=== PATIENT | male | born 1965 | race Caucasian/White ===

== ENCOUNTER 2016-07-11 17:36 | Emergency (ER) | payer OTHER ==
[~2016-07-11] VITALS: Ht 167.6 cm; Wt 81.6 kg
[2016-07-11 19:03] LABS: ABSOLUTE BASOPHIL COUNT 0 /CUMM (0.0-0.2); ABSOLUTE EOSINOPHIL COUNT 0.3 /CUMM (0.0-0.7); ABSOLUTE GRANULOCYTE CT 5.3 /CUMM (1.4-6.5); ABSOLUTE LYMPH COUNT 1.9 /CUMM (1.2-3.4); ABSOLUTE MONOCYTE COUNT 0.8 /CUMM (0.10-0.60); BASOPHIL % 0.6 % (0.0-2.0); EOSINOPHIL % 3.5 % (0-5); GRANULOCYTE % 63.5 % (42.2-75.2); HEMATOCRIT 45.5 % (42-52); MEAN CORPUSCULAR HGB 29.1 PG (27.0-31.0); MEAN CORPUSCULAR HGB CONC 33.6 G/DL (33.0-37.0); MEAN CORPUSCULAR VOLUME 86.6 FL (80.0-94.0); MEAN PLATELET VOLUME 10.8 FL (7.4-10.4); PLATELET COUNT 219 /CUMM (130-400); RBC DISTRIBUTION WIDTH 13.3 % (11.5-14.5); RED BLOOD CELL CT 5.26 /CUMM (4.70-6.10); WHITE BLOOD CELL COUNT 8.4 /CUMM (4.8-10.8)
--- NOTE | 2016-07-11 19:52 | ED EYE COMPLAINT ---
History of Present Illness General Chief Complaint: Eye Problems Stated Complaint: PT RT EYE POSSIBLE INFECTION Source: patient, family Exam Limitations: no limitations Vital Signs & Intake/Output Vital Signs & Intake/Output Vital Signs Date Time Temp Pulse Resp B/P B/P Pulse O2 O2 Flow FiO2 Mean Ox Delivery Rate 07/11 1858 98.0 78 20 190/100 07/11 1853 190/92 07/11 181 98.0 85 20 204/90 07/11 1810 97.0 80 20 208/94 96 Room Air 07/11 175 98.6 84 16 223/122 99 Room Air Allergies Coded Allergies: No Known Allergies (07/11/16) Reconcile Medications No Known Home Medications Triage Note: TRIAGE: R EYE PAIN, BLURRY VISION AND TEARING X 2 WEEKS. ENDORSES PHOTOSENSITIVITY. PRESCRIBED EYE GTT WITH NO IMPROVEMENT AND WORSENING SYMPTOMS. STATES IT FEELS "LIKE THERE ARE STONES IN THERE" AND CONCERNED FOR FOREIGN BODY. C/O RIGHT SIDED HEADACHE /10. R SCLERA REDDENED. R PUPIL SLIGHTLY LARGER THAN LEFT, REACTIVE TO LIGHT. DEMONSTRATES GOOD FOCAL CONTROL. HYPERTENSIVE IN TRIAGE 223/122. ACCUCHECK 273 Triage Nurses Notes Reviewed? yes Onset: Gradual Duration: week(s): (2-3) Timing: recent history Injury Environment: home Severity: moderate, severe Modifying Factors: Worsens With: movement, other (eye opening). Right Eye Associated Symptoms: pain, sensitivity to light, blurred vision HPI: 50-year-old male with long-standing history of hypertension and diabetes noncompliant with medications for the past 2 years presents to the chief complaint of right eye pain, redness and diminished vision. On June 27 had a red and irritated eye and went to [facility] clinic. There they put him on tobramycin drops which she used for 2 days. He states the drops did not help and so since that time he's been using [id number] aids for right eye. Yesterday the pain became much worse. He had a hard time driving because of loss of vision. Today he presents to the ER. Systolic blood pressure at 6 pmwas over 220. Patient denies chest pain at this time but has had fluctuating episodes of heaviness. He reports significant diminished vision in the right eye. No left eye complaint he denies any trauma to the eyes. Patient states he has not followed up with medical care last 2 years secondary to insurance issues. Past History Travel History Traveled to [place] past 21 day No Medical History Any Pertinent Medical History? see below for history Cardiovascular: hypertension Endocrine: diabetes Surgical History Surgical History: non-contributory Psychosocial History What is your primary language Czech Tobacco Use: Never used ETOH Use: 6 Illicit Drug Use: denies illicit drug use Family History Hx Contributory? No Review of Systems Review of Systems Constitutional: Denies: chills, fever. Eyes: Reports: blurred vision, decreased acuity, foreign body sensation, pain, photophobia, vision change. Denies: glasses. Ear: Denies: pain. Nose: Denies: pain. Mouth: Reports: no symptoms. Throat: Denies: pain, swelling. Respiratory: Denies: cough, short of breath. Cardiovascular: Denies: chest pain, palpitations. GI: Denies: abdominal pain. Genitourinary: Reports: no symptoms. Musculoskeletal: Reports: no symptoms. Skin: Reports: no symptoms. Neurological/Psychological: Reports: ataxia. Hematologic/Endocrine: Denies: bruising, bleeding. Immunologic/Allergic: Denies: splenectomy. All Other Systems: Reviewed and Negative Physical Exam General Appearance: well developed/nourished, alert, awake, mild distress, moderate distress General Inspection: normal inspection Eyelid: normal inspection Conjunctiva/Sclera: normal inspection Cornea: normal inspection General Inspection: normal inspection, globe firm/tender to touch Eyelid: everted for exam, edema, erythema Conjunctiva/Sclera: injected Cornea: normal inspection EOM: intact Pupil: mid-dilated/fixed Physical Exam Head: atraumatic, normal appearance Nose: active bleeding Mouth/Throat: normal mouth inspection, pharynx normal Neck: normal inspection, supple, full range of motion Cardiovascular/Respiratory: normal breath sounds, normal peripheral pulses, regular rate/rhythm Neurologic/Psych: no motor/sensory deficits, awake, alert, oriented x 3 Skin: intact, normal color, warm/dry Progress Differential Diagnosis: corneal abrasion, corneal foreign body, conjunctivitis, globe rupture, closed angle closure glaucoma iritis uveitis Plan of Care: Orders Procedure Date/time Status TROPONIN LEVEL 07/11 182 Complete COMPREHENSIVE METABOLIC PANEL 07/11 182 Complete CBC WITHOUT DIFFERENTIAL 07/11 1820 Complete EKG 07/11 1756 Active Laboratory Tests 07/11/16 1830: Anion Gap 12, Estimated GFR > 60, BUN/Creatinine Ratio 11.0, Glucose 286 H, Calcium 9.1, Total Bilirubin 0.6, AST 28, ALT 48, Alkaline Phosphatase 134 H, Troponin I 0.03, Total Protein 6.9, Albumin 3.6, Globulin 3.3, Albumin/Globulin Ratio 1.1, CBC w Diff NO MAN DIFF REQ, RBC 5.26, MCV 86.6, MCH 29.1, RDW 13.3, MPV 10.8 H, Gran % 63.5, Lymphocytes % 23.0, Monocytes % 9.4 H, Eosinophils % 3.5, Basophils % 0.6, Absolute Granulocytes 5.3, Absolute Lymphocytes 1.9, Absolute Monocytes 0.8 H, Absolute Eosinophils 0.3, Absolute Basophils 0, PUBS MCHC 33.6 EKG, patient monitor. IV labetalol ordered. Right eye pressures: 54, 56, 74 Left eye pressures: 27, 16, 27 Atenolol, pilocarpine drops administered to the eye. Case discussed with Dr. Stewart who recommends that the patient is transferred to [place] for follow-up and care. He states that the patient is going to have extensive disease secondary to untreated medical issues. Case is discussed with Dr. Aldana at [place] who will accept the patient there for transfer. (YANICK WILSON,VIRIDIANA) Departure Departure Time of Disposition: 1954 Disposition: OTHER GENERAL HOSPITAL (ACUTE) Condition: Stable Clinical Impression Primary Impression: Glaucoma, right eye Secondary Impressions: Hypertensive urgency Referrals: PATIENT HAS NO PRIMARY CARE DR (PCP/Family) Departure Forms: Customer Survey General Discharge Information Prescriptions: Current Visit Scripts No Known Home Medications Critical Care Note Critical Care Note Critical Care Time: 30-74 min
[2016-07-11 20:08] VITALS: BP 190/98
== END 2016-07-11 20:20 | disposition short-term general hospital (02) ==
LOC: ERH 17:36
PROVIDERS: Emergency Medicine
DX: H40.9 Unspecified glaucoma (principal); I10 Essential (primary) hypertension
CPT/HCPCS: 93005; 93010; 96374; 96375; 96376; 99291; J0131

== ENCOUNTER 2016-09-12 00:03 | Emergency (ER) | payer OTHER ==
--- NOTE | 2016-09-12 02:06 | ED GI/GU/ABDOMINAL COMPLAINT ---
History of Present Illness General Chief Complaint: Abdominal Pain/Flank Pain Stated Complaint: FELL FROM BED C/O RT SIDE ABD PAIN Source: patient, family, old records Exam Limitations: no limitations Vital Signs & Intake/Output Vital Signs & Intake/Output Vital Signs Date Time Temp Pulse Resp B/P B/P Pulse O2 O2 Flow FiO2 Mean Ox Delivery Rate 09/12 0147 98.3 88 18 190/94 97 Allergies Coded Allergies: No Known Allergies (07/11/16) Reconcile Medications Cyclopentolate HCl (Unknown Strength) DROPS (Unknown Dose) GLAUCOMA (Reported ) Docusate Sodium (Colace) 100 MG CAPSULE 1 CAP PO TID PRN WITH PERCOCET Ibuprofen 600 MG TABLET 1 TAB PO Q6 PRN PAIN with food Insulin Glargine,Hum.rec.anlog (Lantus Solostar) 100 UNIT/ML (3 ML) INSULN.PEN 30 UNIT SC QPM DIABETES (Reported) Losartan Potassium 50 MG TABLET 1 TAB PO DAILY HIGH BLOOD PRESSURE (Reported) Metformin HCl 1,000 MG TABLET 1 TAB PO BID DIABETES (Reported) Oxycodone HCl/Acetaminophen (Percocet 5-325 MG Tablet) 5 MG-325 MG TABLET 1 TAB PO BID BREAKTHROUGH PAIN Pen Needle, Diabetic (Bd Ultra-Fine Pen Needle) 31 GAUGE X 3/16" DIS.NEEDLE DIABETES (Reported) Triage Nurses Notes Reviewed? yes Onset: Abrupt Duration: hour(s): (FEW) Timing: single episode today Severity Numbers: 10 Location: left flank Activities at Onset: none Modifying Factors: Worsens With: breathing, movement, palpation. Associated Symptoms: CHEST PAIN, FLANK PAIN HPI: This is a 51-year-old male with history of diabetes, hypertension, recent surgery for glaucoma, who presents for chief complaint of severe left flank pain after second fall inside his house on tile floor with wet feet. He states that he did not hit his head or pass out. Pain is severe especially with movement and deep breathing. Complains also of left abdominal pain. He did not take any of his medications for his diabetes this morning including his metformin or his insulin. Past History Medical History Any Pertinent Medical History? see below for history Cardiovascular: hypertension Endocrine: diabetes Surgical History Surgical History: non-contributory Psychosocial History What is your primary language Northern Irish Family History Hx Contributory? No Review of Systems Review of Systems Constitutional: Denies: chills, fever. EENTM: Reports: no symptoms. Respiratory: Reports: short of breath. Denies: cough, sputum production. Cardiovascular: Reports: chest pain. GI: Reports: abdominal pain. Genitourinary: Denies: discharge, dysuria. Musculoskeletal: Reports: back pain. Skin: Reports: no symptoms. Neurological/Psychological: Reports: no symptoms. Hematologic/Endocrine: Denies: bruising, bleeding, polyuria, polydipsia. Immunologic/Allergic: Denies: splenectomy. All Other Systems: Reviewed and Negative Physical Exam Physical Exam General Appearance: well developed/nourished, alert, awake, anxious, mild distress, moderate distress Head: atraumatic, normal appearance Eyes: Bilateral: normal appearance, PERRL, EOMI. Ears, Nose, Throat, Mouth: hearing grossly normal, moist mucous membrane Neck: normal inspection, supple, full range of motion Respiratory: normal breath sounds, no respiratory distress, TENDER LEFT CHEST Cardiovascular: regular rate/rhythm Peripheral Pulses: 2+ radial (R), 2+ radial (L) Gastrointestinal: soft, tenderness (LEFT FLANK) Back: normal inspection, CVA tenderness (L) Extremities: normal range of motion Neurologic/Psych: no motor/sensory deficits, awake, alert, oriented x 3 Core Measures ACS in differential dx? No Severe Sepsis Present: No Septic Shock Present: No Progress Differential Diagnosis: RIB FX, PULMONARY CONTUSION, PTX, RENAL CONTUSION, HYPERGLYCEMIA, DKA, MEDICATION NON COMPLIANCE Plan of Care: Orders Procedure Date/time Status URINALYSIS 09/12 129 Active TROPONIN LEVEL 09/12 129 Complete LIPASE 09/12 129 Complete COMPREHENSIVE METABOLIC PANEL 09/12 129 Complete CBC WITHOUT DIFFERENTIAL 09/12 129 Complete AMYLASE 09/12 129 Complete Laboratory Tests 09/12/16 0140: Anion Gap 10, Estimated GFR > 60, BUN/Creatinine Ratio 26.7 H, Glucose 514 *H, Calcium 9.0, Total Bilirubin 0.5, AST 27, ALT 35, Alkaline Phosphatase 195 H, Troponin I 0.03, Total Protein 6.6, Albumin 3.9, Globulin 2.7, Albumin/Globulin Ratio 1.4, Amylase 66, Lipase 285, CBC w Diff NO MAN DIFF REQ, RBC 4.48 L, MCV 85.4, MCH 28.9, RDW 13.8, MPV 10.2, Gran % 76.3 H, Lymphocytes % 13.0 L, Monocytes % 7.8, Eosinophils % 2.6, Basophils % 0.3, Absolute Granulocytes 7.9 H, Absolute Lymphocytes 1.3, Absolute Monocytes 0.8 H, Absolute Eosinophils 0.3 , Absolute Basophils 0, PUBS MCHC 33.9 PAIN IMPROVED AFTER IV DILAUDID. INCREASED BLOOD GLUCOSE BUT NO EVIDENCE OF DKA. PATIENT DID NOT TAKE HIS EVENING LANTUS. INSULIN, FLUIDS ORDERED. CT PENDING. CT CONSISTENT WITH POSTERIOR RIB FRACTURES ON THE LEFT SIDE. NO PTX. PAIN IS MUCH IMPROVED. ZOFRAN GIVEN FOR NAUSEA. 4:35 am patient cleared for discharge home. told to return for any changing or worsening symptoms. (YANICK WILSON,VIRIDIANA) Diagnostic Imaging: Viewed by Me: CT Scan. Discussed w/RAD: CT Scan. Radiology Impression: PATIENT: GIAN DEAL PRESENT AGE: 51 PATIENT ACCOUNT NO: [id number] : 66 LOCATION: [facility] ORDERING PHYSICIAN: VIRIDIANA HERNDON MD SERVICE DATE: 09/12/16 EXAM TYPE: CAT - CT ABD & PELVIS W IV CONTRAST; CT CHEST W IV CONTRAST EXAMINATION: CT CHEST, ABDOMEN AND PELVIS WITH CONTRAST CLINICAL INFORMATION: Fall. Shortness of breath. COMPARISON: None. TECHNIQUE: Multidetector volumetric CT imaging of the chest, abdomen and pelvis was obtained after the administration of 95 mL of intravenous Optiray 320 without immediate adverse reactions. DLP: 1006.08 mGy- cm. FINDINGS: CT CHEST: Lungs: The lungs are clear with no evidence of inflammation or nodules. Mediastinum: The mediastinum is normal. Pleura: There is no pleural effusion. No pleural mass or thickening. Axilla: No lymphadenopathy. CT ABDOMEN AND PELVIS: LIVER, GALLBLADDER, AND BILIARY TREE: The liver is normal in size, shape, and attenuation. No focal hepatic lesion or biliary ductal dilatation is present. Multiple small calcified gallstones in the gallbladder. No edema around the gallbladder. The gallbladder is distended. No bile duct dilatation. The extrahepatic CBD measures 4 mm. PANCREAS: No acute change of the pancreas. No mass. No pancreatic duct dilatation. SPLEEN: Spleen normal in size and contour. No focal lesion. ADRENAL GLANDS: Adrenal glands are normal in size. No focal mass. KIDNEYS AND URETERS: The kidneys are normal in size, shape, and attenuation. No hydronephrosis, hydroureter, or calculi seen. No perinephric stranding. BLADDER: Unremarkable. GASTROINTESTINAL TRACT: The small and large bowel are unremarkable. The appendix is unremarkable. MESENTERY: No focal inflammation. No free fluid. No free air. ABDOMINAL WALL: No significant hernia is appreciated. LYMPH NODES: Normal. VASCULAR: Unremarkable. PELVIC VISCERA: Unremarkable. OSSEOUS STRUCTURES: There is fracture of the posterior 12th, 11th, 10th right ribs. Degenerative spondylosis of spine with multilevel endplate spurs and facet joint arthrosis. Status post laminectomy L4- L5. Mild degenerative change of the hips bilateral. IMPRESSION: 1. Fracture of the right 10th through 12th ribs posteriorly. Spleen is normal. No pneumothorax or pleural effusion. Lungs are clear. 2. Cholelithiasis. DICTATED BY: CARLA POLO MD DATE/TIME DICTATED:09/12/16309 PROGRESSIVE CARE UNIT REGISTERED NURSE:KERI DATE/TIME TRANSCRIBED:09/12/16309 CONFIDENTIAL, DO NOT COPY WITHOUT APPROPRIATE AUTHORIZATION. <Electronically signed in Other Vendor System> SIGNED BY: CARLA POLO MD 09/12/16 0321 Initial ED EKG: none Departure Departure Time of Disposition: 442 Disposition: HOME OR SELF CARE Condition: Stable Clinical Impression Primary Impression: Left rib fracture Secondary Impressions: Hyperglycemia Referrals: WALKER OZUNA APRN (PCP/Family) Additional Instructions: TAKE THE IBUPROFEN AND PERCOCET DIRECTED. CONTINUE YOUR REGULAR DIABETIC MEDICATIONS AND MONITOR YOUR BLOOD GLUCOSE REGULARLY. PLEASE FOLLOW UP WITH YOUR PRIMARY CARE DOCTOR IN THE OFFICE. RETURN TO THE ER FOR ANY CHANGING OR WORSENING SYMPTOMS. Departure Forms: Customer Survey General Discharge Information Prescriptions: Current Visit Scripts Ibuprofen 1 TAB PO Q6 PRN PAIN #30 TAB with food Oxycodone HCl/Acetaminophen (Percocet 5-325 MG Tablet) 1 TAB PO BID #15 TAB Docusate Sodium (Colace) 1 CAP PO TID PRN WITH PERCOCET #30 CAP
[2016-09-12 02:16] LABS: ABSOLUTE BASOPHIL COUNT 0 /CUMM (0.0-0.2); ABSOLUTE EOSINOPHIL COUNT 0.3 /CUMM (0.0-0.7); ABSOLUTE GRANULOCYTE CT 7.9 /CUMM (1.4-6.5); ABSOLUTE LYMPH COUNT 1.3 /CUMM (1.2-3.4); ABSOLUTE MONOCYTE COUNT 0.8 /CUMM (0.10-0.60); BASOPHIL % 0.3 % (0.0-2.0); EOSINOPHIL % 2.6 % (0-5); GRANULOCYTE % 76.3 % (42.2-75.2); HEMATOCRIT 38.3 % (42-52); MEAN CORPUSCULAR HGB 28.9 PG (27.0-31.0); MEAN CORPUSCULAR HGB CONC 33.9 G/DL (33.0-37.0); MEAN CORPUSCULAR VOLUME 85.4 FL (80.0-94.0); MEAN PLATELET VOLUME 10.2 FL (7.4-10.4); PLATELET COUNT 206 /CUMM (130-400); RBC DISTRIBUTION WIDTH 13.8 % (11.5-14.5); RED BLOOD CELL CT 4.48 /CUMM (4.70-6.10); WHITE BLOOD CELL COUNT 10.3 /CUMM (4.8-10.8)
[2016-09-12] MEDS ORDERED: METFORMIN HCL1000 M1 PO (02:41)
[2016-09-12] MEDS ORDERED: LOSARTAN POTASS50 M1 PO (02:41)
[2016-09-12] MEDS ORDERED: BD ULTRA-FINE1 EAC2 (02:41)
[2016-09-12] MEDS ORDERED: CYCLOPENTOLATE H2 ML (02:42)
[2016-09-12] MEDS ORDERED: LANTUS SOL100 UNIT/1 SC (02:42)
--- NOTE | 2016-09-12 03:21 | CT SCAN REPORT ---
EXAMINATION: CT CHEST, ABDOMEN AND PELVIS WITH CONTRAST CLINICAL INFORMATION: Fall. Shortness of breath. COMPARISON: None. TECHNIQUE: Multidetector volumetric CT imaging of the chest, abdomen and pelvis was obtained after the administration of 95 mL of intravenous Optiray 320 without immediate adverse reactions. DLP: 1006.08 mGy-cm. FINDINGS: CT CHEST: Lungs: The lungs are clear with no evidence of inflammation or nodules. Mediastinum: The mediastinum is normal. Pleura: There is no pleural effusion. No pleural mass or thickening. Axilla: No lymphadenopathy. CT ABDOMEN AND PELVIS: LIVER, GALLBLADDER, AND BILIARY TREE: The liver is normal in size, shape, and attenuation. No focal hepatic lesion or biliary ductal dilatation is present. Multiple small calcified gallstones in the gallbladder. No edema around the gallbladder. The gallbladder is distended. No bile duct dilatation. The extrahepatic CBD measures 4 mm. PANCREAS: No acute change of the pancreas. No mass. No pancreatic duct dilatation. SPLEEN: Spleen normal in size and contour. No focal lesion. ADRENAL GLANDS: Adrenal glands are normal in size. No focal mass. KIDNEYS AND URETERS: The kidneys are normal in size, shape, and attenuation. No hydronephrosis, hydroureter, or calculi seen. No perinephric stranding. BLADDER: Unremarkable. GASTROINTESTINAL TRACT: The small and large bowel are unremarkable. The appendix is unremarkable. MESENTERY: No focal inflammation. No free fluid. No free air. ABDOMINAL WALL: No significant hernia is appreciated. LYMPH NODES: Normal. VASCULAR: Unremarkable. PELVIC VISCERA: Unremarkable. OSSEOUS STRUCTURES: There is fracture of the posterior 12th, 11th, 10th right ribs. Degenerative spondylosis of spine with multilevel endplate spurs and facet joint arthrosis. Status post laminectomy L4-L5. Mild degenerative change of the hips bilateral. IMPRESSION: 1. Fracture of the right 10th through 12th ribs posteriorly. Spleen is normal. No pneumothorax or pleural effusion. Lungs are clear. 2. Cholelithiasis.
[2016-09-12] MEDS ORDERED: IBUPROFEN600 M1 PO (04:09)
[2016-09-12] MEDS ORDERED: COLACE100 M1 PO (04:09)
[2016-09-12] MEDS ORDERED: PERCOCET 5-3251 EACH PO (04:09)
[2016-09-12 04:25] VITALS: BP 186/88
== END 2016-09-12 04:40 ==
LOC: ERH 00:03
PROVIDERS: Emergency Medicine
DX: S22.32XA Fracture of one rib, left side, initial encounter for closed fracture (principal); E11.65 Type 2 diabetes mellitus with hyperglycemia; W19.XXXA Unspecified fall, initial encounter; Y92.9 Unspecified place or not applicable; Y93.9 Activity, unspecified
CPT/HCPCS: 74177; 96372; 96374; J2405

== ENCOUNTER 2017-06-04 20:46 | Inpatient (IN) | payer OTHER ==
[~2017-06-04] VITALS: Ht 167.6 cm; Wt 91.2 kg
[~2017-06-04 20:46] MED LIST: ACULAR LS5 ML OP; ALPHAGAN P5 M1 OD; ASPIRIN EC81 M1 PO; ATORVASTATIN CA40 M1 PO; ATROPINE SULFATE2 ML OD; BD ULTRA-FINE1 EAC2; CALCIUM 500 +1 EAC5 PO; CARVEDILOL25 M1 PO; COLACE100 M1 PO; CYCLOPENTOLATE H2 ML; DORZOLAMIDE-TIM10 ML OD; DOXAZOSIN MESYLA2 M1 PO; GABAPENTIN100 M2 PO; IBUPROFEN600 M1 PO; LANTUS SOL100 UNIT/1 SC; LASIX40 M1 PO; LOSARTAN POTAS100 M1 PO; LOSARTAN POTASS50 M1 PO; METFORMIN HCL1000 M1 PO; METOPROLOL TART25 M1 PO; NORVASC10 M1 PO; NOVOLOG100 UNIT/2 SC; PERCOCET 5-3251 EACH PO; PRED FORTE1 ML OD; TRAMADOL HCL50 M1 PO; VIGAMOX3 ML OD
[2017-06-04 21:35] LABS: ABSOLUTE BASOPHIL COUNT 0 /CUMM (0.0-0.2); ABSOLUTE EOSINOPHIL COUNT 0.1 /CUMM (0.0-0.7); ABSOLUTE GRANULOCYTE CT 11.8 /CUMM (1.4-6.5); ABSOLUTE LYMPH COUNT 1.4 /CUMM (1.2-3.4); ABSOLUTE MONOCYTE COUNT 0.8 /CUMM (0.10-0.60); BASOPHIL % 0.3 % (0.0-2.0); EOSINOPHIL % 0.6 % (0-5); GRANULOCYTE % 83.8 % (42.2-75.2); HEMATOCRIT 37.7 % (42-52); MEAN CORPUSCULAR HGB 28.8 PG (27.0-31.0); MEAN CORPUSCULAR VOLUME 87.2 FL (80.0-94.0); MEAN PLATELET VOLUME 9.6 FL (7.4-10.4); PLATELET COUNT 292 /CUMM (130-400); RBC DISTRIBUTION WIDTH 14.4 % (11.5-14.5); RED BLOOD CELL CT 4.32 /CUMM (4.70-6.10); WHITE BLOOD CELL COUNT 14.1 /CUMM (4.8-10.8)
--- NOTE | 2017-06-04 21:50 | ED CARDIAC/CP/PALPITATIONS ---
History of Present Illness General Chief Complaint: General Adult Stated Complaint: PT COUGHING ,SOB , PAIN IN CHEST,FEVER Source: patient Exam Limitations: no limitations Vital Signs & Intake/Output Vital Signs & Intake/Output Vital Signs Date Time Temp Pulse Resp B/P B/P Pulse O2 O2 Flow FiO2 Mean Ox Delivery Rate 06/05 0057 99.2 93 20 198/77 06/05 0055 99.3 93 20 198/77 95 Nasal Cannula 06/05 0003 100.3 06/05 0000 100.3 100 20 163/83 94 Nasal Cannula 06/04 2243 95 Nasal 2.0L Cannula 06/04 2214 94 Nasal 2.0L Cannula 06/04 2205 104 18 178/92 94 Nasal 2.0L Cannula 06/04 2109 100.1 101 18 218/104 93 Room Air ED Intake and Output 06/05 0000 06/04 1200 Intake Total Output Total Balance Patient 197 lb Weight Weight Reported by Patient Measurement Method Allergies Coded Allergies: No Known Allergies (07/11/16) Reconcile Medications Amlodipine Besylate (Norvasc) 10 MG TABLET 1 TAB PO DAILY BLOOD PRESSURE ( Reported) Aspirin (Ecotrin*) 81 MG TABLET.DR 1 TAB PO DAILY HEART/BLOOD (Reported) Atorvastatin Calcium 40 MG TABLET 1 TAB PO DAILY CHOLESTEROL (Reported) Atropine Sulfate 1 % DROPS 1 DRP OD TID EYE (Reported) Brimonidine Tartrate (Alphagan P) 0.1 % DROPS 1 DRP OD TID EYE (Reported) Carvedilol 25 MG TABLET 1 TAB PO BID HEART (Reported) Dorzolamide HCl/Timolol Maleat (Dorzolamide-Timolol Eye Drops) 22.3 MG-6.8 MG/ML DROPS 1 DRP OD BID EYE (Reported) Doxazosin Mesylate 2 MG TABLET 2 MG PO DAILY HTN . Furosemide (Lasix) 40 MG TABLET 40 MG PO DAILY HTN . Gabapentin 100 MG CAPSULE 1 CAP PO BID PAIN (Reported) Insulin Aspart (Novolog) 100 UNIT/ML VIAL 0 SC TIDAC/HS PRN diabetes NovoLog sliding scale, 3 times a day before meals blood sugar: 80-150 give 6 units subcutaneous 151-200 give 8 units subcutaneous 201-250 10 units 251-300 12 units 301-350 14 units 351-400 16 units >400 18 units and call your doctor Insulin Glargine,Hum.rec.anlog (Lantus Solostar) 100 UNIT/ML (3 ML) INSULN.PEN 10 UNIT SC QPM DIABETES (Reported) Ketorolac Tromethamine (Acular Ls) 0.4 % DROPS 1 DROP OP TID EYE (Reported) Losartan Potassium 100 MG TABLET 1 TAB PO DAILY HEART (Reported) Metoprolol Tartrate 25 MG TABLET 1 TAB PO BID HTN Moxifloxacin Hydrochloride (Vigamox) 0.5 % DROPS 1 DRP OD 4 TIMES/DAY EYE ( Reported) Prednisolone Acetate (Pred Forte) 1 % DROPS.SUSP 1 DRP OD Q2 EYE (Reported) Tramadol HCl 50 MG TABLET 50 TAB PO BIDP PRN shoulder pain . Triage Note: PT STATES THAT HE HAS BEEN SICK FOR OVER A WEEK. PT STATES THAT HE SAW THE DOCTOR ON SATURDAY AND PT STATES HE WAS GIVEN COUGH SYRUP, TESSLEN PEARLS, AND PREDNISONE. PT STATES THAT HE IS SOB AND THAT HE CANT LAY DOWN.. PT STATES HE PUTS THE FAN IN HIS FACE SO HE CAN BREATH... PT HAS AUDITORY WHEEZES. PT STATES THAT THE CHEST PAIN IS AN 8/10 AND IT FEELS LIKE HIS CHEST IS COMPRESSED AND THAT HE CAN NOT BREATH Triage Nurses Notes Reviewed? yes Onset: Gradual Duration: getting worse Timing: recent history Location: substernal Radiation: no radiation HPI: Patient is a 51-year-old male with a past medical history of hypertension and hyperlipidemia insulin-dependent diabetes and elevated troponins presents emergency room to the past week he's been complaining of persistent NONPRODUCTIVE cough and shortness of breath intermittent pleuritic chest pain generalized weakness and fatigue. Patient was evaluated by primary care doctor 3 days ago obtained chest x-ray was unremarkable findings on the first his symptoms 5 days ago patient took leftover amoxicillin tablets (Ramos Storm) Past History Travel History Traveled to [place] past 21 day No Medical History Any Pertinent Medical History? see below for history Neurological: NONE EENT: GLAUCOMA RIGHT EYE Cardiovascular: CAD, hypertension, hyperlipidemia, PALPITATIONS Respiratory: NONE Gastrointestinal: NONE Hepatic: LAP JEWEL 12/25 Renal: nephrolithiasis Musculoskeletal: falls, FRACTURE (RIBS) R SHOULDER ROTATOR CUFF ? Psychiatric: NONE Endocrine: diabetes Blood Disorders: NONE Cancer(s): NONE PATIENT ACCOUNTS COORDINATOR/Reproductive: NONE History of MRSA: No History of VRE: No History of CDIFF: No Influenza Vaccine: 01/14/17 Surgical History Surgical History: cholecystectomy, Glaucoma repair in 07/25 Psychosocial History Who do you live with Spouse Services at Home None What is your primary language [place]ambican Tobacco Use: Never used Family History Family History, If Any: aunt Coronary artery disease uncle Coronary artery disease Relation not specified for: FH: diabetes mellitus FH: hypertension Hx Contributory? No (Ramos Storm) Review of Systems Review of Systems Constitutional: Reports: see HPI, chills, malaise, weakness. EENTM: Reports: see HPI. Respiratory: Reports: see HPI, cough. Cardiovascular: Reports: see HPI, chest pain. GI: Reports: no symptoms. Genitourinary: Reports: no symptoms. Musculoskeletal: Reports: no symptoms. Skin: Reports: no symptoms. Neurological/Psychological: Reports: no symptoms. Hematologic/Endocrine: Reports: no symptoms. Immunologic/Allergic: Reports: no symptoms. All Other Systems: Reviewed and Negative (Ramos Storm) Physical Exam Physical Exam General Appearance: mild distress Head: atraumatic Eyes: Bilateral: normal appearance, PERRL. Ears, Nose, Throat: normal pharynx, hearing grossly normal, nasal congestion Neck: normal inspection Respiratory: quiet respiration, decreased breath sounds Cardiovascular: tachycardia Peripheral Pulses: 2+ radial (R) Gastrointestinal: normal bowel sounds, soft, non-tender Rectal: normal rectal tone, heme negative stool Extremities: BILATERAL TRACE PITTING EDEMA Neurologic/Psych: no motor/sensory deficits, awake Skin: intact, normal color Core Measures ACS in differential dx? Yes CVA/TIA Diagnosis No Sepsis Present: Yes Sepsis Focused Exam Completed? Yes (Ramos Storm) ED Sepsis Exam Date of Focused Sepsis Exam: 06/05/17 Time of Focused Sepsis Exam: 2239 Sepsis Cardiac Exam: Tachycardia Sepsis Resp Exam: DECREASED BREATH SOUNDS Sepsis Cap Refill Exam: <2 Sec Sepsis Peripheral Pulse Exam: Normal Sepsis Peripheral Pulse Location: Radial Sepsis Skin Color Exam: Normal for Ethnicity Skin Temp/Moisture Exam: Warm/Dry (Ramos Storm) Progress Differential Diagnosis: AMI, aortic dissection, atrial fibrillation, cholecystitis, CHF/pulm edema, costochondritis, hyperkalemia, hypovolemia, hyperthyroid, hyperventilation, intracranial hemorrhage, musculoskeletal pain, myocarditis, pancreatitis, pericarditis, pneumonia, pneumothorax, PSVT, pulmonary embolism, PUD/GERD, PVCs/PACs, respiratory failure, sepsis, unstable angina, V-fib/V-Tach, WPW syndrome Plan of Care: Orders Procedure Date/time Status LACTIC ACID 06/05 0013 Active Patient Data 06/05 0004 Active Admit to inpatient 06/05 0002 Active LOWER RESPIRATORY CULTURE 06/04 2353 Active BLOOD CULTURE 06/04 2353 Active Telemetry/Hand Weaver 06/04 2224 Active Add-on Test (ER Only) 06/04 2217 Active Intake & Output 06/04 2213 Active PARTIAL THROMBOPLASTIN TIME 06/04 2121 Complete PROTHROMBIN TIME 06/04 2121 Complete RAPID VIRAL INFLUENZA A 06/04 2112 Complete TROPONIN LEVEL 06/04 2112 Complete LACTIC ACID 06/04 2112 Complete D-DIMER 06/04 2112 Complete COMPREHENSIVE METABOLIC PANEL 06/04 2112 Complete CBC WITHOUT DIFFERENTIAL 06/04 2112 Complete EKG 06/04 2048 Active Current Medications Sig/Yoav Start time Last Medication Dose Stop Time Status Admin Heparin Sodium 25,000 UNIT Q24H 06/04 2314 AC 06/04 (Porcine) 2353 (Heparin) Sodium Chloride 500 ML Laboratory Tests 06/04/172121: Anion Gap 10, Estimated GFR 58 L, BUN/Creatinine Ratio 22.3, Glucose 166 H, Lactic Acid 1.8, Calcium 9.0, Total Bilirubin 0.5, AST 45, ALT 42, Alkaline Phosphatase 95, Troponin I 0.83 *H, Total Protein 6.8, Albumin 3.4 L, Globulin 3.4, Albumin/Globulin Ratio 1.0 L, PT 10.7, INR 0.98, APTT 27, D-Dimer High Sensitivty 274 H, CBC w Diff NO MAN DIFF REQ, RBC 4.32 L, MCV 87.2, MCH 28.8, MCHC 33.0, RDW 14.4, MPV 9.6, Gran % 83.8 H, Lymphocytes % 9.8 L, Monocytes % 5.5, Eosinophils % 0.6, Basophils % 0.3, Absolute Granulocytes 11.8 H, Absolute Lymphocytes 1.4, Absolute Monocytes 0.8 H, Absolute Eosinophils 0.1, Absolute Basophils 0 Microbiology 06/05 0026 BLOOD: Blood Culture - RECD 06/06 19 BLOOD: Blood Culture - RECD 06/04 2353 LOWER RESP: Respiratory Culture - ORD 06/04 2353 LOWER RESP: Gram Stain - ORD 06/04 2113 NASOPHARYN: Influenza Virus A & B Rapid Smear - COMP 2223- Dr. Hathaway was paged Patient upon initial presentation was noted to have audible coughing and decreased breath sounds nebulizer treatment was administered, patient does have unchanged EKG however does have critical findings of elevated troponin, Dr. Hathaway was aware of his shins critical findings and presentation the emergency room who advised patient to be given heparin, FOBT strip tested by me which was negative heparin was administered patient was given nitroglycerin and aspirin for pleuritic chest pain which improved his symptoms, Nebulizer treatment also improves shortness of breath CT and she will show no convincing evidence of pulmonary embolism however does show concerns of pneumonia due to clinical presentation in which she was given azithromycin and Rocephin Blood cultures were obtained Dr. Hathaway advised patient to be placed in the ICU Dr. Guzmán discussed admission with hospitalist Discussed disposition plan with patient and was aware Diagnostic Imaging: Viewed by Me: CT Scan. Radiology Impression: SEE COMMENTS Initial ED EKG: SINUS TACHYCARDIA 104 BPM Prior EKG: unchanged Comments: PATIENT: GIAN DEAL PRESENT AGE: 51 PATIENT ACCOUNT NO: [id number] : 66 LOCATION: [facility] ORDERING PHYSICIAN: Ramos BROWN SERVICE DATE: 06/04/17 EXAM TYPE: CAT - CTA CHEST-PULMONARY EMBOLISM EXAMINATION: CT ANGIOGRAM OF THE CHEST WITH AND WITHOUT CONTRAST (CT PULMONARY ANGIOGRAM FOR PE) CLINICAL INFORMATION: Reason for Study:
Presumptive Dx: CHEST PAIN, ELEVATED DIMER
Signs Symptoms: RM 4
COMPARISON: None TECHNIQUE: Prior to contrast administration, noncontrast localization images were obtained. Subsequently, multidetector volumetric imaging was performed from the thoracic inlet to below the diaphragms following the administration of 80 mL Omnipaque 350 intravenous contrast. No contrast reaction reported. Sagittal, coronal, and MIP oblique sagittal reformatted images were obtained on the CT workstation, uploaded to PACS, and reviewed. Total exam dose-length product 519 mGy-cm. FINDINGS: QUALITY OF STUDY/CONTRAST BOLUS: Satisfactory PULMONARY ARTERIES: No central or segmental pulmonary emboli. THORACIC AORTA: No aneurysm or dissection. LUNG: Multifocal acinar nodules bilaterally with a slight upper lobe predominance. No discrete mass or cavitation. No evidence for underlying interstitial lung or cystic disease. No endobronchial lesion. PLEURA: No pleural effusion or pneumothorax. MEDIASTINUM: Normal heart size. No pericardial effusion. Mildly prominent lymph nodes within the mediastinum largest at the azygos esophageal recess measuring up to 12 mm short axis.. No evidence of septal bowing or right heart strain. CHEST WALL/AXILLA: Moderately severe symmetrical gynecomastia. OSSEOUS STRUCTURES: No acute or suspicious osseous abnormality. UPPER ABDOMEN: Clips consistent with cholecystectomy. No reflux of contrast into the hepatic veins to suggest elevated right heart pressures. IMPRESSION: 1. No evidence for acute or chronic pulmonary embolism. 2. Lung disease which is nonspecific. Different diagnosis includes opportunistic infection if patient is minimal compromise, hypersensitivity pneumonitis/allergic alveolitis or even an atypical appearance of entity such as alveolar sarcoid. Correlate clinically. 3. Nonspecific mildly prominent lymph nodes within the mediastinum. VTE: DICTATED BY: Mariusz Siegel MD DATE/TIME DICTATED:06/04/172320 (Ramos Storm) Departure Departure Disposition: STILL A PATIENT Condition: Guarded Clinical Impression Primary Impression: Non-STEMI (non-ST elevated myocardial infarction) Secondary Impressions: EVAN (acute kidney injury), Elevated troponin, Pneumonia, Sepsis Referrals: Julia Wolfe APRN (PCP/Family) Departure Forms: Customer Survey General Discharge Information Admission Note Spoke With: Jaun Sanchez MD Documentation of Exam: Documentation of any treatments & extenuating circumstances including Concerns Regarding Discharge (functional status, medication knowledge or non-compliance, living conditions, etc.) that warrant an admission rather than observation: [ Patient requires ICU admission for concerns of non-STEMI patient requires IV antibiotics anticoagulation repeat labs cardiology consultation repeat EKG repeat troponin antitussives nebulizer treatments blood cultures pending sputum culture pending] (Ramos Storm) PA/MEDICAL RECORDS SPECIALIST Co-Sign Statement Statement: ED Attending supervision documentation- [x] I saw and evaluated the patient. I have also reviewed all the pertinent lab results and diagnostic results. I agree with the findings and the plan of care as documented in the PA's/MEDICAL RECORDS SPECIALIST's documentation. 06/05/17, 23:15.... I took over care of patient.... pt with trop 0.83, non acute ekg presently and is chest pain free.... Pt merits icu level care, iv heparin, aspirin, nitrates, bblocker. [] I have reviewed the ED Record and agree with the PA's/MEDICAL RECORDS SPECIALIST's documentation. [] Additions or exceptions (if any) to the PAs/MEDICAL RECORDS SPECIALIST's note and plan are summarized below: [] (Ramirez WILSON,Abhishek Amezquita) Critical Care Note Critical Care Note Critical Care Time: 75-104 min (Ramos Storm) Critical Care Note Critical Care Time: 75-104 min (Ramos Storm)
[2017-06-04 22:28] LABS: PT 10.7 SEC (9.4-12.5); PTT 27 SEC (25-37)
--- NOTE | 2017-06-04 23:42 | CT SCAN REPORT ---
EXAMINATION: CT ANGIOGRAM OF THE CHEST WITH AND WITHOUT CONTRAST (CT PULMONARY ANGIOGRAM FOR PE) CLINICAL INFORMATION: Reason for Study:
Presumptive Dx: CHEST PAIN, ELEVATED DIMER
Signs Symptoms: RM 4
COMPARISON: None TECHNIQUE: Prior to contrast administration, noncontrast localization images were obtained. Subsequently, multidetector volumetric imaging was performed from the thoracic inlet to below the diaphragms following the administration of 80 mL Omnipaque 350 intravenous contrast. No contrast reaction reported. Sagittal, coronal, and MIP oblique sagittal reformatted images were obtained on the CT workstation, uploaded to PACS, and reviewed. Total exam dose-length product 519 mGy-cm. FINDINGS: QUALITY OF STUDY/CONTRAST BOLUS: Satisfactory PULMONARY ARTERIES: No central or segmental pulmonary emboli. THORACIC AORTA: No aneurysm or dissection. LUNG: Multifocal acinar nodules bilaterally with a slight upper lobe predominance. No discrete mass or cavitation. No evidence for underlying interstitial lung or cystic disease. No endobronchial lesion. PLEURA: No pleural effusion or pneumothorax. MEDIASTINUM: Normal heart size. No pericardial effusion. Mildly prominent lymph nodes within the mediastinum largest at the azygos esophageal recess measuring up to 12 mm short axis.. No evidence of septal bowing or right heart strain. CHEST WALL/AXILLA: Moderately severe symmetrical gynecomastia. OSSEOUS STRUCTURES: No acute or suspicious osseous abnormality. UPPER ABDOMEN: Clips consistent with cholecystectomy. No reflux of contrast into the hepatic veins to suggest elevated right heart pressures. IMPRESSION: 1. No evidence for acute or chronic pulmonary embolism. 2. Lung disease which is nonspecific. Different diagnosis includes opportunistic infection if patient is minimal compromise, hypersensitivity pneumonitis/allergic alveolitis or even an atypical appearance of entity such as alveolar sarcoid. Correlate clinically. 3. Nonspecific mildly prominent lymph nodes within the mediastinum. VTE:
[2017-06-05] MEDS ORDERED: DOXAZOSIN MESYLA4 M1 PO (01:41)
[2017-06-05] MEDS ORDERED: LASIX20 M1 PO (01:42)
--- NOTE | 2017-06-05 01:42 | History & Physical ---
Deondre Sanders MD 06/05/17 0141: General Information and HPI MD Statement: I have seen and personally examined GIAN DEAL and documented this H&P. The patient is a 51 year old M who presented with a patient stated chief complaint of chest pain. Source of Information: patient, old records Exam Limitations: no limitations History of Present Illness: 51 year old male with past medical history significant for HTN and DM presented with complaints of three days of chest pain after being managed for an upper respiratory infection for the past week. The patient's primary symptom has been cough for the past one week. The patient complained of fevers, chills (tmax 100.5), nasal and chest congestion, post nasal drip, and severe dyspnea requiring a fan to "help him breathe" with associated wheezing. He initially treated himself with amoxicillin for 3 doses that he had at home from a prior prescription. He then went to [facility] four days ago, was told no antibiotics, given cough medicine, and had a negative chest x-ray performed. Since that time he developed worsening cough, severe exertional dyspnea and exertional chest pain. The chest pain was retrosternal, intermittent, pressure like, 8/10, non radiating and lasted less than twenty minutes per episode. It was exacerbated by walking up the stairs, laying flat and relieved with rest and sitting down. The patient also reports decreased oral intake and labile blood sugars for the past two days which is unusual for him. He never smoked. Review of systems is otherwise negative His senior publications specialist is Dr. Juarez who he last saw in the office a couple months ago. Per Dr. Juarez's note, he had an echocardiogram which revealed low normal left ventricular systolic function with left ventricular hypertrophy and PFO. Nuclear stress test on 01/18/17 revealed a small mild apical inferior perfusion defects which was felt to be secondary to attenuation artifact. There is no evidence of ischemia or infarct. LV ejection fraction was 54%. In the ED, he was given normal saline, aspirin, sublingual nitroglycerin, intravenous metoprolol, and started an intravenous heparin infusion. His developed a fever and hypertension. Sputum and blood cultures were performed. Ceftriaxone and azithromycin were given. The patient's chest pain resolved with sublingual nitroglycerin administration. Allergies/Medications Allergies: Coded Allergies: No Known Allergies (07/11/16) Home Med list Amlodipine Besylate (Norvasc) 10 MG TABLET 1 TAB PO DAILY BLOOD PRESSURE ( Reported) Aspirin (Ecotrin*) 81 MG TABLET.DR 1 TAB PO DAILY HEART/BLOOD (Reported) Carvedilol 25 MG TABLET 1 TAB PO BID HEART (Reported) Dorzolamide HCl/Timolol Maleat (Dorzolamide-Timolol Eye Drops) 22.3 MG-6.8 MG/ML DROPS 1 DRP OD BID EYE (Reported) Doxazosin Mesylate 4 MG TABLET 1 TAB PO DAILY htn (Reported) Furosemide (Lasix) 20 MG TABLET 1 TAB PO Q48 chf (Reported) Insulin Aspart (Novolog) 100 UNIT/ML VIAL 0 SC TIDAC/HS PRN diabetes NovoLog sliding scale, 3 times a day before meals blood sugar: 80-150 give 6 units subcutaneous 151-200 give 8 units subcutaneous 201-250 10 units 251-300 12 units 301-350 14 units 351-400 16 units >400 18 units and call your doctor Insulin Glargine,Hum.rec.anlog (Lantus Solostar) 100 UNIT/ML (3 ML) INSULN.PEN 10 UNIT SC QPM DIABETES (Reported) Losartan Potassium 100 MG TABLET 1 TAB PO DAILY HEART (Reported) Compliance With Home Meds: GOOD Past History Travel History Traveled to [place] past 21 day No Medical History Neurological: NONE EENT: GLAUCOMA RIGHT EYE Cardiovascular: CAD, hypertension, hyperlipidemia, PALPITATIONS Respiratory: NONE Gastrointestinal: NONE Hepatic: LAP JEWEL 12/25 Renal: nephrolithiasis, YSABEL AFTET IVP DYE Musculoskeletal: falls, FRACTURE (RIBS) R SHOULDER ROTATOR CUFF ? Psychiatric: NONE Endocrine: diabetes Blood Disorders: NONE Cancer(s): NONE MONEY COUNTER/Reproductive: NONE History of MRSA: No History of VRE: No History of CDIFF: No Influenza Vaccine: 01/14/17 Surgical History Surgical History: cholecystectomy, Glaucoma repair in 07/25 Past Family/Social History Family History Relations & Conditions if any aunt Coronary artery disease uncle Coronary artery disease Relation not specified for: FH: diabetes mellitus FH: hypertension Psychosocial History Who Do You Live With? spouse Services at Home: None Primary Language: [place] Citizen Functional Ability ADLs Independent: dressing, eating, toileting, bathing. Ambulation: independent IADLs Independent: shopping, housework, finances, food prep, telephone, transportation , medication admin. Review of Systems Review of Systems Constitutional: Reports: chills, fever. EENTM: Reports: nasal congestion. Cardiovascular: Reports: chest pain, edema, orthopena, peripheral edema. Denies: syncope. Respiratory: Reports: cough, orthopnea, short of breath, sputum production, wheezing. Denies : hemoptysis. GI: Denies: abdominal pain, constipation, diarrhea, melena, nausea, vomiting. Genitourinary: Denies: dysuria, frequency. Musculoskeletal: Reports: no symptoms. Skin: Reports: no symptoms. Neurological/Psychological: Reports: no symptoms. Hematologic/Endocrine: Reports: no symptoms. Immunologic/Allergic: Reports: no symptoms. All Other Systems: Reviewed and Negative Exam & Diagnostic Data Last 24 Hrs of Vital Signs/I&O Vital Signs Date Time Temp Pulse Resp B/P B/P Pulse O2 O2 Flow FiO2 Mean Ox Delivery Rate 06/05 0122 99.9 06/05 0121 99.9 80 20 179/90 06/05 0120 99.9 90 20 179/90 94 Nasal Cannula 06/05 0115 84 148/88 06/05 0057 99.2 93 20 198/77 06/05 0055 99.3 93 20 198/77 95 Nasal Cannula 06/05 0003 100.3 06/05 0000 100.3 100 20 163/83 94 Nasal Cannula 06/04 2243 95 Nasal 2.0L Cannula 06/04 2214 94 Nasal 2.0L Cannula 06/04 2205 104 18 178/92 94 Nasal 2.0L Cannula 06/04 2109 100.1 101 18 218/104 93 Room Air Intake & Output 06/05 0800 06/05 0000 06/04 1600 Intake Total 1100 Output Total Balance 1100 Intake, IV 1100 Patient 89.358 kg Weight Weight Reported by Patient Measurement Method Physical Exam General Appearance Alert, Oriented X3, Cooperative, No Acute Distress Cardiovascular Regular Rate, Normal S1, Normal S2, No Murmurs Lungs end inspiratory wheezing and diffuse rhonchi Abdomen Normal Bowel Sounds, Soft, No Tenderness, No Masses Extremities No Clubbing, No Cyanosis, 2+ bilateral lower extremity pitting edema Last 24 Hrs of Labs/Don: Laboratory Tests 06/05/17 0013: Lactic Acid Cancelled 06/04/172121: Anion Gap 10, Estimated GFR 58 L, BUN/Creatinine Ratio 22.3, Glucose 166 H, Lactic Acid 1.8, Calcium 9.0, Total Bilirubin 0.5, AST 45, ALT 42, Alkaline Phosphatase 95, Troponin I 0.83 *H, Total Protein 6.8, Albumin 3.4 L, Globulin 3.4, Albumin/Globulin Ratio 1.0 L, PT 10.7, INR 0.98, APTT 27, D-Dimer High Sensitivty 274 H, CBC w Diff NO MAN DIFF REQ, RBC 4.32 L, MCV 87.2, MCH 28.8, MCHC 33.0, RDW 14.4, MPV 9.6, Gran % 83.8 H, Lymphocytes % 9.8 L, Monocytes % 5.5, Eosinophils % 0.6, Basophils % 0.3, Absolute Granulocytes 11.8 H, Absolute Lymphocytes 1.4, Absolute Monocytes 0.8 H, Absolute Eosinophils 0.1, Absolute Basophils 0 Microbiology 06/05 0145 URINE ROUT: Legionella Antigen - ORD 06/05 0145 URINE ROUT: Streptococcus pneumoniae Antigen (M - ORD 06/05 0132 UPPER RESP: Surveillance Culture - ORD 06/05 0132 GI: Surveillance Culture - ORD 06/05 0026 BLOOD: Blood Culture - RECD 06/05 0020 BLOOD: Blood Culture - RECD 06/04 2354 LOWER RESP: Respiratory Culture - ORD 06/04 235 LOWER RESP: Gram Stain - ORD 06/04 2113 NASOPHARYN: Influenza Virus A & B Rapid Smear - COMP Diagnostic Data EKG Results nonspecific ST changes not significantly different from previous EKG Assessment/Plan Assessment: 51 year old male with past medical history significant for HTN, DM, and previous contrast induced nephropathy presented with complaints of three days of chest pain after recent URI. Chest pain: NSTEMI-type II vs atherosclerotic plaque rupture Risk factors HTN HLD DM First troponin 0.83 Serial troponins and EKGs Cardiology consultation Continue heparin gtt Echocardiogram Probably need for cardiac catheterization Continue aspirin Should restart statin therapy Continue ARB Check proBNP-avoid IVFs CTA 1. No evidence for acute or chronic pulmonary embolism. 2. Lung disease which is nonspecific. Different diagnosis includes opportunistic infection if patient is minimal compromise, hypersensitivity pneumonitis/allergic alveolitis or even an atypical appearance of entity such as alveolar sarcoid. Correlate clinically. 3. Nonspecific mildly prominent lymph nodes within the mediastinum. Monitor for contrast induced nephropathy Upper respiratory infection: Tachycardia, fever, leukocytosis, with productive cough and lymphadenopathy on CT although no infiltrate on CTA Chest Sputum culture Urinary legionella and strep pneumonia antigens Azithromycin/Ceftriaxone x 1 dose for probable community acquired pneumonia Check blood cultures Given ofirmev for fever Check lactic acid HTN: Continue coreg 25mg PO BID Continue furosemide Continue losartan DM: Accuchecks TIDAC/HS Novolog sliding scale insulin Check hemoglobin A1C Glaucoma: Continue eye gtts Diabetic diet DVT ppx-on IV heparin gtt Full code As Ranked By This Provider Problem List: 1. Hypertension 2. Non-STEMI (non-ST elevated myocardial infarction) 3. Elevated troponin Core Measures/Misc (11/25) Acute Coronary Syndrome ACS Diagnosis: Yes Last Known EF % 54 Congestive Heart Failure Congestive Heart Failure Diagnosis No Cerebrovascular Accident CVA/TIA Diagnosis: No VTE (View Protocol) VTE Risk Factors Age>40 No Mechanical VTE Prophylaxis d/t N/A MechProphylax Ordered No VTE Pharm Prophylaxis d/t NA PharmProphylax ordered Sepsis (View protocol) Sepsis Present: No Mitesh Willis 06/05/17 0335: Resident Review Statement Resident Statement: examined this patient, discussed with sports management internship, agreed with sports management internship, discussed with family, reviewed EMR data (avail), discussed with nursing , discussed with case mgmt, reviewed images, amended to note Other Findings: This is a 51-year-old male with extensive past medical history significant for hypertension, hyperlipidemia, glaucoma, systolic congestive heart failure, diabetes mellitus on insulin pump, neuropathy, history of coronary artery disease, cholecystectomy, chronic kidney disease with baseline creatinine 1.3 from contrast nephropathy presented to the ER for evaluation of fever, chills, short of breath, chest pain, productive cough ongoing for 1 week. Patient reports that he has been sick for 1 week. He reports that he has fever, chills, short of breath, productive cough, wheezes, generalized weakness and fatigue for last 1 week. He took amoxicillin for 3 days without any benefit. And he followed up with PCP at [facility] last Saturday, given supportive management, chest x-ray was done, ruled out pneumonia. However patient reports his symptoms has been worsened which prompted him to come to the emergency room today. Patient also reports that he has been having chest pain for last 3 days, 10/18, lasting less than 20 minutes, denies taking any aspirin, nitroglycerin, nonradiating chest pain. He continues to have fever, chills, short of breath, pleuritic chest pain, productive cough, wheezes. Denies any sick contact, travel history. Reports getting flu shot this year. She reports that his chest pain resolved after getting aspirin and nitroglycerin in the emergency room. Patient reports extensive cardiac history in the past. Workup in the cardiology office included an echocardiogram which revealed low normal left ventricular systolic function with left ventricular hypertrophy and PFO. Nuclear stress test on 01/18/17 revealed a small mild apical inferior perfusion defects which was felt to be secondary to attenuation artifact. There is no evidence of ischemia or infarct. LV ejection fraction was 54%. In December, the patient had a laparoscopic cholecystectomy, and this was complicated by acute renal insufficiency which was felt to be secondary to contrast nephropathy. Since then he has been following up Dr. Bo frozen pie maker. He usually follows up with PCP, dental assistant teacher, senior publications specialist, frozen pie maker. Admitted to [facility] in 01/2017 for chest pain, found to have elevated troponin without EKG changes, hypertensive urgency, EVAN. Review of systems was negative except for above. Denied smoking, alcohol abuse, illicit drug abuse. Vitals MAXIMUM TEMPERATURE 100.3, tachycardia 104, respiratory rate 20, blood pressure 218/104, saturating at 95 on 2 L On exam HEENT in normal limit, S1-S2 normal no murmur, bilateral rales and rhonchus on chest exam, Abdomen soft nontender nondistended bilateral lower extremity +1 pitting edema labs Leukocytosis 14.1, hemoglobin 12 hematocrit 37, platelets 292 BUN/creatinine and creatinine 1.3 D-dimer 274 Lactic acid 1.8 chest CTA 1. No evidence for acute or chronic pulmonary embolism. 2. Lung disease which is nonspecific. Different diagnosis includes opportunistic infection if patient is minimal compromise, hypersensitivity pneumonitis/allergic alveolitis or even an atypical appearance of entity such as alveolar sarcoid. Correlate clinically. 3. Nonspecific mildly prominent lymph nodes within the mediastinum. EKG showed sinus rhythm, sinus tachycardia, 104, [address] elevation in lead V2, no other ST-T wave changes. EKG looked same compared to prior except for tachycardia. 1. Chest pain/NSTEMI Patient presented with ongoing chest pain 10/18, sharp, nonradiating, lasting for less than 20 minutes. Denied taking any aspirin or nitroglycerin. Getting on and off chest pain for last 3DAYS associated with respiratory symptoms fever, chills, productive cough, shortness of breath, generalized weakness. Denied any nausea, vomiting, diaphoresis or sweating. * He is febrile with tachycardia and hypertensive in the emergency room requiring 2 L oxygen supplementation. Found to have elevated troponin 0.83 at the time of admission with no EKG changes compared to prior EKG -[address] elevation in V2 and nonspecific. * However given his extensive cardiac history, diabetes, hypertension, hyperlipidemia he needs to be admitted to intensive care unit for management of NSTEMI. * Workup in the cardiology office included an echocardiogram which revealed low normal left ventricular systolic function with left ventricular hypertrophy and PFO. Nuclear stress test on 01/18/17 revealed a small mild apical inferior perfusion defects which was felt to be secondary to attenuation artifact. There is no evidence of ischemia or infarct. LV ejection fraction was 54%. Never underwent cardiac catheterization. * ICU admit * Monitor vitals every hour * Closely monitor blood pressure, heart rate * Continue baby aspirin 81 daily * He is allergic to statin * Continue IV heparin drip for 48-72 hours * Serial troponin and EKG, trend troponin * Echocardiogram in the a.m. * Cardiology consult with Dr. Juarez in a.m. * Continue beta alina carvedilol 25 twice daily * Nitroglycerin as required for chest pain * Continuous telemetry monitoring * Follow cardiology recommendations * Patient may need cardiac catheterization 2. Sepsis secondary to atypical viral pneumonia Patient presented with upper respiratory tract symptoms, fever, chills, productive cough, short of breath, wheezes, generalized weakness and fatigue ongoing for 1 week. He has MAXIMUM TEMPERATURE 100.3 with tachycardia, requiring 2 L oxygen supplementation. He has leukocytosis with no bandemia. CAT scan chest was done in the ER which showed recurrent infiltrates all over the lung concerning for atypical viral pneumonia. He fulfilled SIRS criteria with fever, tachycardia, leukocytosis and source of infection possibly pneumonia. * ICU admit * Monitor vitals every hour * Monitor for fever, worsening leukocytosis * Flu test was negative in ER Will repeat fluids lab again in a.m. * Follow blood cultures * Follow-up sputum cultures * Started ceftriaxone and azithromycin for pneumonia. * Mucinex for cough every 12 hours * [facility] nebs * [facility] consult in a.m. 3. Hypertensive urgency patient presented with BLOOD PRESSURE 218/104. Patient reports that he has not been taking any blood pressure medications for last 48 hours. Blood pressure improved with IV metoprolol 5mg x2 in the emergency room. * Continue amlodipine 10 daily * Continue carvedilol 25 twice daily * Continue doxazosin 4 mg daily * Continue losartan 100 daily 4. Chronic kidney disease Creatinine baseline 1.4. He has creatinine 1.3 at the time of admission. However patient received contrast for CTA chest. * Continue to monitor creatinine in the a.m. * Patient has a history contrast-induced nephropathy * Avoid nephrotoxins * Continue home medications 4. Chronic systolic congestive heart failure Workup in the cardiology office 01/2017 included an echocardiogram which revealed low normal left ventricular systolic function with left ventricular hypertrophy and PFO. LV ejection fraction was 54%. * Doesn't look like in acute heart failure now * Continue Lasix 20 mg every 48 hours * Monitor ins and outs * Will check proBNP * Follow cardiology recommendations 5. Diabetes mellitus Patient is on insulin pump at home. Accu-Cheks NovoLog sliding scale Levemir 10 units twice daily endo consult in the a.m. 6. Hyperlipidemia Allergic to statin with muscle injury in the past Continue zetia 10 daily 7. Glaucoma Continue dorzolamide eyedrops full code Regular diet DVT prophylaxis on IV heparin drip Peripheral line On nasal cannula Jaun Sanchez 06/05/17 0455: Attending MD Review Statement Attending Statement Attending MD Statement: examined this patient, discuss w/resident/PA/STATE DIRECTOR, agreed w/resident/PA/STATE DIRECTOR, reviewed EMR data (avail), reviewed images, amended to note Attending Assessment/Plan: CC: Chest pain PMH: HTN, DM, HLD Patient came to ER for 8/10 intensity chest pain since last 3 days. Since last 1 week patient has been feeling sick, URI symptoms, nasal congestion, chest congestion, cough with brown colored sputum production, extreme weakness and lethargy, shortness of breath. Patient had antibiotics at home, amoxicillin and he took it for 3 days without much relief. Then he followed up with the primary care physician who obtained chest x-ray and he never heard back about the x-ray results. He was not prescribed any antibiotics but was provided supportive care with Mucinex. Patient did not improve symptomatically and was gradually worsening with more shortness of breath, dyspnea or exertion, unable to lie down flat because of persistent cough and then he started to notice chest pain since last 3 days, retrosternal, nonradiating, intermittent, lasting 20 minutes at one time, it is exertional as well as pleuritic in nature, worse when lying down flat. In last 3 days his blood sugar had been out of control, did not take any antihypertensives since last to 3 days because he did not eat anything. Patient denies any blood in sputum, worsening leg swellings, nausea, vomiting, diarrhea, abdominal pain, sick contacts. Vitals: MAXIMUM TEMPERATURE 100.3, pulse 104, RR 18, blood pressure 218/104 on arrival, saturating 93% on 2 L nasal cannula On exam: A O 3, cooperative, mild respiratory distress, continues coughing, nasal congestion, pharynx normal, neck supple, JVD normal, no lymphadenopathy, mucosa moist, no focal neurological deficit, +1 dependent edema, no obvious skin rashes or inflammation CVS: S1-S2, RRR. RS: Bilateral diffuse crackles and rhonchi. Abdomen: Soft, NT, ND, bowel sounds present. CTA chest: 1. No evidence for acute or chronic pulmonary embolism. 2. Lung disease which is nonspecific. Different diagnosis includes opportunistic infection if patient is minimal compromise, hypersensitivity pneumonitis/allergic alveolitis or even an atypical appearance of entity such as alveolar sarcoid. Correlate clinically. 3. Nonspecific mildly prominent lymph nodes within the mediastinum. Assessment and plan 51-year-old male with past medical history significant for DM, HTN, nonsmoker presented in ER for chest pain since last 3 days, intermittent, lasting 20 minutes at one time, retrosternal, nonradiating, more on exertion as well as on lying down flat, pleuritic in nature. Pain improved after nitroglycerin in ER. Meanwhile patient also had URI symptoms followed by cough and sputum production, low-grade fever at home. He took 3 days of oral antibiotics without consultation , then followed up outpatient and chest x-ray was obtained. Currently not on any antibiotics and on Mucinex for cough. On auscultation patient has crackles and rhonchi throughout the lung caba, trace leg edema, of appears in obvious respiratory discomfort and persistent cough. Low-grade fever of 100.3, mild leukocytosis with left shift was noted. I personally reviewed the CTA, possibly diffuse infiltrate likely viral versus atypical bacterial pneumonia. Patient was also found to have elevated troponin of 0.83. He had chest pain which is relieved with nitroglycerin with elevated troponin is appears to be ACS and needing hospitalization, pericarditis should be ruled out but no acute ECG changes. Cardiology was called from ER, who suggested ICU admission. Influenza negative. Patient was started on heparin. + Suspected atypical pneumonia + NSTEMI + HTN urgency + Hx HTN, DM, HLD - Admit to ICU - Continuous telemetry monitoring - Serial troponin and EKGs - 2-D echo in a.m. - Cardiology consult in a.m. - Continue aspirin, atorvastatin, beta alina - Continue heparin drip - Continue IV azithromycin and ceftriaxone - [facility] nebs - Repeat influenza in a.m. - Critical care consult in a.m. - Endocrine consult in a.m. - Turnoff insulin pump, continue Levemir 10 units twice a day with sliding scale insulin - At proBNP to the sample and lab - Saline lock IV - Continue all his home medications for blood pressure
--- NOTE | 2017-06-05 04:56 | Admission Certification ---
Admission Certification Certification Statement - As attending physician, I certify that at the time of - admission, based on clinical presentation, severity of - symptoms, need for further diagnostic testing and - therapeutic interventions, and risk of adverse outcomes - without in-hospital treatment, in my clinical assessment, - this patient requires an acute hospital stay for a minimum - of two nights or longer. I have also considered psychsocial - factors such as support system, advanced age, financial - issues, cognitive issues, and failed out-patient treatments, - past re-admission history, safety of patient, and lack of - compliance as applicable. Specific rationale supporting this admission is: Suspected atypical pneumonia, NSTEMI
[2017-06-05 05:01] LABS: ABSOLUTE BASOPHIL COUNT 0 /CUMM (0.0-0.2); ABSOLUTE EOSINOPHIL COUNT 0.2 /CUMM (0.0-0.7); ABSOLUTE MONOCYTE COUNT 0.7 /CUMM (0.10-0.60); BASOPHIL % 0.2 % (0.0-2.0); EOSINOPHIL % 1.3 % (0-5); GRANULOCYTE % 77.3 % (42.2-75.2); MEAN CORPUSCULAR HGB 29.3 PG (27.0-31.0); MEAN CORPUSCULAR HGB CONC 33.7 G/DL (33.0-37.0); MEAN CORPUSCULAR VOLUME 87.1 FL (80.0-94.0); MEAN PLATELET VOLUME 9.9 FL (7.4-10.4); PLATELET COUNT 257 /CUMM (130-400); RBC DISTRIBUTION WIDTH 13.9 % (11.5-14.5); RED BLOOD CELL CT 3.55 /CUMM (4.70-6.10)
[2017-06-05 05:03] LABS: PTT 46 SEC (25-37)
[2017-06-05 05:08] LABS: HEMATOCRIT 30.9 % (42-52)
--- NOTE | 2017-06-05 07:27 | Cons- CRCU ---
Rhett Sheffield MD 06/05/17 0726: General Information and HPI Consulting Request Date of Consult: 06/05/17 Requested By: Dr. Sanchez Source of Information: patient, old records History of Present Illness: Patient is a 51-year-old male with past medical history of hypertension, hyperlipidemia, systolic congestive heart failure with echo in 2017 showing left ventricular ejection fraction of 54%, left ventricular hypertrophy and PFO, insulin-dependent diabetes mellitus on an insulin pump, neuropathy, history of coronary artery disease, status post cholecystectomy, chronic kidney disease secondary to contrast-induced nephropathy (baseline creatinine of 1.3), history of glaucoma presenting this admission with chief complaint of fever, chills, shortness of breath, productive cough and chest pain. The patient states that he has been feeling unwell for the past 1-2 weeks. Reports that he has been fever, chills and feeling weak and fatigued over the past week. Patient reports shortness of breath and productive cough for which he started amoxicillin for approximately 3 days (this was a previous prescription at the patient decided to take himself). The patient states that he went to [facility] afterwards at which point he had a chest x-ray which ruled out pneumonia and was given antitussives medication however no antibiotics at that time.Patient reports decreased appetite and also notes that his blood sugars have been fluctuating for the past few day. Patient reports that he came to the hospital as his shortness of breath and cough have been worsening. Patient also reports he has been having exertional retrosternal chest pain which she describes as a pressure-like pain that is intermittent lasting approximately 10-15 minutes per episode which is exacerbated by activity and relieved with rest. Patient states that he has not had these type of symptoms in the past to this degree. Patient reports no sick contacts or travel history. Reports that he does have 2 cockatoos at home and does spend a great deal of time with them. Patient reports that he has not been working for the past year. Patient's size painter: Dr. Juarez Patient's coconut candy maker: Dr. Espinal In the ED patient was given IV normal saline, aspirin, sublingual nitroglycerin, IV metoprolol and started on an IV heparin drip. Patient was also given IV ceftriaxone and azithromycin. Blood cultures and sputum cultures were sent. Patient's chest pain resolved with sublingual nitroglycerin in the ED. CTA in the ED ruled out PE. Allergies/Medications Allergies: Coded Allergies: No Known Allergies (07/11/16) Home Med List: Amlodipine Besylate (Norvasc) 10 MG TABLET 1 TAB PO DAILY BLOOD PRESSURE ( Reported) Aspirin (Ecotrin*) 81 MG TABLET.DR 1 TAB PO DAILY HEART/BLOOD (Reported) Carvedilol 25 MG TABLET 1 TAB PO BID HEART (Reported) Dorzolamide HCl/Timolol Maleat (Dorzolamide-Timolol Eye Drops) 22.3 MG-6.8 MG/ML DROPS 1 DRP OD BID EYE (Reported) Doxazosin Mesylate 4 MG TABLET 1 TAB PO DAILY htn (Reported) Furosemide (Lasix) 20 MG TABLET 1 TAB PO Q48 chf (Reported) Insulin Aspart (Novolog) 100 UNIT/ML VIAL 0 SC TIDAC/HS PRN diabetes NovoLog sliding scale, 3 times a day before meals blood sugar: 80-150 give 6 units subcutaneous 151-200 give 8 units subcutaneous 201-250 10 units 251-300 12 units 301-350 14 units 351-400 16 units >400 18 units and call your doctor Insulin Glargine,Hum.rec.anlog (Lantus Solostar) 100 UNIT/ML (3 ML) INSULN.PEN 10 UNIT SC QPM DIABETES (Reported) Losartan Potassium 100 MG TABLET 1 TAB PO DAILY HEART (Reported) Review of Systems Review of Systems Constitutional: Reports: see HPI, chills, fever, malaise, weakness. Cardiovascular: Reports: see HPI, chest pain. Respiratory: Reports: see HPI, cough, short of breath, sputum production. GI: Reports: diarrhea. Genitourinary: Reports: no symptoms. Musculoskeletal: Reports: no symptoms. Skin: Reports: no symptoms. Neurological/Psychological: Reports: weakness. Hematologic/Endocrine: Reports: no symptoms. Immunologic/Allergic: Reports: no symptoms. Past History Travel History Traveled to [place] past 21 day No Medical History Blood Transfusion Hx: No Neurological: NONE EENT: GLAUCOMA RIGHT EYE Cardiovascular: CAD, hypertension, hyperlipidemia, PALPITATIONS Respiratory: NONE Gastrointestinal: NONE Hepatic: LAP JEWEL 12/25 Renal: nephrolithiasis, YSABEL AFTET IVP DYE Musculoskeletal: falls, FRACTURE (RIBS) R SHOULDER ROTATOR CUFF ? Psychiatric: NONE Endocrine: diabetes Blood Disorders: NONE Cancer(s): NONE SEWER HEAD/Reproductive: NONE Surgical History Surgical History: cholecystectomy, Glaucoma repair in 07/25 Family History Relations & Conditions If Any: aunt Coronary artery disease uncle Coronary artery disease Relation not specified for: FH: diabetes mellitus FH: hypertension Psychosocial History Where Do You Live? Home Who Do You Live With? spouse Services at Home: None Primary Language: Israeli Smoking Status: Never Smoked Functional Ability ADLs Independent: dressing, eating, toileting, bathing. Ambulation: independent IADLs Independent: shopping, housework, finances, food prep, telephone, transportation , medication admin. Exam & Diagnostic Data Last 24 Hrs of Vital Signs/I&O Vital Signs Date Time Temp Pulse Resp B/P B/P Pulse O2 O2 Flow FiO2 Mean Ox Delivery Rate 06/05 1325 Nasal 3.0L Cannula 06/05 1200 94 Nasal 2.0L Cannula 06/05 0918 181/76 06/05 0918 96 181/76 06/05 0918 97 181/76 06/05 0800 98.7 82 20 172/82 97 Nasal 2.0L Cannula 06/05 0800 95 Nasal 2.0L Cannula 06/05 0400 100 Nasal 2.0L Cannula 06/05 0200 99 Nasal 2.0L Cannula 06/05 0153 99.4 86 20 162/99 06/05 0148 99.4 86 20 162/99 96 Nasal Cannula 06/05 0122 99.9 06/05 0121 99.9 80 20 179/90 06/05 0120 99.9 90 20 179/90 94 Nasal Cannula 06/05 0115 84 148/88 06/05 0057 99.2 93 20 198/77 06/05 0055 99.3 93 20 198/77 95 Nasal Cannula 06/05 0003 100.3 06/05 0000 100.3 100 20 163/83 94 Nasal Cannula 06/04 2243 95 Nasal 2.0L Cannula 06/04 2214 94 Nasal 2.0L Cannula 06/04 2205 104 18 178/92 94 Nasal 2.0L Cannula 06/04 2109 100.1 101 18 218/104 93 Room Air Intake & Output 06/05 1600 06/05 0800 06/05 0000 Intake Total 877 1231 Output Total 600 600 Balance 277 631 Intake, IV 457 1231 Intake, Oral 420 Number 1 0 Bowel Movements Output, Urine 600 600 Patient 203 lb 197 lb Weight Weight Bed scale Reported by Patient Measurement Method Physical Exam General Appearance: well developed/nourished, alert, awake, anxious, mild distress Head: atraumatic, normal appearance Respiratory: crackles, rhonchi, wheezing Cardiovascular: regular rate/rhythm Peripheral Pulses: 2+ carotid (R), 2+ carotid (L), 2+ radial (R), 2+ radial (L) Gastrointestinal: normal bowel sounds, soft, non-tender Neurologic/Psych: no motor/sensory deficits, awake, alert, oriented x 3, environmental systems coordinator II- XII nml as tested Cranial Nerves: normal hearing, normal speech, PERRL Last 48 Hrs of Labs/Don: Laboratory Tests 06/05/17 1202: APTT 47 H 06/05/17 1130: Urine Opiates Screen 760.00, Methadone Screen < 40, Barbiturate Screen < 60, Ur Phencyclidine Scrn < 6.00, Amphetamines Screen < 100, U Benzodiazepines Scrn < 85, Urine Cocaine Screen < 50, Urine Cannabis Screen < 5.00 06/05/17 0926: Troponin I 0.73 *H 06/05/17 0500: Angiotensin Convert Enz Pending, JACKELINE Titer Pending, Anti-Nuclear Antibody Pending 06/05/17 0439: Phosphorus 4.0, Magnesium 2.6 H, Troponin I 1.06 *H 06/05/17 0439: Anion Gap 8, Estimated GFR 58 L, BUN/Creatinine Ratio 19.2, C-Reactive Prot, Quant 6.6 H, APTT 46 H, CBC w Diff NO MAN DIFF REQ, RBC 3.55 L, MCV 87.1, MCH 29.3, MCHC 33.7, RDW 13.9, MPV 9.9, Gran % 77.3 H, Lymphocytes % 15.4 L, Monocytes % 5.8, Eosinophils % 1.3, Basophils % 0.2, Absolute Granulocytes 10.0 H, Absolute Lymphocytes 2.0, Absolute Monocytes 0.7 H, Absolute Eosinophils 0.2 , Absolute Basophils 0, ESR Westergren 56 H, Rheum Factor Semi-Quant 9.1, HIV 1 &2 Ab Western Blot NONREACTIVE 06/05/17 0300: Ref Lab Test Result Pending 06/05/17 0013: Lactic Acid Cancelled 06/04/172: Anion Gap 10, Estimated GFR 58 L, BUN/Creatinine Ratio 22.3, Glucose 166 H, Lactic Acid 1.8, Calcium 9.0, Total Bilirubin 0.5, AST 45, ALT 42, Alkaline Phosphatase 95, Troponin I 0.83 *H, Cvz-T-Jvndsryzqdo Pept 4060 H, Total Protein 6.8, Albumin 3.4 L, Globulin 3.4, Albumin/Globulin Ratio 1.0 L, PT 10.7, INR 0.98, APTT 27, D-Dimer High Sensitivty 274 H, CBC w Diff NO MAN DIFF REQ, RBC 4.32 L, MCV 87.2, MCH 28.8, MCHC 33.0, RDW 14.4, MPV 9.6, Gran % 83.8 H, Lymphocytes % 9.8 L, Monocytes % 5.5, Eosinophils % 0.6, Basophils % 0.3, Absolute Granulocytes 11.8 H, Absolute Lymphocytes 1.4, Absolute Monocytes 0.8 H, Absolute Eosinophils 0.1, Absolute Basophils 0 06/04/172112: Virus Culture Pending Microbiology 06/05 1130 URINE ROUT: Legionella Antigen - COMP 06/05 1130 URINE ROUT: Streptococcus pneumoniae Antigen (M - COMP 06/05 0640 NASOPHARYN: Influenza Virus A & B Rapid Smear - COMP 06/04 2113 NASOPHARYN: Influenza Virus A & B Rapid Smear - COMP Assessment/Plan CRCU Impression/Plan: Patient is a 51-year-old male with past medical history significant for insulin- dependent diabetes and hypertension presenting with retrosternal chest pain which worsens with exertion and is relieved with nitroglycerin and productive cough with dyspnea on exertion, fever/chills and diarrhea. Patient's CTA shows no evidence of pulmonary embolism however does show multifocal acinar nodules bilaterally concerning for atypical pneumonia, hypersensitivity pneumonitis. Patient's EKG showed nonspecific ST-T changes with elevated troponins. Cardiology was notified and patient was started on IV heparin drip in the emergency department. Patient also received IV antibiotics. Patient was transferred to the ICU for further management. Respiratory: Community acquired pneumonia - based on imaging it is likely atypical pneumonia. Patient has cockatoos who he spends a gread deal of time with which leads to concern for chlamydia pscitticai. - Continue to monitor vitals and WBC - Patient received ceftriaxone and azithromycin. This has been switched to doxycycline 100mg BID - TRC/Nebs with ipratroprium only - Oxygen supplementation as needed - Follow up sputum and blood cultures - Follow up urine strep and legionella - Follow up ESR, CRP, RF, CHULA Level - Follow HIV serology - Follow up chlamydia pscitticosis antibody Infection: Sepsis 2/2 atypical pneumonia See above Cardiac: Chest pain - NSTEMI Patient presents with substernal chest pain relieved with nitroglycerin, nonspecific ST changes in inferolateral leads. Troponin peaked at 1.06. Patient' s DRAKE score is 4 with a 20% risk at 14 days of all-cause mortality, new or recurrent AZ, or severe recurrent ischemia requiring urgent revascularization. - Continue IV heparin drip - Repeat EKG in AM - Cardiology consulted - Per cardiology patient will require cardiac catheterization - Patient will be kept NPO tonight for possible cath tomorrow - Continue to monitor on telemetry Systolic Congestive Heart Failure - Nuclear study from 2017 shows LVEF of 54% proBNP elevated with bilateral lower extremity edema - lasix every other day - strict I/O - ECHO - Cardiology consulted - Carvedilol Hypertensive urgency on admission: - Continue amlodipine 10 daily - Continue carvedilol 25 twice daily - Continue doxazosin 4 mg daily - Continue losartan 100 daily Hyperlipidemia Allergic to statins - Continue zetia Heme: Mild Anemia Ailmentary: Insulin Dependent Diabetes - on Insulin Pump. - Endocrinology consulted - Insulin pump held - Levemir 10 units BID - Insulin SS TID/qHS per endocrinology recommendations - Accuchecks TID/qHS - Hemoglobin A1c pending NPO after midnight for possible cath Neurology: none Nephrology: Chronic Kidney Disease - history of contrast induced nephropathy with a baseline creatinine of 1.3 Patient had a CTA in the ED which ruled out pneumonia. - avoid nephrotoxic agents - stricts I/O - continue to monitor creatinine Opthamology: Glaucoma - continue dorzolamide HCl drops TID DVT PPx: ALPS, IV Heparin Drip Consult Acknowledgment - Thank you for your consult request. Hannah WILSON,[facility] 06/05/17 0950: Assessment/Plan CRCU Impression/Plan: Seen and examined Pt with DM, Glaucoma, CKD, with Sig cough, low grade temp with diffuse atypical pulm infiltrates (multifocal nodular acinar infliltrares) consistant with atypical pna, with broad diff (pt does have birds and Pscitacosis is high in the diff) Chest pain now releived with ntg, with elevated troponin rule out ACS SIg HTN with Elevated BNP prob some component of Diastolic heart dz DM on INsulin PFO Sig neuropathy OBesity Recent contrast use in a diabetic REC Cont to monitor in icu DOXY po bid Check urine for antigens for leigenella and strep pneumo Psicatosis antibody panel Sputum culture Cardio eval, IV heparin HIV, crp, esr, jackeline, rheumatoid factor, chula level Uring tox screen Can dc ceftriaxone after today PO PPI bid for now IV heparin Nebs only with ipratropium q 6hrs Adequate bp control, losartan, ok with metoprolol to start, and ask cardio about any othre druga ie amlodapine ASA Robutussin with codeine prn [place] with docusate daily EKG, ECHO Will follow Consult Acknowledgment - Thank you for your consult request.
[2017-06-05 08:00] VITALS: BP 172/82
--- NOTE | 2017-06-05 12:42 | Cons- Endocrinology ---
General Information and HPI Consulting Request Date of Consult: 06/05/17 Requested By: medical team Reason for Consult: uncontrolled diabetes Source of Information: patient, old records Exam Limitations: no limitations History of Present Illness: This 51-year-old male has a known history of diabetes type 2 associated with obesity. At home he was on the VGo 30 which live is 30 units over 24 hours of rapid acting insulin. In addition he was taking 3 clicks before each meal which we results in 6 units of NovoLog before each meal. The patient states that his sugars have been in good control. He denies any low blood sugars. He was also on Trulicity once a week. Patient has a history of hypertension, chronic kidney disease. He has diabetic neuropathy and states he has known diabetic retinopathy. The patient came to the emergency room because of severe cough. He was also having fevers, chills, chest congestion, and shortness of breath. He also developed some chest pain. He has been found to have an elevated troponin. A CT angiogram shows no evidence of pulmonary emboli but there are present multiple similar nodules bilaterally. Patient sugars were initially low at 97 in the ER but has gone up to 278 before lunch. Allergies/Medications Allergies: Coded Allergies: No Known Allergies (07/11/16) Home Med List: Amlodipine Besylate (Norvasc) 10 MG TABLET 1 TAB PO DAILY BLOOD PRESSURE ( Reported) Aspirin (Ecotrin*) 81 MG TABLET.DR 1 TAB PO DAILY HEART/BLOOD (Reported) Carvedilol 25 MG TABLET 1 TAB PO BID HEART (Reported) Dorzolamide HCl/Timolol Maleat (Dorzolamide-Timolol Eye Drops) 22.3 MG-6.8 MG/ML DROPS 1 DRP OD BID EYE (Reported) Doxazosin Mesylate 4 MG TABLET 1 TAB PO DAILY htn (Reported) Furosemide (Lasix) 20 MG TABLET 1 TAB PO Q48 chf (Reported) Insulin Aspart (Novolog) 100 UNIT/ML VIAL 0 SC TIDAC/HS PRN diabetes NovoLog sliding scale, 3 times a day before meals blood sugar: 80-150 give 6 units subcutaneous 151-200 give 8 units subcutaneous 201-250 10 units 251-300 12 units 301-350 14 units 351-400 16 units >400 18 units and call your doctor Insulin Glargine,Hum.rec.anlog (Lantus Solostar) 100 UNIT/ML (3 ML) INSULN.PEN 10 UNIT SC QPM DIABETES (Reported) Losartan Potassium 100 MG TABLET 1 TAB PO DAILY HEART (Reported) Review of Systems Review of Systems Constitutional: Reports: chills, fever, malaise. Cardiovascular: Reports: chest pain. Respiratory: Reports: cough, short of breath. GI: Denies: nausea, vomiting. Genitourinary: Reports: no symptoms. Skin: Reports: no symptoms. Past History Travel History Traveled to [place] past 21 day No Medical History Blood Transfusion Hx: No Neurological: NONE EENT: GLAUCOMA RIGHT EYE Cardiovascular: CAD, hypertension, hyperlipidemia, PALPITATIONS Respiratory: NONE Gastrointestinal: NONE Hepatic: LAP JEWEL 12/25 Renal: nephrolithiasis, YSABEL AFTET IVP DYE Musculoskeletal: falls, FRACTURE (RIBS) R SHOULDER ROTATOR CUFF ? 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 Home Who Do You Live With? spouse Services at Home: None Primary Language: Citizen Of [place] Smoking Status: Never Smoked Functional Ability ADLs Independent: dressing, eating, toileting, bathing. Ambulation: independent IADLs Independent: shopping, housework, finances, food prep, telephone, transportation , medication admin. Exam & Diagnostic Data Last 24 Hrs of Vital Signs/I&O Vital Signs Date Time Temp Pulse Resp B/P B/P Pulse O2 O2 Flow FiO2 Mean Ox Delivery Rate 06/05 1200 94 Nasal 2.0L Cannula 06/05 0918 181/76 06/05 0918 96 181/76 06/05 0918 97 181/76 06/05 0800 98.7 82 20 172/82 97 Nasal 2.0L Cannula 06/05 0800 95 Nasal 2.0L Cannula 06/05 0400 100 Nasal 2.0L Cannula 06/05 0200 99 Nasal 2.0L Cannula 06/05 0153 99.4 86 20 162/99 06/05 0148 99.4 86 20 162/99 96 Nasal Cannula 06/05 0122 99.9 06/05 0121 99.9 80 20 179/90 06/05 0120 99.9 90 20 179/90 94 Nasal Cannula 06/05 0115 84 148/88 06/05 0057 99.2 93 20 198/77 06/05 0055 99.3 93 20 198/77 95 Nasal Cannula 06/05 0003 100.3 06/05 0000 100.3 100 20 163/83 94 Nasal Cannula 06/04 2242 95 Nasal 2.0L Cannula 06/04 2213 94 Nasal 2.0L Cannula 06/04 2204 104 18 178/92 94 Nasal 2.0L Cannula 06/04 2108 100.1 101 18 218/104 93 Room Air Intake & Output 06/05 1600 06/05 0800 06/05 0000 Intake Total 1231 Output Total 600 Balance 631 Intake, IV 1231 Number 0 Bowel Movements Output, Urine 600 Patient 203 lb 197 lb Weight Weight Bed scale Reported by Patient Measurement Method Vital Signs Date Time Temp Pulse Resp B/P B/P Pulse O2 O2 Flow FiO2 Mean Ox Delivery Rate 06/05 1200 94 Nasal 2.0L Cannula 06/05 0918 181/76 06/05 0918 96 181/76 06/05 0918 97 181/76 06/05 0800 98.7 82 20 172/82 97 Nasal 2.0L Cannula 06/05 0800 95 Nasal 2.0L Cannula 06/05 0400 100 Nasal 2.0L Cannula 06/05 0200 99 Nasal 2.0L Cannula 06/05 0153 99.4 86 20 162/99 06/05 0148 99.4 86 20 162/99 96 Nasal Cannula 06/05 0122 99.9 06/05 0121 99.9 80 20 179/90 06/05 0120 99.9 90 20 179/90 94 Nasal Cannula 06/05 0115 84 148/88 06/05 0057 99.2 93 20 198/77 06/05 0055 99.3 93 20 198/77 95 Nasal Cannula 06/05 0003 100.3 06/05 0000 100.3 100 20 163/83 94 Nasal Cannula 06/04 2242 95 Nasal 2.0L Cannula 06/04 2213 94 Nasal 2.0L Cannula 06/04 2204 104 18 178/92 94 Nasal 2.0L Cannula 06/04 2108 100.1 101 18 218/104 93 Room Air Intake & Output 06/05 1600 06/05 0800 06/05 0000 Intake Total 1231 Output Total 600 Balance 631 Intake, IV 1231 Number 0 Bowel Movements Output, Urine 600 Patient 203 lb 197 lb Weight Weight Bed scale Reported by Patient Measurement Method Physical Exam General Appearance: alert, awake Head: normal appearance Eyes: Bilateral: normal appearance. Neck: normal inspection Respiratory: crackles Cardiovascular: regular rate/rhythm Gastrointestinal: normal bowel sounds Extremities: normal inspection Labs/Don Results: Laboratory Tests 06/05 06/05 06/05 06/05 1202 0926 0500 0439 Chemistry Phosphorus (2.5 - 4.5 mg/dL) 4.0 Magnesium (1.6 - 2.3 mg/dL) 2.6 H Troponin I (<0.11 ng/ml) 0.73 *H 1.06 *H Angiotensin Convert Enz Pending Coagulation APTT Pending Immunology NIXON Titer Pending Anti-Nuclear Antibody Pending 06/05 06/05 06/05 0439 0300 0013 Chemistry Sodium (137 - 145 mmol/L) 140 Potassium (3.5 - 5.1 mmol/L) 4.0 Chloride (98 - 107 mmol/L) 106 Carbon Dioxide (22 - 30 mmol/L) 26 Anion Gap (5 - 16) 8 BUN (9 - 20 mg/dL) 25 H Creatinine (0.7 - 1.2 mg/dL) 1.3 H Estimated GFR (>60 ml/min) 58 L BUN/Creatinine Ratio (7 - 25 %) 19.2 Lactic Acid Cancelled C-Reactive Prot, Quant (<1.0 mg/dL) 6.6 H Coagulation APTT (25 - 37 SEC) 46 H Hematology CBC w Diff NO MAN DIFF REQ WBC (4.8 - 10.8 /CUMM) 13.0 H RBC (4.70 - 6.10 /CUMM) 3.55 L Hgb (14.0 - 18.0 G/DL) 10.4 L Hct (42 - 52 %) 30.9 L MCV (80.0 - 94.0 FL) 87.1 MCH (27.0 - 31.0 PG) 29.3 MCHC (33.0 - 37.0 G/DL) 33.7 RDW (11.5 - 14.5 %) 13.9 Plt Count (130 - 400 /CUMM) 257 MPV (7.4 - 10.4 FL) 9.9 Gran % (42.2 - 75.2 %) 77.3 H Lymphocytes % (20.5 - 51.1 %) 15.4 L Monocytes % (1.7 - 9.3 %) 5.8 Eosinophils % (0 - 5 %) 1.3 Basophils % (0.0 - 2.0 %) 0.2 Absolute Granulocytes (1.4 - 6.5 /CUMM) 10.0 H Absolute Lymphocytes (1.2 - 3.4 /CUMM) 2.0 Absolute Monocytes (0.10 - 0.60 /CUMM) 0.7 H Absolute Eosinophils (0.0 - 0.7 /CUMM) 0.2 Absolute Basophils (0.0 - 0.2 /CUMM) 0 ESR Westergren (0 - 10 MM) Pending Immunology Rheum Factor Semi-Quant (<12 IU/Ml) 9.1 Miscellaneous Ref Lab Test Result Pending Serology HIV 1&2 Ab Western Blot (NONREACTIVE) NONREACTIVE 06/043 Chemistry Sodium (137 - 145 mmol/L) 140 Potassium (3.5 - 5.1 mmol/L) 4.2 Chloride (98 - 107 mmol/L) 102 Carbon Dioxide (22 - 30 mmol/L) 27 Anion Gap (5 - 16) 10 BUN (9 - 20 mg/dL) 29 H Creatinine (0.7 - 1.2 mg/dL) 1.3 H Estimated GFR (>60 ml/min) 58 L BUN/Creatinine Ratio (7 - 25 %) 22.3 Glucose (65 - 99 mg/dL) 166 H Lactic Acid (0.7 - 2.1 mmol/L) 1.8 Calcium (8.4 - 10.2 mg/dL) 9.0 Total Bilirubin (0.2 - 1.3 mg/dL) 0.5 AST (17 - 59 U/L) 45 ALT (21 - 72 U/L) 42 Alkaline Phosphatase (< 127 U/L) 95 Troponin I (<0.11 ng/ml) 0.83 *H Vao-R-Dvmlspzjslr Pept (<125 pg/mL) 4060 H Total Protein (6.3 - 8.2 g/dL) 6.8 Albumin (3.5 - 5.0 g/dL) 3.4 L Globulin (1.9 - 4.2 gm/dL) 3.4 Albumin/Globulin Ratio (1.1 - 2.2 %) 1.0 L Coagulation PT (9.4 - 12.5 SEC) 10.7 INR (0.90 - 1.17) 0.98 APTT (25 - 37 SEC) 27 D-Dimer High Sensitivty (0 - 243 ng/ml) 274 H Hematology CBC w Diff NO MAN DIFF REQ WBC (4.8 - 10.8 /CUMM) 14.1 H RBC (4.70 - 6.10 /CUMM) 4.32 L Hgb (14.0 - 18.0 G/DL) 12.4 L Hct (42 - 52 %) 37.7 L MCV (80.0 - 94.0 FL) 87.2 MCH (27.0 - 31.0 PG) 28.8 MCHC (33.0 - 37.0 G/DL) 33.0 RDW (11.5 - 14.5 %) 14.4 Plt Count (130 - 400 /CUMM) 292 MPV (7.4 - 10.4 FL) 9.6 Gran % (42.2 - 75.2 %) 83.8 H Lymphocytes % (20.5 - 51.1 %) 9.8 L Monocytes % (1.7 - 9.3 %) 5.5 Eosinophils % (0 - 5 %) 0.6 Basophils % (0.0 - 2.0 %) 0.3 Absolute Granulocytes (1.4 - 6.5 /CUMM) 11.8 H Absolute Lymphocytes (1.2 - 3.4 /CUMM) 1.4 Absolute Monocytes (0.10 - 0.60 /CUMM) 0.8 H Absolute Eosinophils (0.0 - 0.7 /CUMM) 0.1 Absolute Basophils (0.0 - 0.2 /CUMM) 0 Serology Virus Culture Pending Assessment/Plan Assessment/Plan This patient has type 2 diabetes associated with obesity. Apparently his sugars were fairly good control as an outpatient on the VGo 30 as well as Trulicity. In the hospital we have discontinued the VGo and will place him on subcu insulin. I agree with continuing Levemir 10 units twice a day. In addition we should adjust his sliding scale NovoLog before meals. Sliding scale NovoLog before meals should be 80-150 give 4 units NovoLog, 151-200 give 6 units NovoLog, 201- 250 give 7 units NovoLog, 251 and 300 give 8 units NovoLog, 301-350 give 9 units NovoLog, 3 5104 100 give 10 units NovoLog. A separate bedtime sliding scale NovoLog should be written. Sliding scale NovoLog at bedtime should be less than 250 give no insulin, 251-300 give 2 units NovoLog, 301-350 give 3 units NovoLog, 351-400 give 4 units NovoLog. We should measure the patient's hemoglobin A1c. If the patient is n.p.o. after midnight we should begin at midnight D5 half- normal saline at 75 cc an hour. In addition we should place him on NovoLog coverage every 4 hours for sugars above 150. While n.p.o. NovoLog coverage every 4 hours should be less than 150 give no insulin, 151-200 give 3 units NovoLog, 201-250 give 4 units NovoLog, 251-300 give 5 units NovoLog, 301-350 give 6 units NovoLog, 351-400 give 7 units NovoLog. The patient can have his usual dose of 10 units Levemir at 10 PM tonight but we should hold his Levemir in the morning. Consult Acknowledgment - Thank you for your consult request.
--- NOTE | 2017-06-05 13:02 | Cons- Cardiology ---
General Information and HPI Consulting Request Date of Consult: 06/05/17 Requested By: Raleigh Zurita MD Reason for Consult: Elevated troponin; NSTEMI Source of Information: patient, old records History of Present Illness: the patient is a 51-year-old male whose past medical history significant for hypertension and diabetes. The patient was seen by Dr. Juarez after his last admission, at which time he had a minimally elevated troponin. Reportedly his outpatient echocardiogram was normal and his outpatient nuclear stress test reportedly showed a very small inferoapical perfusion defect which was felt to be related to attenuation artifact. The patient is now readmitted to the hospital with complaints of low-grade fever , congestion, and worsening shortness of breath. He is felt to have atypical pneumonia but his troponin is elevated at greater than 1; there are nosignificant EKG changes but with subtle inferolateral ST segment abnormalities and a subtle inferior defect/hypokinetic area on his echocardiogram. Allergies/Medications Allergies: Coded Allergies: No Known Allergies (07/11/16) Home Med List: Amlodipine Besylate (Norvasc) 10 MG TABLET 1 TAB PO DAILY BLOOD PRESSURE ( Reported) Aspirin (Ecotrin*) 81 MG TABLET.DR 1 TAB PO DAILY HEART/BLOOD (Reported) Carvedilol 25 MG TABLET 1 TAB PO BID HEART (Reported) Dorzolamide HCl/Timolol Maleat (Dorzolamide-Timolol Eye Drops) 22.3 MG-6.8 MG/ML DROPS 1 DRP OD BID EYE (Reported) Doxazosin Mesylate 4 MG TABLET 1 TAB PO DAILY htn (Reported) Furosemide (Lasix) 20 MG TABLET 1 TAB PO Q48 chf (Reported) Insulin Aspart (Novolog) 100 UNIT/ML VIAL 0 SC TIDAC/HS PRN diabetes NovoLog sliding scale, 3 times a day before meals blood sugar: 80-150 give 6 units subcutaneous 151-200 give 8 units subcutaneous 201-250 10 units 251-300 12 units 301-350 14 units 351-400 16 units >400 18 units and call your doctor Insulin Glargine,Hum.rec.anlog (Lantus Solostar) 100 UNIT/ML (3 ML) INSULN.PEN 10 UNIT SC QPM DIABETES (Reported) Losartan Potassium 100 MG TABLET 1 TAB PO DAILY HEART (Reported) Current Medications: Current Medications Sig/Yoav Start time Last Medication Dose Route Stop Time Status Admin Acetaminophen 650 MG Q6P PRN 06/05 0130 AC PO Acetaminophen 1,000 MG Q6P PRN 06/05 0130 AC IV Acetaminophen 0 .STK-MED ONE 06/05 0002 DC IV Acetaminophen 1,000 MG ONCE ONE 06/04 2345 DC 06/05 N/A 1 UNIT IV 06/04 2359 0003 Albuterol Sulfate 3 ML Q6 06/05 1200 CAN INH Albuterol Sulfate 3 ML Q4P PRN 06/05 0845 AC 06/05 INH 0841 Albuterol Sulfate 3 ML ONCE ONE 06/04 2230 DC 06/04 INH 06/04 2231 2229 Amlodipine Besylate 10 MG DAILY 06/05 1000 AC 06/05 PO 0918 Aspirin 0 .STK-MED ONE 06/04 2236 DC PO Aspirin 325 MG ONCE ONE 06/04 2230 DC 06/04 PO 06/04 223 2236 Aspirin Buffered 81 MG DAILY 06/05 1000 AC 06/05 PO 0918 Azithromycin 500 MG DAILY 06/05 1000 DC 06/05 Dextrose/Water 250 ML IV 0916 Azithromycin 500 MG ONCE ONE 06/04 2345 DC 06/05 Dextrose/Water 250 ML IV 06/05 0044 0121 Carvedilol 25 MG BID 06/05 0140 AC 06/05 PO 0918 Ceftriaxone Sodium 1,000 MG DAILY 06/05 1000 AC 06/05 IV 0916 Ceftriaxone Sodium 0 .STK-MED ONE 06/05 0020 DC .ROUTE Ceftriaxone Sodium 1,000 MG ONCE ONE 06/04 2345 DC 06/05 IV 06/04 2346 0057 Dorzolamide HCl 1 GTT TID 06/05 1000 AC 06/05 OPH 0917 Doxazosin Mesylate 4 MG DAILY 06/05 1000 AC 06/05 PO 0918 Doxycycline Hyclate 100 MG BID 06/05 1000 AC 06/05 PO 1059 Furosemide 20 MG Q48 06/05 1000 AC 06/05 PO 0918 Guaifenesin 600 MG Q12 06/05 0124 AC 06/05 PO 0918 Guaifenesin 600 MG ONCE ONE 06/04 2230 DC 06/04 PO 06/04 223 2257 Guaifenesin/Codeine 10 ML Q4P PRN 06/05 0945 AC Phosphate PO Heparin Sodium 0 .STK-MED ONE 06/04 2323 DC (Porcine) .ROUTE Heparin Sodium 5,000 UNIT ONCE ONE 06/04 2315 DC 06/04 (Porcine) IV 06/04 2316 2355 Heparin Sodium 25,000 UNIT Q24H 06/04 2315 AC 06/04 (Porcine) IV 2354 Sodium Chloride 500 ML Insulin Aspart 0 TIDAC 06/05 0145 AC 06/05 SC 1150 Insulin Detemir 10 UNITS BID 06/05 1000 AC 06/05 SC 0919 Ipratropium [place] 2.5 ML Q6 06/05 1200 AC INH Ipratropium [place] 2.5 ML ONCE ONE 06/04 2230 DC 06/04 INH 06/04 2231 2229 Losartan Potassium 100 MG DAILY 06/05 1000 AC 06/05 PO 0918 Losartan Potassium 0 .STK-MED ONE 06/05 0156 DC PO Metoprolol Tartrate 0 .STK-MED ONE 06/05 0054 DC IV Metoprolol Tartrate 5 MG ONCE ONE 06/04 2345 DC 06/05 IV 06/04 2346 0057 Metoprolol Tartrate 5 MG ONCE ONE 06/04 2345 DC 06/05 IV 06/04 2346 0121 Morphine Sulfate 2 MG Q6 PRN 06/05 0130 AC IV Nitroglycerin 0 .STK-MED ONE 06/04 2236 DC SL Nitroglycerin 0.4 MG ONCE ONE 06/04 2230 DC 06/04 SL 06/04 2231 2236 Omeprazole 40 MG BID 06/05 2200 DC PO Omeprazole 40 MG BID 06/05 1100 AC 06/05 PO 1059 Omeprazole 40 MG DAILY AC 06/05 0937 DC PO Sodium Chloride 1,000 ML BOLUS ONE 06/04 2315 DC 06/05 IV 06/05 0014 0003 Past History Travel History Traveled to [place] past 21 day No Medical History Blood Transfusion Hx: No Neurological: NONE EENT: GLAUCOMA RIGHT EYE Cardiovascular: CAD, hypertension, hyperlipidemia, PALPITATIONS Respiratory: NONE Gastrointestinal: NONE Hepatic: LAP JEWEL 12/25 Renal: nephrolithiasis, YSABEL AFTET IVP DYE Musculoskeletal: falls, FRACTURE (RIBS) R SHOULDER ROTATOR CUFF ? 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 Home Who Do You Live With? spouse Services at Home: None Primary Language: [place] Smoking Status: Never Smoked Functional Ability ADLs Independent: dressing, eating, toileting, bathing. Ambulation: independent IADLs Independent: shopping, housework, finances, food prep, telephone, transportation , medication admin. Exam & Diagnostic Data Vital Signs and I&O Vital Signs Date Time Temp Pulse Resp B/P B/P Pulse O2 O2 Flow FiO2 Mean Ox Delivery Rate 06/05 1200 94 Nasal 2.0L Cannula 06/05 0918 181/76 06/05 0918 96 181/76 06/05 0918 97 181/76 06/05 0800 98.7 82 20 172/82 97 Nasal 2.0L Cannula 06/05 0800 95 Nasal 2.0L Cannula 06/05 0400 100 Nasal 2.0L Cannula 06/05 0200 99 Nasal 2.0L Cannula 06/05 0153 99.4 86 20 162/99 06/05 0148 99.4 86 20 162/99 96 Nasal Cannula 06/05 0122 99.9 06/05 0121 99.9 80 20 179/90 06/05 0120 99.9 90 20 179/90 94 Nasal Cannula 06/05 0115 84 148/88 06/05 0057 99.2 93 20 198/77 06/05 0055 99.3 93 20 198/77 95 Nasal Cannula 06/05 0003 100.3 06/05 0000 100.3 100 20 163/83 94 Nasal Cannula 06/04 2243 95 Nasal 2.0L Cannula 06/04 2214 94 Nasal 2.0L Cannula 06/04 2205 104 18 178/92 94 Nasal 2.0L Cannula 06/04 2109 100.1 101 18 218/104 93 Room Air Intake & Output 06/05 1600 06/05 0800 06/05 0000 06/04 1600 06/04 0800 06/04 0000 Intake Total 1231 Output Total 600 Balance 631 Intake, IV 1231 Number 0 Bowel Movements Output, Urine 600 Patient 203 lb 197 lb Weight Weight Bed scale Reported by Patient Measurement Method Physical Exam: General Appearance Alert, Oriented X3, Cooperative, No Acute Distress Cardiovascular Regular Rate, Normal S1, Normal S2, No Murmurs Lungs end inspiratory wheezing and diffuse rhonchi Abdomen Normal Bowel Sounds, Soft, No Tenderness, No Masses Extremities No Clubbing, No Cyanosis, 1-2+ bilateral lower extremity pitting edema Labs/Don Results: Laboratory Tests 06/05 06/05 06/05 06/05 1202 0926 0500 0439 Chemistry Phosphorus (2.5 - 4.5 mg/dL) 4.0 Magnesium (1.6 - 2.3 mg/dL) 2.6 H Troponin I (<0.11 ng/ml) 0.73 *H 1.06 *H Angiotensin Convert Enz Pending Coagulation APTT Pending Immunology NIXON Titer Pending Anti-Nuclear Antibody Pending 06/05 06/05 06/05 0439 0300 0013 Chemistry Sodium (137 - 145 mmol/L) 140 Potassium (3.5 - 5.1 mmol/L) 4.0 Chloride (98 - 107 mmol/L) 106 Carbon Dioxide (22 - 30 mmol/L) 26 Anion Gap (5 - 16) 8 BUN (9 - 20 mg/dL) 25 H Creatinine (0.7 - 1.2 mg/dL) 1.3 H Estimated GFR (>60 ml/min) 58 L BUN/Creatinine Ratio (7 - 25 %) 19.2 Lactic Acid Cancelled C-Reactive Prot, Quant (<1.0 mg/dL) 6.6 H Coagulation APTT (25 - 37 SEC) 46 H Hematology CBC w Diff NO MAN DIFF REQ WBC (4.8 - 10.8 /CUMM) 13.0 H RBC (4.70 - 6.10 /CUMM) 3.55 L Hgb (14.0 - 18.0 G/DL) 10.4 L Hct (42 - 52 %) 30.9 L MCV (80.0 - 94.0 FL) 87.1 MCH (27.0 - 31.0 PG) 29.3 MCHC (33.0 - 37.0 G/DL) 33.7 RDW (11.5 - 14.5 %) 13.9 Plt Count (130 - 400 /CUMM) 257 MPV (7.4 - 10.4 FL) 9.9 Gran % (42.2 - 75.2 %) 77.3 H Lymphocytes % (20.5 - 51.1 %) 15.4 L Monocytes % (1.7 - 9.3 %) 5.8 Eosinophils % (0 - 5 %) 1.3 Basophils % (0.0 - 2.0 %) 0.2 Absolute Granulocytes (1.4 - 6.5 /CUMM) 10.0 H Absolute Lymphocytes (1.2 - 3.4 /CUMM) 2.0 Absolute Monocytes (0.10 - 0.60 /CUMM) 0.7 H Absolute Eosinophils (0.0 - 0.7 /CUMM) 0.2 Absolute Basophils (0.0 - 0.2 /CUMM) 0 ESR Westergren (0 - 10 MM) 56 H Immunology Rheum Factor Semi-Quant (<12 IU/Ml) 9.1 Miscellaneous Ref Lab Test Result Pending Serology HIV 1&2 Ab Western Blot (NONREACTIVE) NONREACTIVE 06/04 Chemistry Sodium (137 - 145 mmol/L) 140 Potassium (3.5 - 5.1 mmol/L) 4.2 Chloride (98 - 107 mmol/L) 102 Carbon Dioxide (22 - 30 mmol/L) 27 Anion Gap (5 - 16) 10 BUN (9 - 20 mg/dL) 29 H Creatinine (0.7 - 1.2 mg/dL) 1.3 H Estimated GFR (>60 ml/min) 58 L BUN/Creatinine Ratio (7 - 25 %) 22.3 Glucose (65 - 99 mg/dL) 166 H Lactic Acid (0.7 - 2.1 mmol/L) 1.8 Calcium (8.4 - 10.2 mg/dL) 9.0 Total Bilirubin (0.2 - 1.3 mg/dL) 0.5 AST (17 - 59 U/L) 45 ALT (21 - 72 U/L) 42 Alkaline Phosphatase (< 127 U/L) 95 Troponin I (<0.11 ng/ml) 0.83 *H Gwm-[id number]-Aejkumgkoft Pept (<125 pg/mL) 4060 H Total Protein (6.3 - 8.2 g/dL) 6.8 Albumin (3.5 - 5.0 g/dL) 3.4 L Globulin (1.9 - 4.2 gm/dL) 3.4 Albumin/Globulin Ratio (1.1 - 2.2 %) 1.0 L Coagulation PT (9.4 - 12.5 SEC) 10.7 INR (0.90 - 1.17) 0.98 APTT (25 - 37 SEC) 27 D-Dimer High Sensitivty (0 - 243 ng/ml) 274 H Hematology CBC w Diff NO MAN DIFF REQ WBC (4.8 - 10.8 /CUMM) 14.1 H RBC (4.70 - 6.10 /CUMM) 4.32 L Hgb (14.0 - 18.0 G/DL) 12.4 L Hct (42 - 52 %) 37.7 L MCV (80.0 - 94.0 FL) 87.2 MCH (27.0 - 31.0 PG) 28.8 MCHC (33.0 - 37.0 G/DL) 33.0 RDW (11.5 - 14.5 %) 14.4 Plt Count (130 - 400 /CUMM) 292 MPV (7.4 - 10.4 FL) 9.6 Gran % (42.2 - 75.2 %) 83.8 H Lymphocytes % (20.5 - 51.1 %) 9.8 L Monocytes % (1.7 - 9.3 %) 5.5 Eosinophils % (0 - 5 %) 0.6 Basophils % (0.0 - 2.0 %) 0.3 Absolute Granulocytes (1.4 - 6.5 /CUMM) 11.8 H Absolute Lymphocytes (1.2 - 3.4 /CUMM) 1.4 Absolute Monocytes (0.10 - 0.60 /CUMM) 0.8 H Absolute Eosinophils (0.0 - 0.7 /CUMM) 0.1 Absolute Basophils (0.0 - 0.2 /CUMM) 0 Serology Virus Culture Pending Diagnostic Data EKG Results NSR with non specific STT abnormalitie. Assessment/Plan Assessment/Plan assessment: 1. Possible atypical pneumonia 2. Elevated troponin consistent with non-ST elevation myocardial infarction/ type II [place] 3. Hypertensive urgency 4. History of hypertension 5. History of diabetes 6. History of hyperlipidemia recommendations: -The patient has multiple cardiovascular risk factors, a troponin of greater than 1 with a history of prior troponin elevation. Outpatient evaluation which showed a subtly abnormal stress test. New subtle inferior wall motion abnormalityon echo, etc. In view of all these facts, I believe that the patient would ultimately benefit from a cardiac catheterization and, if he remains stable, this can likely be performed prior to discharge. I do not see any benefit in pursuing a repeat stress test, etc. -continue current treatment for now -Continue IV heparin -Continue pulmonary care as per the critical care/pulmonary team -Continue other medications -If the patient's status changes in any way, we can consider accelerating the plan for cardiac catheterization. Consult Acknowledgment - Thank you for your consult request.
[2017-06-05 13:59] LABS: PTT 47 SEC (25-37)
[2017-06-05 16:00] VITALS: BP 122/70
--- NOTE | 2017-06-05 17:43 | ECHOCARDIOGRAM REPORT ---
GIAN DEAL Age: 51 : 1965 Gender: M Exam Date: 06/05/2017 08:45 Exam Location: [facility] Ht (in): 66 Wt (lb): 197 BSA: 2.07 BP: 176 / 90 Ordering Physician: Dottie Willis MD Referring Physician: Dottie Willis MD Technologist: Emile Rizo [facility] Room Number: 105 Indications: Chest Pain Rhythm: Sinus Technical Quality: Fair FINDINGS Left Ventricle Normal size left ventricle. Borderline normal left ventricular ejection fraction estimated at 50-55%. Hypokinetic inferior wall. Left ventricular wall thickness increased. Right Ventricle Right ventricle not well visualized, grossly normal. Right Atrium Normal right atrial size. Left Atrium Left atrial size at the upper limits of normal. Mitral Valve Structurally normal mitral valve. Trace to mild mitral regurgitation. Aortic Valve Trileaflet aortic valve. Focal thickening of the aortic valve cusps. No aortic stenosis. No aortic regurgitation. Tricuspid Valve Tricuspid valve not well visualized, grossly normal. Pulmonic Valve Pulmonic valve not well visualized, grossly normal. Pericardium No pericardial effusion. Great Vessels Aortic root and proximal ascending aorta not well visualized, grossly normal. CONCLUSIONS 1. THis was a technically difficult examination. 2. Minimal aortic sclerosis is present. 3. The mitral valve is anatomically normal with minimal to mild mitral insufficiency. 4. THere is no pericardial fluid present. 5. The left ventricualr chamber size is normal with mild concentric hypertophy and focal mild hypokinesia of the inferior segments with an ejection fraction of 50-55%. 6. THe right heart structures were not optimally visualized. The RV systolic pressure could not be accurately assessed.. Ana Morillo M.D. (Electronically Signed) Final Date: 05 June 2017 17:42 MEASUREMENTS (Male / Female) Normal Values 2D ECHO LV Diastolic Diameter PLAX 4.8 cm 4.2 - 5.9 / 3.9 - 5.3 cm LV Systolic Diameter PLAX 3.7 cm 2.1 - 4.0 cm LV Fractional Shortening PLAX 22.9 % 25 - 46 % LV Ejection Fraction 2D Teich 45.9 % IVS Diastolic Thickness 1.4 cm LVPW Diastolic Thickness 1.2 cm LV Relative Wall Thickness 0.5 RV Internal Dim ED PLAX 3.9 cm 1.9 - 3.8 cm LVOT Diameter 1.8 cm Aortic Root Diameter 2.8 cm LA Systolic Diameter LX 4.0 cm 3.0 - 4.0 / 2.7 - 3.8 cm DOPPLER AV Peak Velocity 127.0 cm/s AV Peak Gradient 6.5 mmHg AV Mean Velocity 89.2 cm/s AV Mean Gradient 4.0 mmHg AV Velocity Time Integral 24.2 cm LVOT Peak Velocity 75.9 cm/s LVOT Peak Gradient 2.3 mmHg LVOT Mean Velocity 41.4 cm/s LVOT Mean Gradient 1.0 mmHg LVOT Velocity Time Integral 14.3 cm LVOT Stroke Volume 36.4 cm AV Area Cont Eq vti 1.5 cm AV Area Cont Eq pk 1.5 cm MV Peak Velocity 105.0 cm/s MV Peak Gradient 4.4 mmHg MV Mean Velocity 54.9 cm/s MV Mean Gradient 2.0 mmHg Mitral E Point Velocity 104.0 cm/s Mitral A Point Velocity 48.4 cm/s Mitral E to A Ratio 2.1 MV PHT Velocity 110.0 cm/s MV Deceleration Coffee 612.0 cm/s MV Pressure Half Time 53.9 ms MV Area PHT 4.1 cm MV Deceleration Time 106.0 ms MR Peak Velocity 593.0 cm/s MR Peak Gradient 140.7 mmHg TR Peak Velocity 235.0 cm/s TR Peak Gradient 22.1 mmHg Right Atrial Pressure 10.0 mmHg Pulmonary Artery Systolic Pressu 32.1 mmHg Right Ventricular Systolic Press 32.1 mmHg PV Peak Velocity 96.5 cm/s PV Peak Gradient 3.7 mmHg PV Mean Velocity 68.8 cm/s PV Mean Gradient 2.0 mmHg PV Velocity Time Integral 21.8 cm
[2017-06-05 20:49] LABS: PTT 89 SEC (25-37)
[2017-06-05 23:00] VITALS: BP 140/70
[2017-06-06 06:09] LABS: ABSOLUTE BASOPHIL COUNT 0.1 /CUMM (0.0-0.2); ABSOLUTE EOSINOPHIL COUNT 0.6 /CUMM (0.0-0.7); ABSOLUTE GRANULOCYTE CT 5.6 /CUMM (1.4-6.5); ABSOLUTE LYMPH COUNT 2.2 /CUMM (1.2-3.4); ABSOLUTE MONOCYTE COUNT 0.7 /CUMM (0.10-0.60); BASOPHIL % 0.6 % (0.0-2.0); GRANULOCYTE % 61.5 % (42.2-75.2); MEAN CORPUSCULAR HGB 28.6 PG (27.0-31.0); MEAN CORPUSCULAR HGB CONC 32.6 G/DL (33.0-37.0); MEAN CORPUSCULAR VOLUME 87.7 FL (80.0-94.0); PLATELET COUNT 236 /CUMM (130-400); RBC DISTRIBUTION WIDTH 13.9 % (11.5-14.5); RED BLOOD CELL CT 3.53 /CUMM (4.70-6.10); WHITE BLOOD CELL COUNT 9.1 /CUMM (4.8-10.8)
--- NOTE | 2017-06-06 07:20 | PN- Resident CRCU ---
Yohannes WILSON,Rhett 06/06/17 0720: Subjective HPI/CRCU Issues: Overnight issues: Patient was kept nothing by mouth for possible cardiac cath. Patient this morning reports continued coughing fits and sputum production. Patient reports continued shortness of breath. Reports that chest pain has improved and now patient has sporadic chest pain located at the center of his chest which lasts a few seconds and then dissipates. Patient reports subjective , chills and diaphoresis. Patient denies abdominal pain. Reports nausea last night however that has resolved. Denies any vomiting, hematemesis, constipation /diarrhea. Patient had a bowel movement yesterday. Denies any melena or bright red blood. Denies dysuria/hematuria. Vitals: MAXIMUM TEMPERATURE 98.7, heart rate 70s to 106, sinus rhythm, sinus tach, respiration rate 14-27, blood pressure 151/68, saturating at 97-99% on 2 L nasal cannula. Total intake: 2337, output:1150 Patient is currently on IV heparin drip and D5 half-normal saline running at 75 mL per hour Accu-Cheks: 131, 138, 140, 140, 178 Labs: WBC 9.1, H&H 10.1 31.0, platelet count 236 Sodium 141, potassium 3.7, chloride 107, bicarbonate 25, BUN 24, creatinine 1.5, glucose 132, calcium 8.1, phosphorus 3.7, magnesium 1.9, LFTs within normal limits, albumin 2.4 Microbiology: Sputum culture: Growing staph aureus Blood cultures 2 no growth to date Legionella and strep pneumo antigens negative Influenza negative Echocardiogram: Borderline normal left ventricular ejection fraction at 50-55% with hypokinetic inferior wall of the left ventricle and mild left ventricular concentric hypertrophy. Unable to assess right ventricular systolic pressures. Minimal aortic sclerosis. Minimal mitral insufficiency. Objective Vital Signs & I&O Last 8 Hrs of Vitals and I&O: Vital Signs Date Time Temp Pulse Resp B/P B/P Pulse O2 O2 Flow FiO2 Mean Ox Delivery Rate 06/06 0000 97 Nasal 2.0L Cannula Exam General Appearance: well developed/nourished, alert, awake, anxious, mild distress Head: atraumatic, normal appearance Respiratory: decreased breath sounds, crackles Cardiovascular: regular rate/rhythm Gastrointestinal: normal bowel sounds, soft, non-tender Extremities: normal inspection, no edema Cranial Nerves: normal hearing, normal speech, PERRL IV Drips IV Drips: IV heparin Current Medications: Current Medications Sig/Yoav Start time Last Medication Dose Route Stop Time Status Admin Acetaminophen 650 MG Q6P PRN 06/05 0130 AC PO Acetaminophen 1,000 MG Q6P PRN 06/05 0130 AC IV Albuterol Sulfate 3 ML BID 06/05 2200 AC 06/06 INH 0905 Albuterol Sulfate 3 ML Q4P PRN 06/05 0845 DC 06/05 INH 0841 Amlodipine Besylate 10 MG DAILY 06/05 1000 AC 06/06 PO 0839 Aspirin Buffered 81 MG DAILY 06/05 1000 AC 06/06 PO 0839 Carvedilol 25 MG BID 06/05 0140 AC 06/06 PO 0839 Ceftriaxone Sodium 1,000 MG DAILY 06/05 1000 DC 06/05 IV 0916 Dextrose/Sodium 1,000 ML Q13H 06/06 0000 AC 06/05 Chloride IV 06/06 1259 2356 Dorzolamide HCl 1 GTT TID 06/05 1000 AC 06/06 OPH 0840 Doxazosin Mesylate 4 MG DAILY 06/05 1000 AC 06/06 PO 0838 Doxycycline Hyclate 100 MG BID 06/05 1000 AC 06/06 PO 0838 Furosemide 20 MG Q48 06/05 1000 AC 06/05 PO 0918 Guaifenesin 600 MG Q12 06/05 0124 AC 06/06 PO 0838 Guaifenesin/Codeine 10 ML Q4P PRN 06/05 0945 AC Phosphate PO Heparin Sodium 2,800 UNIT ONCE ONE 06/05 1400 DC 06/05 (Porcine) IV 06/05 1401 1530 Heparin Sodium 25,000 UNIT Q24H 06/04 2315 AC 06/05 (Porcine) IV 2120 Sodium Chloride 500 ML Insulin Aspart 0 Q4 06/06 0000 AC 06/06 SC 0957 Insulin Aspart 0 AT BEDTIME 06/05 2200 CAN SC Insulin Aspart 0 TIDAC/HS 06/05 1700 DC 06/05 SC 06/06 0000 1640 Insulin Aspart 0 TIDAC 06/05 0145 DC 06/05 SC 1150 Insulin Detemir 10 UNITS BID 06/05 1000 AC 06/06 SC 0956 Ipratropium [place] 2.5 ML Q6 06/05 1200 DC INH Losartan Potassium 100 MG DAILY 06/05 1000 AC 06/06 PO 0839 Magnesium Oxide 400 MG ONE ONE 06/06 0745 DC 06/06 PO 06/06 0746 0836 Morphine Sulfate 2 MG Q6 PRN 06/05 0130 AC IV Omeprazole 40 MG BID 06/05 1100 AC 06/06 PO 0839 Phosphate 250 MG ONCE ONE 06/06 0745 DC 06/06 PO 06/06 0746 0837 Potassium Chloride 40 MEQ ONCE ONE 06/06 0745 DC 06/06 PO 06/06 0746 0837 Vancomycin HCl 1,500 MG ONCE ONE 06/06 1045 AC Sodium Chloride 250 ML IV 06/06 1214 Impression/Plan Impression/Problem List Impression: Patient is a 51-year-old male with past medical history significant for insulin- dependent diabetes and hypertension presenting with retrosternal chest pain which worsens with exertion and is relieved with nitroglycerin and productive cough with dyspnea on exertion, fever/chills and diarrhea. Patient's CTA shows no evidence of pulmonary embolism however does show multifocal acinar nodules bilaterally concerning for atypical pneumonia, hypersensitivity pneumonitis. Patient's EKG showed nonspecific ST-T changes with elevated troponins. Cardiology was notified and patient was started on IV heparin drip in the emergency department. Patient also received IV antibiotics. Patient was transferred to the ICU for further management. Respiratory: Community acquired pneumonia - based on imaging it is likely atypical pneumonia. Patient has cockatoos who he spends a gread deal of time with which leads to concern for chlamydia pscitticai. Patient continues to have respiratory symptoms with productive cough and dyspnea. Patient's sputum culture grew staph aureus. Patient was given vancomycin x 1 today and placed on contact for possible MRSA. Urine strep and legionella were negative. - Continue to monitor vitals and WBC - 1 dose of vancomycin today - Doxycycline 100mg BID - TRC/Nebs with ipratroprium only - Oxygen supplementation as needed - Follow up blood cultures - Follow up sputum culture sensitivities - Follow CHULA Level - Follow HIV serology - Follow up chlamydia pscitticosis antibody - send out lab, will take 3-5 days per lab Infection: Sepsis 2/2 atypical pneumonia See above Cardiac: Chest pain - NSTEMI Patient presents with substernal chest pain relieved with nitroglycerin, nonspecific ST changes in inferolateral leads. Repeat ECHO this admission is showing a small inferior hypokinetic area iin the wall of the left ventricle. Troponin peaked at 1.06. Patient's DRAKE score is 4 with a 20% risk at 14 days of all-cause mortality, new or recurrent MS, or severe recurrent ischemia requiring urgent revascularization. - Continue IV heparin drip - Continue aspirin - Cardiology consulted - Per cardiololgy patient will require cardiac cath prior to discharge - likely will occur on Saturday, June 09 - Continue to monitor on telemetry Systolic Congestive Heart Failure - Nuclear study from 2017 shows LVEF of 54% proBNP elevated with bilateral lower extremity edema - lasix every other day - strict I/O - ECHO - Cardiology consulted - Carvedilol Hypertensive urgency on admission: - Continue amlodipine 10 daily - Continue carvedilol 25 twice daily - Continue doxazosin 4 mg daily - Continue losartan 100 daily Hyperlipidemia Allergic to statins - Continue zetia Heme: Mild Anemia Ailmentary: Insulin Dependent Diabetes - on Insulin Pump. - Endocrinology consulted - Insulin pump held - Levemir 10 units BID - Insulin SS TID/qHS per endocrinology recommendations - Accuchecks TID/qHS - Hemoglobin A1c pending Diet: Diabetic diet with sodium restriction Hypokalemia - K+ repleted - Continue to monitor electrolytes Bowel regimen - Senna - Docusate Neurology: none Nephrology: Chronic Kidney Disease - history of contrast induced nephropathy with a baseline creatinine of 1.3 Patient had a CTA in the ED which ruled out pneumonia. - avoid nephrotoxic agents - stricts I/O - continue to monitor creatinine Opthamology: Glaucoma - continue dorzolamide HCl drops TID DVT PPx: ALPS, IV Heparin Drip Problem List: 1. Pneumonia 2. Non-STEMI (non-ST elevated myocardial infarction) Pain Ratin Tomorrow's Labs & Rationales: cbc - infection/iv heparin icu bundle Plan DVT/Prophylaxis: mechanical, pharmacological Hannah WILSON,[facility] 06/06/17 1403: Attending MD Review Statement Attending Sign Off Attending Cosign Statement: I have: examined this patient, reviewed aval EMR data, personally reviewd images, discussd w/resident/PA/[employer], discussed mgmt plan w/sonja, discussed mgmt plan w/CM, discussed mgmt plan w/pt, agreed w/resident/PA/[employer] COUNSELOR, amended to note. Other Findings: Pt with DM, Glaucoma, CKD, with Sig cough, low grade temp with diffuse atypical pulm infiltrates (multifocal nodular acinar infliltrares) consistant with atypical pna, with broad diff (pt does have birds and Pscitacosis is high in the diff) now growing staph in the sputum Chest pain now releived with ntg, with elevated troponin rule out ACS SIg HTN with Elevated BNP prob some component of Diastolic heart dz DM on INsulin PFO Sig neuropathy OBesity Recent contrast use in a diabetic REC Cont to monitor in icu DOXY po bid one dose of vanco Psicatosis antibody panel Sputum culture final pending Cardio eval, IV heparin PO PPI bid for now IV heparin Nebs only with ipratropium q 6hrs ASA Robutussin with codeine prn Senakot with docusate daily Will follow
--- NOTE | 2017-06-06 07:35 | PN- Diabetes ---
Assessment/Plan Diabetes Assessment: This patient has a history of type 2 diabetes and was on the VGo 30 and Trulicity prior to admission. The patient came to the emergency room because of severe cough. He was also having fevers, chills, chest congestion, and shortness of breath. He also developed some chest pain. He has been found to have an elevated troponin. A CT angiogram shows no evidence of pulmonary emboli but there are present multiple similar nodules bilaterallyThe patient feels a little better. He still has a severe cough. He has had no chest pain. He is presently n.p.o. and on IV fluids in the form of D5 half-normal saline at 75 cc/h. He did receive 10 units of Levemir last night and is on NovoLog coverage every 4 hours. The patient's blood sugars have been good with a sugar of 140 at 9:25 PM 140 at midnight, 138 at 2 AM, and 131 at 5:54 AM. The decision is going to be made today as to whether he needs to be transferred to have his heart started further. Plan: Suggest if the patient is to remain n.p.o. continue the present regimen with NovoLog coverage every 4 hours and glucose in the IV fluids.. Levemir can be reduced to 5 units twice a day while n.p.o. If the patient resumes diet, place him back on Levemir 10 units twice a day along with the pre-meal sliding scale and separate sliding scale at bedtime as documented in the note yesterday. Subjective Subjective: Feels a little better Review of Systems Constitutional: Reports: malaise. Cardiovascular: Denies: chest pain. Respiratory: Reports: cough, short of breath. Gastrointestinal: Denies: abdominal pain. Skin: Reports: no symptoms. Objective Last 24 Hrs of Vital Signs/I&O Vital Signs Date Time Temp Pulse Resp B/P B/P Pulse O2 O2 Flow FiO2 Mean Ox Delivery Rate 06/06 0000 97 Nasal 2.0L Cannula 06/05 2300 97.8 75 22 140/70 96 Nasal 2.0L Cannula 06/057 82 23 140/70 06/06 1999 97 Nasal 2.0L Cannula 06/05 1948 95 Nasal 2.0L Cannula 06/05 1600 98.5 79 20 122/70 96 Nasal 2.0L Cannula 06/05 1600 95 Nasal 2.0L Cannula 06/05 1325 Nasal 3.0L Cannula 06/05 1200 94 Nasal 2.0L Cannula 06/05 0918 181/76 06/05 0918 96 181/76 06/05 0918 97 181/76 06/05 0800 98.7 82 20 172/82 97 Nasal 2.0L Cannula 06/05 0800 95 Nasal 2.0L Cannula Intake & Output 06/06 0800 06/06 0000 06/05 1600 Intake Total 704 877 Output Total 0 600 Balance 704 277 Intake, IV 204 457 Intake, Oral 500 420 Number 0 1 Bowel Movements Output, Urine 0 600 Vital Signs Date Time Temp Pulse Resp B/P B/P Pulse O2 O2 Flow FiO2 Mean Ox Delivery Rate 06/06 0000 97 Nasal 2.0L Cannula 06/05 2300 97.8 75 22 140/70 96 Nasal 2.0L Cannula 06/05 2117 82 23 140/70 06/05 2000 97 Nasal 2.0L Cannula 06/05 1948 95 Nasal 2.0L Cannula 06/05 1600 98.5 79 20 122/70 96 Nasal 2.0L Cannula 06/05 1600 95 Nasal 2.0L Cannula 06/05 1325 Nasal 3.0L Cannula 06/05 1200 94 Nasal 2.0L Cannula 06/05 0918 181/76 06/05 0918 96 181/76 06/05 0918 97 181/76 06/05 0800 98.7 82 20 172/82 97 Nasal 2.0L Cannula 06/05 0800 95 Nasal 2.0L Cannula Intake & Output 06/06 0800 06/06 0000 06/05 1600 Intake Total 704 877 Output Total 0 600 Balance 704 277 Intake, IV 204 457 Intake, Oral 500 420 Number 0 1 Bowel Movements Output, Urine 0 600 Physical Exam General Appearance: alert, awake, comfortable Neck: normal inspection Respiratory: normal breath sounds Cardiovascular: regular rate/rhythm Abdomen: normal bowel sounds, soft Extremities: normal inspection Current Medications: Current Medications Sig/Yoav Start time Last Medication Dose Route Stop Time Status Admin Acetaminophen 650 MG Q6P PRN 06/05 0130 AC PO Acetaminophen 1,000 MG Q6P PRN 06/05 0130 AC IV Albuterol Sulfate 3 ML BID 06/05 2200 AC 06/05 INH 1945 Albuterol Sulfate 3 ML Q6 06/05 1200 CAN INH Albuterol Sulfate 3 ML Q4P PRN 06/05 0845 DC 06/05 INH 0841 Amlodipine Besylate 10 MG DAILY 06/05 1000 AC 06/05 PO 0918 Aspirin Buffered 81 MG DAILY 06/05 1000 AC 06/05 PO 0918 Azithromycin 500 MG DAILY 06/05 1000 DC 06/05 Dextrose/Water 250 ML IV 09 Carvedilol 25 MG BID 06/05 0140 AC 06/05 PO 2117 Ceftriaxone Sodium 1,000 MG DAILY 06/05 1000 AC 06/05 IV 0916 Dextrose/Sodium 1,000 ML Q13H 06/06 0000 AC 06/05 Chloride IV 06/06 1259 2356 Dorzolamide HCl 1 GTT TID 06/05 1000 AC 06/05 OPH 2117 Doxazosin Mesylate 4 MG DAILY 06/05 1000 AC 06/05 PO 0918 Doxycycline Hyclate 100 MG BID 06/05 1000 AC 06/05 PO 2117 Furosemide 20 MG Q48 06/05 1000 AC 06/05 PO 0918 Guaifenesin 600 MG Q12 06/05 0124 AC 06/05 PO 2117 Guaifenesin/Codeine 10 ML Q4P PRN 06/05 0945 AC Phosphate PO Heparin Sodium 2,800 UNIT ONCE ONE 06/05 1400 DC 06/05 (Porcine) IV 06/05 1401 1530 Heparin Sodium 25,000 UNIT Q24H 06/04 2315 AC 06/05 (Porcine) IV 2120 Sodium Chloride 500 ML Insulin Aspart 0 Q4 06/06 0000 AC SC Insulin Aspart 0 AT BEDTIME 06/05 2200 CAN SC Insulin Aspart 0 TIDAC/HS 06/05 1700 DC 06/05 SC 06/06 0000 1640 Insulin Aspart 0 TIDAC 06/05 0145 DC 06/05 SC 1150 Insulin Detemir 10 UNITS BID 06/05 1000 AC 06/05 SC 2116 Ipratropium [place] 2.5 ML Q6 06/05 1200 DC INH Losartan Potassium 100 MG DAILY 06/05 1000 AC 06/05 PO 0918 Morphine Sulfate 2 MG Q6 PRN 06/05 0130 AC IV Omeprazole 40 MG BID 06/05 2200 DC PO Omeprazole 40 MG BID 06/05 1100 AC 06/05 PO 211 Omeprazole 40 MG DAILY AC 06/05 0937 DC PO Findings Pertinent Lab/Don Results: Laboratory Tests 06/06 1641 Chemistry Sodium (137 - 145 mmol/L) 141 Potassium (3.5 - 5.1 mmol/L) 3.7 Chloride (98 - 107 mmol/L) 107 Carbon Dioxide (22 - 30 mmol/L) 25 Anion Gap (5 - 16) 9 BUN (9 - 20 mg/dL) 24 H Creatinine (0.7 - 1.2 mg/dL) 1.5 H Estimated GFR (>60 ml/min) 50 L Glucose (65 - 99 mg/dL) 132 H Calcium (8.4 - 10.2 mg/dL) 8.1 L Phosphorus (2.5 - 4.5 mg/dL) 3.7 Magnesium (1.6 - 2.3 mg/dL) 1.9 Total Bilirubin (0.2 - 1.3 mg/dL) 0.5 AST (17 - 59 U/L) 21 ALT (21 - 72 U/L) 36 Albumin (3.5 - 5.0 g/dL) 2.4 L Coagulation APTT (25 - 37 SEC) 89 H Cancelled Hematology CBC w Diff NO MAN DIFF REQ WBC (4.8 - 10.8 /CUMM) 9.1 RBC (4.70 - 6.10 /CUMM) 3.53 L Hgb (14.0 - 18.0 G/DL) 10.1 L Hct (42 - 52 %) 31.0 L MCV (80.0 - 94.0 FL) 87.7 MCH (27.0 - 31.0 PG) 28.6 MCHC (33.0 - 37.0 G/DL) 32.6 L RDW (11.5 - 14.5 %) 13.9 Plt Count (130 - 400 /CUMM) 236 MPV (7.4 - 10.4 FL) 10.0 Gran % (42.2 - 75.2 %) 61.5 Lymphocytes % (20.5 - 51.1 %) 24.1 Monocytes % (1.7 - 9.3 %) 7.8 Eosinophils % (0 - 5 %) 6.0 H Basophils % (0.0 - 2.0 %) 0.6 Absolute Granulocytes (1.4 - 6.5 /CUMM) 5.6 Absolute Lymphocytes (1.2 - 3.4 /CUMM) 2.2 Absolute Monocytes (0.10 - 0.60 /CUMM) 0.7 H Absolute Eosinophils (0.0 - 0.7 /CUMM) 0.6 Absolute Basophils (0.0 - 0.2 /CUMM) 0.1 06/05 06/05 06/05 1202 1130 0926 Chemistry Troponin I (<0.11 ng/ml) 0.73 *H Coagulation APTT (25 - 37 SEC) 47 H Toxicology Urine Opiates Screen (>2000 NG/ML) 760.00 Methadone Screen (>300 NG/ML) < 40 Barbiturate Screen (>200 NG/ML) < 60 Ur Phencyclidine Scrn (>25 NG/ML) < 6.00 Amphetamines Screen (>1000 NG/ML) < 100 U Benzodiazepines Scrn (>200 NG/ML) < 85 Urine Cocaine Screen (>300 NG/ML) < 50 Urine Cannabis Screen (>50 NG/ML) < 5.00
[2017-06-06 08:00] VITALS: BP 142/70
[2017-06-06 10:06] LABS: PTT 96 SEC (25-37)
[2017-06-06 16:00] VITALS: BP 130/70
[2017-06-06 18:03] LABS: PTT 60 SEC (25-37)
--- NOTE | 2017-06-06 19:59 | PN- Cardiology ---
Subjective Subjective: Cardiac status unchanged Objective Vital Signs and I&Os Vital Signs Date Time Temp Pulse Resp B/P B/P Pulse O2 O2 Flow FiO2 Mean Ox Delivery Rate 06/06 1949 92 Room Air Room Air 06/06 1600 98.4 82 20 130/70 90 Room Air 06/06 1600 91 Room Air 06/06 1200 95 Nasal 1.0L Cannula 06/06 0909 97 Nasal 2.0L Cannula 06/06 0839 78 153/92 06/06 0839 78 153/92 06/06 0839 78 153/92 06/06 0800 98.2 76 18 142/70 96 Nasal 2.0L Cannula 06/06 0800 96 Nasal 2.0L Cannula 06/06 0400 99 Nasal 2.0L Cannula 06/06 0000 97 Nasal 2.0L Cannula 06/05 2300 97.8 75 22 140/70 96 Nasal 2.0L Cannula 06/05 2117 82 23 140/70 06/05 2000 97 Nasal 2.0L Cannula Intake & Output 06/06 1600 06/06 0800 06/06 0000 06/05 1600 06/05 0800 06/05 0000 Intake Total 1440 625 671 500 3015 Output Total 1275 550 0 600 600 Balance 165 75 704 277 631 Intake, IV 1000 625 798 366 3833 Intake, Oral 440 0 500 420 Number 0 0 0 1 0 Bowel Movements Output, Urine 1275 550 0 600 600 Patient 203 lb 197 lb Weight Weight Bed scale Reported by Patient Measurement Method Current Medications: Current Medications Sig/Yoav Start time Last Medication Dose Route Stop Time Status Admin Acetaminophen 650 MG Q6P PRN 06/05 0130 AC PO Acetaminophen 1,000 MG Q6P PRN 06/05 0130 AC IV Albuterol Sulfate 3 ML BID 06/05 2200 DC 06/06 INH 1942 Amlodipine Besylate 10 MG DAILY 06/05 1000 AC 06/06 PO 0839 Aspirin Buffered 81 MG DAILY 06/05 1000 AC 06/06 PO 0839 Carvedilol 25 MG BID 06/05 0140 AC 06/06 PO 0839 Ceftriaxone Sodium 1,000 MG DAILY 06/05 1000 DC 06/05 IV 0916 Dextrose/Sodium 1,000 ML Q13H 06/06 0000 DC 06/05 Chloride IV 06/06 1259 2356 Docusate Sodium 100 MG DAILY NEEDED PRN 06/06 1500 AC PO Dorzolamide HCl 1 GTT TID 06/05 1000 AC 06/06 OPH 1502 Doxazosin Mesylate 4 MG DAILY 06/05 1000 AC 06/06 PO 0838 Doxycycline Hyclate 100 MG BID 06/05 1000 AC 06/06 PO 0838 Furosemide 20 MG Q48 06/05 1000 AC 06/05 PO 0918 Guaifenesin 600 MG Q12 06/05 0124 AC 06/06 PO 0838 Guaifenesin/Codeine 10 ML Q4P PRN 06/05 0945 AC 06/06 Phosphate PO 1502 Heparin Sodium 25,000 UNIT Q24H 06/04 2315 AC 06/06 (Porcine) IV 1912 Sodium Chloride 500 ML Insulin Aspart 0 TIDAC/HS 06/06 1700 AC 06/06 SC 1901 Insulin Aspart 0 Q4 06/06 0000 DC 06/06 SC 1433 Insulin Aspart 0 TIDAC/HS 06/05 1700 DC 06/05 SC 06/06 0000 1640 Insulin Detemir 10 UNITS BID 06/05 1000 AC 06/06 SC 0956 Losartan Potassium 100 MG DAILY 06/05 1000 AC 06/06 PO 0839 Magnesium Oxide 400 MG ONE ONE 06/06 0745 DC 06/06 PO 06/06 0746 0836 Morphine Sulfate 2 MG Q6 PRN 06/05 0130 AC IV Omeprazole 40 MG BID 06/05 1100 AC 06/06 PO 0839 Phosphate 250 MG ONCE ONE 06/06 0745 DC 06/06 PO 06/06 0746 0837 Potassium Chloride 40 MEQ ONCE ONE 06/06 0745 DC 06/06 PO 06/06 0746 0837 Senna 187 MG AT BEDTIME 06/06 2200 AC PO Vancomycin HCl 1,500 MG ONCE ONE 06/06 1045 DC 06/06 Sodium Chloride 250 ML IV 06/06 1214 1214 Results Last 48 Hrs of Labs/Mics: Laboratory Tests 06/06/17 1705: APTT 60 H 06/06/17 0845: APTT 96 H 06/06/17 0547: Anion Gap 9, Estimated GFR 50 L, Glucose 132 H, Hemoglobin A1c 7.7 H, Calcium 8.1 L, Phosphorus 3.7, Magnesium 1.9, Total Bilirubin 0.5, AST 21, ALT 36, Albumin 2.4 L, CBC w Diff NO MAN DIFF REQ, RBC 3.53 L, MCV 87.7, MCH 28.6, MCHC 32.6 L, RDW 13.9, MPV 10.0, Gran % 61.5, Lymphocytes % 24.1, Monocytes % 7.8, Eosinophils % 6.0 H, Basophils % 0.6, Absolute Granulocytes 5.6, Absolute Lymphocytes 2.2, Absolute Monocytes 0.7 H, Absolute Eosinophils 0.6, Absolute Basophils 0.1 06/05/17 2016: APTT 89 H 06/05/17 1641: APTT Cancelled 06/05/17 1202: APTT 47 H 06/05/17 1130: Urine Opiates Screen 760.00, Methadone Screen < 40, Barbiturate Screen < 60, Ur Phencyclidine Scrn < 6.00, Amphetamines Screen < 100, U Benzodiazepines Scrn < 85, Urine Cocaine Screen < 50, Urine Cannabis Screen < 5.00 06/05/17 0926: Troponin I 0.73 *H 06/05/17 0500: Angiotensin Convert Enz Pending, NIXON Titer ND, Anti-Nuclear Antibody NEG 1:40 IFA ASSAY 06/05/17 0439: Phosphorus 4.0, Magnesium 2.6 H, Troponin I 1.06 *H 06/05/17 0439: Anion Gap 8, Estimated GFR 58 L, BUN/Creatinine Ratio 19.2, C-Reactive Prot, Quant 6.6 H, APTT 46 H, CBC w Diff NO MAN DIFF REQ, RBC 3.55 L, MCV 87.1, MCH 29.3, MCHC 33.7, RDW 13.9, MPV 9.9, Gran % 77.3 H, Lymphocytes % 15.4 L, Monocytes % 5.8, Eosinophils % 1.3, Basophils % 0.2, Absolute Granulocytes 10.0 H, Absolute Lymphocytes 2.0, Absolute Monocytes 0.7 H, Absolute Eosinophils 0.2 , Absolute Basophils 0, ESR Westergren 56 H, Rheum Factor Semi-Quant 9.1, HIV 1 &2 Ab Western Blot NONREACTIVE 06/05/17 0300: Ref Lab Test Result Pending 06/05/17 0013: Lactic Acid Cancelled 06/04/172121: Anion Gap 10, Estimated GFR 58 L, BUN/Creatinine Ratio 22.3, Glucose 166 H, Lactic Acid 1.8, Calcium 9.0, Total Bilirubin 0.5, AST 45, ALT 42, Alkaline Phosphatase 95, Troponin I 0.83 *H, Cma-T-[id number] Pept 4060 H, Total Protein 6.8, Albumin 3.4 L, Globulin 3.4, Albumin/Globulin Ratio 1.0 L, PT 10.7, INR 0.98, APTT 27, D-Dimer High Sensitivty 274 H, CBC w Diff NO MAN DIFF REQ, RBC 4.32 L, MCV 87.2, MCH 28.8, MCHC 33.0, RDW 14.4, MPV 9.6, Gran % 83.8 H, Lymphocytes % 9.8 L, Monocytes % 5.5, Eosinophils % 0.6, Basophils % 0.3, Absolute Granulocytes 11.8 H, Absolute Lymphocytes 1.4, Absolute Monocytes 0.8 H, Absolute Eosinophils 0.1, Absolute Basophils 0 06/04/172112: Virus Culture Pending Microbiology 06/05 1130 URINE ROUT: Legionella Antigen - COMP 06/05 1130 URINE ROUT: Streptococcus pneumoniae Antigen (M - COMP 06/05 0640 NASOPHARYN: Influenza Virus A & B Rapid Smear - COMP 06/05 0221 GI: Surveillance Culture - COMP 06/05 0216 UPPER RESP: Surveillance Culture - COMP 06/04 2113 NASOPHARYN: Influenza Virus A & B Rapid Smear - COMP Assessment/Plan Assessment/Plan assessment: 1. atypcal pneumonia 2. Elevated troponin consistent with non-ST elevation myocardial infarction/ type II CT 3. Hypertensive urgency 4. History of hypertension 5. History of diabetes 6. History of hyperlipidemia recommendations: -The patient has multiple cardiovascular risk factors, a troponin of greater than 1 with a history of prior troponin elevation. Outpatient evaluation which showed a subtly abnormal stress test. New subtle inferior wall motion abnormalityon echo, etc. In view of all these facts, I believe that the patient would ultimately benefit from a cardiac catheterization and, if he remains stable, this can likely be performed prior to discharge. I do not see any benefit in pursuing a repeat stress test, etc. -continue current treatment for now -Continue IV heparin -Continue pulmonary care as per the critical care/pulmonary team -Continue other medications -If the patient's status changes in any way, we can consider accelerating the plan for cardiac catheterization. Continue telemetry? Yes
[2017-06-07] VITALS: BP 142/78
[2017-06-07 01:14] LABS: ABSOLUTE BASOPHIL COUNT 0.1 /CUMM (0.0-0.2); ABSOLUTE EOSINOPHIL COUNT 0.6 /CUMM (0.0-0.7); ABSOLUTE GRANULOCYTE CT 8.8 /CUMM (1.4-6.5); ABSOLUTE LYMPH COUNT 1.5 /CUMM (1.2-3.4); ABSOLUTE MONOCYTE COUNT 0.6 /CUMM (0.10-0.60); BASOPHIL % 0.5 % (0.0-2.0); EOSINOPHIL % 5.3 % (0-5); GRANULOCYTE % 76.6 % (42.2-75.2); HEMATOCRIT 30.5 % (42-52); MEAN CORPUSCULAR HGB 29.1 PG (27.0-31.0); MEAN CORPUSCULAR HGB CONC 33.7 G/DL (33.0-37.0); MEAN CORPUSCULAR VOLUME 86.4 FL (80.0-94.0); MEAN PLATELET VOLUME 9.6 FL (7.4-10.4); PLATELET COUNT 247 /CUMM (130-400); RED BLOOD CELL CT 3.53 /CUMM (4.70-6.10); WHITE BLOOD CELL COUNT 11.5 /CUMM (4.8-10.8)
[2017-06-07 01:25] LABS: PTT 58 SEC (25-37)
--- NOTE | 2017-06-07 07:35 | PN- Resident CRCU ---
Subjective HPI/CRCU Issues: Overnight issues: Patient overnight felt SOB. O2 saturation decreased to 84% on room air. Patient was started on 5 L nasal cannula with improvement in saturation to 92%. Patient felt better after sitting up. He received his scheduled dose of lasix PO today. Patient's oxygen requirement has decreased to 2L today. Patient today was resting comfortably in bed. Continues to have cough however reports symptoms are improving. Vitals: MAXIMUM TEMPERATURE 99.9, heart rate 70s to 80s, sinus rhythm, respiration rate 18-30, blood pressure 158/71, saturating at 95-97% on 2 L. Accu-Cheks: 97, 172, 229, 196 Labs: WBC of 11.5, H&H 10.3 and 30.5, platelet count 247 Sodium 141, potassium 4.6, chloride 107, bicarbonate 24, BUN 26 and creatinine 1.4, glucose 90, calcium 7.9, phosphorus 3.4, magnesium 1.7, LFTs within normal limits, albumin 2.6 Rheumatoid factor: 9.1, NIXON negative, ESR 56, CRP 6.6 Microbiology: Sputum culture from June 05 growing staph aureus, sensitivities pending Objective Vital Signs & I&O Last 8 Hrs of Vitals and I&O: Vital Signs Date Time Temp Pulse Resp B/P B/P Pulse O2 O2 Flow FiO2 Mean Ox Delivery Rate 06/07 1021 94 Nasal 2.0L Cannula 06/07 0836 88 150/80 06/07 0835 88 150/80 06/07 0834 88 150/80 Exam General Appearance: well developed/nourished, no apparent distress, alert, awake , comfortable Respiratory: crackles, wheezing Cardiovascular: regular rate/rhythm Gastrointestinal: normal bowel sounds, soft, non-tender Extremities: normal inspection, no edema Cranial Nerves: normal hearing, normal speech, PERRL IV Drips IV Drips: IV heparin drip Current Medications: Current Medications Sig/Yoav Start time Last Medication Dose Route Stop Time Status Admin Acetaminophen 650 MG Q6P PRN 06/05 013 AC PO Acetaminophen 1,000 MG Q6P PRN 06/05 013 AC IV Albuterol Sulfate 3 ML BID 06/05 2200 DC 06/06 INH 1942 Amlodipine Besylate 10 MG DAILY 06/05 1000 AC 06/07 PO 0834 Aspirin Buffered 81 MG DAILY 06/05 1000 AC 06/07 PO 0833 Carvedilol 25 MG BID 06/05 0140 AC 06/07 PO 0835 Docusate Sodium 100 MG DAILY NEEDED PRN 06/06 1500 AC 06/07 PO 0836 Dorzolamide HCl 1 GTT BID 06/07 1000 AC 06/07 OPH 0835 Dorzolamide HCl 1 GTT TID 06/05 1000 DC 06/06 OPH 2121 Doxazosin Mesylate 4 MG DAILY 06/05 1000 AC 06/07 PO 0834 Doxycycline Hyclate 100 MG BID 06/05 1000 AC 06/07 PO 0834 Fluticasone 2 PUF BID 06/07 1030 AC 06/07 Propionate INH 1306 Furosemide 20 MG DAILY 06/08 1000 CAN IV Furosemide 20 MG Q48 06/05 1000 AC 06/07 PO 0834 Guaifenesin 600 MG Q12 06/05 0124 AC 06/07 PO 0834 Guaifenesin/Codeine 10 ML Q4P PRN 06/05 0945 AC 06/06 Phosphate PO 2120 Heparin Sodium 5,000 UNIT .STK-MED ONE 06/07 0349 DC (Porcine) IV 06/07 0350 Heparin Sodium 2,800 UNIT BOLUS ONE 06/07 0200 DC 06/07 (Porcine) IV 06/07 0201 0200 Heparin Sodium 25,000 UNIT Q24H 06/04 2315 DC 06/06 (Porcine) IV 1912 Sodium Chloride 500 ML Insulin Aspart 0 TIDAC/HS 06/06 1700 AC 06/07 SC 1504 Insulin Detemir 8 UNITS BID 06/07 1000 AC 06/07 SC 1039 Insulin Detemir 10 UNITS BID 06/05 1000 DC 06/06 SC 2120 Ipratropium [place] 2.5 ML Q6PRN PRN 06/06 2015 AC INH Losartan Potassium 100 MG DAILY 06/05 1000 AC 06/07 PO 0836 Magnesium Oxide 400 MG ONE ONE 06/07 0800 DC 06/07 PO 06/07 0801 0835 Magnesium Sulfate 1 GM ONCE ONE 06/07 0830 DC 06/07 Dextrose/Water 100 ML IV 06/07 1229 0835 Morphine Sulfate 2 MG Q6 PRN 06/05 0130 AC IV Omeprazole 40 MG BID 06/05 1100 AC 06/07 PO 0834 Phosphate 250 MG ONCE ONE 06/07 0800 DC 06/07 PO 06/07 0801 0951 Senna 187 MG AT BEDTIME 06/06 2200 AC 06/06 PO 2122 Tiotropium [place] 1 PUF DAILY 06/07 1100 AC 06/07 INH 1307 Vancomycin HCl 1,500 MG DAILY 06/07 1051 AC 06/07 Sodium Chloride 250 ML IV 1306 Impression/Plan Impression/Problem List Impression: Patient is a 51-year-old male with past medical history significant for insulin- dependent diabetes and hypertension presenting with retrosternal chest pain which worsens with exertion and is relieved with nitroglycerin and productive cough with dyspnea on exertion, fever/chills and diarrhea. Patient's CTA shows no evidence of pulmonary embolism however does show multifocal acinar nodules bilaterally concerning for atypical pneumonia, hypersensitivity pneumonitis. Patient's EKG showed nonspecific ST-T changes with elevated troponins. Cardiology was notified and patient was started on IV heparin drip in the emergency department. Patient also received IV antibiotics. Patient was transferred to the ICU for further management. Respiratory: Community acquired pneumonia - based on imaging it is likely atypical pneumonia. Patient has cockatoos who he spends a gread deal of time with which leads to concern for chlamydia pscitticai. Patient's symptoms are improving with antibiotics and respiratory treatement. Patient had acutely desaturated overnight requiring increase in oxygen supplmentation. Patient received lasix PO this morning. Patient's symptoms are improving today on 2L NC. Patient's sputum culture is growing strep and staph aureus. Sensitivities for staph are pending. - Continue to monitor vitals and WBC - Continue vancomycin daily for presumed MRSA pneumonia - Doxycycline 100mg BID - TRC/Nebs with ipratroprium only - flovent and spiriva started today - Oxygen supplementation as needed - Follow up blood cultures - Follow up sputum culture sensitivities - Follow CHULA Level - Follow up chlamydia pscitticosis antibody - send out lab, will take 3-5 days per lab Infection: Sepsis 2/2 atypical pneumonia See above Cardiac: Chest pain - NSTEMI Patient presents with substernal chest pain relieved with nitroglycerin, nonspecific ST changes in inferolateral leads. Repeat ECHO this admission is showing a small inferior hypokinetic area iin the wall of the left ventricle. Troponin peaked at 1.06. Patient's DRAKE score is 4 with a 20% risk at 14 days of all-cause mortality, new or recurrent SC, or severe recurrent ischemia requiring urgent revascularization. - IV heparin discontinued today - Continue aspirin - Cardiology consulted - Per cardiololgy patient will require cardiac cath prior to discharge - likely will occur on Saturday, June 09. Please keep NPO Saturday night. - Continue to monitor on telemetry Systolic Congestive Heart Failure - Nuclear study from 2017 shows LVEF of 54% proBNP elevated with bilateral lower extremity edema - lasix every other day - strict I/O - ECHO - Cardiology consulted - Carvedilol Hypertensive urgency on admission: - Continue amlodipine 10 daily - Continue carvedilol 25 twice daily - Continue doxazosin 4 mg daily - Continue losartan 100 daily Hyperlipidemia Allergic to statins - Continue zetia Heme: Mild Anemia Ailmentary: Insulin Dependent Diabetes - on Insulin Pump. Hemoglobin A1c: 7.7 Patient's finger sticks were low this morning. Levemir has been decreased to 8 units from 10 units BID. Patient's diet order changed from consistent carb 2 to 3. - Endocrinology consulted - Insulin pump held - Levemir 8 units BID - Insulin SS TID/qHS per endocrinology recommendations - Accuchecks TID/qHS Diet: Diabetic diet with sodium restriction Hypokalemia - K+ repleted - Continue to monitor electrolytes Bowel regimen - Senna - Docusate Neurology: none Nephrology: Chronic Kidney Disease - history of contrast induced nephropathy with a baseline creatinine of 1.3 Patient had a CTA in the ED which ruled out pneumonia. - avoid nephrotoxic agents - stricts I/O - continue to monitor creatinine Opthamology: Glaucoma - continue dorzolamide HCl drops TID DVT PPx: ALPS, Heparin SQ Problem List: 1. Pneumonia 2. Non-STEMI (non-ST elevated myocardial infarction) Pain Ratin Tomorrow's Labs & Rationales: cbc icu bundle Plan DVT/Prophylaxis: mechanical, pharmacological
[2017-06-07 08:00] VITALS: BP 150/80
[2017-06-07 09:27] LABS: PTT 73 SEC (25-37)
--- NOTE | 2017-06-07 09:40 | PN- Pulmonary ---
Subjective HPI/Critical Care Issues: Doing ok Did have orthopnea yesterday Now s/p lasix with good diuresis Oxygenation did improve Cough still Objective Current Medications: Current Medications Sig/Yoav Start time Last Medication Dose Route Stop Time Status Admin Acetaminophen 650 MG Q6P PRN 06/05 0130 AC PO Acetaminophen 1,000 MG Q6P PRN 06/05 0130 AC IV Albuterol Sulfate 3 ML BID 06/05 2200 DC 06/06 INH 1942 Amlodipine Besylate 10 MG DAILY 06/05 1000 AC 06/07 PO 0834 Aspirin Buffered 81 MG DAILY 06/05 1000 AC 06/07 PO 0833 Carvedilol 25 MG BID 06/05 0140 AC 06/07 PO 0835 Dextrose/Sodium 1,000 ML Q13H 06/06 0000 DC 06/05 Chloride IV 06/06 1259 2356 Docusate Sodium 100 MG DAILY NEEDED PRN 06/06 1500 AC 06/07 PO 0836 Dorzolamide HCl 1 GTT BID 06/07 1000 AC 06/07 OPH 0835 Dorzolamide HCl 1 GTT TID 06/05 1000 DC 06/06 OPH 2121 Doxazosin Mesylate 4 MG DAILY 06/05 1000 AC 06/07 PO 0834 Doxycycline Hyclate 100 MG BID 06/05 1000 AC 06/07 PO 0834 Furosemide 20 MG Q48 06/05 1000 AC 06/07 PO 0834 Guaifenesin 600 MG Q12 06/05 0124 AC 06/07 PO 0834 Guaifenesin/Codeine 10 ML Q4P PRN 06/05 0945 AC 06/06 Phosphate PO 2120 Heparin Sodium 2,800 UNIT BOLUS ONE 06/07 0200 DC 06/07 (Porcine) IV 06/07 0201 0200 Heparin Sodium 25,000 UNIT Q24H 06/04 2315 AC 06/06 (Porcine) IV 1912 Sodium Chloride 500 ML Insulin Aspart 0 TIDAC/HS 06/06 1700 AC 06/06 SC 1901 Insulin Aspart 0 Q4 06/06 0000 DC 06/06 SC 1433 Insulin Detemir 10 UNITS BID 06/05 1000 AC 06/06 SC 2120 Ipratropium [place] 2.5 ML Q6PRN PRN 06/06 2015 AC INH Losartan Potassium 100 MG DAILY 06/05 1000 AC 06/07 PO 0836 Magnesium Oxide 400 MG ONE ONE 06/07 0800 DC 06/07 PO 06/07 0801 0835 Magnesium Sulfate 1 GM ONCE ONE 06/07 0830 AC 06/07 Dextrose/Water 100 ML IV 06/07 1229 0835 Morphine Sulfate 2 MG Q6 PRN 06/05 0130 AC IV Omeprazole 40 MG BID 06/05 1100 AC 06/07 PO 0834 Phosphate 250 MG ONCE ONE 06/07 0800 DC PO 06/07 0801 Senna 187 MG AT BEDTIME 06/06 2200 AC 06/06 PO 2122 Vancomycin HCl 1,500 MG ONCE ONE 06/06 1045 DC 06/06 Sodium Chloride 250 ML IV 06/06 1214 1214 Laboratory Tests 06/07 06/07 06/06 06/06 0840 0055 1705 0845 Chemistry Sodium (137 - 145 mmol/L) 141 Potassium (3.5 - 5.1 mmol/L) 4.6 Chloride (98 - 107 mmol/L) 107 Carbon Dioxide (22 - 30 mmol/L) 24 Anion Gap (5 - 16) 10 BUN (9 - 20 mg/dL) 26 H Creatinine (0.7 - 1.2 mg/dL) 1.4 H Estimated GFR (>60 ml/min) 54 L Glucose (65 - 99 mg/dL) 90 Calcium (8.4 - 10.2 mg/dL) 7.9 L Phosphorus (2.5 - 4.5 mg/dL) 3.4 Magnesium (1.6 - 2.3 mg/dL) 1.7 Total Bilirubin (0.2 - 1.3 mg/dL) 0.7 AST (17 - 59 U/L) 31 ALT (21 - 72 U/L) 35 Albumin (3.5 - 5.0 g/dL) 2.6 L Coagulation APTT (25 - 37 SEC) Pending 58 H 60 H 96 H Hematology CBC w Diff NO MAN DIFF REQ WBC (4.8 - 10.8 /CUMM) 11.5 H RBC (4.70 - 6.10 /CUMM) 3.53 L Hgb (14.0 - 18.0 G/DL) 10.3 L Hct (42 - 52 %) 30.5 L MCV (80.0 - 94.0 FL) 86.4 MCH (27.0 - 31.0 PG) 29.1 MCHC (33.0 - 37.0 G/DL) 33.7 RDW (11.5 - 14.5 %) 14.0 Plt Count (130 - 400 /CUMM) 247 MPV (7.4 - 10.4 FL) 9.6 Gran % (42.2 - 75.2 %) 76.6 H Lymphocytes % (20.5 - 51.1 %) 12.7 L Monocytes % (1.7 - 9.3 %) 4.9 Eosinophils % (0 - 5 %) 5.3 H Basophils % (0.0 - 2.0 %) 0.5 Absolute Granulocytes (1.4 - 6.5 /CUMM) 8.8 H Absolute Lymphocytes (1.2 - 3.4 /CUMM) 1.5 Absolute Monocytes (0.10 - 0.60 /CUMM) 0.6 Absolute Eosinophils (0.0 - 0.7 /CUMM) 0.6 Absolute Basophils (0.0 - 0.2 /CUMM) 0.1 06/06 164 Chemistry Sodium (137 - 145 mmol/L) 141 Potassium (3.5 - 5.1 mmol/L) 3.7 Chloride (98 - 107 mmol/L) 107 Carbon Dioxide (22 - 30 mmol/L) 25 Anion Gap (5 - 16) 9 BUN (9 - 20 mg/dL) 24 H Creatinine (0.7 - 1.2 mg/dL) 1.5 H Estimated GFR (>60 ml/min) 50 L Glucose (65 - 99 mg/dL) 132 H Hemoglobin A1c (4.2 - 5.8 %) 7.7 H Calcium (8.4 - 10.2 mg/dL) 8.1 L Phosphorus (2.5 - 4.5 mg/dL) 3.7 Magnesium (1.6 - 2.3 mg/dL) 1.9 Total Bilirubin (0.2 - 1.3 mg/dL) 0.5 AST (17 - 59 U/L) 21 ALT (21 - 72 U/L) 36 Albumin (3.5 - 5.0 g/dL) 2.4 L Coagulation APTT (25 - 37 SEC) 89 H Cancelled Hematology CBC w Diff NO MAN DIFF REQ WBC (4.8 - 10.8 /CUMM) 9.1 RBC (4.70 - 6.10 /CUMM) 3.53 L Hgb (14.0 - 18.0 G/DL) 10.1 L Hct (42 - 52 %) 31.0 L MCV (80.0 - 94.0 FL) 87.7 MCH (27.0 - 31.0 PG) 28.6 MCHC (33.0 - 37.0 G/DL) 32.6 L RDW (11.5 - 14.5 %) 13.9 Plt Count (130 - 400 /CUMM) 236 MPV (7.4 - 10.4 FL) 10.0 Gran % (42.2 - 75.2 %) 61.5 Lymphocytes % (20.5 - 51.1 %) 24.1 Monocytes % (1.7 - 9.3 %) 7.8 Eosinophils % (0 - 5 %) 6.0 H Basophils % (0.0 - 2.0 %) 0.6 Absolute Granulocytes (1.4 - 6.5 /CUMM) 5.6 Absolute Lymphocytes (1.2 - 3.4 /CUMM) 2.2 Absolute Monocytes (0.10 - 0.60 /CUMM) 0.7 H Absolute Eosinophils (0.0 - 0.7 /CUMM) 0.6 Absolute Basophils (0.0 - 0.2 /CUMM) 0.1 06/05 06/05 1202 1130 Coagulation APTT (25 - 37 SEC) 47 H Toxicology Urine Opiates Screen (>2000 NG/ML) 760.00 Methadone Screen (>300 NG/ML) < 40 Barbiturate Screen (>200 NG/ML) < 60 Ur Phencyclidine Scrn (>25 NG/ML) < 6.00 Amphetamines Screen (>1000 NG/ML) < 100 U Benzodiazepines Scrn (>200 NG/ML) < 85 Urine Cocaine Screen (>300 NG/ML) < 50 Urine Cannabis Screen (>50 NG/ML) < 5.00 Microbiology Date/Time Procedure - Status Source Growth 06/05 1130 Legionella Antigen - COMP URINE ROUT 06/05 1130 Streptococcus pneumoniae Antigen (M - COMP URINE ROUT 06/05 0845 Respiratory Culture - RES LOWER RESP STAPH AUREUS 06/05 0845 Gram Stain - RES LOWER RESP 06/05 0640 Influenza Virus A & B Rapid Smear - COMP NASOPHARYN 06/05 0221 Surveillance Culture - COMP GI 06/05 0216 Surveillance Culture - COMP UPPER RESP 06/05 0026 Blood Culture - RES BLOOD 06/05 0020 Blood Culture - RES BLOOD 06/04 235 Respiratory Culture - CAN LOWER RESP Cancelled: SEE [id number] 06/04 235 Gram Stain - CAN LOWER RESP Cancelled: SEE [id number] 06/04 2113 Influenza Virus A & B Rapid Smear - COMP NASOPHARYN Vital Signs & I&O Last 24 Hrs of Vitals and I&O: Vital Signs Date Time Temp Pulse Resp B/P B/P Pulse O2 O2 Flow FiO2 Mean Ox Delivery Rate 06/07 0836 88 150/80 06/07 0835 88 150/80 06/07 0834 88 150/80 06/07 0400 97 Nasal 2.0L Cannula 06/07 0000 96 Nasal 2.0L Cannula 06/07 0000 99.9 82 20 142/78 96 Nasal 2.0L Cannula 06/06 2122 94 173/76 06/06 2000 91 Room Air Room Air 06/06 1949 92 Room Air Room Air 06/06 1600 98.4 82 20 130/70 90 Room Air 06/06 1600 91 Room Air 06/06 1200 95 Nasal 1.0L Cannula Intake & Output 06/07 1600 06/07 0800 06/07 0000 Intake Total 433 607 Output Total 0 700 Balance 433 -93 Intake, IV 233 167 Intake, Oral 200 440 Number 0 Bowel Movements Output, Urine 0 700 Impression/Plan Impression/Plan Impression/Plan: MANOJ EOMI no sig jvd Chest mild wheeze and crackles abd soft nontender No edema IMP Pt with DM, Glaucoma, CKD, with * Sig cough, low grade temp with diffuse atypical pulm infiltrates (multifocal nodular acinar infliltrares) consistant with atypical pna, with broad diff (pt does have birds and Pscitacosis is high in the diff) now growing staph in the sputum * Chest pain now releived with ntg, with elevated troponin rule out ACS * SIg HTN with Elevated BNP prob some component of Diastolic heart dz * DM on INsulin * Small PFO * Sig neuropathy * OBesity * Recent contrast use in a diabetic, with ckd now stable REC Ok to tele DOXY po bid, cont vanco for now Psicatosis antibody panel pending Sputum culture final pending IV heparin can be dcd now ASA 81 PO PPI bid for now Spriva, start with flovent 110 bid Nebs only with ipratropium q 6hrs prn Robutussin with codeine prn [place] with docusate daily Adequate bp control and coreg can be increased to tid if needed Will follow
--- NOTE | 2017-06-07 12:56 | PN- Cardiology ---
Subjective Subjective: No significant change in cardiac status Objective Vital Signs and I&Os Vital Signs Date Time Temp Pulse Resp B/P B/P Pulse O2 O2 Flow FiO2 Mean Ox Delivery Rate 06/07 1021 94 Nasal 2.0L Cannula 06/07 0836 88 150/80 06/07 0835 88 150/80 06/07 0834 88 150/80 06/07 0400 97 Nasal 2.0L Cannula 06/07 0000 96 Nasal 2.0L Cannula 06/07 0000 99.9 82 20 142/78 96 Nasal 2.0L Cannula 06/06 2122 94 173/76 06/06 2000 91 Room Air Room Air 06/06 1949 92 Room Air Room Air 06/06 1600 98.4 82 20 130/70 90 Room Air 06/06 1600 91 Room Air Intake & Output 06/07 1600 06/07 0800 06/07 0000 06/06 1600 06/06 0800 06/06 0000 Intake Total 626 003 7918 625 704 Output Total 0 700 1275 550 0 Balance 433 -93 165 75 704 Intake, IV 906 278 7504 625 204 Intake, Oral 200 440 440 0 500 Number 0 0 0 0 Bowel Movements Output, Urine 0 700 1275 550 0 Physical Exam: General Appearance: well developed/nourished, alert, awake, anxious, mild respiratory distress Head: atraumatic, normal appearance Respiratory: decreased breath sounds, crackles bilaterally Cardiovascular: regular rate/rhythm, S1, S2, no audible murmur Gastrointestinal: normal bowel sounds, soft, non-tender Extremities: normal inspection, no edema Cranial Nerves: normal hearing, normal speech, PERRL Current Medications: Current Medications Sig/Yoav Start time Last Medication Dose Route Stop Time Status Admin Acetaminophen 650 MG Q6P PRN 06/05 0130 AC PO Acetaminophen 1,000 MG Q6P PRN 06/05 0130 AC IV Albuterol Sulfate 3 ML BID 06/05 2200 DC 06/06 INH 1942 Amlodipine Besylate 10 MG DAILY 06/05 1000 AC 06/07 PO 0834 Aspirin Buffered 81 MG DAILY 06/05 1000 AC 06/07 PO 0833 Carvedilol 25 MG BID 06/05 0140 AC 06/07 PO 0835 Dextrose/Sodium 1,000 ML Q13H 06/06 0000 DC 06/05 Chloride IV 06/06 1259 2356 Docusate Sodium 100 MG DAILY NEEDED PRN 06/06 1500 AC 06/07 PO 0836 Dorzolamide HCl 1 GTT BID 06/07 1000 AC 06/07 OPH 0835 Dorzolamide HCl 1 GTT TID 06/05 1000 DC 06/06 OPH 2121 Doxazosin Mesylate 4 MG DAILY 06/05 1000 AC 06/07 PO 0834 Doxycycline Hyclate 100 MG BID 06/05 1000 AC 06/07 PO 0834 Fluticasone 2 PUF BID 06/07 1030 AC Propionate INH Furosemide 20 MG DAILY 06/08 1000 CAN IV Furosemide 20 MG Q48 06/05 1000 AC 06/07 PO 0834 Guaifenesin 600 MG Q12 06/05 0124 AC 06/07 PO 0834 Guaifenesin/Codeine 10 ML Q4P PRN 06/05 0945 AC 06/06 Phosphate PO 2120 Heparin Sodium 5,000 UNIT .STK-MED ONE 06/07 0349 DC (Porcine) IV 06/07 0350 Heparin Sodium 2,800 UNIT BOLUS ONE 06/07 0200 DC 06/07 (Porcine) IV 06/07 0201 0200 Heparin Sodium 25,000 UNIT Q24H 06/04 2315 DC 06/06 (Porcine) IV 1912 Sodium Chloride 500 ML Insulin Aspart 0 TIDAC/HS 06/06 1700 AC 06/07 SC 1039 Insulin Aspart 0 Q4 06/06 0000 DC 06/06 SC 1433 Insulin Detemir 8 UNITS BID 06/07 1000 AC 06/07 SC 1039 Insulin Detemir 10 UNITS BID 06/05 1000 DC 06/06 SC 2120 Ipratropium [place] 2.5 ML Q6PRN PRN 06/06 2015 AC INH Losartan Potassium 100 MG DAILY 06/05 1000 AC 06/07 PO 0836 Magnesium Oxide 400 MG ONE ONE 06/07 0800 DC 06/07 PO 06/07 0801 0835 Magnesium Sulfate 1 GM ONCE ONE 06/07 0830 DC 06/07 Dextrose/Water 100 ML IV 06/07 1229 0835 Morphine Sulfate 2 MG Q6 PRN 06/05 0130 AC IV Omeprazole 40 MG BID 06/05 1100 AC 06/07 PO 0834 Phosphate 250 MG ONCE ONE 06/07 0800 DC 06/07 PO 06/07 0801 0951 Senna 187 MG AT BEDTIME 06/06 2200 AC 06/06 PO 2122 Tiotropium [place] 1 PUF DAILY 06/07 1100 AC INH Vancomycin HCl 1,500 MG DAILY 06/07 1051 AC Sodium Chloride 250 ML IV Results Last 48 Hrs of Labs/Mics: Laboratory Tests 06/07/17 0840: APTT 73 H 06/07/17 0055: Anion Gap 10, Estimated GFR 54 L, Glucose 90, Calcium 7.9 L, Phosphorus 3.4, Magnesium 1.7, Total Bilirubin 0.7, AST 31, ALT 35, Albumin 2.6 L, APTT 58 H, CBC w Diff NO MAN DIFF REQ, RBC 3.53 L, MCV 86.4, MCH 29.1, MCHC 33.7, RDW 14.0 , MPV 9.6, Gran % 76.6 H, Lymphocytes % 12.7 L, Monocytes % 4.9, Eosinophils % 5.3 H, Basophils % 0.5, Absolute Granulocytes 8.8 H, Absolute Lymphocytes 1.5, Absolute Monocytes 0.6, Absolute Eosinophils 0.6, Absolute Basophils 0.1 06/06/17 1705: APTT 60 H 06/06/17 0845: APTT 96 H 06/06/17 0547: Anion Gap 9, Estimated GFR 50 L, Glucose 132 H, Hemoglobin A1c 7.7 H, Calcium 8.1 L, Phosphorus 3.7, Magnesium 1.9, Total Bilirubin 0.5, AST 21, ALT 36, Albumin 2.4 L, CBC w Diff NO MAN DIFF REQ, RBC 3.53 L, MCV 87.7, MCH 28.6, MCHC 32.6 L, RDW 13.9, MPV 10.0, Gran % 61.5, Lymphocytes % 24.1, Monocytes % 7.8, Eosinophils % 6.0 H, Basophils % 0.6, Absolute Granulocytes 5.6, Absolute Lymphocytes 2.2, Absolute Monocytes 0.7 H, Absolute Eosinophils 0.6, Absolute Basophils 0.1 06/05/17 2016: APTT 89 H 06/05/17 1641: APTT Cancelled Assessment/Plan Assessment/Plan Assessment: 1. atypcal pneumonia 2. Elevated troponin consistent with non-ST elevation myocardial infarction/ type II LA 3. Hypertensive urgency 4. History of hypertension 5. History of diabetes 6. History of hyperlipidemia recommendations: -The patient has multiple cardiovascular risk factors, a troponin of greater than 1 with a history of prior troponin elevation. Outpatient evaluation which showed a subtly abnormal stress test. New subtle inferior wall motion abnormalityon echo, etc. In view of all these facts, I believe that the patient would ultimately benefit from a cardiac catheterization and, if he remains stable, this can likely be performed prior to discharge. I do not see any benefit in pursuing a repeat stress test, etc. -continue current treatment for now -Okay to discontinue IV heparin -Continue pulmonary care as per the critical care/pulmonary team -Continue other medications -If the patient's status changes in any way, we can consider accelerating the plan for cardiac catheterization. -Otherwise, keep the patient nothing by mouth after midnight Saturday for possible cardiac catheterization Saturday Continue telemetry? Yes
--- NOTE | 2017-06-07 12:57 | PN- Diabetes ---
Assessment/Plan Diabetes Assessment: 51 y/o male has a history of type 2 diabetes and was on the VGo 30 and Trulicity prior to admission. He was admitted for severe cough, fevers, chills, chest congestion, and shortness of breath and chest pain. He has been found to have an elevated troponin. A CT angiogram shows no evidence of pulmonary emboli. He was on Levemir 10 units twice a day along with the pre-meal sliding scale and separate sliding scale at bedtime. His FSGs were 172, 97 and 70. Patient stated that he did miss some of insulin boluses for meals. Plan: 1. decrease Levemir to 8 units twice a day; 2. continue the current Novolog coverage before meals and Novolog coverage at bedtime; 3. monitor FSGs. will follow Subjective Subjective: He feels better this morning. Objective Last 24 Hrs of Vital Signs/I&O Vital Signs Date Time Temp Pulse Resp B/P B/P Pulse O2 O2 Flow FiO2 Mean Ox Delivery Rate 06/07 1021 94 Nasal 2.0L Cannula 06/07 0836 88 150/80 06/07 0835 88 150/80 06/07 0834 88 150/80 06/07 0400 97 Nasal 2.0L Cannula 06/07 0000 96 Nasal 2.0L Cannula 06/07 0000 99.9 82 20 142/78 96 Nasal 2.0L Cannula 06/06 2122 94 173/76 06/06 2000 91 Room Air Room Air 06/06 1949 92 Room Air Room Air 06/06 1600 98.4 82 20 130/70 90 Room Air 06/06 1600 91 Room Air Intake & Output 06/07 1600 06/07 0800 06/07 0000 Intake Total 433 607 Output Total 0 700 Balance 433 -93 Intake, IV 233 167 Intake, Oral 200 440 Number 0 Bowel Movements Output, Urine 0 700 Findings Pertinent Lab/Don Results: Laboratory Tests 06/07 06/07 06/06 0840 0055 1705 Chemistry Sodium (137 - 145 mmol/L) 141 Potassium (3.5 - 5.1 mmol/L) 4.6 Chloride (98 - 107 mmol/L) 107 Carbon Dioxide (22 - 30 mmol/L) 24 Anion Gap (5 - 16) 10 BUN (9 - 20 mg/dL) 26 H Creatinine (0.7 - 1.2 mg/dL) 1.4 H Estimated GFR (>60 ml/min) 54 L Glucose (65 - 99 mg/dL) 90 Calcium (8.4 - 10.2 mg/dL) 7.9 L Phosphorus (2.5 - 4.5 mg/dL) 3.4 Magnesium (1.6 - 2.3 mg/dL) 1.7 Total Bilirubin (0.2 - 1.3 mg/dL) 0.7 AST (17 - 59 U/L) 31 ALT (21 - 72 U/L) 35 Albumin (3.5 - 5.0 g/dL) 2.6 L Coagulation APTT (25 - 37 SEC) 73 H 58 H 60 H Hematology CBC w Diff NO MAN DIFF REQ WBC (4.8 - 10.8 /CUMM) 11.5 H RBC (4.70 - 6.10 /CUMM) 3.53 L Hgb (14.0 - 18.0 G/DL) 10.3 L Hct (42 - 52 %) 30.5 L MCV (80.0 - 94.0 FL) 86.4 MCH (27.0 - 31.0 PG) 29.1 MCHC (33.0 - 37.0 G/DL) 33.7 RDW (11.5 - 14.5 %) 14.0 Plt Count (130 - 400 /CUMM) 247 MPV (7.4 - 10.4 FL) 9.6 Gran % (42.2 - 75.2 %) 76.6 H Lymphocytes % (20.5 - 51.1 %) 12.7 L Monocytes % (1.7 - 9.3 %) 4.9 Eosinophils % (0 - 5 %) 5.3 H Basophils % (0.0 - 2.0 %) 0.5 Absolute Granulocytes (1.4 - 6.5 /CUMM) 8.8 H Absolute Lymphocytes (1.2 - 3.4 /CUMM) 1.5 Absolute Monocytes (0.10 - 0.60 /CUMM) 0.6 Absolute Eosinophils (0.0 - 0.7 /CUMM) 0.6 Absolute Basophils (0.0 - 0.2 /CUMM) 0.1
[2017-06-07 16:21] VITALS: BP 145/71
[2017-06-07 23:38] VITALS: BP 160/72
[2017-06-08 06:56] VITALS: BP 154/72
--- NOTE | 2017-06-08 11:39 | PN- Pulmonary ---
Subjective HPI/Critical Care Issues: pt seen and examined transferred out of icu on room air Objective Current Medications: Current Medications Sig/Yoav Start time Last Medication Dose Route Stop Time Status Admin Acetaminophen 650 MG Q6P PRN 06/05 0130 AC PO Acetaminophen 1,000 MG Q6P PRN 06/05 0130 AC IV Amlodipine Besylate 10 MG DAILY 06/05 1000 AC 06/08 PO 0925 Aspirin Buffered 81 MG DAILY 06/05 1000 AC 06/08 PO 0925 Carvedilol 25 MG BID 06/05 0140 AC 06/08 PO 0926 Docusate Sodium 100 MG DAILY NEEDED PRN 06/06 1500 AC 06/07 PO 0836 Dorzolamide HCl 1 GTT BID 06/07 1000 AC 06/08 OPH 0926 Doxazosin Mesylate 4 MG DAILY 06/05 1000 AC 06/08 PO 0926 Doxycycline Hyclate 100 MG BID 06/05 1000 AC 06/08 PO 0926 Fluticasone 2 PUF BID 06/07 1030 AC 06/08 Propionate INH 0926 Furosemide 20 MG Q48 06/05 1000 AC 06/07 PO 0834 Guaifenesin 600 MG Q12 06/05 0124 AC 06/08 PO 0925 Guaifenesin/Codeine 10 ML Q4P PRN 06/05 0945 AC 06/06 Phosphate PO 2120 Heparin Sodium 5,000 UNIT Q8 06/07 2200 AC 06/08 (Porcine) SC 0614 Insulin Aspart 0 TIDAC/HS 06/06 1700 AC 06/08 SC 0926 Insulin Detemir 8 UNITS BID 06/07 1000 AC 06/08 SC 0926 Ipratropium [place] 2.5 ML Q6PRN PRN 06/06 2015 AC 06/08 INH 0612 Losartan Potassium 100 MG DAILY 06/05 1000 AC 06/08 PO 0925 Magnesium Sulfate 1 GM ONCE ONE 06/07 0830 DC 06/07 Dextrose/Water 100 ML IV 06/07 1229 0835 Morphine Sulfate 2 MG Q6 PRN 06/05 0130 AC IV Omeprazole 40 MG BID 06/05 1100 AC 06/08 PO 0925 Senna 187 MG AT BEDTIME 06/06 2200 AC 06/07 PO 2138 Tiotropium [place] 1 PUF DAILY 06/07 1100 AC 06/08 INH 0926 Vancomycin HCl 1,500 MG DAILY@1300 06/08 1300 AC Sodium Chloride 250 ML IV Vancomycin HCl 1,500 MG DAILY 06/07 1051 DC 06/07 Sodium Chloride 250 ML IV 1306 Vital Signs & I&O Last 24 Hrs of Vitals and I&O: Vital Signs Date Time Temp Pulse Resp B/P B/P Pulse O2 O2 Flow FiO2 Mean Ox Delivery Rate 06/08 0826 154/72 06/08 0925 154/72 06/08 0925 154/72 06/08 0656 99.4 84 18 154/72 93 Nasal Cannula 06/08 0000 Nasal 2.0L Cannula 06/07 2338 99.0 95 18 160/72 93 Nasal Cannula 06/07 2138 81 145/71 06/07 1909 96 Nasal 2.0L Cannula 06/07 1621 99.1 81 19 145/71 92 Nasal 2.0L Cannula 06/07 1600 92 Nasal 2.0L Cannula Intake & Output 06/08 1600 06/08 0800 06/08 0000 Intake Total 200 Output Total Balance 200 Intake, Oral 200 Exam Other Physical Findings: gen awake heent ncat cvs s1, s2 lungs rare rhonchi abd soft, bs+ ext without edema Impression/Plan Impression/Plan Impression/Plan: Impression 51 year old man * atypical pneumonia - unclear whether caused by recent demolition at a neighboring school, psittacosis, staph in sputum * htn, elevated Plan -TRC - please alert Respiratory Therapy to achieve 3 times a day nebulized therapy as it benefits the patient -cont abx -f/u all requested testing including cultures -monitor oxygen status DVT prophylaxis at all times
--- NOTE | 2017-06-08 12:36 | PN- Att Addend ---
Attending Addendum Attending Brief Note Patient seen and examined. He was transferred out of the ICU to the medical service. He feels okay and is on room air currently. He understands that he is going to have a cardiac cath on Saturday. On exam BP is 150/70, pulse is 82, breathing at 16-18 and MAXIMUM TEMPERATURE is 99 2. He is awake alert oriented, lungs have scattered rhonchi, heart is S1-S2 regular, abdomen is soft nontender and he has no edema. This is a 51-year-old with multiple medical problems including diabetes, previous hypertensive urgency and hypertension, history of contrast-induced nephropathy who is here with a pneumonia. The differential at this point includes possible psittacosis with bird exposure versus a hypersensitivity pneumonitis or an inorganic lung exposure. Infectious pneumonia is also being considered and given the strep and staph in his sputum he is getting IV vancomycin and he is getting Doxy presumably for atypical coverage. He is on maximal medical therapy with the plan for cath given his acute non-ST elevation OH and will follow-up closely.
--- NOTE | 2017-06-08 12:36 | PN- Diabetes ---
Assessment/Plan Diabetes Assessment: 51 y/o male has a history of type 2 diabetes and was on the VGo 30 and Trulicity prior to admission. He was admitted for severe cough, fevers, chills, chest congestion, and shortness of breath and chest pain. He has been found to have an elevated troponin. A CT angiogram shows no evidence of pulmonary emboli. Levemir was decreased to 8 units twice a day. He is on pre-meal sliding scale and separate sliding scale at bedtime. His FSGs were 176, 175 and 135. Plan: continue the current insulin regimen for now; monitor FSGs. will follow. Subjective Subjective: He feels okay this morning. Objective Last 24 Hrs of Vital Signs/I&O Vital Signs Date Time Temp Pulse Resp B/P B/P Pulse O2 O2 Flow FiO2 Mean Ox Delivery Rate 06/08 0926 154/72 06/08 0925 154/72 06/08 0925 154/72 06/08 0656 99.4 84 18 154/72 93 Nasal Cannula 06/08 0000 Nasal 2.0L Cannula 06/07 2338 99.0 95 18 160/72 93 Nasal Cannula 06/07 2138 81 145/71 06/07 1909 96 Nasal 2.0L Cannula 06/07 1621 99.1 81 19 145/71 92 Nasal 2.0L Cannula 06/07 1600 92 Nasal 2.0L Cannula Intake & Output 06/08 1600 06/08 0800 06/08 0000 Intake Total 200 Output Total Balance 200 Intake, Oral 200
--- NOTE | 2017-06-08 13:10 | Transfer of Care Summary ---
Hospital Course Course Hospital Course: 51-year-old man with significant past medical history of hypertension and insulin-dependent diabetes mellitus seen for evaluation of 3 day history of chest pain, shortness breath, and worsening cough. He reportedly took some "old amoxicillin" for his symptoms without relief. He developed fever, chills, chest ejection, postnasal drip and severe shortness of breath prompting him to come to the [place] ED for evaluation. The chest pain was characterized as exertional, 8/10, nonradiating and pressure-like lasting up to 20 minutes per episode. ED course -Vitals: MAXIMUM TEMPERATURE 100.3, HR 80-104, RR 18-20, SBP 148-218, O2 and a 3 -95% on 2.0 L O2 nasal cannula -CBC: WBC 14.1, hemoglobin 12.4, hematocrit 37.7, platelet 292 -BMP: Sodium 140, potassium 4.2, chloride 102, CO2 27, urea 29, creatinine 1.3, anion gap 10, glucose 166 -LFT: AST 45, ALT 42, ALP 95, total bilirubin 0.5 -Miscellaneous: Troponin I 0.83 d-dimer 274, INR 0.98 -CTA chest with PE protocol: 1. No evidence for acute or chronic pulmonary embolism. 2. Lung disease which is nonspecific. Different diagnosis includes opportunistic infection if patient is minimal compromise, hypersensitivity pneumonitis/allergic alveolitis or even an atypical appearance of entity such as alveolar sarcoid. Correlate clinically. 3. Nonspecific mildly prominent lymph nodes within the mediastinum. -ED interventions: * Aspirin * Nitroglycerin * Normal saline * Heparin GGT * Ceftriaxone * Azithromycin * Blood/urine/sputum cultures Problem list on admission -Atypical pneumonia -Sepsis -Chest pain with elevated troponin, probable NSTEMI -Hypertensive urgency -Insulin-dependent diabetes mellitus -Hypertension -Hyperlipidemia -Obesity Hospital course during ICU admission Patient was admitted to the intensive care unit for close observation. There was clinical concern for atypical pneumonia versus strep pneumonia or psittacosis for which she was continued on vancomycin and doxycycline. Patient reportedly owns several birds. Strep and Legionella antigens were negative. Sputum culture demonstrated growth of staph aureus resistant to macrolides, patient is continued on vancomycin. There is still some clinical concern for superimposed psittacosis pneumonia for which patient is continued on doxycycline. Psittacosis panel is pending. Serial Troponin/EKG were obtained and peaked at 1.06 and trended down to 0.73. Cardiology consult was placed for evaluation of possible acute coronary syndrome. It was determined that patient most likely was not having an evolving coronary event however given his recent stress test with his geologist Dr. Juarez demonstrating a possible ischemic defect it was determined that patient should have a cardiac catheterization prior to returning home; heparin was discontinued. Repeat echocardiogram demonstrated an LVEF of 50-55% with a hypokinetic inferior wall. Patient is not taking a statin for unclear reasons; he was previously taking atorvastatin 40 mg daily last filled on 12/25/16 for a 90 day supply. Patient utilizes a VGO pump at home for insulin administration. This was discontinued at time of admission and endocrinology consult was placed for diabetes management. 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
[2017-06-08 15:04] VITALS: BP 146/70
[2017-06-08 18:36] LABS: ABSOLUTE BASOPHIL COUNT 0.1 /CUMM (0.0-0.2); ABSOLUTE EOSINOPHIL COUNT 0.4 /CUMM (0.0-0.7); ABSOLUTE GRANULOCYTE CT 6.2 /CUMM (1.4-6.5); ABSOLUTE LYMPH COUNT 1.4 /CUMM (1.2-3.4); ABSOLUTE MONOCYTE COUNT 0.8 /CUMM (0.10-0.60); BASOPHIL % 0.8 % (0.0-2.0); EOSINOPHIL % 4.3 % (0-5); GRANULOCYTE % 70.5 % (42.2-75.2); HEMATOCRIT 30.2 % (42-52); MEAN CORPUSCULAR HGB 28.9 PG (27.0-31.0); MEAN CORPUSCULAR HGB CONC 33.5 G/DL (33.0-37.0); MEAN CORPUSCULAR VOLUME 86.3 FL (80.0-94.0); MEAN PLATELET VOLUME 10.1 FL (7.4-10.4); PLATELET COUNT 258 /CUMM (130-400); WHITE BLOOD CELL COUNT 8.8 /CUMM (4.8-10.8)
[2017-06-08 22:39] VITALS: BP 140/80
[2017-06-09 07:19] VITALS: BP 138/68
[2017-06-09 08:23] LABS: ABSOLUTE BASOPHIL COUNT 0.1 /CUMM (0.0-0.2); ABSOLUTE EOSINOPHIL COUNT 0.4 /CUMM (0.0-0.7); ABSOLUTE GRANULOCYTE CT 5.9 /CUMM (1.4-6.5); ABSOLUTE LYMPH COUNT 1.6 /CUMM (1.2-3.4); ABSOLUTE MONOCYTE COUNT 0.9 /CUMM (0.10-0.60); BASOPHIL % 0.6 % (0.0-2.0); GRANULOCYTE % 66.6 % (42.2-75.2); HEMATOCRIT 28.2 % (42-52); MEAN CORPUSCULAR HGB 29.8 PG (27.0-31.0); MEAN CORPUSCULAR HGB CONC 34.5 G/DL (33.0-37.0); MEAN CORPUSCULAR VOLUME 86.4 FL (80.0-94.0); MEAN PLATELET VOLUME 10.2 FL (7.4-10.4); PLATELET COUNT 249 /CUMM (130-400); RBC DISTRIBUTION WIDTH 13.8 % (11.5-14.5); RED BLOOD CELL CT 3.26 /CUMM (4.70-6.10); WHITE BLOOD CELL COUNT 8.9 /CUMM (4.8-10.8)
--- NOTE | 2017-06-09 09:30 | PN- Housestaff ---
Theresa Issa 06/09/17 0930: Subjective Follow-up For: -Staph aureus pneumonia, on vancomycin -Possible psciticosis pneumoina, on doxycycline -Chest pain with elevated troponin, likely NSTEMI -Sepsis, resolved -Insulin-dependent diabetes mellitus -Hypertension -Hyperlipidemia -Obesity Tele-Events Since Last Visit: NSR 70-80s Subjective: No overnight event. Patient was still coughing and had hard time bring up the sputum. Patient acknowledged that he might be going for Cath tomorrow. remained afebrile overnight. No other specific complaint. Review of Systems Constitutional: Reports: see HPI. Objective Last 24 Hrs of Vital Signs/I&O Vital Signs Date Time Temp Pulse Resp B/P B/P Pulse O2 O2 Flow FiO2 Mean Ox Delivery Rate 06/09 1021 76 138/68 06/09 1021 76 138/68 06/09 1021 76 138/68 06/09 0820 95 Nasal 2.0L Cannula 06/09 0719 97.7 76 12 138/68 95 Nasal 2.0L Cannula 06/09 0000 Nasal 2.0L Cannula 06/08 2239 98.0 89 18 140/80 92 Nasal 2.0L Cannula 06/08 2149 89 140/80 06/08 2137 92 Nasal 2.0L Cannula 06/08 1504 99.0 98 18 146/70 94 Intake & Output 06/09 1600 06/09 0800 06/09 0000 Intake Total 120 120 Output Total 450 Balance -330 120 Intake, Oral 120 120 Output, Urine 450 Patient 95.254 kg Weight Weight Bed scale Measurement Method Physical Exam General Appearance: Alert, Oriented X3, Cooperative, No Acute Distress Cardiovascular: Regular Rate Lungs: Clear to Auscultation, Normal Air Movement Abdomen: Soft, No Tenderness Neurological: Normal Speech Extremities: No Edema, Normal Pulses Current Medications: Current Medications Sig/Yoav Start time Last Medication Dose Route Stop Time Status Admin Acetaminophen 650 MG Q6P PRN 06/05 0130 AC PO Acetaminophen 1,000 MG Q6P PRN 06/05 0130 AC IV Acetylcysteine 2 ML BID 06/09 1127 AC INH Albuterol Sulfate 3 ML TID 06/08 2200 AC INH Amlodipine Besylate 10 MG DAILY 06/05 1000 AC 06/09 PO 1021 Aspirin Buffered 81 MG DAILY 06/05 1000 AC 06/09 PO 1021 Carvedilol 25 MG BID 06/05 0140 AC 06/09 PO 1021 Docusate Sodium 100 MG DAILY NEEDED PRN 06/06 1500 AC 06/07 PO 0836 Dorzolamide HCl 1 GTT BID 06/07 1000 AC 06/08 OPH 0926 Doxazosin Mesylate 4 MG DAILY 06/05 1000 AC 06/09 PO 1021 Doxycycline Hyclate 100 MG BID 06/09 2200 AC PO Doxycycline Hyclate 100 MG BID 06/05 1000 DC 06/08 PO 2146 Fluticasone 2 PUF BID 06/07 1030 AC 06/09 Propionate INH 1024 Furosemide 20 MG Q48 06/05 1000 AC 06/09 PO 1021 Guaifenesin 600 MG Q12 06/05 0124 AC 06/09 PO 1021 Guaifenesin/Codeine 10 ML Q4P PRN 06/05 0945 AC 06/09 Phosphate PO 1020 Heparin Sodium 5,000 UNIT Q8 06/07 2200 AC 06/09 (Porcine) SC 0604 Insulin Aspart 0 TIDAC/HS 06/06 1700 AC 06/09 SC 0826 Insulin Detemir 8 UNITS BID 06/07 1000 AC 06/09 SC 1019 Ipratropium [place] 2.5 ML BID 06/08 220 DC INH Ipratropium [place] 2.5 ML TID 06/08 2200 AC 06/08 INH 2131 Ipratropium [place] 2.5 ML Q6PRN PRN 06/06 2015 DC 06/08 INH 0612 Losartan Potassium 100 MG DAILY 06/05 1000 AC 06/09 PO 1021 Morphine Sulfate 2 MG Q6 PRN 06/05 0130 AC IV Omeprazole 40 MG BID 06/05 1100 AC 06/09 PO 1021 Senna 187 MG AT BEDTIME 06/06 2200 AC 06/08 PO 2146 Tiotropium [place] 1 PUF DAILY 06/07 1100 AC 06/09 INH 1021 Vancomycin HCl 1,500 MG DAILY@1300 06/08 1300 AC 06/08 Sodium Chloride 250 ML IV 1426 Last 24 Hrs of Lab/Don Results Last 24 Hrs of Labs/Mics: Laboratory Tests 06/09/17 0650: Anion Gap 8, Estimated GFR 50 L, BUN/Creatinine Ratio 15.3, CBC w Diff NO MAN DIFF REQ, RBC 3.26 L, MCV 86.4, MCH 29.8, MCHC 34.5, RDW 13.8, MPV 10.2, Gran % 66.6, Lymphocytes % 17.8 L, Monocytes % 10.0 H, Eosinophils % 5.0, Basophils % 0.6, Absolute Granulocytes 5.9, Absolute Lymphocytes 1.6, Absolute Monocytes 0.9 H, Absolute Eosinophils 0.4, Absolute Basophils 0.1 06/08/17 1815: Anion Gap 10, Estimated GFR 54 L, Glucose 159 H, Calcium 8.4, Phosphorus 4.2, Magnesium 1.9, Total Bilirubin 0.5, AST 23, ALT 26, Albumin 2.8 L, CBC w Diff NO MAN DIFF REQ, RBC 3.50 L, MCV 86.3, MCH 28.9, MCHC 33.5, RDW 14.0, MPV 10.1, Gran % 70.5, Lymphocytes % 15.8 L, Monocytes % 8.6, Eosinophils % 4.3, Basophils % 0.8, Absolute Granulocytes 6.2, Absolute Lymphocytes 1.4, Absolute Monocytes 0.8 H, Absolute Eosinophils 0.4, Absolute Basophils 0.1 Assessment/Plan Assessment: 51-year-old man with significant past medical history of hypertension and insulin-dependent diabetes mellitus seen for evaluation of 3 day history of chest pain, shortness breath, and worsening cough. He reportedly took some "old amoxicillin" for his symptoms without relief. He developed fever, chills, chest ejection, postnasal drip and severe shortness of breath prompting him to come to the [place] ED for evaluation. The chest pain was characterized as exertional, 8/10, nonradiating and pressure-like lasting up to 20 minutes per episode. ED course -Vitals: MAXIMUM TEMPERATURE 100.3, HR 80-104, RR 18-20, SBP 148-218, O2 and a 3 -95% on 2.0 L O2 nasal cannula -CBC: WBC 14.1, hemoglobin 12.4, hematocrit 37.7, platelet 292 -BMP: Sodium 140, potassium 4.2, chloride 102, CO2 27, urea 29, creatinine 1.3, anion gap 10, glucose 166 -LFT: AST 45, ALT 42, ALP 95, total bilirubin 0.5 -Miscellaneous: Troponin I 0.83 d-dimer 274, INR 0.98 -CTA chest with PE protocol: 1. No evidence for acute or chronic pulmonary embolism. 2. Lung disease which is nonspecific. Different diagnosis includes opportunistic infection if patient is minimal compromise, hypersensitivity pneumonitis/allergic alveolitis or even an atypical appearance of entity such as alveolar sarcoid. Correlate clinically. 3. Nonspecific mildly prominent lymph nodes within the mediastinum. -ED interventions: * Aspirin * Nitroglycerin * Normal saline * Heparin GGT * Ceftriaxone * Azithromycin * Blood/urine/sputum cultures Problem list on admission -Atypical pneumonia -Sepsis -Chest pain with elevated troponin, probable NSTEMI -Hypertensive urgency -Insulin-dependent diabetes mellitus -Hypertension -Hyperlipidemia -Obesity Hospital course during ICU admission Patient was admitted to the intensive care unit for close observation. There was clinical concern for atypical pneumonia versus strep pneumonia or psittacosis for which she was continued on vancomycin and doxycycline. Patient reportedly owns several birds. Strep and Legionella antigens were negative. Sputum culture demonstrated growth of staph aureus resistant to macrolides, patient is continued on vancomycin. There is still some clinical concern for superimposed psittacosis pneumonia for which patient is continued on doxycycline. Psittacosis panel is pending. Serial Troponin/EKG were obtained and peaked at 1.06 and trended down to 0.73. Cardiology consult was placed for evaluation of possible acute coronary syndrome. It was determined that patient most likely was not having an evolving coronary event however given his recent stress test with his wire fence erector Dr. Juarez demonstrating a possible ischemic defect it was determined that patient should have a cardiac catheterization prior to returning home; heparin was discontinued. Repeat echocardiogram demonstrated an LVEF of 50-55% with a hypokinetic inferior wall. Patient is not taking a statin for unclear reasons; he was previously taking atorvastatin 40 mg daily last filled on 12/25/16 for a 90 day supply. Patient utilizes a VGO pump at home for insulin administration. This was discontinued at time of admission and endocrinology consult was placed for diabetes management. Problem list on transfer -Staph aureus pneumonia, on vancomycin -Possible psciticosis pneumoina, on doxycycline -Chest pain with elevated troponin, likely NSTEMI -Sepsis, resolved -Insulin-dependent diabetes mellitus -Hypertension -Hyperlipidemia -Obesity Plan in Telemetry -NPO starting saturday Midnight for possible cardiac cath on Saturday AM. - Will hold lasix + ACEi in anticipation of contrast load during Cath. -Heparin discontinued per cardiology -Follow-up psittacosis panel -Continue vancomycin and doxycycline, follow-up cultures and sensitivities -Clarify why patient is not taking a statin DVT PPX Heparin Full Code CC3 diabetic diet Problem List: 1. Pneumonia 2. Elevated troponin Pain Ratin Pain Location: NA Pain Goal: Remain pain free Pain Plan: see AP Tomorrow's Labs & Rationales: CBC/BEP Juana WILSONLor 06/09/17 1115: Attending MD Review Statement Attending Statement Attending MD Statement: examined this patient, discuss w/resident/PA/SOLID WASTE ANALYST, reviewed EMR data (avail), discussed with nursing, reviewed images Attending Assessment/Plan: This is a 51-year-old with multiple medical problems including diabetes, previous hypertensive urgency and hypertension, history of contrast-induced nephropathy who is here with a pneumonia. The differential at this point includes possible psittacosis with bird exposure versus a hypersensitivity pneumonitis or an inorganic lung exposure. Infectious pneumonia is also being considered and given the strep and staph in his sputum he is getting IV vancomycin and he is getting Doxy presumably for atypical coverage. He is on maximal medical therapy with the plan for cath given his acute non-ST elevation NM and will follow-up closely. We need to clarify with cardiology why the patient is not on a statin. I don't see any documented allergy or adverse reaction but I would defer to the wire fence erector. Also need to watch his BUN and creatinine closely. It slowly creeping up and today it's 1.5. Especially given that he is going to get dye for the cath. And clarify with pulmonary the duration of antibiotics.
--- NOTE | 2017-06-09 12:06 | PN- Cardiology ---
Subjective Subjective: Patient still with a persistent cough but is not producing much sputum. Objective Vital Signs and I&Os Vital Signs Date Time Temp Pulse Resp B/P B/P Pulse O2 O2 Flow FiO2 Mean Ox Delivery Rate 06/09 1155 95 Nasal 2.0L Cannula 06/09 1021 76 138/68 06/09 1021 76 138/68 06/09 1021 76 138/68 06/09 0820 95 Nasal 2.0L Cannula 06/09 0719 97.7 76 12 138/68 95 Nasal 2.0L Cannula 06/09 0000 Nasal 2.0L Cannula 06/08 2239 98.0 89 18 140/80 92 Nasal 2.0L Cannula 06/08 2149 89 140/80 06/087 92 Nasal 2.0L Cannula 06/08 1504 99.0 98 18 146/70 94 Intake & Output 06/09 1600 06/09 0800 06/09 0000 06/08 1600 06/08 0800 06/08 0000 Intake Total 120 120 200 Output Total 450 Balance -330 120 200 Intake, Oral 120 120 200 Output, Urine 450 Patient 210 lb Weight Weight Bed scale Measurement Method Physical Exam: General: no apparent distress. Alert. Eyes: No obvious scleral icterus. HEENT: No jugular venous distention or abnormal jugular venous pulsations. Cardiovascular: Normal intensity S1/S2. Regular Respiratory: No rales or rhonchi Abdomen: Soft, nontender with no guarding or rebound tenderness. Musculoskeletal: No clubbing or cyanosis noted Skin: Warm Neurologic: No gross focal deficits noted. Current Medications: Current Medications Sig/Yoav Start time Last Medication Dose Route Stop Time Status Admin Acetaminophen 650 MG Q6P PRN 06/05 0130 AC PO Acetaminophen 1,000 MG Q6P PRN 06/05 0130 AC IV Acetylcysteine 2 ML BID 06/09 1127 AC INH Albuterol Sulfate 3 ML TID 06/08 2200 AC 06/09 INH 1153 Amlodipine Besylate 10 MG DAILY 06/05 1000 AC 06/09 PO 1021 Aspirin Buffered 81 MG DAILY 06/05 1000 AC 06/09 PO 1021 Carvedilol 25 MG BID 06/05 0140 AC 06/09 PO 1021 Docusate Sodium 100 MG DAILY NEEDED PRN 06/06 1500 AC 06/07 PO 0836 Dorzolamide HCl 1 GTT BID 06/07 1000 AC 06/08 OPH 0926 Doxazosin Mesylate 4 MG DAILY 06/05 1000 AC 06/09 PO 1021 Doxycycline Hyclate 100 MG BID 06/09 2200 AC PO Doxycycline Hyclate 100 MG BID 06/05 1000 DC 06/08 PO 2146 Fluticasone 2 PUF BID 06/07 1030 AC 06/09 Propionate INH 1024 Furosemide 20 MG Q48 06/05 1000 AC 06/09 PO 1021 Guaifenesin 600 MG Q12 06/05 0124 AC 06/09 PO 1021 Guaifenesin/Codeine 10 ML Q4P PRN 06/05 0945 AC 06/09 Phosphate PO 1020 Heparin Sodium 5,000 UNIT Q8 06/07 2200 AC 06/09 (Porcine) SC 0604 Insulin Aspart 0 TIDAC/HS 06/06 1700 AC 06/09 SC 0826 Insulin Detemir 8 UNITS BID 06/07 1000 AC 06/09 SC 1019 Ipratropium [place] 2.5 ML BID 06/08 220 DC INH Ipratropium [place] 2.5 ML TID 06/08 2200 AC 06/09 INH 1154 Ipratropium [place] 2.5 ML Q6PRN PRN 06/06 2015 DC 06/08 INH 0612 Losartan Potassium 100 MG DAILY 06/05 1000 AC 06/09 PO 1021 Morphine Sulfate 2 MG Q6 PRN 06/05 0130 AC IV Omeprazole 40 MG BID 06/05 1100 AC 06/09 PO 1021 Senna 187 MG AT BEDTIME 06/06 2200 AC 06/08 PO 2146 Tiotropium [place] 1 PUF DAILY 06/07 1100 AC 06/09 INH 1021 Vancomycin HCl 1,500 MG DAILY@1300 06/08 1300 AC 06/08 Sodium Chloride 250 ML IV 1426 Results Last 48 Hrs of Labs/Mics: Laboratory Tests 06/09/17 0650: Anion Gap 8, Estimated GFR 50 L, BUN/Creatinine Ratio 15.3, CBC w Diff NO MAN DIFF REQ, RBC 3.26 L, MCV 86.4, MCH 29.8, MCHC 34.5, RDW 13.8, MPV 10.2, Gran % 66.6, Lymphocytes % 17.8 L, Monocytes % 10.0 H, Eosinophils % 5.0, Basophils % 0.6, Absolute Granulocytes 5.9, Absolute Lymphocytes 1.6, Absolute Monocytes 0.9 H, Absolute Eosinophils 0.4, Absolute Basophils 0.1 06/08/171814: Anion Gap 10, Estimated GFR 54 L, Glucose 159 H, Calcium 8.4, Phosphorus 4.2, Magnesium 1.9, Total Bilirubin 0.5, AST 23, ALT 26, Albumin 2.8 L, CBC w Diff NO MAN DIFF REQ, RBC 3.50 L, MCV 86.3, MCH 28.9, MCHC 33.5, RDW 14.0, MPV 10.1, Gran % 70.5, Lymphocytes % 15.8 L, Monocytes % 8.6, Eosinophils % 4.3, Basophils % 0.8, Absolute Granulocytes 6.2, Absolute Lymphocytes 1.4, Absolute Monocytes 0.8 H, Absolute Eosinophils 0.4, Absolute Basophils 0.1 Recent Imaging Studies: Telemetry tracings were personally reviewed and shows sinus rhythm Assessment/Plan Assessment/Plan 1. atypcal pneumonia 2. Elevated troponin consistent with non-ST elevation myocardial infarction/ type II MS 3. Hypertensive urgency 4. History of hypertension 5. History of diabetes 6. History of hyperlipidemia Still with a persistent cough but not producing much sputum. Remains hemodynamically stable with no significant arrhythmias on telemetry. He should be n.p.o. after midnight in anticipation of cardiac catheterization tomorrow. Would hold further ARB and Lasix therapy for now in anticipation of the cardiac catheterization with contrast load. Abel Patel MD [facility] Continue telemetry? Yes
--- NOTE | 2017-06-09 13:23 | PN- Diabetes ---
See Addendum Assessment/Plan Diabetes Assessment: 51 y/o male has a history of type 2 diabetes and was on the VGo 30 and Trulicity prior to admission. He was admitted for severe cough, fevers, chills, chest congestion, and shortness of breath and chest pain. He has been found to have an elevated troponin. A CT angiogram shows no evidence of pulmonary emboli. Levemir was decreased to 8 units twice a day. He is on pre-meal sliding scale and separate sliding scale at bedtime. His FSGs were 169, 201, 109 and 190. Plan: continue the current insulin regimen for now; monitor FSGs; will follow. Subjective Subjective: He has no special complaints at this moment. Objective Last 24 Hrs of Vital Signs/I&O Vital Signs Date Time Temp Pulse Resp B/P B/P Pulse O2 O2 Flow FiO2 Mean Ox Delivery Rate 06/09 1155 95 Nasal 2.0L Cannula 06/09 1021 76 138/68 06/09 1021 76 138/68 06/09 1021 76 138/68 06/09 0719 97.7 76 12 138/68 95 Nasal 2.0L Cannula 06/09 0000 Nasal 2.0L Cannula 06/08 2239 98.0 89 18 140/80 92 Nasal 2.0L Cannula 06/08 2149 89 140/80 06/08 2137 92 Nasal 2.0L Cannula 06/08 1504 99.0 98 18 146/70 94 Intake & Output 06/09 1600 06/09 0800 06/09 0000 Intake Total 120 120 Output Total 450 Balance -330 120 Intake, Oral 120 120 Output, Urine 450 Patient 210 lb Weight Weight Bed scale Measurement Method Findings Pertinent Lab/Don Results: Laboratory Tests 06/09 06/08 0650 1815 Chemistry Sodium (137 - 145 mmol/L) 140 137 Potassium (3.5 - 5.1 mmol/L) 4.5 4.5 Chloride (98 - 107 mmol/L) 106 105 Carbon Dioxide (22 - 30 mmol/L) 25 23 Anion Gap (5 - 16) 8 10 BUN (9 - 20 mg/dL) 23 H 26 H Creatinine (0.7 - 1.2 mg/dL) 1.5 H 1.4 H Estimated GFR (>60 ml/min) 50 L 54 L BUN/Creatinine Ratio (7 - 25 %) 15.3 Glucose (65 - 99 mg/dL) 159 H Calcium (8.4 - 10.2 mg/dL) 8.4 Phosphorus (2.5 - 4.5 mg/dL) 4.2 Magnesium (1.6 - 2.3 mg/dL) 1.9 Total Bilirubin (0.2 - 1.3 mg/dL) 0.5 AST (17 - 59 U/L) 23 ALT (21 - 72 U/L) 26 Albumin (3.5 - 5.0 g/dL) 2.8 L Hematology CBC w Diff NO MAN DIFF REQ NO MAN DIFF REQ WBC (4.8 - 10.8 /CUMM) 8.9 8.8 RBC (4.70 - 6.10 /CUMM) 3.26 L 3.50 L Hgb (14.0 - 18.0 G/DL) 9.7 L 10.1 L Hct (42 - 52 %) 28.2 L 30.2 L MCV (80.0 - 94.0 FL) 86.4 86.3 MCH (27.0 - 31.0 PG) 29.8 28.9 MCHC (33.0 - 37.0 G/DL) 34.5 33.5 RDW (11.5 - 14.5 %) 13.8 14.0 Plt Count (130 - 400 /CUMM) 249 258 MPV (7.4 - 10.4 FL) 10.2 10.1 Gran % (42.2 - 75.2 %) 66.6 70.5 Lymphocytes % (20.5 - 51.1 %) 17.8 L 15.8 L Monocytes % (1.7 - 9.3 %) 10.0 H 8.6 Eosinophils % (0 - 5 %) 5.0 4.3 Basophils % (0.0 - 2.0 %) 0.6 0.8 Absolute Granulocytes (1.4 - 6.5 /CUMM) 5.9 6.2 Absolute Lymphocytes (1.2 - 3.4 /CUMM) 1.6 1.4 Absolute Monocytes (0.10 - 0.60 /CUMM) 0.9 H 0.8 H Absolute Eosinophils (0.0 - 0.7 /CUMM) 0.4 0.4 Absolute Basophils (0.0 - 0.2 /CUMM) 0.1 0.1
[2017-06-09 14:00] VITALS: BP 120/68
[2017-06-09 23:02] VITALS: BP 162/62
[2017-06-10 06:39] VITALS: BP 136/60
--- NOTE | 2017-06-10 07:17 | PN- Housestaff ---
IssaTheresa 06/10/17 0716: Subjective Follow-up For: -Staph aureus pneumonia, on vancomycin -Possible psciticosis pneumoina, on doxycycline -Chest pain with elevated troponin, likely NSTEMI -Sepsis, resolved -Insulin-dependent diabetes mellitus -Hypertension -Hyperlipidemia -Obesity Tele-Events Since Last Visit: NSR Subjective: No overnight event. Patient endorsed a sensation of mild sharp chest pain around 5-530 this morning but has been self-resolving. Pending Cath today. no other specific complaint. Still coughing without bringing up sputum. Review of Systems Constitutional: Reports: see HPI. Objective Last 24 Hrs of Vital Signs/I&O Vital Signs Date Time Temp Pulse Resp B/P B/P Pulse O2 O2 Flow FiO2 Mean Ox Delivery Rate 06/10 0639 98.7 80 18 136/60 95 Nasal Cannula 06/10 0000 94 Nasal 2.0L Cannula 06/09 2302 98.2 84 16 162/62 93 Nasal 2.0L Cannula 06/09 2220 78 128/82 06/09 2200 95 Nasal 2.0L Cannula 06/09 1400 98.6 88 20 120/68 95 06/09 1155 95 Nasal 2.0L Cannula 06/09 1021 76 138/68 06/09 1021 76 138/68 06/09 1021 76 138/68 Intake & Output 06/10 1600 06/10 0800 06/10 0000 Intake Total 650 700 Output Total Balance 650 700 Intake, IV 600 Intake, Oral 50 700 Patient 101.605 kg Weight Physical Exam General Appearance: Alert, Oriented X3, Cooperative, No Acute Distress Cardiovascular: Regular Rate Lungs: Normal Air Movement Abdomen: Soft, No Tenderness Neurological: Normal Speech Extremities: No Edema, Normal Pulses Current Medications: Current Medications Sig/Yoav Start time Last Medication Dose Route Stop Time Status Admin Acetaminophen 650 MG Q6P PRN 06/05 0130 AC PO Acetaminophen 1,000 MG Q6P PRN 06/05 0130 AC IV Acetylcysteine 2 ML BID 06/09 1127 AC 06/09 INH 2155 Albuterol Sulfate 3 ML TID 06/08 2200 AC 06/09 INH 2154 Amlodipine Besylate 10 MG DAILY 06/05 1000 AC 06/09 PO 1021 Aspirin Buffered 81 MG DAILY 06/05 1000 AC 06/09 PO 1021 Carvedilol 25 MG BID 06/05 0140 AC 06/09 PO 2220 Dextrose/Sodium 1,000 ML Q13H 06/09 2355 AC 06/10 Chloride IV 0028 Docusate Sodium 100 MG DAILY NEEDED PRN 06/06 1500 AC 06/07 PO 0836 Dorzolamide HCl 1 GTT BID 06/07 1000 AC 06/08 OPH 0926 Doxazosin Mesylate 4 MG DAILY 06/05 1000 AC 06/09 PO 1021 Doxycycline Hyclate 100 MG BID 06/09 2200 AC 06/09 PO 2219 Doxycycline Hyclate 100 MG BID 06/05 1000 DC 06/08 PO 2146 Fluticasone 2 PUF BID 06/07 1030 AC 06/09 Propionate INH 2220 Furosemide 20 MG Q48 06/05 1000 DC 06/09 PO 1021 Guaifenesin 600 MG Q12 06/05 0124 AC 06/09 PO 2219 Guaifenesin/Codeine 10 ML Q4P PRN 06/05 0945 AC 06/10 Phosphate PO 0714 Heparin Sodium 5,000 UNIT Q8 06/07 2200 AC 06/10 (Porcine) SC 0657 Insulin Aspart 0 TIDAC/HS 06/06 1700 DC 06/09 SC 06/09 2355 1737 Insulin Detemir 4 UNITS ONCE ONE 06/09 2200 DC 06/09 SC 06/09 2201 2219 Insulin Detemir 8 UNITS BID 06/07 1000 DC 06/09 SC 1019 Insulin Human Regular 0 Q6 06/09 2359 AC 06/10 SC 0028 Ipratropium [place] 2.5 ML TID 06/08 2200 DC 06/09 INH 1154 Losartan Potassium 100 MG DAILY 06/05 1000 DC 06/09 PO 1021 Morphine Sulfate 2 MG Q6 PRN 06/05 0130 AC IV Omeprazole 40 MG BID 06/05 1100 AC 06/09 PO 2219 Senna 187 MG AT BEDTIME 06/06 2200 AC 06/09 PO 2219 Tiotropium [place] 1 PUF DAILY 06/07 1100 AC 06/09 INH 1021 Vancomycin HCl 1,500 MG DAILY@1300 06/08 1300 AC 06/09 Sodium Chloride 250 ML IV 1403 Last 24 Hrs of Lab/Don Results Last 24 Hrs of Labs/Mics: Laboratory Tests 06/10/17 0620: Sodium Pending, Potassium Pending, Chloride Pending, Carbon Dioxide Pending, Anion Gap Pending, BUN Pending, Creatinine Pending, BUN/Creatinine Ratio Pending , CBC w Diff NO MAN DIFF REQ, RBC 3.35 L, MCV 87.4, MCH 29.4, MCHC 33.6, RDW 13.8, MPV 10.4, Gran % 66.9, Lymphocytes % 17.1 L, Monocytes % 9.5 H, Eosinophils % 5.8 H, Basophils % 0.7, Absolute Granulocytes 6.1, Absolute Lymphocytes 1.5, Absolute Monocytes 0.9 H, Absolute Eosinophils 0.5, Absolute Basophils 0.1 Assessment/Plan Assessment: 51-year-old man with significant past medical history of hypertension and insulin-dependent diabetes mellitus seen for evaluation of 3 day history of chest pain, shortness breath, and worsening cough. He reportedly took some "old amoxicillin" for his symptoms without relief. He developed fever, chills, chest ejection, postnasal drip and severe shortness of breath prompting him to come to the [place] ED for evaluation. The chest pain was characterized as exertional, 8/10, nonradiating and pressure-like lasting up to 20 minutes per episode. ED course -Vitals: MAXIMUM TEMPERATURE 100.3, HR 80-104, RR 18-20, SBP 148-218, O2 and a 3 -95% on 2.0 L O2 nasal cannula -CBC: WBC 14.1, hemoglobin 12.4, hematocrit 37.7, platelet 292 -BMP: Sodium 140, potassium 4.2, chloride 102, CO2 27, urea 29, creatinine 1.3, anion gap 10, glucose 166 -LFT: AST 45, ALT 42, ALP 95, total bilirubin 0.5 -Miscellaneous: Troponin I 0.83 d-dimer 274, INR 0.98 -CTA chest with PE protocol: 1. No evidence for acute or chronic pulmonary embolism. 2. Lung disease which is nonspecific. Different diagnosis includes opportunistic infection if patient is minimal compromise, hypersensitivity pneumonitis/allergic alveolitis or even an atypical appearance of entity such as alveolar sarcoid. Correlate clinically. 3. Nonspecific mildly prominent lymph nodes within the mediastinum. -ED interventions: * Aspirin * Nitroglycerin * Normal saline * Heparin GGT * Ceftriaxone * Azithromycin * Blood/urine/sputum cultures Problem list on admission -Atypical pneumonia -Sepsis -Chest pain with elevated troponin, probable NSTEMI -Hypertensive urgency -Insulin-dependent diabetes mellitus -Hypertension -Hyperlipidemia -Obesity Hospital course during ICU admission Patient was admitted to the intensive care unit for close observation. There was clinical concern for atypical pneumonia versus strep pneumonia or psittacosis for which she was continued on vancomycin and doxycycline. Patient reportedly owns several birds. Strep and Legionella antigens were negative. Sputum culture demonstrated growth of staph aureus resistant to macrolides, patient is continued on vancomycin. There is still some clinical concern for superimposed psittacosis pneumonia for which patient is continued on doxycycline. Psittacosis panel is pending. Serial Troponin/EKG were obtained and peaked at 1.06 and trended down to 0.73. Cardiology consult was placed for evaluation of possible acute coronary syndrome. It was determined that patient most likely was not having an evolving coronary event however given his recent stress test with his fiberglass bonding machine tender Dr. Juarez demonstrating a possible ischemic defect it was determined that patient should have a cardiac catheterization prior to returning home; heparin was discontinued. Repeat echocardiogram demonstrated an LVEF of 50-55% with a hypokinetic inferior wall. Patient is not taking a statin for unclear reasons; he was previously taking atorvastatin 40 mg daily last filled on 12/25/16 for a 90 day supply. Patient utilizes a VGO pump at home for insulin administration. This was discontinued at time of admission and endocrinology consult was placed for diabetes management. Problem list on transfer -Staph aureus pneumonia, on vancomycin -Possible psciticosis pneumoina, on doxycycline -Chest pain with elevated troponin, likely NSTEMI -Sepsis, resolved -Insulin-dependent diabetes mellitus -Hypertension -Hyperlipidemia -Obesity Plan in Telemetry -NPO starting saturday Midnight for possible cardiac cath today. - Has been held on lasix + ACEi in anticipation of contrast load during Cath. -Heparin discontinued per cardiology -Follow-up psittacosis panel, not back yet. -Continue vancomycin 1500 mg IV qd and doxycycline 100mg BID PO, follow-up cultures and sensitivities -Clarify why patient is not taking a statin DVT PPX Heparin Full Code CC3 diabetic diet Problem List: 1. Pneumonia 2. Elevated troponin 3. Non-STEMI (non-ST elevated myocardial infarction) Pain Ratin Pain Location: NA Pain Goal: Remain pain free Pain Plan: see AP Tomorrow's Labs & Rationales: Andrade Glover 06/10/17 1120: Attending MD Review Statement Attending Statement Attending MD Statement: examined this patient, discuss w/resident/PA/PLUG CUTTER, agreed w/resident/PA/PLUG CUTTER, discussed with family, reviewed EMR data (avail), discussed with nursing, discussed with case mgmt, reviewed images, amended to note Attending Assessment/Plan: Patient being treated for pneumonia likely psittacosis and possible gram positive in sputum. Patient change to PO antibitoic as per pulmonary. Patient denies any new complaints. His vitals stable. He had elevated cardiac enzymes for which cardiology consulted and recommned stress test tomorrow. No chest pain. Pulomary and cardiology following. Cont current care..
--- NOTE | 2017-06-10 07:27 | Discharge Summary ---
Visit Information Visit Dates Admission Date: 06/05/17 Discharge Date: 06/12/2017 Hospital Course Course Attending Physician: Andrade Miller MD Primary Care Physician: Julia Wolfe APRN Hospital Course: Mr Chun Flores is a 51-year-old gentleman with PMHx of hypertension and Insulin treated type 2 diabetes mellitus came in with a chief concern of a 3 day history of non exertional chest pain, shortness breath, chills, and worsening cough. Each episode lasted for appoximately 20 minutes. He gave a hisotry of prolonged bird exposure. The chest pain was relieved after he received NTG in the ER. At the time of admission: Vitals- 100.3, HR 80-104, RR 18-20, SBP 148-218, O2 and a 3-95% on 2.0 L O2 nasal cannula; CBC: WBC 14.1, hemoglobin 12.4, hematocrit 37.7, platelet 292 ; BMP: Sodium 140, potassium 4.2, chloride 102, CO2 27, urea 29, creatinine 1.3, anion gap 10, glucose 166 ; -LFT: AST 45, ALT 42, ALP 95, total bilirubin 0.5 ; Troponin I 0.83-->1.06-->0.73. d-dimer 274, INR 0.98. CT chest was done which revelaed findings s/o atypical pneumonia; given h/o bird exposure Psittacosis was considered in the differential. Considering elevated troponins, and non specific ST changes, he was admitted to [facility] for further monitoring. Patient was admitted to the intensive care unit for close observation. There was clinical concern for atypical pneumonia versus strep pneumonia or psittacosis for which she was continued on vancomycin and doxycycline given history of bird exposure. Strep and Legionella antigens were negative. Sputum culture demonstrated growth of staph aureus resistant to macrolides, patient is continued on vancomycin which was changed to Ceftin and doxycycline to cover for staph aureus, beta strep and possible psittacosis. Psittacosis panel is pending. He should be treated with Ceftin for a total of 5 more days and doxycycline for psittacosis for at least 2 weeks. Psittacosis antibody panel was negative. He was also treated w/ prednisone for 5 days given his chest CT findings s/o of pneumonitis/bronchitis. He will be continue taking Ceftin 500mg twice daily for 6 more days on discharge and Doxycycline for another week, recheck the Psittacosis antibody in 2-3 weeks, and follow up with Swatch Clerk. Serial Troponin/EKG were obtained and peaked at 1.06 and trended down to 0.73. Cardiology consult was placed for evaluation of possible acute coronary syndrome. It was determined that patient most likely was not having an evolving coronary event however given his recent stress test with his electronics computer mechanic Dr. Juarez demonstrating a possible ischemic defect it was determined that patient should have a cardiac catheterization prior to returning home; heparin was discontinued after 48 hours. After further discussion w/ the electronics computer mechanic it was thought prudent to repeat the stress test and ascertain the need for cardiac catheterization. Of note, she had an outpatient nuclear stress test reportedly showed a very small inferoapical perfusion defect which was felt to be related to attenuation artifact. Repeat echocardiogram demonstrated an LVEF of 50-55% with a hypokinetic inferior wall. Repeat stress test done 06/11/16 revealed a small region of reversible ischemia is present involving the apical lateral wall with some extension into the adjacent mid inferolateral wall. No other perfusion abnormalities are noted. Left ventricular wall motion and ejection fraction are normal. He would be [facility] for a cardiac catherization upon discharge, and per neprholog recommendation, will have to need IV normal saline prior use of contrast during catherization. Patient utilizes a VGO pump at home for insulin administration. This was discontinued at time of admission and endocrinology consult was placed for diabetes management and he was started on aspart insulin on a sliding scale nothing by mouth, and levemir. He would be discharged with a recommendation to continue VGO 20 at home until seen by Disk Grinder on 06/13/2017. Renal function remained stable, while he was in the hospital. Sr Cr 1.6, which was at his baseline. Problem list -Atypical pneumonia -CAP -Sepsis -Chest pain with elevated troponin, probable type II STEMI -Hypertensive urgency -Insulin-dependent diabetes mellitus -Hypertension -Hyperlipidemia -Obesity -Chronic kidney disease -History of glaucoma Allergies: Coded Allergies: No Known Allergies (07/11/16) Pertinent Lab Results: CTA chest with PE protocol: 1. No evidence for acute or chronic pulmonary embolism. 2. Lung disease which is nonspecific. Different diagnosis includes opportunistic infection if patient is minimal compromise, hypersensitivity pneumonitis/allergic alveolitis or even an atypical appearance of entity such as alveolar sarcoid. Correlate clinically. 3. Nonspecific mildly prominent lymph nodes within the mediastinum. ECHOCARDIOGRAM 06/05/17 1. THis was a technically difficult examination. 2. Minimal aortic sclerosis is present. 3. The mitral valve is anatomically normal with minimal to mild mitral insufficiency. 4. THere is no pericardial fluid present. 5. The left ventricualr chamber size is normal with mild concentric hypertophy and focal mild hypokinesia of the inferior segments with an ejection fraction of 50-55%. 6. THe right heart structures were not optimally visualized. The RV systolic pressure could not be accurately assessed. --------- Disposition Summary Disposition Principal Diagnosis: -Atypical pneumonia -CAP -Sepsis -Chest pain with elevated troponin, probable type II STEMI -Hypertensive urgency -Insulin-dependent diabetes mellitus -Hypertension -Hyperlipidemia -Obesity -Chronic kidney disease -History of glaucoma Additional Diagnosis: As Above Discharge Disposition: other general hospital Discharge Instructions General Discharge Information Code Status: Full Code Patient's Diet: Diabetic Patient's Activity: As tolerated Follow-Up Instructions/Appts: - Please follow up with your electronics computer mechanic Dr. Eduardo within 1-2 weeks of discharge. - Please follow up with your bsa/aml compliance officer Dr. Young within 1-2 weeks of discharge. - Please recheck the antibody for psitacosis within 2-3 weeks. - Please follow up with your primary care physician within 1-2 weeks of discharge. Inform your primary care physician of this admission to [facility]. - Continue your current medications per discharge instructions. - Please watch for these problems: Fever, Chills, Nausea, Vomiting, Shortness of Breath, Productive Cough, Chest Pain/Discomfort, Abdominal Pain, Active Bleeding or Bloody urine/stool. Medications at Discharge Discharge Medications: Stop taking the following medications: Insulin Aspart (Novolog) 100 UNIT/ML VIAL Inject into fatty tissue BEFORE MEALS AND AT BEDTIME as needed for diabetes Qty = 10 Insulin Glargine,Hum.rec.anlog (Lantus Solostar) 100 UNIT/ML (3 ML) INSULN.PEN Inject into fatty tissue Every night Sub-Q Insulin Device, 30 Unit (Vgo 30) 1 EACH EACH Inject into fatty tissue DAILY Qty = 90 Dulaglutide (Trulicity) 0.75 MG/0.5 ML PEN.INJCTR Inject into fatty tissue Once a Week Qty = 1 Continue taking these medications: Aspirin (Ecotrin*) 81 MG TABLET.DR 1 Tablet ORAL DAILY Comments: Last Taken: 06/12/17 Time: 10:30 AM Amlodipine Besylate (Norvasc) 10 MG TABLET 1 Tablet ORAL DAILY Comments: Last Taken: 06/12/17 Time: 10:30 AM Carvedilol (Carvedilol) 25 MG TABLET 1 Tablet ORAL TWICE DAILY Qty = 180 Comments: Last Taken: 06/12/17 Time: 10:30 AM Losartan Potassium (Losartan Potassium) 100 MG TABLET 1 Tablet ORAL DAILY Qty = 90 Comments: Last Taken: 06/12/17 Time: 10:30 AM Dorzolamide HCl/Timolol Maleat (Dorzolamide-Timolol Eye Drops) 22.3 MG-6.8 MG/ML DROPS 1 DRP Right Eye TWICE DAILY Qty = 10 Comments: NOT GIVEN IN HOSPITAL Doxazosin Mesylate (Doxazosin Mesylate) 4 MG TABLET 1 Tablet ORAL DAILY Comments: Last Taken: 06/12/17 Time: 10:30 AM Furosemide (Lasix) 20 MG TABLET 1 Tablet ORAL DAILY Comments: NOT GIVEN IN HOSPITAL Ezetimibe (Zetia) 10 MG TABLET 1 Tablet ORAL DAILY Qty = 30 Comments: NOT GIVEN IN HOSPITAL Gabapentin (Neurontin) 100 MG CAPSULE 1 Capsule ORAL DAILY Comments: NOT GIVEN IN HOSPITAL Atorvastatin Calcium (Atorvastatin Calcium) 40 MG TABLET 1 Tablet ORAL DAILY Qty = 90 Comments: NOT GIVEN IN HOSPITAL This prescription has been renewed Start taking the following new medications: Sub-Q Insulin Device, 20 Unit (Vgo 20) 1 EACH EACH 0 Inject into fatty tissue DAILY Days = 30 No Refills Instructions: PER ENDOCRINOLOGISTS RECOMMENDATIONS Comments: NOT GIVEN IN HOSPITAL Prednisone (Prednisone) 20 MG TABLET 1 Tablet ORAL DAILY Qty = 4 No Refills Instructions: . Comments: Last Taken: 06/12/17 Time: 10:30 AM Lactobacillus Acidophilus (Probiotic) 10 BILLION CELL CAPSULE 1 Capsule ORAL THREE TIMES DAILY Qty = 30 No Refills Instructions: . Comments: NOT GIVEN IN HOSPITAL Doxycycline Hyclate (Doxycycline Hyclate) 100 MG CAPSULE 100 Milligram ORAL TWICE DAILY Qty = 14 No Refills Instructions: . Comments: Last Taken: 06/12/17 Time: 10:30 AM Omeprazole (Omeprazole) 20 MG CAPSULE.DR 40 Milligram ORAL DAILY Qty = 30 No Refills Comments: Last Taken: 06/12/17 Time: 10:30 AM Albuterol Sulfate (Proair Hfa) 90 MCG HFA.AER.AD 2 Puff Inhale through mouth EVERY 4-6 HOURS NEEDED as needed for wheezing Qty = 1 No Refills Comments: NOT GIVEN IN HOSPITAL NEBS & FLOVENT GIVEN Cefuroxime Axetil (Ceftin) 250 MG/5 ML SUSP.RECON 10 Milliliters ORAL TWICE DAILY Qty = 120 No Refills Comments: Last Taken: 06/12/17 Time: 10:30 AM Copies To: Hannah WILSON,Giovanni Lainez; Julia Wolfe APRN; Larry WILSON,Asa Attending MD Review Statement Documenting Attending: Angela WILSON,Andrade Other Findings: Patient being treated for pneumonia likely psittacosis and possible gram positive in sputum. Patient change to PO antibitoic. Patient denies any new complaints. His vitals stable. He had elevated cardiac enzymes for which cardiology consulted, patient underwent stress test which turns out to be positive. No recurrent chest pain. Cardiology recommend cardiac catheterozation. Patient cocnerned about his renal status with history of contrast nephropathy. Nephrology consulted for risk optimisation for cardiac cathetrization as requested by cardiology. Pulmonary and cardiology following. Discharge disposition transfer for cath with outpatient follow up with cardiology Dr Juarez and pulmonary Dr Young as outpatient in 1-2 weeks of discharge.
[2017-06-10 07:51] LABS: ABSOLUTE BASOPHIL COUNT 0.1 /CUMM (0.0-0.2); ABSOLUTE EOSINOPHIL COUNT 0.5 /CUMM (0.0-0.7); ABSOLUTE GRANULOCYTE CT 6.1 /CUMM (1.4-6.5); ABSOLUTE LYMPH COUNT 1.5 /CUMM (1.2-3.4); ABSOLUTE MONOCYTE COUNT 0.9 /CUMM (0.10-0.60); BASOPHIL % 0.7 % (0.0-2.0); EOSINOPHIL % 5.8 % (0-5); GRANULOCYTE % 66.9 % (42.2-75.2); HEMATOCRIT 29.3 % (42-52); MEAN CORPUSCULAR HGB 29.4 PG (27.0-31.0); MEAN CORPUSCULAR HGB CONC 33.6 G/DL (33.0-37.0); MEAN CORPUSCULAR VOLUME 87.4 FL (80.0-94.0); MEAN PLATELET VOLUME 10.4 FL (7.4-10.4); PLATELET COUNT 256 /CUMM (130-400); RBC DISTRIBUTION WIDTH 13.8 % (11.5-14.5); RED BLOOD CELL CT 3.35 /CUMM (4.70-6.10); WHITE BLOOD CELL COUNT 9.1 /CUMM (4.8-10.8)
--- NOTE | 2017-06-10 08:01 | Patient Discharge Instructions ---
Discharge Instructions General Discharge Information You were seen/treated for: - Pneumonia Watch for these problems: #1 chest pain, shortness of breath, palpitations #2 fever, chills Special Instructions: - Please follow up with your business supervisor Dr. Eduardo within 1-2 weeks of discharge. - Please follow up with your telehealth coordinator Dr. Yougn within 1-2 weeks of discharge. - Please recheck the antibody for psitacosis within 2-3 weeks. - Please follow up with your primary care physician within 1-2 weeks of discharge. Inform your primary care physician of this admission to [facility]. - Continue your current medications per discharge instructions. - Please watch for these problems: Fever, Chills, Nausea, Vomiting, Shortness of Breath, Productive Cough, Chest Pain/Discomfort, Abdominal Pain, Active Bleeding or Bloody urine/stool. Diet Continue normal diet: Yes Recommended Diet: Diabetic Activity Full Activity/No Limits: Yes Acute Coronary Syndrome Inclusion Criteria At DC or during hospital stay patient has or had the following: ACS DIAGNOSIS Yes Discharge Core Measures Meds if any: Prescribed or Continued at Discharge Meds if any: NOT Prescribed or Continued at Discharge Congestive Heart Failure Inclusion Criteria At DC or during hospital stay patient has or had the following: CHF DIAGNOSIS No Discharge Core Measures Meds if any: Prescribed or Continued at Discharge Meds if any: NOT Prescribed or Continued at Discharge Cerebrovascular accident Inclusion Criteria At DC or during hospital stay patient has or had the following: CVA/TIA Diagnosis No Discharge Core Measures Meds if any: Prescribed or Continued at Discharge Meds if any: NOT Prescribed or Continued at Discharge Venous thromboembolism Inclusion Criteria VTE Diagnosis No VTE Type NONE VTE Confirmed by (Test) NONE Discharge Core Measures - Per Current guidelines, there needs to be overlap - treatment for the first 5 days of Warfarin therapy. - If discharged on Warfarin prior to 5 days of - overlap therapy, the patient will need to be - assessed for post discharge needs including - *Post discharge parental anticoagulation - *Warfarin and/or parental anticoagulation education - *Follow up date to check INR post discharge At least 5 days overlap therapy as Inpatient No Meds if any: Prescribed or Continued at Discharge Note: Overlap Therapy is Warfarin and Anticoagulant Meds if any: NOT Prescribed or Continued at Discharge
[2017-06-10] MEDS ORDERED: DOXYCYCLINE HY100 M2 PO ×2 (09:01→11:01)
[2017-06-10] MEDS ORDERED: AUGMENTIN 875-1 EACH PO (09:02)
--- NOTE | 2017-06-10 10:14 | PN- Pulmonary ---
Subjective HPI/Critical Care Issues: Doing well Still coughing Improved On ivf in anticipation of cardiac cath Objective Current Medications: Current Medications Sig/Yoav Start time Last Medication Dose Route Stop Time Status Admin Acetaminophen 650 MG Q6P PRN 06/05 0130 AC PO Acetaminophen 1,000 MG Q6P PRN 06/05 0130 AC IV Acetylcysteine 2 ML BID 06/09 1127 AC 06/10 INH 0856 Albuterol Sulfate 3 ML TID 06/08 2200 AC 06/10 INH 0855 Amlodipine Besylate 10 MG DAILY 06/05 1000 AC 06/10 PO 0810 Aspirin Buffered 81 MG DAILY 06/05 1000 AC 06/10 PO 0811 Carvedilol 25 MG BID 06/05 0140 AC 06/10 PO 0811 Dextrose/Sodium 1,000 ML Q13H 06/09 2355 AC 06/10 Chloride IV 0028 Docusate Sodium 100 MG DAILY NEEDED PRN 06/06 1500 AC 06/07 PO 0836 Dorzolamide HCl 1 GTT BID 06/07 1000 AC 06/08 OPH 0926 Doxazosin Mesylate 4 MG DAILY 06/05 1000 AC 06/10 PO 0811 Doxycycline Hyclate 100 MG BID 06/09 2200 AC 06/10 PO 0810 Fluticasone 2 PUF BID 06/07 1030 AC 06/10 Propionate INH 0821 Furosemide 20 MG Q48 06/05 1000 DC 06/09 PO 1021 Guaifenesin 600 MG Q12 06/05 0124 AC 06/10 PO 0810 Guaifenesin/Codeine 10 ML Q4P PRN 06/05 0945 AC 06/09 Phosphate PO 2221 Heparin Sodium 5,000 UNIT Q8 06/07 2200 AC 06/10 (Porcine) SC 0657 Insulin Aspart 0 TIDAC/HS 06/06 1700 DC 06/09 SC 06/09 2355 1737 Insulin Detemir 4 UNITS ONCE ONE 06/09 2200 DC 06/09 SC 06/09 2201 2219 Insulin Detemir 8 UNITS BID 06/07 1000 DC 06/09 SC 1019 Insulin Human Regular 4 UNITS .STK-MED ONE 06/10 0024 DC IV 06/10 0025 Insulin Human Regular 0 Q6 06/09 2359 AC 06/10 SC 0028 Ipratropium [place] 2.5 ML TID 06/08 2200 DC 06/09 INH 1154 Losartan Potassium 100 MG DAILY 06/05 1000 DC 06/09 PO 1021 Morphine Sulfate 2 MG Q6 PRN 06/05 0130 AC IV Omeprazole 40 MG BID 06/05 1100 AC 06/10 PO 0810 Senna 187 MG AT BEDTIME 06/06 2200 AC 06/09 PO 2219 Tiotropium [place] 1 PUF DAILY 06/07 1100 AC 06/10 INH 0819 Vancomycin HCl 1,500 MG DAILY@1300 06/08 1300 AC 06/09 Sodium Chloride 250 ML IV 1403 Vital Signs & I&O Last 24 Hrs of Vitals and I&O: Laboratory Tests 06/10 06/09 0620 0650 Chemistry Sodium (137 - 145 mmol/L) 139 140 Potassium (3.5 - 5.1 mmol/L) 4.4 4.5 Chloride (98 - 107 mmol/L) 104 106 Carbon Dioxide (22 - 30 mmol/L) 24 25 Anion Gap (5 - 16) 11 8 BUN (9 - 20 mg/dL) 21 H 23 H Creatinine (0.7 - 1.2 mg/dL) 1.6 H 1.5 H Estimated GFR (>60 ml/min) 46 L 50 L BUN/Creatinine Ratio (7 - 25 %) 13.1 15.3 Hematology CBC w Diff NO MAN DIFF REQ NO MAN DIFF REQ WBC (4.8 - 10.8 /CUMM) 9.1 8.9 RBC (4.70 - 6.10 /CUMM) 3.35 L 3.26 L Hgb (14.0 - 18.0 G/DL) 9.9 L 9.7 L Hct (42 - 52 %) 29.3 L 28.2 L MCV (80.0 - 94.0 FL) 87.4 86.4 MCH (27.0 - 31.0 PG) 29.4 29.8 MCHC (33.0 - 37.0 G/DL) 33.6 34.5 RDW (11.5 - 14.5 %) 13.8 13.8 Plt Count (130 - 400 /CUMM) 256 249 MPV (7.4 - 10.4 FL) 10.4 10.2 Gran % (42.2 - 75.2 %) 66.9 66.6 Lymphocytes % (20.5 - 51.1 %) 17.1 L 17.8 L Monocytes % (1.7 - 9.3 %) 9.5 H 10.0 H Eosinophils % (0 - 5 %) 5.8 H 5.0 Basophils % (0.0 - 2.0 %) 0.7 0.6 Absolute Granulocytes (1.4 - 6.5 /CUMM) 6.1 5.9 Absolute Lymphocytes (1.2 - 3.4 /CUMM) 1.5 1.6 Absolute Monocytes (0.10 - 0.60 /CUMM) 0.9 H 0.9 H Absolute Eosinophils (0.0 - 0.7 /CUMM) 0.5 0.4 Absolute Basophils (0.0 - 0.2 /CUMM) 0.1 0.1 06/08 1815 Chemistry Sodium (137 - 145 mmol/L) 137 Potassium (3.5 - 5.1 mmol/L) 4.5 Chloride (98 - 107 mmol/L) 105 Carbon Dioxide (22 - 30 mmol/L) 23 Anion Gap (5 - 16) 10 BUN (9 - 20 mg/dL) 26 H Creatinine (0.7 - 1.2 mg/dL) 1.4 H Estimated GFR (>60 ml/min) 54 L Glucose (65 - 99 mg/dL) 159 H Calcium (8.4 - 10.2 mg/dL) 8.4 Phosphorus (2.5 - 4.5 mg/dL) 4.2 Magnesium (1.6 - 2.3 mg/dL) 1.9 Total Bilirubin (0.2 - 1.3 mg/dL) 0.5 AST (17 - 59 U/L) 23 ALT (21 - 72 U/L) 26 Albumin (3.5 - 5.0 g/dL) 2.8 L Hematology CBC w Diff NO MAN DIFF REQ WBC (4.8 - 10.8 /CUMM) 8.8 RBC (4.70 - 6.10 /CUMM) 3.50 L Hgb (14.0 - 18.0 G/DL) 10.1 L Hct (42 - 52 %) 30.2 L MCV (80.0 - 94.0 FL) 86.3 MCH (27.0 - 31.0 PG) 28.9 MCHC (33.0 - 37.0 G/DL) 33.5 RDW (11.5 - 14.5 %) 14.0 Plt Count (130 - 400 /CUMM) 258 MPV (7.4 - 10.4 FL) 10.1 Gran % (42.2 - 75.2 %) 70.5 Lymphocytes % (20.5 - 51.1 %) 15.8 L Monocytes % (1.7 - 9.3 %) 8.6 Eosinophils % (0 - 5 %) 4.3 Basophils % (0.0 - 2.0 %) 0.8 Absolute Granulocytes (1.4 - 6.5 /CUMM) 6.2 Absolute Lymphocytes (1.2 - 3.4 /CUMM) 1.4 Absolute Monocytes (0.10 - 0.60 /CUMM) 0.8 H Absolute Eosinophils (0.0 - 0.7 /CUMM) 0.4 Absolute Basophils (0.0 - 0.2 /CUMM) 0.1 Vital Signs Date Time Temp Pulse Resp B/P B/P Pulse O2 O2 Flow FiO2 Mean Ox Delivery Rate 06/10 0900 94 Nasal 2.0L Cannula 06/10 0811 80 136/60 06/10 0810 80 136/60 06/10 0800 98 Nasal 2.0L Cannula 06/10 0639 98.7 80 18 136/60 95 Nasal Cannula 06/10 0000 94 Nasal 2.0L Cannula 06/09 2302 98.2 84 16 162/62 93 Nasal 2.0L Cannula 06/09 2220 78 128/82 06/09 2200 95 Nasal 2.0L Cannula 06/09 1400 98.6 88 20 120/68 95 04 1155 95 Nasal 2.0L Cannula 06/09 1021 76 138/68 04 1021 76 138/68 04 1021 76 138/68 Intake & Output 06/10 1600 /02 0800 06/10 0000 Intake Total 650 700 Output Total Balance 650 700 Intake, IV 600 Intake, Oral 50 700 Patient 224 lb Weight Impression/Plan Impression/Plan Impression/Plan: MANOJ EOMI no sig jvd Chest mild wheeze and crackles abd soft nontender No edema IMP Pt with DM, Glaucoma, CKD, with * Sig cough, low grade temp with diffuse atypical pulm infiltrates (multifocal nodular acinar infliltrares) consistant with atypical pna, with broad diff (pt does have birds and Pscitacosis is high in the diff) with staph pna prob post influenza * Chest pain now releived with ntg, with elevated troponin rule out ACS * CKD with recent contrast with creat at 1.6 * Recent exposure to dust and mold * SIg HTN with Elevated BNP prob some component of Diastolic heart dz * DM on INsulin * Small PFO * Sig neuropathy * OBesity * Recent contrast use in a diabetic, with ckd now stable REC DOXY po bid for two weeks, dc vanco and start ceftin 500 bid for 7 days Psicatosis antibody panel pending ASA 81 PO PPI bid for now Spriva, and increase flovent to 220 2 puff bid Ask endo if he can use prednisone 20 mg daily for 5 days and if ok start Wean oxygen Ambulate Nebs only with ipratropium q 6hrs prn [place] with docusate daily Adequate bp control Cardiac cath today and if not dc ivf
[2017-06-10] MEDS ORDERED: CEFUROXIME500 MG PO (11:00)
[2017-06-10 14:27] VITALS: BP 124/72
--- NOTE | 2017-06-10 20:45 | PN- Cardiology ---
Subjective Subjective: stable. Respiratory status slowly improving. Creatinine remains elevated. No further chest discomfort. Objective Vital Signs and I&Os Vital Signs Date Time Temp Pulse Resp B/P B/P Pulse O2 O2 Flow FiO2 Mean Ox Delivery Rate 06/10 1427 98.0 68 20 124/72 98 06/10 0900 94 Nasal 2.0L Cannula 06/10 0811 80 136/60 06/10 0810 80 136/60 06/10 0800 98 Nasal 2.0L Cannula 06/10 0639 98.7 80 18 136/60 95 Nasal Cannula 06/10 0000 94 Nasal 2.0L Cannula 06/09 2302 98.2 84 16 162/62 93 Nasal 2.0L Cannula 06/09 2220 78 128/82 06/09 2200 95 Nasal 2.0L Cannula Intake & Output 06/10 1600 06/10 0800 06/10 0000 06/09 1600 06/09 0800 06/09 0000 Intake Total 200 650 700 770 120 120 Output Total 450 Balance 200 650 700 770 -330 120 Intake, IV 600 270 Intake, Oral 200 50 700 500 120 120 Output, Urine 450 Patient 210 lb 224 lb 210 lb Weight Weight Bed scale Measurement Method Current Medications: Current Medications Sig/Yoav Start time Last Medication Dose Route Stop Time Status Admin Acetaminophen 650 MG Q6P PRN 06/05 0130 AC PO Acetaminophen 1,000 MG Q6P PRN 06/05 0130 AC IV Acetylcysteine 2 ML BID 06/09 1127 DC 06/10 INH 0856 Albuterol Sulfate 3 ML TID 06/08 2200 AC 06/10 INH 1334 Amlodipine Besylate 10 MG DAILY 06/05 1000 AC 06/10 PO 0810 Aspirin Buffered 81 MG DAILY 06/05 1000 AC 06/10 PO 0811 Carvedilol 25 MG BID 06/05 0140 AC 06/10 PO 0811 Cefuroxime Sodium 500 MG Q12 06/10 1300 AC 06/10 PO 1600 Dextrose/Sodium 1,000 ML Q13H 06/11 0000 AC Chloride IV Dextrose/Sodium 1,000 ML Q13H 06/09 2355 DC 06/10 Chloride IV 06/10 1700 0028 Dipyridamole 60 MG ONE ONE 06/11 1100 AC Dextrose/Water 28 ML IV 06/11 1101 Docusate Sodium 100 MG DAILY NEEDED PRN 06/06 1500 AC 06/07 PO 0836 Dorzolamide HCl 1 GTT BID 06/07 1000 AC 06/08 OPH 0926 Doxazosin Mesylate 4 MG DAILY 06/05 1000 AC 06/10 PO 0811 Doxycycline Hyclate 100 MG BID 06/09 2200 AC 06/10 PO 0810 Fluticasone 2 PUF BID 06/07 1030 AC 06/10 Propionate INH 0821 Furosemide 40 MG ONE ONE 06/10 1600 DC 06/10 PO 06/10 1601 1636 Guaifenesin 600 MG Q12 06/05 0124 AC 06/10 PO 0810 Guaifenesin/Codeine 10 ML Q4P PRN 06/05 0945 AC 06/09 Phosphate PO 2221 Heparin Sodium 5,000 UNIT Q8 06/07 2200 AC 06/10 (Porcine) SC 1248 Insulin Aspart 0 TIDAC/HS 06/10 1700 AC 06/10 SC 06/11 0000 1636 Insulin Aspart 0 TIDAC/HS 06/06 1700 DC 06/09 SC 06/09 2355 1737 Insulin Detemir 4 UNITS ONCE ONE 06/10 2200 AC SC 06/10 2201 Insulin Detemir 4 UNITS ONCE ONE 06/09 2200 DC 06/09 SC 06/09 2201 2219 Insulin Human Regular 0 Q6 06/10 2359 AC SC Insulin Human Regular 4 UNITS .STK-MED ONE 06/10 0024 DC IV 06/10 0025 Insulin Human Regular 0 Q6 06/09 2359 DC 06/10 SC 0028 Losartan Potassium 100 MG DAILY 06/11 1000 AC PO Morphine Sulfate 4 MG .STK-MED ONE 06/10 0815 DC IM 06/10 0816 Morphine Sulfate 2 MG Q6 PRN 06/05 0130 AC IV Omeprazole 40 MG BID 06/05 1100 AC 06/10 PO 0810 Patient Medication 1 ED ONE ONE 06/10 1100 DC Teaching ED 06/10 1101 Senna 187 MG AT BEDTIME 06/06 2200 AC 06/09 PO 2219 Tiotropium [place] 1 PUF DAILY 06/07 1100 AC 06/10 INH 0819 Vancomycin HCl 1,500 MG DAILY@1300 06/08 1300 DC 06/10 Sodium Chloride 250 ML IV 1248 Results Last 48 Hrs of Labs/Mics: Laboratory Tests 06/10/17 0620: Anion Gap 11, Estimated GFR 46 L, BUN/Creatinine Ratio 13.1, CBC w Diff NO MAN DIFF REQ, RBC 3.35 L, MCV 87.4, MCH 29.4, MCHC 33.6, RDW 13.8, MPV 10.4, Gran % 66.9, Lymphocytes % 17.1 L, Monocytes % 9.5 H, Eosinophils % 5.8 H, Basophils % 0.7, Absolute Granulocytes 6.1, Absolute Lymphocytes 1.5, Absolute Monocytes 0.9 H, Absolute Eosinophils 0.5, Absolute Basophils 0.1 06/09/17 0650: Anion Gap 8, Estimated GFR 50 L, BUN/Creatinine Ratio 15.3, CBC w Diff NO MAN DIFF REQ, RBC 3.26 L, MCV 86.4, MCH 29.8, MCHC 34.5, RDW 13.8, MPV 10.2, Gran % 66.6, Lymphocytes % 17.8 L, Monocytes % 10.0 H, Eosinophils % 5.0, Basophils % 0.6, Absolute Granulocytes 5.9, Absolute Lymphocytes 1.6, Absolute Monocytes 0.9 H, Absolute Eosinophils 0.4, Absolute Basophils 0.1 Assessment/Plan Assessment/Plan Assessment: 1. atypcal pneumonia 2. Elevated troponin consistent with non-ST elevation myocardial infarction/ type II CT 3. Hypertensive urgency 4. History of hypertension 5. History of diabetes 6. History of hyperlipidemia Recommendations: -Nothing by mouth after midnight -Pharmacologic nuclear stress test tomorrow -Further plans after those results available. Continue telemetry? Yes
[2017-06-10 23:15] VITALS: BP 158/78
[2017-06-11 06:49] VITALS: BP 168/82
--- NOTE | 2017-06-11 07:21 | PN- Housestaff ---
Luis ManuelTheresa 06/11/17 0719: Subjective Follow-up For: -Staph aureus pneumonia, on vancomycin -Possible psciticosis pneumoina, on doxycycline -Chest pain with elevated troponin, likely NSTEMI -Sepsis, resolved -Insulin-dependent diabetes mellitus -Hypertension -Hyperlipidemia -Obesity Tele-Events Since Last Visit: NSR Subjective: No overnighte event. Patient was breathing under 2LNC, had less frequent cough and acknowledged for stress test today. No other specific complaint. Review of Systems Constitutional: Reports: see HPI. Objective Last 24 Hrs of Vital Signs/I&O Vital Signs Date Time Temp Pulse Resp B/P B/P Pulse O2 O2 Flow FiO2 Mean Ox Delivery Rate 06/11 0649 99.0 83 18 168/82 91 Nasal Cannula 06/11 0000 Nasal 2.0L Cannula 06/10 2315 99.2 84 16 158/78 95 06/10 2215 158/78 06/10 1427 98.0 68 20 124/72 98 06/10 0900 94 Nasal 2.0L Cannula 06/10 0811 80 136/60 06/10 0810 80 136/60 06/10 0800 98 Nasal 2.0L Cannula Intake & Output 06/11 0800 06/11 0000 06/10 1600 Intake Total 600 900 200 Output Total Balance 600 900 200 Intake, IV 600 600 Intake, Oral 0 300 200 Number 0 Bowel Movements Patient 95.368 kg 95.254 kg Weight Physical Exam General Appearance: Alert, Oriented X3, Cooperative, No Acute Distress Cardiovascular: Regular Rate Lungs: Normal Air Movement, some mild rhonchi bilaterally Abdomen: Normal Bowel Sounds, Soft, No Tenderness Neurological: Normal Speech Extremities: No Cyanosis, No Edema, Normal Pulses Current Medications: Current Medications Sig/Yoav Start time Last Medication Dose Route Stop Time Status Admin Acetaminophen 650 MG Q6P PRN 06/05 0130 AC PO Acetaminophen 1,000 MG Q6P PRN 06/05 0130 AC IV Acetylcysteine 2 ML BID 06/09 1127 DC 06/10 INH 0856 Albuterol Sulfate 3 ML TID 06/08 2200 AC 06/10 INH 1334 Amlodipine Besylate 10 MG DAILY 06/05 1000 AC 06/10 PO 0810 Aspirin Buffered 81 MG DAILY 06/05 1000 AC 06/10 PO 0811 Carvedilol 25 MG BID 06/05 0140 AC 06/10 PO 2215 Cefuroxime Sodium 500 MG Q12 06/10 1300 AC 06/10 PO 2215 Dextrose/Sodium 1,000 ML Q13H 06/11 0000 AC 06/10 Chloride IV 2325 Dextrose/Sodium 1,000 ML Q13H 06/09 2355 DC 04 Chloride IV 06/10 1700 0028 Dipyridamole 60 MG ONE ONE 06/11 1100 AC Dextrose/Water 28 ML IV 06/11 1101 Docusate Sodium 100 MG DAILY NEEDED PRN 06/06 1500 AC 06/07 PO 0836 Dorzolamide HCl 1 GTT BID 06/07 1000 AC 06/08 OPH 0926 Doxazosin Mesylate 4 MG DAILY 06/05 1000 AC 06/10 PO 0811 Doxycycline Hyclate 100 MG BID 06/09 2200 AC 06/10 PO 2213 Fluticasone 2 PUF BID 06/07 1030 AC 06/10 Propionate INH 2219 Furosemide 40 MG ONE ONE 06/10 1600 DC 06/10 PO 06/10 1601 1636 Guaifenesin 600 MG Q12 06/05 0124 AC 06/10 PO 2215 Guaifenesin/Codeine 10 ML Q4P PRN 06/05 0945 AC 06/09 Phosphate PO 2221 Heparin Sodium 5,000 UNIT Q8 06/07 2200 AC 06/11 (Porcine) SC 0618 Insulin Aspart 0 TIDAC/HS 06/10 1700 DC 06/10 SC 06/11 0000 2220 Insulin Detemir 4 UNITS ONCE ONE 06/10 2200 DC 06/10 SC 06/10 2201 2221 Insulin Human Regular 0 Q6 06/10 2359 AC SC Insulin Human Regular 0 Q6 06/09 2359 DC 06/10 SC 0028 Losartan Potassium 100 MG DAILY 06/11 1000 AC PO Morphine Sulfate 4 MG .STK-MED ONE 06/10 0815 DC IM 06/10 0816 Morphine Sulfate 2 MG Q6 PRN 06/05 0130 AC IV Omeprazole 40 MG BID 06/05 1100 AC 06/10 PO 2214 Patient Medication 1 ED ONE ONE 06/10 1100 DC Teaching ED 06/10 1101 Senna 187 MG AT BEDTIME 06/06 2200 AC 06/10 PO 2214 Tiotropium [place] 1 PUF DAILY 06/07 1100 AC 06/10 INH 0819 Vancomycin HCl 1,500 MG DAILY@1300 03/31 1300 DC 06/10 Sodium Chloride 250 ML IV 1248 Last 24 Hrs of Lab/Don Results Last 24 Hrs of Labs/Mics: Laboratory Tests 06/11/17 0616: Sodium Pending, Potassium Pending, Chloride Pending, Carbon Dioxide Pending, Anion Gap Pending, BUN Pending, Creatinine Pending, BUN/Creatinine Ratio Pending , CBC w Diff Pending, WBC Pending, RBC Pending, Hgb Pending, Hct Pending, MCV Pending, MCH Pending, MCHC Pending, RDW Pending, Plt Count Pending, MPV Pending Assessment/Plan Assessment: 51-year-old man with significant past medical history of hypertension and insulin-dependent diabetes mellitus seen for evaluation of 3 day history of chest pain, shortness breath, and worsening cough. He reportedly took some "old amoxicillin" for his symptoms without relief. He developed fever, chills, chest ejection, postnasal drip and severe shortness of breath prompting him to come to the [facility] ED for evaluation. The chest pain was characterized as exertional, 8/10, nonradiating and pressure-like lasting up to 20 minutes per episode. ED course -Vitals: MAXIMUM TEMPERATURE 100.3, HR 80-104, RR 18-20, SBP 148-218, O2 and a 3 -95% on 2.0 L O2 nasal cannula -CBC: WBC 14.1, hemoglobin 12.4, hematocrit 37.7, platelet 292 -BMP: Sodium 140, potassium 4.2, chloride 102, CO2 27, urea 29, creatinine 1.3, anion gap 10, glucose 166 -LFT: AST 45, ALT 42, ALP 95, total bilirubin 0.5 -Miscellaneous: Troponin I 0.83 d-dimer 274, INR 0.98 -CTA chest with PE protocol: 1. No evidence for acute or chronic pulmonary embolism. 2. Lung disease which is nonspecific. Different diagnosis includes opportunistic infection if patient is minimal compromise, hypersensitivity pneumonitis/allergic alveolitis or even an atypical appearance of entity such as alveolar sarcoid. Correlate clinically. 3. Nonspecific mildly prominent lymph nodes within the mediastinum. -ED interventions: * Aspirin * Nitroglycerin * Normal saline * Heparin GGT * Ceftriaxone * Azithromycin * Blood/urine/sputum cultures Problem list on admission -Atypical pneumonia +/- bird flu -Sepsis -Chest pain with elevated troponin, probable NSTEMI -Hypertensive urgency -Insulin-dependent diabetes mellitus -Hypertension -Hyperlipidemia -Obesity Hospital course during ICU admission Patient was admitted to the intensive care unit for close observation. There was clinical concern for atypical pneumonia versus strep pneumonia or psittacosis for which she was continued on vancomycin and doxycycline. Patient reportedly owns several birds. Strep and Legionella antigens were negative. Sputum culture demonstrated growth of staph aureus resistant to macrolides, patient is continued on vancomycin. There is still some clinical concern for superimposed psittacosis pneumonia for which patient is continued on doxycycline. Psittacosis panel is pending. Serial Troponin/EKG were obtained and peaked at 1.06 and trended down to 0.73. Cardiology consult was placed for evaluation of possible acute coronary syndrome. It was determined that patient most likely was not having an evolving coronary event however given his recent stress test with his dynamotor repairer Dr. Juarez demonstrating a possible ischemic defect it was determined that patient should have a cardiac catheterization prior to returning home; heparin was discontinued. Repeat echocardiogram demonstrated an LVEF of 50-55% with a hypokinetic inferior wall. Patient is not taking a statin for unclear reasons; he was previously taking atorvastatin 40 mg daily last filled on 12/25/16 for a 90 day supply. Patient utilizes a VGO pump at home for insulin administration. This was discontinued at time of admission and endocrinology consult was placed for diabetes management. Problem list on transfer -Staph aureus pneumonia, on vancomycin -Possible psciticosis pneumoina, on doxycycline -Chest pain with elevated troponin, likely NSTEMI -Sepsis, resolved -Insulin-dependent diabetes mellitus -Hypertension -Hyperlipidemia -Obesity Plan in Telemetry -NPO Midnight for pharmacological stress test today. - ACEi had been restarted -Continued on Ceftin x 7 days, current day 2 -Continued on Doxycycline 100mg BID for atypical coverage x 2 weeks, current day 2. -Follow-up psittacosis panel, not back yet. DVT PPX Heparin Full Code CC3 diabetic diet Problem List: 1. Pneumonia 2. Non-STEMI (non-ST elevated myocardial infarction) Pain Ratin Pain Location: NA Pain Goal: Remain pain free Pain Plan: see AP Tomorrow's Labs & Rationales: Andrade Pelletier 06/11/17 1041: Attending MD Review Statement Attending Statement Attending MD Statement: examined this patient, discuss w/resident/PA/FLARE BREAKER, agreed w/resident/PA/FLARE BREAKER, discussed with family, reviewed EMR data (avail), discussed with nursing, discussed with case mgmt, reviewed images, amended to note Attending Assessment/Plan: Patient being treated for pneumonia likely psittacosis and possible gram positive in sputum. Patient change to PO antibitoic as per pulmonary. Patient denies any new complaints. His vitals stable. He had elevated cardiac enzymes for which cardiology consulted and recommned stress test today. No chest pain. Pulomary and cardiology following. Discharge disposition to home self care with outpatient follow up with cardiology Dr Juarez and pulmonary Dr Young as outpatient in 1-2 weeks of discharge. Anticiate dc pending stress test results.
--- NOTE | 2017-06-11 07:22 | PN- Diabetes ---
Assessment/Plan Diabetes Assessment: The patient is n.p.o. and scheduled for a stress test today. He is being treated for atypical pneumonia. He is on D5 half-normal saline at 75 cc/h. His Levemir has been reduced to 4 units. Blood sugar this morning is 154. Plan: Suggest continue the present regimen while n.p.o. When he is eating again resume his usual insulin including Levemir and pre-meal NovoLog. Subjective Subjective: Feels okay Review of Systems Constitutional: Denies: chills, fever. Cardiovascular: Denies: chest pain. Respiratory: Reports: cough. Gastrointestinal: Denies: nausea, vomiting. Skin: Reports: no symptoms. Objective Last 24 Hrs of Vital Signs/I&O Vital Signs Date Time Temp Pulse Resp B/P B/P Pulse O2 O2 Flow FiO2 Mean Ox Delivery Rate 06/11 0549 99.0 83 18 168/82 91 Nasal Cannula 06/11 0000 Nasal 2.0L Cannula 06/10 2315 99.2 84 16 158/78 95 06/10 2215 158/78 06/10 1427 98.0 68 20 124/72 98 06/10 0900 94 Nasal 2.0L Cannula 06/10 0811 80 136/60 04/ 0810 80 136/60 / 0800 98 Nasal 2.0L Cannula Intake & Output 06/11 0800 04 0000 06/10 1600 Intake Total 600 900 200 Output Total Balance 600 900 200 Intake, IV 600 600 Intake, Oral 0 300 200 Number 0 Bowel Movements Patient 210 lb 210 lb Weight Vital Signs Date Time Temp Pulse Resp B/P B/P Pulse O2 O2 Flow FiO2 Mean Ox Delivery Rate 06/11 0549 99.0 83 18 168/82 91 Nasal Cannula 06/11 0000 Nasal 2.0L Cannula 06/10 2315 99.2 84 16 158/78 95 04/02 2215 158/78 04/02 1427 98.0 68 20 124/72 98 04/02 0900 94 Nasal 2.0L Cannula 04/ 0811 80 136/60 04/02 0810 80 136/60 04/02 0800 98 Nasal 2.0L Cannula Intake & Output 03 0800 04/03 0000 0402 1600 Intake Total 600 900 200 Output Total Balance 600 900 200 Intake, IV 600 600 Intake, Oral 0 300 200 Number 0 Bowel Movements Patient 210 lb 210 lb Weight Physical Exam General Appearance: alert, awake, comfortable Head: normal appearance Respiratory: normal breath sounds Cardiovascular: regular rate/rhythm Abdomen: normal bowel sounds Extremities: normal inspection Current Medications: Current Medications Sig/Yoav Start time Last Medication Dose Route Stop Time Status Admin Acetaminophen 650 MG Q6P PRN 06/05 0130 AC PO Acetaminophen 1,000 MG Q6P PRN 06/05 0130 AC IV Acetylcysteine 2 ML BID 06/09 1127 DC 06/10 INH 0856 Albuterol Sulfate 3 ML TID 06/08 2200 AC 06/10 INH 1334 Amlodipine Besylate 10 MG DAILY 06/05 1000 AC 06/10 PO 0810 Aspirin Buffered 81 MG DAILY 06/05 1000 AC 06/10 PO 0811 Carvedilol 25 MG BID 06/05 0140 AC 06/10 PO 2215 Cefuroxime Sodium 500 MG Q12 06/10 1300 AC 06/10 PO 2215 Dextrose/Sodium 1,000 ML Q13H 06/11 0000 AC 06/10 Chloride IV 2325 Dextrose/Sodium 1,000 ML Q13H 06/09 2355 DC 06/10 Chloride IV 06/10 1700 0028 Dipyridamole 60 MG ONE ONE 06/11 1100 AC Dextrose/Water 28 ML IV 06/11 1101 Docusate Sodium 100 MG DAILY NEEDED PRN 06/06 1500 AC 06/07 PO 0836 Dorzolamide HCl 1 GTT BID 06/07 1000 AC 06/08 OPH 0926 Doxazosin Mesylate 4 MG DAILY 06/05 1000 AC 06/10 PO 0811 Doxycycline Hyclate 100 MG BID 06/09 2200 AC 06/10 PO 2213 Fluticasone 2 PUF BID 06/07 1030 AC 06/10 Propionate INH 2219 Furosemide 40 MG ONE ONE 06/10 1600 DC 06/10 PO 06/10 1601 1636 Guaifenesin 600 MG Q12 06/05 0124 AC 06/10 PO 2215 Guaifenesin/Codeine 10 ML Q4P PRN 06/05 0945 AC 06/09 Phosphate PO 2221 Heparin Sodium 5,000 UNIT Q8 06/07 2200 AC 06/11 (Porcine) SC 0618 Insulin Aspart 0 TIDAC/HS 06/10 1700 DC 06/10 SC 06/11 0000 2220 Insulin Detemir 4 UNITS ONCE ONE 06/10 2200 DC 06/10 SC 06/10 2201 2221 Insulin Human Regular 0 Q6 06/10 2359 AC SC Insulin Human Regular 0 Q6 06/09 2359 DC 06/10 SC 0028 Losartan Potassium 100 MG DAILY 06/11 1000 AC PO Morphine Sulfate 4 MG .STK-MED ONE 06/10 0815 DC IM 06/10 0816 Morphine Sulfate 2 MG Q6 PRN 06/05 0130 AC IV Omeprazole 40 MG BID 06/05 1100 AC 06/10 PO 2214 Patient Medication 1 ED ONE ONE 06/10 1100 DC Teaching ED 06/10 1101 Senna 187 MG AT BEDTIME 06/06 2200 AC 06/10 PO 2214 Tiotropium [place] 1 PUF DAILY 06/07 1100 AC 06/10 INH 0819 Vancomycin HCl 1,500 MG DAILY@1300 06/08 1300 DC 06/10 Sodium Chloride 250 ML IV 1248 Findings Pertinent Lab/Don Results: Laboratory Tests 06/11 0616 Chemistry Sodium Pending Potassium Pending Chloride Pending Carbon Dioxide Pending Anion Gap Pending BUN Pending Creatinine Pending BUN/Creatinine Ratio Pending Hematology CBC w Diff Pending WBC Pending RBC Pending Hgb Pending Hct Pending MCV Pending MCH Pending MCHC Pending RDW Pending Plt Count Pending MPV Pending
[2017-06-11 08:21] LABS: ABSOLUTE BASOPHIL COUNT 0.1 /CUMM (0.0-0.2); ABSOLUTE EOSINOPHIL COUNT 0.4 /CUMM (0.0-0.7); ABSOLUTE GRANULOCYTE CT 7.2 /CUMM (1.4-6.5); ABSOLUTE LYMPH COUNT 1.4 /CUMM (1.2-3.4); ABSOLUTE MONOCYTE COUNT 0.9 /CUMM (0.10-0.60); BASOPHIL % 0.8 % (0.0-2.0); EOSINOPHIL % 3.9 % (0-5); GRANULOCYTE % 72.2 % (42.2-75.2); HEMATOCRIT 29.6 % (42-52); MEAN CORPUSCULAR HGB 29.4 PG (27.0-31.0); MEAN CORPUSCULAR HGB CONC 33.3 G/DL (33.0-37.0); MEAN CORPUSCULAR VOLUME 88.4 FL (80.0-94.0); MEAN PLATELET VOLUME 11.1 FL (7.4-10.4); PLATELET COUNT 253 /CUMM (130-400); RBC DISTRIBUTION WIDTH 14.3 % (11.5-14.5); RED BLOOD CELL CT 3.35 /CUMM (4.70-6.10)
--- NOTE | 2017-06-11 09:37 | PN- Pulmonary ---
Subjective HPI/Critical Care Issues: No overnighte event. Patient was breathing under 2LNC, had less frequent cough and acknowledged for stress test today. No other specific complaint. Review of Systems Constitutional: Reports: see HPI. Objective Current Medications: Current Medications Sig/Yoav Start time Last Medication Dose Route Stop Time Status Admin Acetaminophen 650 MG Q6P PRN 06/05 0130 AC PO Acetaminophen 1,000 MG Q6P PRN 06/05 0130 AC IV Acetylcysteine 2 ML BID 06/09 1127 DC 06/10 INH 0856 Albuterol Sulfate 3 ML TID 06/08 2200 AC 06/10 INH 1334 Amlodipine Besylate 10 MG DAILY 06/05 1000 AC 06/10 PO 0810 Aspirin Buffered 81 MG DAILY 06/05 1000 AC 06/10 PO 0811 Carvedilol 25 MG BID 06/05 0140 AC 06/10 PO 2215 Cefuroxime Sodium 500 MG Q12 06/10 1300 AC 06/10 PO 2215 Dextrose/Sodium 1,000 ML Q13H 06/11 0000 AC 06/10 Chloride IV 2325 Dextrose/Sodium 1,000 ML Q13H 06/09 2355 DC 06/10 Chloride IV 06/10 1700 0028 Dipyridamole 60 MG ONE ONE 06/11 1100 AC Dextrose/Water 28 ML IV 06/11 1101 Docusate Sodium 100 MG DAILY NEEDED PRN 06/06 1500 AC 06/07 PO 0836 Dorzolamide HCl 1 GTT BID 06/07 1000 AC 06/08 OPH 0926 Doxazosin Mesylate 4 MG DAILY 06/05 1000 AC 06/10 PO 0811 Doxycycline Hyclate 100 MG BID 06/09 2200 AC 06/10 PO 2213 Fluticasone 2 PUF BID 06/07 1030 AC 06/10 Propionate INH 2219 Furosemide 40 MG ONE ONE 06/10 1600 DC 06/10 PO 06/10 1601 1636 Guaifenesin 600 MG Q12 06/05 0124 AC 06/10 PO 2215 Guaifenesin/Codeine 10 ML Q4P PRN 06/05 0945 AC 06/09 Phosphate PO 2221 Heparin Sodium 5,000 UNIT Q8 06/07 2200 AC 06/11 (Porcine) SC 0618 Insulin Aspart 0 TIDAC/HS 06/10 1700 DC 06/10 SC 06/11 0000 2220 Insulin Detemir 4 UNITS ONCE ONE 06/10 2199 DC 06/10 SC 06/10 220 2221 Insulin Human Regular 0 Q6 06/10 2359 AC SC Insulin Human Regular 0 Q6 06/09 2359 DC 06/10 SC 0028 Losartan Potassium 100 MG DAILY 06/11 1000 AC PO Morphine Sulfate 2 MG Q6 PRN 06/05 0130 AC IV Omeprazole 40 MG BID 06/05 1100 AC 06/10 PO 2214 Patient Medication 1 ED ONE ONE 06/10 1100 DC Teaching ED 06/10 1101 Prednisone 20 MG DAILY 06/11 1000 AC PO Senna 187 MG AT BEDTIME 06/06 2200 AC 06/10 PO 2214 Tiotropium [place] 1 PUF DAILY 06/07 1100 AC 06/10 INH 0819 Vancomycin HCl 1,500 MG DAILY@1300 06/08 1300 DC 06/10 Sodium Chloride 250 ML IV 1248 Vital Signs & I&O Last 24 Hrs of Vitals and I&O: Vital Signs Date Time Temp Pulse Resp B/P B/P Pulse O2 O2 Flow FiO2 Mean Ox Delivery Rate 06/11 0649 99.0 83 18 168/82 91 Nasal Cannula 06/11 0000 Nasal 2.0L Cannula 06/10 2315 99.2 84 16 158/78 95 06/10 2215 158/78 06/10 1427 98.0 68 20 124/72 98 Intake & Output 06/11 1600 06/11 0800 06/11 0000 Intake Total 600 900 Output Total Balance 600 900 Intake, IV 600 600 Intake, Oral 0 300 Number 0 Bowel Movements Patient 210 lb Weight Laboratory Tests 06/11 06/10 0616 0620 Chemistry Sodium (137 - 145 mmol/L) 138 139 Potassium (3.5 - 5.1 mmol/L) 4.6 4.4 Chloride (98 - 107 mmol/L) 104 104 Carbon Dioxide (22 - 30 mmol/L) 25 24 Anion Gap (5 - 16) 9 11 BUN (9 - 20 mg/dL) 24 H 21 H Creatinine (0.7 - 1.2 mg/dL) 1.6 H 1.6 H Estimated GFR (>60 ml/min) 46 L 46 L BUN/Creatinine Ratio (7 - 25 %) 15.0 13.1 Hematology CBC w Diff NO MAN DIFF REQ NO MAN DIFF REQ WBC (4.8 - 10.8 /CUMM) 10.0 9.1 RBC (4.70 - 6.10 /CUMM) 3.35 L 3.35 L Hgb (14.0 - 18.0 G/DL) 9.9 L 9.9 L Hct (42 - 52 %) 29.6 L 29.3 L MCV (80.0 - 94.0 FL) 88.4 87.4 MCH (27.0 - 31.0 PG) 29.4 29.4 MCHC (33.0 - 37.0 G/DL) 33.3 33.6 RDW (11.5 - 14.5 %) 14.3 13.8 Plt Count (130 - 400 /CUMM) 253 256 MPV (7.4 - 10.4 FL) 11.1 H 10.4 Gran % (42.2 - 75.2 %) 72.2 66.9 Lymphocytes % (20.5 - 51.1 %) 13.9 L 17.1 L Monocytes % (1.7 - 9.3 %) 9.2 9.5 H Eosinophils % (0 - 5 %) 3.9 5.8 H Basophils % (0.0 - 2.0 %) 0.8 0.7 Absolute Granulocytes (1.4 - 6.5 /CUMM) 7.2 H 6.1 Absolute Lymphocytes (1.2 - 3.4 /CUMM) 1.4 1.5 Absolute Monocytes (0.10 - 0.60 /CUMM) 0.9 H 0.9 H Absolute Eosinophils (0.0 - 0.7 /CUMM) 0.4 0.5 Absolute Basophils (0.0 - 0.2 /CUMM) 0.1 0.1 Impression/Plan Impression/Plan Impression/Plan: MANOJ EOMI no sig jvd Chest mild wheeze and crackles abd soft nontender No edema IMP Pt with DM, Glaucoma, CKD, with * Sig cough, low grade temp with diffuse atypical pulm infiltrates (multifocal nodular acinar infliltrares) consistant with atypical pna, with broad diff (pt does have birds and Pscitacosis is high in the diff) with staph pna prob post influenza * Chest pain now releived with ntg, with elevated troponin rule out ACS * CKD with recent contrast with creat at 1.6 * Recent exposure to dust and mold * SIg HTN with Elevated BNP prob some component of Diastolic heart dz * DM on INsulin * Small PFO * Sig neuropathy * OBesity * Recent contrast use in a diabetic, with ckd now stable REC DOXY po bid for two weeks, dc vanco and start ceftin 500 bid for 7 days Psicatosis antibody panel pending ASA 81 PO PPI bid for now Spriva, and increase flovent to 220 2 puff bid Prednisone 20 mg daily for 5 days Wean oxygen Ambulate Nebs only with ipratropium q 6hrs prn [place] with docusate daily Adequate bp control Ok to dc soon and will follow as out pt Pt may need home oxygen Pt was advised to relocate the bird
[2017-06-11 13:12] VITALS: BP 178/80
[2017-06-11] MEDS ORDERED: DOXYCYCLINE HY100 M2 PO ×2 (15:16→16:15)
[2017-06-11] MEDS ORDERED: PREDNISONE20 M1 PO ×2 (15:17→16:15)
[2017-06-11] MEDS ORDERED: ATORVASTATIN CA40 M1 PO (15:30)
[2017-06-11] MEDS ORDERED: GABAPENTIN100 M2 PO ×2 (15:30→15:33)
[2017-06-11] MEDS ORDERED: DOXAZOSIN MESYLA2 M1 PO (15:30)
[2017-06-11] MEDS ORDERED: ZETIA10 M1 PO (15:38)
[2017-06-11] MEDS ORDERED: NEURONTIN100 M1 PO (15:39)
[2017-06-11] MEDS ORDERED: PROAIR HFA8.5 GM INH (15:45)
[2017-06-11] MEDS ORDERED: PROBIOTIC1 EACH PO ×2 (15:45→16:15)
[2017-06-11] MEDS ORDERED: VGO 301 EACH SC (15:56)
[2017-06-11 16:00] VITALS: BP 160/72
[2017-06-11] MEDS ORDERED: VGO 201 EACH SC ×3 (16:05→16:15)
[2017-06-11] MEDS ORDERED: TRULICITY0.75 MG/01 SC (16:07)
--- NOTE | 2017-06-11 16:23 | IV DIPYRIDAMOLE NUCLEAR STRESS ---
Clinical Diagnosis: CAD, R/O Ischemia Steel Post Installer: Ken Chaidez IV DIPYRIDAMOLE INFUSED: 60 mg IV AMINOPHYLLINE INFUSED: 125 mg PATIENT WEIGHT: 228 lbs INTERPRETATION: The patient's baseline EKG showed normal sinus rhythm with ST-T changes at 81 BPM. Baseline B/P 170/78. The patient received 60 mg of dipyridamole infused intravenously over a 4 minute period. TC99M Myoview was injected after dipyridamole infusion. The patient complained of flushing/dyspnea/mild chest discomfort. Worsening of the resting EGG changes was seen following pharmacologic infusion. Arrhythmias: None IMPRESSION: The test was supervised by the interpreting Bolt Sorter, who was in attendance during the entire test. Worsening of the resting EGG changes was seen following pharmacologic infusion. See separately dictated Nuclear Report.
--- NOTE | 2017-06-11 17:13 | NUCLEAR MEDICINE REPORT ---
PERSANTINE STRESS AND RESTING SPECT MYOCARDIAL PERFUSION IMAGING STUDY WITH GATED SPECT IMAGES: CLINICAL INDICATION: CAD. PROCEDURE: Regional myocardial perfusion was assessed using a 1 day protocol. Stress images were obtained on 06/11/2017 following the intravenous administration of mCi Tc 99m Myoview. Stress consisted of 60 mg Persantine given intravenously. Following the sestamibi injection, 125 mg aminophylline was given intravenously. Rest images were obtained 06/11/2017 following the intravenous administration of 43.5 mCi Technetium 99m Myoview. Single photon emission tomographic (SPECT) images were obtained. SPECT images were acquired in a 64 x 64 matrix of 64 projections over 180 degrees. These were reconstructed into standard short axis, horizontal and vertical long axis cardiac projections. FINDINGS: The post stress images show the left ventricular chamber to be normal in size. There is a small region of mildly decreased activity in the apical lateral wall with some extension into the adjacent mid inferolateral wall. The activity in the other ch appears normal. The rest images show improvement in the apical lateral wall abnormality noted on the post stress images. No definite perfusion abnormality on the rest images is present. The images were obtained using a gated SPECT technique, which permits visualization of wall motion and calculation of the left ventricular ejection fraction. Left ventricular chamber is normal in size. No left ventricular wall motion abnormalities are present. The calculated left ventricular ejection fraction is 48% on the stress study. No previous study is available for comparison. IMPRESSION: A small region of reversible ischemia is present involving the apical lateral wall with some extension into the adjacent mid inferolateral wall. No other perfusion abnormalities are noted. Left ventricular wall motion and ejection fraction are normal.
--- NOTE | 2017-06-11 19:03 | PN- Cardiology ---
Subjective Subjective: cardiac status stable. Persistent respiratory issues but improved. Pharmacologic stress test today. Objective Vital Signs and I&Os Vital Signs Date Time Temp Pulse Resp B/P B/P Pulse O2 O2 Flow FiO2 Mean Ox Delivery Rate 06/11 1837 93 Room Air 06/11 1600 90 Room Air 06/11 1600 97.6 91 18 160/72 90 Room Air 06/11 1416 83 178/80 06/11 1415 83 178/80 06/11 1312 83 178/80 06/11 1013 96 Nasal 1.0L Cannula 06/11 0959 93 Nasal 1.0L Cannula 06/11 0953 82 162/78 06/11 0800 97 Nasal 2.0L Cannula 06/11 0649 99.0 83 18 168/82 91 Nasal Cannula 06/11 0000 Nasal 2.0L Cannula 06/10 2315 99.2 84 16 158/78 95 04/02 2215 158/78 Intake & Output 06/11 1600 06/11 0800 04/ 0000 04/02 1600 06/10 0800 06/10 0000 Intake Total 780 600 900 200 650 700 Output Total Balance 780 600 900 200 650 700 Intake, IV 300 600 600 600 Intake, Oral 480 0 300 200 50 700 Number 0 Bowel Movements Patient 210 lb 210 lb 224 lb Weight Physical Exam: General Appearance Alert, Oriented X3, Cooperative, No Acute Distress Cardiovascular Regular Rate, Normal S1, Normal S2, No Murmurs Lungs end inspiratory wheezing and diffuse rhonchi Abdomen Normal Bowel Sounds, Soft, No Tenderness, No Masses Extremities No Clubbing, No Cyanosis, 1+ bilateral lower extremity pitting edema Current Medications: Current Medications Sig/Yoav Start time Last Medication Dose Route Stop Time Status Admin Acetaminophen 650 MG Q6P PRN 06/05 0130 AC PO Acetaminophen 1,000 MG Q6P PRN 06/05 0130 AC IV Albuterol Sulfate 3 ML TID 06/08 2200 AC 06/11 INH 1830 Aminophylline 250 MG .STK-MED ONE 06/11 1354 DC IV 06/11 1355 Amlodipine Besylate 10 MG DAILY 06/05 1000 AC 06/11 PO 1416 Aspirin Buffered 81 MG DAILY 06/05 1000 AC 06/11 PO 1415 Carvedilol 25 MG BID 06/05 0140 AC 06/11 PO 1415 Cefuroxime Sodium 500 MG Q12 06/10 1300 AC 06/11 PO 1416 Dextrose/Sodium 1,000 ML Q13H 06/11 0000 DC 06/10 Chloride IV 2325 Dipyridamole 60 MG ONE ONE 06/11 1100 DC Dextrose/Water 28 ML IV 06/11 1101 Docusate Sodium 100 MG DAILY NEEDED PRN 06/06 1500 AC 06/11 PO 1420 Dorzolamide HCl 1 GTT BID 06/07 1000 AC 06/08 OPH 0926 Doxazosin Mesylate 4 MG DAILY 06/05 1000 AC 06/11 PO 1414 Doxycycline Hyclate 100 MG BID 06/09 2200 AC 06/11 PO 1416 Fluticasone 2 PUF BID 06/07 1030 AC 06/11 Propionate INH 0956 Guaifenesin 600 MG Q12 06/05 0124 AC 06/11 PO 1416 Guaifenesin/Codeine 10 ML Q4P PRN 06/05 0945 AC 06/09 Phosphate PO 2221 Heparin Sodium 5,000 UNIT Q8 06/07 2200 AC 06/11 (Porcine) SC 1609 Insulin Aspart 0 TIDAC/HS 06/11 1700 06/11 SC 1839 Insulin Aspart 0 TIDAC/HS 06/10 1700 DC 06/10 [place] 06/11 0000 2220 Insulin Detemir 8 UNITS BID 06/11 2200 SC Insulin Detemir 4 UNITS ONCE ONE 06/10 2200 DC 06/10 [place] 06/10 2201 2221 Insulin Human Regular 0 Q6 06/10 2359 DC SC Losartan Potassium 100 MG DAILY 06/11 1000 AC 06/11 PO 0953 Morphine Sulfate 2 MG Q6 PRN 06/05 0130 IV Omeprazole 40 MG BID 06/05 1100 AC 06/11 PO 0953 Patient Medication 1 ED ONE ONE 06/11 1445 DC Teaching ED 06/11 1446 Prednisone 20 MG DAILY 06/11 1000 AC 06/11 PO 1416 Senna 187 MG AT BEDTIME 06/06 2200 AC 06/10 PO 2214 Tiotropium [place] 1 PUF DAILY 06/07 1100 AC 06/11 INH 0954 Results Last 48 Hrs of Labs/Mics: Laboratory Tests 06/11/17 0616: Anion Gap 9, Estimated GFR 46 L, BUN/Creatinine Ratio 15.0, CBC w Diff NO MAN DIFF REQ, RBC 3.35 L, MCV 88.4, MCH 29.4, MCHC 33.3, RDW 14.3, MPV 11.1 H, Gran % 72.2, Lymphocytes % 13.9 L, Monocytes % 9.2, Eosinophils % 3.9, Basophils % 0.8, Absolute Granulocytes 7.2 H, Absolute Lymphocytes 1.4, Absolute Monocytes 0.9 H, Absolute Eosinophils 0.4, Absolute Basophils 0.1 06/10/17 0620: Anion Gap 11, Estimated GFR 46 L, BUN/Creatinine Ratio 13.1, CBC w Diff NO MAN DIFF REQ, RBC 3.35 L, MCV 87.4, MCH 29.4, MCHC 33.6, RDW 13.8, MPV 10.4, Gran % 66.9, Lymphocytes % 17.1 L, Monocytes % 9.5 H, Eosinophils % 5.8 H, Basophils % 0.7, Absolute Granulocytes 6.1, Absolute Lymphocytes 1.5, Absolute Monocytes 0.9 H, Absolute Eosinophils 0.5, Absolute Basophils 0.1 Assessment/Plan Assessment/Plan Assessment: 1. atypcal pneumonia 2. Elevated troponin consistent with non-ST elevation myocardial infarction/ type II CT 3. Hypertensive urgency 4. History of hypertension 5. History of diabetes 6. History of hyperlipidemia Recommendations: -Nothing by mouth after midnight -Pharmacologic nuclear stress testtoday. -Further plans with respect to timing of cardiac catheterization after results of stress test available. -Continue current medical therapy for now. Continue telemetry? Yes
[2017-06-11 23:50] VITALS: BP 162/62
[2017-06-12 06:36] VITALS: BP 140/80
--- NOTE | 2017-06-12 07:19 | PN- Housestaff ---
See Addendum Subjective Follow-up For: -Staph aureus pneumonia, on vancomycin -Insulin-dependent diabetes mellitus -Hypertension -Hyperlipidemia -Obesity Tele-Events Since Last Visit: NSR Subjective: No overnight event. Patient was supposed to be discahrged yesterday however was desatting to 87% prior discharge, thus stayed overnight. His family member had received the VGO 20 from Endo office and will start using it upon discharge. Acknowledged that his bird flu culture was negative. No specific complaint Review of Systems Constitutional: Reports: see HPI. Objective Last 24 Hrs of Vital Signs/I&O Vital Signs Date Time Temp Pulse Resp B/P B/P Pulse O2 O2 Flow FiO2 Mean Ox Delivery Rate 06/12 0636 98.2 90 20 140/80 93 06/12 0000 93 Room Air Room Air 06/11 2350 98.4 94 16 162/62 90 Room Air 06/11 1837 93 Room Air 06/11 1600 90 Room Air 06/11 1600 97.6 91 18 160/72 90 Room Air 06/11 1416 83 178/80 06/11 1415 83 178/80 06/11 1312 83 178/80 06/11 1013 96 Nasal 1.0L Cannula 06/11 0959 93 Nasal 1.0L Cannula 06/11 0953 82 162/78 06/11 0800 97 Nasal 2.0L Cannula Intake & Output 06/12 0800 06/12 0000 06/11 1600 Intake Total 100 500 780 Output Total Balance 100 500 780 Intake, IV 300 Intake, Oral 100 500 480 Patient 91.229 kg Weight Physical Exam General Appearance: Alert, Oriented X3, Cooperative, No Acute Distress Cardiovascular: Regular Rate Lungs: Clear to Auscultation, Normal Air Movement Current Medications: Current Medications Sig/Yoav Start time Last Medication Dose Route Stop Time Status Admin Acetaminophen 650 MG Q6P PRN 06/05 0130 AC PO Acetaminophen 1,000 MG Q6P PRN 06/05 0130 AC IV Albuterol Sulfate 3 ML TID 06/08 2200 AC 06/11 INH 1830 Aminophylline 250 MG .STK-MED ONE 06/11 1354 DC IV 06/11 1355 Amlodipine Besylate 10 MG DAILY 06/05 1000 AC 06/11 PO 1416 Aspirin Buffered 81 MG DAILY 06/05 1000 AC 06/11 PO 1415 Carvedilol 25 MG BID 06/05 0140 AC 06/11 PO 2152 Cefuroxime Sodium 500 MG Q12 06/10 1300 AC 06/11 PO 2153 Dextrose/Sodium 1,000 ML Q13H 06/11 0000 DC 06/10 Chloride IV 2325 Dipyridamole 60 MG ONE ONE 06/11 1100 DC Dextrose/Water 28 ML IV 06/11 1101 Docusate Sodium 100 MG .STK-MED ONE 06/11 1420 DC PO 06/11 1421 Docusate Sodium 100 MG DAILY NEEDED PRN 06/06 1500 AC 06/11 PO 1420 Dorzolamide HCl 1 GTT BID 06/07 1000 AC 06/08 OPH 0926 Doxazosin Mesylate 4 MG DAILY 06/05 1000 AC 06/11 PO 1414 Doxycycline Hyclate 100 MG BID 06/09 2200 AC 06/11 PO 2152 Fluticasone 2 PUF BID 06/07 1030 AC 06/11 Propionate INH 2156 Guaifenesin 600 MG Q12 06/05 0124 AC 06/11 PO 2152 Guaifenesin/Codeine 10 ML Q4P PRN 06/05 0945 AC 06/11 Phosphate PO 2235 Heparin Sodium 5,000 UNIT Q8 06/07 2200 AC 06/12 (Porcine) SC 0610 Insulin Aspart 0 TIDAC/HS 06/11 1700 AC 06/11 SC 2154 Insulin Detemir 8 UNITS BID 06/11 2200 AC 06/11 SC 2154 Insulin Human Regular 0 Q6 06/10 2359 DC SC Losartan Potassium 100 MG DAILY 06/11 1000 AC 06/11 PO 0953 Morphine Sulfate 2 MG Q6 PRN 06/05 0130 DC IV Omeprazole 40 MG BID 06/05 1100 AC 06/11 PO 2152 Patient Medication 1 ED ONE ONE 06/11 1445 DC Teaching ED 06/11 1446 Prednisone 20 MG DAILY 06/11 1000 AC 06/11 PO 1416 Senna 187 MG AT BEDTIME 06/06 2200 AC 06/10 PO 2214 Tiotropium [place] 1 PUF DAILY 06/07 1100 AC 06/11 INH 0954 Last 24 Hrs of Lab/Don Results Last 24 Hrs of Labs/Mics: Laboratory Tests 06/12/17 0625: Sodium Pending, Potassium Pending, Chloride Pending, Carbon Dioxide Pending, Anion Gap Pending, BUN Pending, Creatinine Pending, BUN/Creatinine Ratio Pending Assessment/Plan Assessment: 51-year-old man with significant past medical history of hypertension and insulin-dependent diabetes mellitus seen for evaluation of 3 day history of chest pain, shortness breath, and worsening cough. He reportedly took some "old amoxicillin" for his symptoms without relief. He developed fever, chills, chest ejection, postnasal drip and severe shortness of breath prompting him to come to the [place] ED for evaluation. The chest pain was characterized as exertional, 8/10, nonradiating and pressure-like lasting up to 20 minutes per episode. ED course -Vitals: MAXIMUM TEMPERATURE 100.3, HR 80-104, RR 18-20, SBP 148-218, O2 and a 3 -95% on 2.0 L O2 nasal cannula -CBC: WBC 14.1, hemoglobin 12.4, hematocrit 37.7, platelet 292 -BMP: Sodium 140, potassium 4.2, chloride 102, CO2 27, urea 29, creatinine 1.3, anion gap 10, glucose 166 -LFT: AST 45, ALT 42, ALP 95, total bilirubin 0.5 -Miscellaneous: Troponin I 0.83 d-dimer 274, INR 0.98 -CTA chest with PE protocol: 1. No evidence for acute or chronic pulmonary embolism. 2. Lung disease which is nonspecific. Different diagnosis includes opportunistic infection if patient is minimal compromise, hypersensitivity pneumonitis/allergic alveolitis or even an atypical appearance of entity such as alveolar sarcoid. Correlate clinically. 3. Nonspecific mildly prominent lymph nodes within the mediastinum. -ED interventions: * Aspirin * Nitroglycerin * Normal saline * Heparin GGT * Ceftriaxone * Azithromycin * Blood/urine/sputum cultures Problem list on admission -Atypical pneumonia +/- bird flu -Sepsis -Chest pain with elevated troponin, probable NSTEMI -Hypertensive urgency -Insulin-dependent diabetes mellitus -Hypertension -Hyperlipidemia -Obesity Hospital course during ICU admission Patient was admitted to the intensive care unit for close observation. There was clinical concern for atypical pneumonia versus strep pneumonia or psittacosis for which she was continued on vancomycin and doxycycline. Patient reportedly owns several birds. Strep and Legionella antigens were negative. Sputum culture demonstrated growth of staph aureus resistant to macrolides, patient is continued on vancomycin. There is still some clinical concern for superimposed psittacosis pneumonia for which patient is continued on doxycycline. Psittacosis panel is pending. Serial Troponin/EKG were obtained and peaked at 1.06 and trended down to 0.73. Cardiology consult was placed for evaluation of possible acute coronary syndrome. 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 Repeat echocardiogram demonstrated an LVEF of 50-55% with a hypokinetic inferior wall. Patient is not taking a statin for unclear reasons; he was previously taking atorvastatin 40 mg daily last filled on 12/25/16 for a 90 day supply. Patient utilizes a VGO pump at home for insulin administration. This was discontinued at time of admission and endocrinology consult was placed for diabetes management. Problem list on transfer -Staph aureus pneumonia, on vancomycin -Possible psciticosis pneumoina, on doxycycline -Chest pain with elevated troponin, likely NSTEMI -Sepsis, resolved -Insulin-dependent diabetes mellitus -Hypertension -Hyperlipidemia -Obesity Plan in Telemetry -Stress test revealed A small region of reversible ischemia is present involving the apical lateral wall with some extension into the adjacent mid inferolateral wall. No other perfusion abnormalities are noted. Left ventricular wall motion and ejection fraction are normal. -Pending cardio input on next step for catherization or continue monitor. - ACEi had been restarted -Discontinued ABX. Bird flu culture negative, will not continue Doxy outpatient. DVT PPX Heparin Full Code CC3 diabetic diet Problem List: 1. Pneumonia Pain Ratin Pain Location: NA Pain Goal: Remain pain free Pain Plan: see AP Tomorrow's Labs & Rationales: NA
--- NOTE | 2017-06-12 07:28 | PN- Diabetes ---
Assessment/Plan Diabetes Assessment: The patient states he feels improved. His cough is less. He stayed in the hospital because he desaturates with exertion. He is on prednisone 20 mg each a.m. as a single dose. This morning his O2 sat is 93% on room air. The patient's stress test shows some reversible ischemia. Dr. Morillo to evaluate further. The patient picked up the VGo 20 at the office yesterday. Plan: Suggest that if the patient is discharged he can go home on the VGo 20. He should take 3 clicks before each meal. If his sugars remain high because of the prednisone we can increase the number clicks to counteract the effects of prednisone on his blood sugar. He should call the office if his sugars are running high for further adjustment of his pre-meal insulin. For today in the hospital resume the patient's usual insulin including Levemir to 10 twice a day and NovoLog sliding scale. Subjective Subjective: Feels improved Review of Systems Constitutional: Denies: chills, fever. Cardiovascular: Denies: chest pain. Respiratory: Reports: cough, short of breath. Gastrointestinal: Denies: abdominal pain, nausea, vomiting. Skin: Reports: no symptoms. Objective Last 24 Hrs of Vital Signs/I&O Vital Signs Date Time Temp Pulse Resp B/P B/P Pulse O2 O2 Flow FiO2 Mean Ox Delivery Rate 06/12 0536 98.2 90 20 140/80 93 04/ 0000 93 Room Air Room Air 06/11 2350 98.4 94 16 162/62 90 Room Air 04/ 1837 93 Room Air 04/ 1600 90 Room Air / 1600 97.6 91 18 160/72 90 Room Air 04/ 1416 83 178/80 04/ 1415 83 178/80 04/03 1312 83 178/80 04/03 1013 96 Nasal 1.0L Cannula 06/11 0959 93 Nasal 1.0L Cannula 06/11 0953 82 162/78 / 0800 97 Nasal 2.0L Cannula Intake & Output 06/12 0800 04 0000 /03 1600 Intake Total 100 500 780 Output Total Balance 100 500 780 Intake, IV 300 Intake, Oral 100 500 480 Patient 201 lb Weight Vital Signs Date Time Temp Pulse Resp B/P B/P Pulse O2 O2 Flow FiO2 Mean Ox Delivery Rate 06/12 0536 98.2 90 20 140/80 93 04/04 0000 93 Room Air Room Air 04/03 2350 98.4 94 16 162/62 90 Room Air 04/ 1837 93 Room Air 04/ 1600 90 Room Air 04/ 1600 97.6 91 18 160/72 90 Room Air 04/03 1416 83 178/80 04/ 1415 83 178/80 04/ 1312 83 178/80 04/ 1013 96 Nasal 1.0L Cannula 06/11 0959 93 Nasal 1.0L Cannula 06/11 0953 82 162/78 04/ 0800 97 Nasal 2.0L Cannula Intake & Output 06/12 0800 04/ 0000 04/ 1600 Intake Total 100 500 780 Output Total Balance 100 500 780 Intake, IV 300 Intake, Oral 100 500 480 Patient 201 lb Weight Physical Exam General Appearance: alert, awake, comfortable Head: normal appearance Neck: normal inspection Respiratory: normal breath sounds Cardiovascular: regular rate/rhythm Abdomen: normal bowel sounds Extremities: normal inspection Current Medications: Current Medications Sig/Yoav Start time Last Medication Dose Route Stop Time Status Admin Acetaminophen 650 MG Q6P PRN 06/05 0130 AC PO Acetaminophen 1,000 MG Q6P PRN 06/05 0130 AC IV Albuterol Sulfate 3 ML TID 06/08 2200 AC 06/11 INH 1830 Aminophylline 250 MG .STK-MED ONE 06/11 1354 DC IV 06/11 1355 Amlodipine Besylate 10 MG DAILY 06/05 1000 AC 06/11 PO 1416 Aspirin Buffered 81 MG DAILY 06/05 1000 AC 06/11 PO 1415 Carvedilol 25 MG BID 06/05 0140 AC 06/11 PO 2152 Cefuroxime Sodium 500 MG Q12 06/10 1300 AC 06/11 PO 2153 Dextrose/Sodium 1,000 ML Q13H 06/11 0000 DC 06/10 Chloride IV 2325 Dipyridamole 60 MG ONE ONE 06/11 1100 DC Dextrose/Water 28 ML IV 06/11 1101 Docusate Sodium 100 MG .STK-MED ONE 06/11 1420 DC PO 06/11 1421 Docusate Sodium 100 MG DAILY NEEDED PRN 06/06 1500 AC 06/11 PO 1420 Dorzolamide HCl 1 GTT BID 06/07 1000 AC 06/08 OPH 0926 Doxazosin Mesylate 4 MG DAILY 06/05 1000 AC 06/11 PO 1414 Doxycycline Hyclate 100 MG BID 06/09 2200 AC 06/11 PO 2152 Fluticasone 2 PUF BID 06/07 1030 AC 06/11 Propionate INH 2156 Guaifenesin 600 MG Q12 06/05 0124 AC 06/11 PO 2152 Guaifenesin/Codeine 10 ML Q4P PRN 06/05 0945 AC 06/11 Phosphate PO 2235 Heparin Sodium 5,000 UNIT Q8 06/07 2200 AC 06/12 (Porcine) SC 0610 Insulin Aspart 0 TIDAC/HS 06/11 1700 AC 06/11 SC 2154 Insulin Detemir 8 UNITS BID 06/11 2200 AC 06/11 SC 2154 Insulin Human Regular 0 Q6 06/10 2359 DC SC Losartan Potassium 100 MG DAILY 06/11 1000 AC 06/11 PO 0953 Morphine Sulfate 2 MG Q6 PRN 06/05 0130 DC IV Omeprazole 40 MG BID 06/05 1100 AC 06/11 PO 2152 Patient Medication 1 ED ONE ONE 06/11 1445 DC Teaching ED 06/11 1446 Prednisone 20 MG DAILY 06/11 1000 AC 06/11 PO 1416 Senna 187 MG AT BEDTIME 06/06 2200 AC 06/10 PO 2214 Tiotropium Brilli[place] 1 PUF DAILY 06/07 1100 AC 06/11 INH 0954 Findings Pertinent Lab/Don Results: Laboratory Tests 06/12 0625 Chemistry Sodium Pending Potassium Pending Chloride Pending Carbon Dioxide Pending Anion Gap Pending BUN Pending Creatinine Pending BUN/Creatinine Ratio Pending
--- NOTE | 2017-06-12 09:31 | PN- Pulmonary ---
Subjective HPI/Critical Care Issues: Improved oxygenation Stress test noted Small reversible ischemia with ef of 48 initial psitacosis antibody neg but would need it to be repeated in 2-3 weeks Off oxygen Improved creat Objective Current Medications: Current Medications Sig/Yoav Start time Last Medication Dose Route Stop Time Status Admin Acetaminophen 650 MG Q6P PRN 06/05 0130 AC PO Acetaminophen 1,000 MG Q6P PRN 06/05 0130 AC IV Albuterol Sulfate 3 ML TID 06/08 2200 AC 06/12 INH 0818 Aminophylline 250 MG .STK-MED ONE 06/11 1354 DC IV 06/11 1355 Amlodipine Besylate 10 MG DAILY 06/05 1000 AC 06/11 PO 1416 Aspirin Buffered 81 MG DAILY 06/05 1000 AC 06/11 PO 1415 Carvedilol 25 MG BID 06/05 0140 AC 06/11 PO 2152 Cefuroxime Sodium 500 MG Q12 06/10 1300 AC 06/11 PO 2153 Dextrose/Sodium 1,000 ML Q13H 06/11 0000 DC 06/10 Chloride IV 2325 Dipyridamole 60 MG ONE ONE 06/11 1100 DC Dextrose/Water 28 ML IV 06/11 1101 Docusate Sodium 100 MG .STK-MED ONE 06/11 1420 DC PO 06/11 1421 Docusate Sodium 100 MG DAILY NEEDED PRN 06/06 1500 AC 06/11 PO 1420 Dorzolamide HCl 1 GTT BID 06/07 1000 AC 06/08 OPH 0926 Doxazosin Mesylate 4 MG DAILY 06/05 1000 AC 06/11 PO 1414 Doxycycline Hyclate 100 MG BID 06/09 2200 AC 06/11 PO 2152 Fluticasone 2 PUF BID 06/07 1030 AC 06/11 Propionate INH 2156 Guaifenesin 600 MG Q12 06/05 0124 AC 06/11 PO 2152 Guaifenesin/Codeine 10 ML Q4P PRN 06/05 0945 AC 06/11 Phosphate PO 2235 Heparin Sodium 5,000 UNIT Q8 06/07 2200 AC 06/12 (Porcine) SC 0610 Insulin Aspart 0 TIDAC/HS 06/11 1700 AC 06/11 SC 2154 Insulin Detemir 8 UNITS BID 06/11 2200 AC 06/11 SC 2154 Insulin Human Regular 0 Q6 06/10 2359 DC SC Losartan Potassium 100 MG DAILY 06/11 1000 AC 06/11 PO 0953 Morphine Sulfate 2 MG Q6 PRN 06/05 0130 DC IV Omeprazole 40 MG BID 06/05 1100 AC 06/11 PO 2152 Patient Medication 1 ED ONE ONE 06/11 1445 DC Teaching ED 06/11 1446 Prednisone 20 MG DAILY 06/11 1000 AC 06/11 PO 1416 Senna 187 MG AT BEDTIME 06/06 2200 AC 06/10 PO 2214 Tiotropium [place] 1 PUF DAILY 06/07 1100 AC 06/11 INH 0954 Vital Signs & I&O Last 24 Hrs of Vitals and I&O: Vital Signs Date Time Temp Pulse Resp B/P B/P Pulse O2 O2 Flow FiO2 Mean Ox Delivery Rate 06/12 0910 94 Room Air 06/12 0636 98.2 90 20 140/80 93 06/12 0000 93 Room Air Room Air 06/11 2350 98.4 94 16 162/62 90 Room Air 06/11 1837 93 Room Air 06/11 1600 90 Room Air 06/11 1600 97.6 91 18 160/72 90 Room Air 06/11 1416 83 178/80 06/11 1415 83 178/80 06/11 1312 83 178/80 06/11 1013 96 Nasal 1.0L Cannula 06/11 0959 93 Nasal 1.0L Cannula 06/11 0953 82 162/78 Intake & Output 06/12 1600 06/12 0800 06/12 0000 Intake Total 100 500 Output Total Balance 100 500 Intake, Oral 100 500 Patient 201 lb Weight Impression/Plan Impression/Plan Impression/Plan: CT IMPRESSION: 1. No evidence for acute or chronic pulmonary embolism. 2. Lung disease which is nonspecific. Different diagnosis includes opportunistic infection if patient is minimal compromise, hypersensitivity pneumonitis/allergic alveolitis or even an atypical appearance of entity such as alveolar sarcoid. Correlate clinically. 3. Nonspecific mildly prominent lymph nodes within the mediastinum. VTE: DICTATED BY: Mariusz Siegel MD DATE/TIME DICTATED:06/04/172320 Nuclear stress IMPRESSION: A small region of reversible ischemia is present involving the apical lateral wall with some extension into the adjacent mid inferolateral wall. No other perfusion abnormalities are noted. Left ventricular wall motion and ejection fraction are normal. DICTATED BY: Santy Stinson MD DATE/TIME DICTATED:04/03/18 / 1652 MANOJ EOMI no sig jvd Chest mild wheeze and crackles abd soft nontender No edema IMP Pt with DM, Glaucoma, CKD, with * Sig cough, low grade temp with diffuse atypical pulm infiltrates (multifocal nodular acinar infliltrares) consistant with atypical pna, with broad diff (pt does have birds and Pscitacosis is high in the diff) with staph pna prob post influenza * Chest pain now releived with ntg, with elevated troponin / with mild reversible ischemia by stress with ef of 48 * CKD with recent contrast with creat improving * Recent exposure to dust and mold * SIg HTN with Elevated BNP prob some component of Diastolic heart dz * DM on INsulin, now on 5 days of steroids * Small PFO * Sig neuropathy * OBesity * Recent contrast use in a diabetic, with ckd now stable REC DOXY po bid for two weeks, Ceftin 500 bid for 6 more days Psicatosis antibody panel to be repeated in few weeks ASA 81 Change to po ppi qd Spriva, and flovent to 220 2 puff bid Prednisone 20 mg daily for 5 days [place] with docusate daily Adequate bp control Ok to dc soon Pt was advised to relocate the birds and to follow up in few weeks
[2017-06-12 10:29] VITALS: BP 140/80
[2017-06-12] MEDS ORDERED: CEFTIN250 MG/51 PO (11:36)
[2017-06-12] MEDS ORDERED: OMEPRAZOLE20 M2 PO (11:36)
--- NOTE | 2017-06-12 12:57 | Cons- Nephrology ---
General Information and HPI Consulting Request Date of Consult: 06/12/17 Requested By: Andrade Miller MD Reason for Consult: CKD; upcoming contrast exposure Source of Information: patient, old records Exam Limitations: no limitations History of Present Illness: The patient is a 51-year-old gentleman with a background of long-standing diabetes mellitus and hypertension without known high-grade proteinuria but with a history of ATN secondary to contrast nephropathy/NSAIDs in the setting of surgery for acute cholecystitis in December 2016. His creatinine at that time peaked at 5.4 but then came down to his baseline of 1.4. He has been followed in our office in [place] where his serum creatinine has ranged from 1.2-1.4 since hospital discharge. He was now admitted on 06/05/17 nonexertional chest pain and shortness of breath. He has been treated for possible atypical pneumonia. Stress test was found to be negative and cardiac catheterization is being considered. He is not on any NSAIDs and his most recent serum creatinine here in the hospital is 1.4 this morning. The patient is quite concerned about the potential consequences for repeat contrast exposure. Past medical history is positive for insulin-dependent diabetes mellitus, hypertension, EVAN secondary to contrast nephropathy/NSAIDs, glaucoma. 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 Allergies/Medications Allergies: Coded Allergies: No Known Allergies (07/11/16) Home Med List: Albuterol Sulfate (Proair Hfa) 90 MCG HFA.AER.AD 2 PUF INH Q4-6 PRN PRN wheezing Amlodipine Besylate (Norvasc) 10 MG TABLET 1 TAB PO DAILY BLOOD PRESSURE ( Reported) Aspirin (Ecotrin*) 81 MG TABLET.DR 1 TAB PO DAILY HEART/BLOOD (Reported) Atorvastatin Calcium 40 MG TABLET 1 TAB PO DAILY CHOLESTEROL Carvedilol 25 MG TABLET 1 TAB PO BID HEART (Reported) Cefuroxime Axetil (Ceftin) 250 MG/5 ML SUSP.RECON 10 ML PO BID Pneumonia Dorzolamide HCl/Timolol Maleat (Dorzolamide-Timolol Eye Drops) 22.3 MG-6.8 MG/ML DROPS 1 DRP OD BID EYE (Reported) Doxazosin Mesylate 4 MG TABLET 1 TAB PO DAILY htn (Reported) Doxycycline Hyclate 100 MG CAPSULE 100 MG PO BID PNEUMONIA . Ezetimibe (Zetia) 10 MG TABLET 1 TAB PO DAILY high cholesterol (Reported) Furosemide (Lasix) 20 MG TABLET 1 TAB PO DAILY chf (Reported) Gabapentin (Neurontin) 100 MG CAPSULE 1 CAP PO DAILY pain (Reported) Lactobacillus Acidophilus (Probiotic) 10 BILLION CELL CAPSULE 1 CAP PO TID probiotic . Losartan Potassium 100 MG TABLET 1 TAB PO DAILY HEART (Reported) Omeprazole 20 MG CAPSULE.DR 40 MG PO DAILY GI Prednisone 20 MG TABLET 1 TAB PO DAILY Pneumonitis . Sub-Q Insulin Device, 20 Unit (Vgo 20) 1 EACH EACH 0 SC DAILY DIABETES PER ENDOCRINOLOGISTS RECOMMENDATIONS Review of Systems Review of Systems: A 12 point review of systems is negative except for a persistent nonproductive cough. Past History Travel History Traveled to [place] past 21 day No Medical History Blood Transfusion Hx: No Neurological: NONE EENT: GLAUCOMA RIGHT EYE Cardiovascular: CAD, hypertension, hyperlipidemia, PALPITATIONS Respiratory: NONE Gastrointestinal: NONE Hepatic: LAP JEWEL 12/25 Renal: nephrolithiasis, YSABEL AFTET IVP DYE Musculoskeletal: falls, FRACTURE (RIBS) R SHOULDER ROTATOR CUFF ? 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 Home Who Do You Live With? spouse Services at Home: None Primary Language: German Smoking Status: Never Smoked Functional Ability ADLs Independent: dressing, eating, toileting, bathing. Ambulation: independent IADLs Independent: shopping, housework, finances, food prep, telephone, transportation , medication admin. Exam & Diagnostic Data Vital Signs and I&O Vital Signs Date Time Temp Pulse Resp B/P B/P Pulse O2 O2 Flow FiO2 Mean Ox Delivery Rate 06/12 1029 90 140/80 06/12 1029 90 140/80 06/12 1028 90 140/80 06/12 0910 94 Room Air 06/12 0636 98.2 90 20 140/80 93 06/12 0000 93 Room Air Room Air 06/11 2350 98.4 94 16 162/62 90 Room Air 06/11 1837 93 Room Air 06/11 1600 90 Room Air 06/11 1600 97.6 91 18 160/72 90 Room Air 06/11 1416 83 178/80 06/11 1415 83 178/80 06/11 1312 83 178/80 Intake & Output 06/12 1600 06/12 0400 06/11 1600 06/11 0400 06/10 1600 06/10 0400 Intake Total 141 089 4814 900 850 700 Output Total Balance 292 815 9357 900 850 700 Intake, IV 900 600 600 Intake, Oral 300 500 480 300 250 700 Number 0 Bowel Movements Patient 201 lb 210 lb 210 lb 224 lb Weight Physical Exam: General: Well-developed white male in NAD Skin: No rash or jaundice HEENT: Conjunctivae pink, sclerae anicteric, mucous membranes moist Neck: Without masses or thyromegaly, no supraclavicular or cervical adenopathy Chest: Few rales and rhonchi at right base Heart: Regular rate and rhythm without S3 or rub Abdomen: Soft and nontender without palpable masses or organomegaly Extremities: Without cyanosis or edema Neuro: No focal findings, no asterixis or myoclonus Assessment/Plan Assessment/Recommendations Assessment: 51-year-old gentleman with a background of diabetes mellitus, hypertension, and contrast nephropathy in the fall of 2017 at that time in the setting of surgery for acute cholecystitis and NSAID therapy. His baseline creatinine is apparently 1.2-1.4 and at the time of his previous acute kidney injury it had peaked as high as 5.4 before returning to baseline. I suspect he has underlying chronic kidney disease secondary to diabetic and hypertensive nephrosclerosis. In any event, he does carry a higher than average risk of repeat contrast nephropathy. However in view of his presenting symptoms and positive cardiac stress test, I believe that cardiac catheterization is indicated with the risk of not doing catheterization outweigh the potential risk of acute kidney injury. This has been fully discussed with the patient who agrees to proceed. Recommendations: 1. Okay to proceed with cardiac catheterization. 2. Recommend pre-hydration with half-normal saline at 75-100 mL per hour starting 6 hours prior to the procedure, continuing during and for 6 hours postprocedure. If catheterization needs to be done today, can instead bolus with half-normal saline at 3 mL/kg just prior to the procedure and continued during and after the procedure as noted above. 3. Monitor renal function for 24-48 hours post catheterization Thank you. We will follow as needed.
== END 2017-06-12 12:55 | disposition short-term general hospital (02) | DRG 720 ==
LOC: ERH 20:46 → CRI 06-05 00:02 → ERHI 06-05 00:02 → 1NO 06-05 00:02 → ENRESERV 06-05 00:37 → CRI 06-05 02:06 → ENTRNSPT 06-07 18:25 → EDTRNSPTSTS 06-07 18:43 → EDTRNSPT 06-07 18:43 → 1NO 06-07 19:03 → CMPTRNSPT 06-07 19:11 → 1NO 06-10 07:50 → ENPENDDIS 06-12 11:29 → 1NO 06-12 12:55
PROVIDERS: Emergency Medicine; Hospitalist; Internal Medicine Critical Care Medicine; Internal Medicine Pulmonary Disease; Student in an Organized Health Care Education/Training Program
DX: A41.9 Sepsis, unspecified organism (principal); J15.20 Pneumonia due to staphylococcus, unspecified; I21.4 Non-ST elevation (NSTEMI) myocardial infarction; Z79.4 Long term (current) use of insulin; E66.9 Obesity, unspecified; Z68.32 Body mass index [BMI] 32.0-32.9, adult; I50.22 Chronic systolic (congestive) heart failure; Z79.82 Long term (current) use of aspirin; I25.10 Atherosclerotic heart disease of native coronary artery without angina pectoris; E78.5 Hyperlipidemia, unspecified; H40.9 Unspecified glaucoma; Z91.81 History of falling; Z90.49 Acquired absence of other specified parts of digestive tract; Z87.442 Personal history of urinary calculi; R79.89 Other specified abnormal findings of blood chemistry; I16.0 Hypertensive urgency; Z79.51 Long term (current) use of inhaled steroids; I12.9 Hypertensive chronic kidney disease with stage 1 through stage 4 chronic kidney disease, or unspecified chronic kidney disease; N18.9 Chronic kidney disease, unspecified; I11.9 Hypertensive heart disease without heart failure; E11.21 Type 2 diabetes mellitus with diabetic nephropathy; A70 Chlamydia psittaci infections
CPT/HCPCS: 1NP; 87184; CCU; 36415; 36592; 78452; 80307; 82436; 86431; 87040; 87070; 87071; 87147; 87389; 87449; 87450; 87804; 87804-59; 93005; 93010; 93016; 93017; 93306; 96361; 96374; 96375; 99291; A9502; J0131; J0456; J0696; J1245; J1644; J1815; J3370; J3490; J7040; J7042; J7060; J7608

== ENCOUNTER 2017-10-03 10:09 | Inpatient (IN) | payer OTHER ==
[~2017-10-03] VITALS: Ht 167.6 cm; Wt 102.6 kg
[~2017-10-03 10:09] MED LIST changes: +AUGMENTIN 875-1 EACH PO; +BETIMOL5 M1 OPH; +CARVEDILOL12.5 M1 PO; -CARVEDILOL25 M1 PO; +CEFTIN250 MG/51 PO; +CEFUROXIME500 MG PO; -DORZOLAMIDE-TIM10 ML OD; +DOXAZOSIN MESYLA4 M1 PO; +DOXYCYCLINE HY100 M2 PO; +NEURONTIN100 M1 PO; +OMEPRAZOLE20 M2 PO; +PREDNISONE20 M1 PO; +PROAIR HFA8.5 GM INH; +PROBIOTIC1 EACH PO; +TRULICITY0.75 MG/01 SC; +VGO 201 EACH SC; +VGO 301 EACH SC; +ZETIA10 M1 PO
[2017-10-03 12:19] LABS: ABSOLUTE BASOPHIL COUNT 0 /CUMM (0.0-0.2); ABSOLUTE EOSINOPHIL COUNT 0.3 /CUMM (0.0-0.7); ABSOLUTE GRANULOCYTE CT 5.2 /CUMM (1.4-6.5); ABSOLUTE LYMPH COUNT 1.2 /CUMM (1.2-3.4); ABSOLUTE MONOCYTE COUNT 0.6 /CUMM (0.10-0.60); BASOPHIL % 0.5 % (0.0-2.0); EOSINOPHIL % 4.6 % (0-5); GRANULOCYTE % 70.3 % (42.2-75.2); HEMATOCRIT 29.8 % (42-52); MEAN CORPUSCULAR HGB 29.1 PG (27.0-31.0); MEAN CORPUSCULAR HGB CONC 34.5 G/DL (33.0-37.0); MEAN CORPUSCULAR VOLUME 84.4 FL (80.0-94.0); MEAN PLATELET VOLUME 9.6 FL (7.4-10.4); PLATELET COUNT 208 /CUMM (130-400); RBC DISTRIBUTION WIDTH 14.5 % (11.5-14.5); RED BLOOD CELL CT 3.54 /CUMM (4.70-6.10); WHITE BLOOD CELL COUNT 7.4 /CUMM (4.8-10.8)
[2017-10-03] MEDS ORDERED: NITROGLYCERIN0.6 MG PO (12:43)
[2017-10-03] MEDS ORDERED: PRAVASTATIN SOD10 M2 PO (12:44)
[2017-10-03] MEDS ORDERED: LYRICA100 M1 PO (12:45)
[2017-10-03] MEDS ORDERED: VGO 401 EACH SC (12:46)
[2017-10-03] MEDS ORDERED: FLOVENT HFA12 G1 INH (12:48)
[2017-10-03] MEDS ORDERED: PERCOCET 5-3251 EACH PO (12:50)
[2017-10-03] MEDS ORDERED: BRILINTA90 M1 PO (12:51)
[2017-10-03] MEDS ORDERED: COLACE100 M1 PO (12:51)
--- NOTE | 2017-10-03 12:57 | ED GENERAL ADULT ---
History of Present Illness General Chief Complaint: General Adult Stated Complaint: FLUID RETENTION Source: patient Exam Limitations: no limitations Vital Signs & Intake/Output Vital Signs & Intake/Output Vital Signs Date Time Temp Pulse Resp B/P B/P Pulse O2 O2 Flow FiO2 Mean Ox Delivery Rate 10/05 0927 72 146/78 10/05 0638 98.4 72 18 146/78 95 Room Air 10/05 0043 81 97 10/04 2341 80 160/76 10/04 2200 98.0 76 18 170/88 96 10/04 1600 Room Air 10/04 1439 97.6 72 20 150/70 97 Room Air 10/04 1336 Room Air 10/04 1146 96 Room Air 10/04 1131 97.8 86 20 178/72 96 Room Air 10/04 1115 96 Room Air 10/04 1057 78 18 159/68 99 Room Air 10/04 1052 78 18 159/68 10/04 1008 98.4 74 18 170/74 10/04 1008 98.4 74 18 170/74 ED Intake and Output 10/05 0000 10/04 1200 Intake Total 650 Output Total 3950 950 Balance -3300 -950 Intake, Oral 650 Output, Urine 3950 950 Patient 223 lb 231 lb Weight Weight Bed scale Measurement Method Allergies Uncoded Allergies: CAT SCAN DYE (UNKNOWN 10/03/17) Reconcile Medications Albuterol Sulfate (Proair Hfa) 90 MCG HFA.AER.AD 2 PUF INH Q4-6 PRN PRN wheezing Amlodipine Besylate (Norvasc) 10 MG TABLET 1 TAB PO DAILY BLOOD PRESSURE ( Reported) Aspirin (Ecotrin*) 81 MG TABLET.DR 1 TAB PO DAILY HEART/BLOOD (Reported) Carvedilol 12.5 MG TABLET 1 TAB PO BID HEART (Reported) Docusate Sodium (Colace) 100 MG CAPSULE 1 CAP PO BID CONSTIPATION (Reported) Dorzolamide HCl/Timolol Maleat (Dorzolamide-Timolol Eye Drops) 22.3 MG-6.8 MG/ML DROPS 1 DRP OD BID EYE (Reported) Doxazosin Mesylate 4 MG TABLET 1 TAB PO DAILY htn (Reported) Ezetimibe (Zetia) 10 MG TABLET 1 TAB PO DAILY high cholesterol (Reported) Fluticasone Propionate (Flovent Hfa) 110 MCG/ACTUATION AER.W.ADAP 2 PUF INH BID BREATHING PROBLEMS (Reported) Furosemide (Lasix) 40 MG TABLET 1 TAB PO DAILY WATER RETENTION (Reported) Losartan Potassium 100 MG TABLET 1 TAB PO DAILY HEART (Reported) Omeprazole 20 MG CAPSULE.DR 40 MG PO DAILY GI Oxycodone HCl/Acetaminophen (Percocet 5-325 MG Tablet) 5 MG-325 MG TABLET 1 TAB PO BID PRN PAIN (Reported) Pravastatin Sodium 10 MG TABLET 1 TAB PO DAILY CHOLESTEROL (Reported) Pregabalin (Lyrica) 100 MG CAPSULE 1 CAP PO TID PAIN (Reported) Sub-Q Insulin Device, 40 Unit (Vgo 40) 1 EACH EACH 40 UNITS SC DAILY DIABETES (Reported) Ticagrelor (Brilinta) 90 MG TABLET 1 TAB PO BID BLOOD THINNER (Reported) Triage Note: PT SENT TO ED FOR 21 LB WEIGHT GAIN, SOB, B/L LE EDEMA. PT WITH H/O AK WITH STENTS IN MAY 2017. B/L LE EDEMA AND ASCITES NOTED. APPEARS SOB WITH EXERTION. RA SATS 97%. Triage Nurses Notes Reviewed? yes Onset: Abrupt Duration: week(s): (1), constant Timing: recent history Injury Environment: home No Modifying Factors: none HPI: 52-year-old male comes into the emergency room for further evaluation of again. Patient reports she's gained about 20 pounds over the past week. He feels like he has fluid in his legs and his abdomen. Denies any fever chills cough shortness of breath. He haD chest pain intermittently the other day. He had a recent coronary stent placed a few months ago. Denies any vomiting. Denies any changes in bowel movement. Increased weakness. Associated fever chills and weakness. (Pedro Valencia) Past History Travel History Traveled to [place] past 21 day No Medical History Any Pertinent Medical History? see below for history Neurological: NONE EENT: GLAUCOMA RIGHT EYE Cardiovascular: CAD, hypertension, hyperlipidemia, myocardial infarction, PALPITATIONS Respiratory: NONE Gastrointestinal: NONE Hepatic: LAP JEWEL 12/25 Renal: nephrolithiasis, YSABEL AFTET IVP DYE Musculoskeletal: falls, FRACTURE (RIBS) R SHOULDER ROTATOR CUFF ? 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 No (Pedro Valencia) Review of Systems Review of Systems Constitutional: Reports: no symptoms. EENTM: Reports: no symptoms. Respiratory: Reports: see HPI. Cardiovascular: Reports: see HPI. GI: Reports: see HPI. Genitourinary: Reports: no symptoms. Musculoskeletal: Reports: no symptoms. Skin: Reports: no symptoms. Neurological/Psychological: Reports: no symptoms. Hematologic/Endocrine: Reports: no symptoms. Immunologic/Allergic: Reports: no symptoms. All Other Systems: Reviewed and Negative (Pedro Valencia) Physical Exam Physical Exam General Appearance: well developed/nourished, alert, awake Head: atraumatic, normal appearance Eyes: Bilateral: normal appearance. Ears, Nose, Throat: normal ENT inspection, hearing grossly normal Neck: normal inspection Respiratory: normal breath sounds, no respiratory distress Cardiovascular: regular rate/rhythm Gastrointestinal: soft, distention Back: normal inspection Extremities: pedal edema (2+ bilateral) Neurologic/Psych: awake, alert, oriented x 3, normal gait, normal mood/affect Skin: intact, normal color Core Measures ACS in differential dx? No CVA/TIA Diagnosis: No Sepsis Present: No Sepsis Focused Exam Completed? No (Pedro Valencia) Progress Differential Diagnoses I considered the following diagnoses in my evaluation of the patient: Liver cirrhosis, hepatitis C, renal failure, CHF, anasarca, venous stasis, medication side effect Plan of Care: Orders Procedure Date/time Status CBC WITHOUT DIFFERENTIAL 10/05 0600 Complete BASIC ELECTROLYTES PLUS BUN&CR 10/05 0600 Complete ECHOCARDIOGRAM 10/05 0415 Active Skin/Pressure Ulcer Assess (Sk 10/04 1209 Active RT: Evaluation 10/04 1152 Active Weight 10/04 1116 Active Vital Signs 10/04 1116 Active Teach/Educate 10/04 111 Active Pain Treatment and Response 10/04 1116 Active Nutritional Intake, Monitor 10/04 1116 Active Isolation 10/04 1116 Active Intake & Output 10/04 1116 Active Patient Care Conference 10/04 1116 Active Activity/Ambulation 10/04 1116 Active THERAPIST ORDERS 10/04 UNK Complete MISSING MEDICATION FORM 10/04 UNK Active NUTRITIONAL CONSULT 10/04 UNK Active Current Medications Sig/Yoav Start time Last Medication Dose Stop Time Status Admin Calcium Carbonate 500 MG DAILY 10/05 0900 AC 10/04 (TUMS) 2215 Furosemide 40 MG Q12 10/05 0900 AC 10/05 (Lasix) 0929 Omeprazole 40 MG DAILY AC 10/04 2200 AC 10/05 (Prilosec) 0653 Insulin Aspart 0 TIDAC/HS 10/04 1200 AC 10/05 (NovoLOG) 0928 Losartan Potassium 100 MG DAILY 10/04 0902 AC 10/05 (Cozaar) 0927 Amlodipine Besylate 10 MG DAILY 10/04 0900 AC 10/04 (Norvasc) 1008 Aspirin Buffered 81 MG DAILY 10/04 0900 AC 10/04 (Ecotrin) 1008 Doxazosin Mesylate 1 MG DAILY 10/04 0900 AC 10/04 (Cardura) 1008 Ezetimibe 10 MG DAILY 10/04 0900 AC 10/04 (Zetia) 1008 Fluticasone 2 PUF BID 10/04 0900 AC 10/05 Propionate 0930 (Flovent) Insulin Detemir 10 UNITS BID 10/04 0900 AC 10/05 (Levemir) 0928 Omeprazole 40 MG DAILY 10/04 0900 AC 10/04 (Prilosec) 1008 Pravastatin Sodium 10 MG DAILY 10/04 0900 AC 10/05 (Pravachol) 0929 Pregabalin 100 MG TID 10/03 2357 AC 10/05 (Lyrica) 0928 Ticagrelor 90 MG BID 10/03 2357 AC 10/04 (Brilinta) 2123 Carvedilol 12.5 MG BID 10/03 2356 AC 10/04 (Coreg) 2341 Docusate Sodium 100 MG BID 10/03 2356 AC 10/04 (Colace) 2215 Albuterol Sulfate 2 PUF Q4-6 PRN PRN 10/03 2345 AC (Ventolin) Oxycodone/ 1 TAB BID PRN 10/03 2345 AC 10/04 Acetaminophen 0013 (Percocet) Heparin Sodium 5,000 UNIT Q8 10/03 2200 AC 10/05 (Porcine) 0654 Acetaminophen 650 MG Q8P PRN 10/03 1900 AC (Tylenol) Laboratory Tests 10/05/17 0625: Anion Gap 11, Estimated GFR 40 L, BUN/Creatinine Ratio 21.7, CBC w Diff NO MAN DIFF REQ, RBC 3.48 L, MCV 84.8, MCH 28.7, MCHC 33.8, RDW 14.2, MPV 10.3, Gran % 71.2, Lymphocytes % 17.6 L, Monocytes % 7.1, Eosinophils % 3.6, Basophils % 0.5 , Absolute Granulocytes 5.1, Absolute Lymphocytes 1.3, Absolute Monocytes 0.5, Absolute Eosinophils 0.3, Absolute Basophils 0 Diagnostic Imaging: Viewed by Me: Radiology Read, CT Scan. Discussed w/RAD: Radiology Read, CT Scan. Initial ED EKG: normal sinus rhythm, rate (74), nonspecific ST T wave chg (Pedro Valencia) Departure Departure Disposition: STILL A PATIENT Condition: Stable Clinical Impression Primary Impression: EVAN (acute kidney injury) Secondary Impressions: Atypical chest pain, Hyperglycemia Referrals: Julia Wolfe APRN (PCP/Family) Departure Forms: Customer Survey General Discharge Information Admission Note Spoke With: Hernandez WILSON,[place] Documentation of Exam: Documentation of any treatments & extenuating circumstances including Concerns Regarding Discharge (functional status, medication knowledge or non-compliance, living conditions, etc.) that warrant an admission rather than observation: Cardiac telemetry. Cardiac consultation. Endocrine consultation. IV fluids. Diabetes management. Renal consultation. Repeat labs. (Pedro Valencia) PA/DEPARTMENT DIRECTOR Co-Sign Statement Statement: ED Attending supervision documentation- [] I saw and evaluated the patient. I have also reviewed all the pertinent lab results and diagnostic results. I agree with the findings and the plan of care as documented in the PA's/DEPARTMENT DIRECTOR's documentation. [x] I have reviewed the ED Record and agree with the PA's/DEPARTMENT DIRECTOR's documentation. [] Additions or exceptions (if any) to the PAs/DEPARTMENT DIRECTOR's note and plan are summarized below: [] (Dedrick WILSON,[facility]) Critical Care Note Critical Care Note Critical Care Time: non-applicable (Pedro Valencia)
--- NOTE | 2017-10-03 14:06 | RADIOLOGY REPORT ---
EXAMINATION: XR PORTABLE CHEST CLINICAL INFORMATION: Chest pain COMPARISON: 05/31/2017 and 07/24/2017 TECHNIQUE: Portable frontal view of the chest was obtained. FINDINGS: Large body habitus. Lungs are slightly hypoexpanded and right diaphragm remains mildly elevated. The lungs are clear. No pulmonary edema, consolidation, pneumothorax or pleural effusion. The visualized bones are intact. IMPRESSION: No acute pulmonary disease.
--- NOTE | 2017-10-03 14:20 | CT SCAN REPORT ---
EXAMINATION: CT ABDOMEN AND PELVIS WITHOUT CONTRAST CLINICAL INFORMATION: 52-year-old male with abdominal distention. Suspected ascites. COMPARISON: None. TECHNIQUE: Multidetector volumetric imaging was performed from the superior aspect of the liver through the pubic symphysis. Sagittal and coronal reformatted images were obtained on the technologist's workstation. DLP: 998.05 mGy-cm FINDINGS: LUNG BASES: The visualized lung bases are unremarkable. LIVER, GALLBLADDER, AND BILIARY TREE: The liver is normal in size, shape, and attenuation. No focal hepatic lesion or biliary ductal dilatation is present. The gallbladder is surgically absent. There is no intrahepatic or extrahepatic biliary ductal dilatation present. PANCREAS: Unremarkable. SPLEEN: Unremarkable. ADRENAL GLANDS: Unremarkable. KIDNEYS AND URETERS: The kidneys are normal in size, shape, and attenuation. No hydronephrosis, hydroureter, or calculi seen. No perinephric stranding. BLADDER: Moderately distended, seen to the level of the S1 vertebral body, may represent physiologic changes. GASTROINTESTINAL TRACT: The small and large bowel are unremarkable. The appendix is unremarkable. ABDOMINAL WALL: No significant hernia is appreciated. LYMPH NODES: Multiple shotty bilateral groin, inguinal lymph nodes are noted. VASCULAR: Diffuse extensive vascular calcifications are noted including coronary arterial calcification, visceral as well as iliofemoral arterial calcifications. May represent changes secondary to underlying vasculopathy related to diabetes or nephrogenic causes. PELVIC VISCERA: There is no pelvic mass present. There is no free fluid and/or free air present. Specifically, no CT evidence of any ascites is seen. OSSEOUS STRUCTURES: No suspicious lytic or sclerotic abnormalities. Significant facet joint arthritic changes are noted at lower lumbar spine with evidence of laminectomy at L4, L5 and S1 region. IMPRESSION: 1. No acute intra-abdominal and/or intrapelvic pathology is present. 2. Surgically absent gallbladder and nondilated biliary tree. 3. Moderately distended urinary bladder, may represent physiologic changes. 4. Multiple shotty nonspecific bilateral groin, inguinal lymph nodes. 5. Extensive vasculopathy. 6. No CT evidence of ascites.
--- NOTE | 2017-10-03 17:34 | History & Physical ---
Angeline Ferreira 10/03/17 1733: General Information and HPI MD Statement: I have seen and personally examined GIAN DEAL and documented this H&P. The patient is a 52 year old M who presented with a patient stated chief complaint of 21 pounds weight gain, shortness of breath, bilateral lower extremity edema. Source of Information: patient History of Present Illness: 52-year-old male with a past medical history of insulin-dependent diabetes mellitus on insulin pump, hypertension, coronary artery disease status post stent in June 2017, hyperlipidemia, myocardial infarction, lap jewel, nephrolithiasis, acute renal injury after IV contrast, right shoulder rotator cuff, glaucoma who presented to the emergency department for evaluation of 21 pounds weight gain, shortness of breath, bilateral lower extremity edema, abdominal distention for the past 1 week. Patient reports that last week he visited his primary care physician SOSA Diggs for regular visit they were increasing his insulin pump V-Go 30 to 40. On vitals as the noted 20 pound increase in his weight. Today the patient was going to see Dr. Holloway at 1 PM but decided to come to the emergency department for shortness of breath, worsening bilateral lower extremity edema, worsening abdominal distention. The patient says that for the past 1 day the patient has been short of breath especially while ambulating. He says that he raising his legs on pillows helps with the shortness of breath. The patient also reports bilateral lower limb swelling and abdominal distention and said that his clothes feel tighter on his Lasix has been increased to 40 mg daily recently by his wharf tender head. The patient does not report chest pain at this time, palpitations, nausea, vomiting, fever, chills, abdominal pain, change in urinary or bowel habits. May 2017: Echo showed an ejection fraction of 50-55% and a cardiac pharmacological stress test came back positive In June 2017: The patient was admitted to the ICU for the pneumonia. His troponins were trended as 1.062.73 he was referred to [facility] for a cardiac cath and he had a stent placed. Since then he has reported off and on chest pain relieved by nitroglycerin. Of note patient sees Dr. Juarez is his wharf tender head and Dr. Flood is his purification supervisor as an outpatient. Allergies/Medications Allergies: Uncoded Allergies: CAT SCAN DYE (UNKNOWN 10/03/17) Home Med list Albuterol Sulfate (Proair Hfa) 90 MCG HFA.AER.AD 2 PUF INH Q4-6 PRN PRN wheezing Amlodipine Besylate (Norvasc) 10 MG TABLET 1 TAB PO DAILY BLOOD PRESSURE ( Reported) Aspirin (Ecotrin*) 81 MG TABLET.DR 1 TAB PO DAILY HEART/BLOOD (Reported) Carvedilol 12.5 MG TABLET 1 TAB PO BID HEART (Reported) Docusate Sodium (Colace) 100 MG CAPSULE 1 CAP PO BID CONSTIPATION (Reported) Dorzolamide HCl/Timolol Maleat (Dorzolamide-Timolol Eye Drops) 22.3 MG-6.8 MG/ML DROPS 1 DRP OD BID EYE (Reported) Doxazosin Mesylate 4 MG TABLET 1 TAB PO DAILY htn (Reported) Ezetimibe (Zetia) 10 MG TABLET 1 TAB PO DAILY high cholesterol (Reported) Fluticasone Propionate (Flovent Hfa) 110 MCG/ACTUATION AER.W.ADAP 2 PUF INH BID BREATHING PROBLEMS (Reported) Furosemide (Lasix) 40 MG TABLET 1 TAB PO DAILY WATER RETENTION (Reported) Losartan Potassium 100 MG TABLET 1 TAB PO DAILY HEART (Reported) Omeprazole 20 MG CAPSULE.DR 40 MG PO DAILY GI Oxycodone HCl/Acetaminophen (Percocet 5-325 MG Tablet) 5 MG-325 MG TABLET 1 TAB PO BID PRN PAIN (Reported) Pravastatin Sodium 10 MG TABLET 1 TAB PO DAILY CHOLESTEROL (Reported) Pregabalin (Lyrica) 100 MG CAPSULE 1 CAP PO TID PAIN (Reported) Sub-Q Insulin Device, 40 Unit (Vgo 40) 1 EACH EACH 40 UNITS SC DAILY DIABETES (Reported) Ticagrelor (Brilinta) 90 MG TABLET 1 TAB PO BID BLOOD THINNER (Reported) Past History Travel History Traveled to [place] past 21 day No Medical History Neurological: NONE EENT: GLAUCOMA RIGHT EYE Cardiovascular: CAD, hypertension, hyperlipidemia, myocardial infarction, PALPITATIONS Respiratory: NONE Gastrointestinal: NONE Hepatic: LAP JEWEL 12/25 Renal: nephrolithiasis, YSABEL AFTET IVP DYE Musculoskeletal: falls, FRACTURE (RIBS) R SHOULDER ROTATOR CUFF ? Psychiatric: NONE Endocrine: diabetes Blood Disorders: NONE Cancer(s): NONE ASSOCIATE JUSTICE/Reproductive: NONE History of MRSA: No History of VRE: No History of CDIFF: No Influenza Vaccine: 01/14/17 Surgical History Surgical History: cholecystectomy, Glaucoma repair in 07/25 Past Family/Social History Family History Relations & Conditions if any aunt Coronary artery disease uncle Coronary artery disease Relation not specified for: FH: diabetes mellitus FH: hypertension Psychosocial History Who Do You Live With? spouse Services at Home: None Primary Language: Northern Irish ETOH Use: denies use Illicit Drug Use: denies illicit drug use Functional Ability ADLs Independent: dressing, eating, toileting, bathing. Ambulation: independent IADLs Independent: shopping, housework, finances, food prep, telephone, transportation , medication admin. Exam & Diagnostic Data Last 24 Hrs of Vital Signs/I&O Vital Signs Date Time Temp Pulse Resp B/P B/P Pulse O2 O2 Flow FiO2 Mean Ox Delivery Rate 10/03 1642 97.8 74 18 160/70 99 10/03 1245 97.5 76 18 156/72 98 Room Air Room Air 10/03 1225 97 Room Air Room Air 10/03 1022 96.8 80 20 160/74 97 Room Air Intake & Output 10/03 1600 10/03 0800 10/03 0000 Intake Total Output Total Balance Patient 232 lb Weight Weight Reported by Patient Measurement Method Physical Exam General Appearance Alert, Oriented X3, Cooperative, No Acute Distress Skin No Rashes, No Breakdown, No Significant Lesion Skin Temp/Moisture Exam: Cool/Dry Sepsis Skin Exam (color): Normal for Ethnicity HEENT Atraumatic, PERRLA, EOMI, Mucous Membr. moist/pink Neck Supple, No JVD Cardiovascular Regular Rate, Normal S1, Normal S2, No Murmurs Lungs Clear to Auscultation, Normal Air Movement Abdomen Normal Bowel Sounds, No Tenderness, distended Neurological Normal Speech, Strength at 5/5 X4 Ext, Normal Tone, Sensation Intact Extremities No Clubbing, No Cyanosis, b/l l/e pitting edema Assessment/Plan Assessment: Patient is a 52-year-old male who, presented to the emergency department for evaluation of shortness of breath, worsening bilateral lower extremity edema, and worsening abdominal distention. His vitals on admission are 160/74, pulse 74, respiratory rate 18 EKG in the emergency department showed a normal sinus rhythm with a heart rate of [address] T-wave changes Pertinent labs in the emergency department are WBC 7.4, hemoglobin 10.3, hematocrit 29.8, sodium 137, potassium 5.4, chloride 100, bicarb 26, BUN 50, creatinine 2.1, glucose 532, proBNP 525. Imaging in the emergency department: Chest x-ray did not show any acute pulmonary disease. Abdominal CT did not show any acute intra-abdominal or intrapelvic pathology and no evidence of ascites. Assessment and plan: #Bilateral lower extremity swelling and abdominal distention: The fluid retention can be explained due to worsening of his chronic kidney disease versus CHF exacerbation. However the chest x-ray is not consistent with CHF exacerbation as he does not show any bony edema and his pro-BNP is 532 and recent echo showed an ejection fraction of 50-55% in May 2017. Plan is to admit to telemetry for continuous cardiac monitoring, trend the troponins and EKG 3:,Daily weights and intake and output, IV Lasix 40 mg. We will continue home medications aspirin, doxazosin, losartan, carvedilol, amlodipine, omeprazole, ticagrelor. #Diabetes mellitus: The insulin pump was removed when the patient went for the CT abdomen. We will do Accu-Cheks 3 times daily and at bedtime starting insulin sliding scale at a medium dose. We will call endocrinology consult to follow their expert advice on insulin regimen. #EVAN on CKD: His creatinine has increased to 2.1 from a baseline of 1.4, his BUN is 50 today with a baseline of 20s-30s. His potassium is 5.4 today. Plan is to monitor his BEP and IV fluids. #DVT prophylaxis with subcutaneous heparin #Diet: Consistent carbohydrate #CODE STATUS: Full code As Ranked By This Provider Problem List: 1. Abdominal distension 2. Lower extremity edema 3. SOB (shortness of breath) 4. EVAN (acute kidney injury) Core Measures/Misc (11/25) Acute Coronary Syndrome ACS Diagnosis: No Congestive Heart Failure Congestive Heart Failure Diagnosis Yes Cerebrovascular Accident CVA/TIA Diagnosis: No VTE (View Protocol) VTE Risk Factors Age>40 No Mechanical VTE Prophylaxis d/t N/A MechProphylax Ordered No VTE Pharm Prophylaxis d/t NA PharmProphylax ordered Sepsis (View protocol) Sepsis Present: No If YES complete Sepsis Event Note If YES complete Sepsis Event Note Hernandez WILSON,Olimpia 10/03/17 1811: Core Measures/Misc (11/25) Sepsis (View protocol) If YES complete Sepsis Event Note If YES complete Sepsis Event Note Attending MD Review Statement Attending Statement Attending MD Statement: examined this patient, discuss w/resident/PA/BIAS CUTTING MACHINE OPERATOR, agreed w/resident/PA/BIAS CUTTING MACHINE OPERATOR, reviewed EMR data (avail), discussed with nursing, reviewed images, amended to note Attending Assessment/Plan: 52-year-old male with past medical history significant for CAD, hypertension, hyperlipidemia, myocardial infarction, diabetes on insulin pump, admission to [facility] in June 2017 where he was found to have abnormal stress test and underwent cardiac catheterization with PCI, seen at endocrinology office about a week ago and then went again today for follow-up. He was found to have gained 20 pounds in 1 week. Patient also mentioned that recently his Lasix dose has been increased by his wharf tender head to 40 mg daily. He noted that his clothes were getting tighter and his abdomen was getting bigger. He was also complaining of intermittent chest pain since his procedure and it was getting relieved with nitro. His blood sugars are also not under control as he is not compliant with his diet. He denies feeling any shortness of breath and he denies any current chest pain. Vital Signs Date Time Temp Pulse Resp B/P B/P Pulse O2 O2 Flow FiO2 Mean Ox Delivery Rate 10/03 1642 97.8 74 18 160/70 99 10/03 1245 97.5 76 18 156/72 98 Room Air Room Air 10/03 1225 97 Room Air Room Air 10/03 1022 96.8 80 20 160/74 97 Room Air on exam; aox3, nad. cv; s1,s2, rrr resp; clear abd; soft, nt, bs+ ext; 2+ edema b/l Laboratory Tests 10/03 1211 Chemistry Sodium (137 - 145 mmol/L) 137 Potassium (3.5 - 5.1 mmol/L) 5.4 H Chloride (98 - 107 mmol/L) 100 Carbon Dioxide (22 - 30 mmol/L) 26 Anion Gap (5 - 16) 12 BUN (9 - 20 mg/dL) 50 H Creatinine (0.7 - 1.2 mg/dL) 2.1 H Estimated GFR (>60 ml/min) 33 L BUN/Creatinine Ratio (7 - 25 %) 23.8 Glucose (65 - 99 mg/dL) 532 *H Calcium (8.4 - 10.2 mg/dL) 9.3 Magnesium (1.6 - 2.3 mg/dL) 1.9 Total Bilirubin (0.2 - 1.3 mg/dL) 0.3 Direct Bilirubin (< 0.4 mg/dL) 0.2 AST (17 - 59 U/L) 51 ALT (21 - 72 U/L) 67 Alkaline Phosphatase (< 127 U/L) 217 H Troponin I (<0.11 ng/ml) 0.02 Fyl-W-Cuumugbvdxs Pept (<125 pg/mL) 525 H Total Protein (6.3 - 8.2 g/dL) 7.2 Albumin (3.5 - 5.0 g/dL) 3.9 Hematology CBC w Diff NO MAN DIFF REQ WBC (4.8 - 10.8 /CUMM) 7.4 RBC (4.70 - 6.10 /CUMM) 3.54 L Hgb (14.0 - 18.0 G/DL) 10.3 L Hct (42 - 52 %) 29.8 L MCV (80.0 - 94.0 FL) 84.4 MCH (27.0 - 31.0 PG) 29.1 MCHC (33.0 - 37.0 G/DL) 34.5 RDW (11.5 - 14.5 %) 14.5 Plt Count (130 - 400 /CUMM) 208 MPV (7.4 - 10.4 FL) 9.6 Gran % (42.2 - 75.2 %) 70.3 Lymphocytes % (20.5 - 51.1 %) 16.3 L Monocytes % (1.7 - 9.3 %) 8.3 Eosinophils % (0 - 5 %) 4.6 Basophils % (0.0 - 2.0 %) 0.5 Absolute Granulocytes (1.4 - 6.5 /CUMM) 5.2 Absolute Lymphocytes (1.2 - 3.4 /CUMM) 1.2 Absolute Monocytes (0.10 - 0.60 /CUMM) 0.6 Absolute Eosinophils (0.0 - 0.7 /CUMM) 0.3 Absolute Basophils (0.0 - 0.2 /CUMM) 0 EKG did not show any acute change. All imaging reviewed. A/P: 52-year-old male with past medical history significant for CAD, hypertension, hyperlipidemia, myocardial infarction, diabetes on insulin pump, chronic kidney disease stage III, admission to [facility] in June 2017 where he was found to have abnormal stress test and underwent cardiac catheterization with PCI, admitted to telemetry with the fluid overload, weight gain, hyperglycemia, acute on chronic kidney injury, episodes of intermittent chest pain. Patient admitted to telemetry. First troponin negative. Please trend troponins. Please check EKG in the morning. Please consult cardiology. We will start the patient on IV Lasix, 40 mg daily. Please monitor strict intake and output as well as daily weights. Please monitor creatinine. Patient has insulin pump. Please consult endocrinology for inpatient management of his hyperglycemia and diabetes. Patient also has mild hyperkalemia, will monitor. Please confirm and continue the rest of his home medications. He is a full code. Pharmacologic DVT prophylaxis. Yane Mercedes 10/03/17 1854: Review of Systems Review of Systems Constitutional: Reports: see HPI. Exam & Diagnostic Data Last 24 Hrs of Vital Signs/I&O Vital Signs Date Time Temp Pulse Resp B/P B/P Pulse O2 O2 Flow FiO2 Mean Ox Delivery Rate 10/04 1336 Room Air 10/04 1146 96 Room Air 10/04 1131 97.8 86 20 178/72 96 Room Air 10/04 1115 96 Room Air 10/04 1057 78 18 159/68 99 Room Air 10/04 1052 78 18 159/68 10/04 1008 98.4 74 18 170/74 10/04 1008 98.4 74 18 170/74 10/04 0844 74 18 170/74 98 Room Air 10/04 0642 98.4 72 16 171/81 98 CPAP 10/04 0613 67 97 10/04 0307 67 96 10/04 0044 176/76 10/04 0027 75 99 10/03 2355 97.9 75 18 176/76 98 10/03 2256 97.7 74 14 186/80 96 Room Air 10/03 1642 97.8 74 18 160/70 99 Intake & Output 10/04 1600 10/04 0800 10/04 0000 Intake Total 300 1800 Output Total 4050 900 Balance -3750 900 Intake, IV 1800 Intake, Oral 300 0 Output, Urine 4050 900 Patient 104.78 kg Weight Weight Bed scale Measurement Method Core Measures/Misc (11/25) Sepsis (View protocol) If YES complete Sepsis Event Note If YES complete Sepsis Event Note Resident Review Statement Resident Statement: examined this patient, discussed with internal sales, agreed with internal sales Other Findings: Patient is 52-year-old male with past medical history of hypertension, coronary artery disease status post 1 stent in June 2017 on ticagrelor, CKD stage IIIa, hypertension, hyperlipidemia, was sent by his psychology physician for sudden weight gain of 20 pounds in 1 week. Patient was recently discharged from [facility] in June 2017, after being treated for pneumonia and elevated troponins. At that time patient was transferred out for a cardiac cath. Patient reports that since his cardiac cath, he has been having chest pain intermittently, however not so in the past few days. He reports of weight gain, and states that he feels swollen and his clothes are tightening. At night he is raising his legs with low, and the friends and family have noticed that he is increasingly gaining weight. Patient does report of shortness of breath, more so since yesterday, worsened on exertion. On review of systems he denies any current chest pain, headache, dizziness, palpitations, abdominal discomfort, burning micturition, weakness or pain in lower extremity. Patient is on oxycodone for his right shoulder injury. He lives at home with his , and does not drink or smoke. Of note, patient uses a V-Go insulin pump, and last week his dose was increased so today he had followed up in the office for his blood sugars. He sees sosa Diggs in Dr. Enciso's office. His vitals on admission are 160/74, pulse 74, respiratory rate 18 Chest x-ray -no cardiopulmonary process CT abdomen pelvis-no ascites, normal liver morphology. The kidneys are normal in size, shape, and attenuation. No hydronephrosis, hydroureter, or calculi seen. Assessment and plan Patient's fluid overload could be due to worsening of his chronic kidney disease versus CHF exacerbation however the chest x-ray is not significant for any pulmonary edema and at this point and given his proBNP is 532, with ejection fraction of 5055% from 05/26, his volume overload could be majorly due to his underlying kidney disease. We will diurese him with 40 IV Lasix now, please dose Lasix tomorrow and depending on his volume status, he takes 40 PO lasix daily at home. Patient will be started on consistent carb diet for tonight, cardio consult in a.m. given his cardiac history and questionable CHF. Patient needs endocrinology consult for his insulin pump, will start him on fingerstick 3 times daily at bedtime and medium dosed Lovenox sliding scale for now. We will continue all of his home meds including carvedilol 12.5 mg twice daily, amlodipine 10 daily, aspirin, doxazosin, ezetimibe, losartan, omeprazole, ticagrelor. Please confirm his doses for Lyrica tomorrow from his [facility] [place]. DVT prophylaxis subcutaneous heparin Patient is full code amlodipine 10 daily, aspirin, doxazosin, ezetimibe, losartan, omeprazole, ticagrelor. Please confirm his doses for Lyrica tomorrow from his [facility] [place]. DVT prophylaxis subcutaneous heparin Patient is full code
[2017-10-03 22:56] VITALS: BP 186/80
--- NOTE | 2017-10-04 08:41 | PN- Housestaff ---
Subjective Follow-up For: Volume overload- CHF vs CKD Complaints: no complaints Subjective: Pt was seen and examined lying in bed in NAD. He complained of the meals not being enough quantity. No other complaints/no acute events Review of Systems Constitutional: Reports: see HPI. Objective Last 24 Hrs of Vital Signs/I&O Vital Signs Date Time Temp Pulse Resp B/P B/P Pulse O2 O2 Flow FiO2 Mean Ox Delivery Rate 10/05 0638 98.4 72 18 146/78 95 Room Air 10/05 0043 81 97 10/04 2341 80 160/76 10/04 2200 98.0 76 18 170/88 96 10/04 1600 Room Air 10/04 1439 97.6 72 20 150/70 97 Room Air 10/04 1336 Room Air 10/04 1146 96 Room Air 10/04 1131 97.8 86 20 178/72 96 Room Air 10/04 1115 96 Room Air 10/04 1057 78 18 159/68 99 Room Air 10/04 1052 78 18 159/68 10/04 1008 98.4 74 18 170/74 10/04 1008 98.4 74 18 170/74 Intake & Output 10/05 1600 10/05 0800 10/05 0000 Intake Total 220 350 Output Total 850 Balance 220 -500 Intake, Oral 220 350 Output, Urine 850 Patient 223 lb Weight Physical Exam General Appearance: Alert, Oriented X3, Cooperative, No Acute Distress Skin: No Rashes Skin Temp/Moisture Exam: Cool/Dry Sepsis Skin Exam (color): Normal for Ethnicity HEENT: Atraumatic, Mucous Membr. moist/pink Neck: Supple Cardiovascular: Regular Rate, Normal S1, Normal S2, No Murmurs Lungs: Clear to Auscultation, Normal Air Movement Abdomen: Normal Bowel Sounds, Soft, No Tenderness Neurological: Normal Speech, Strength at 5/5 X4 Ext, Normal Tone Assessment/Plan Assessment: 52 yo M with PMH significant for CAD (abd stress test & cath with PCI in 06/26), HTN, HLD, DM on VGA, AR, CKD Stage III, admitted to telemetry with the fluid overload, weight gain, hyperglycemia, acute on chronic kidney injury, & intermittent chest pain(not on adm). Troponins remained negative. Patient was started on Levemir per endocrinology. Official note to follow. Patient should be started on IV Lasix. Please monitor strict intake and output as well as daily weights. Cardiology evaluation pending. Monitor Cr. Please d/w cardiology if repeat echo needed. Continue other current meds. DVt px; hep sq. Vitals: BP 171/81. stable, on RA. Troponins:Negative PLAN: #Vol overload- CHF vs CKD #IDDM-VGO pump at home #HTN PLAN: #Volume Overload: * Start Lasix 40 mg IV every 12 hours * Continue aspirin and Brilinta * Monitor dailt weights * Monitor Is & Os * Monitor input and output with daily weight * rpt Echo #DM: * hold off on VGO * start Levemir 10 units twice a day; start Novolog coverage before meals and Novolog coverage at bedtime #HTN: * Yefri. carvedilol 12.5mg, amlodipine 10 mg, doxazosin, losartan Problem List: 1. Abdominal distension 2. Lower extremity edema 3. CKD (chronic kidney disease) 4. CHF (congestive heart failure) Pain Ratin Pain Location: none Pain Goal: Remain pain free Pain Plan: none Tomorrow's Labs & Rationales: cbc, bep
[2017-10-04 11:31] VITALS: BP 178/72
--- NOTE | 2017-10-04 12:09 | PN- Att Addend ---
Attending Addendum Attending Brief Note Patient seen and examined, he was upset this morning. Apparently patient did not get his meals yesterday. This morning he ate breakfast. His blood sugars are much better. Vital Signs Date Time Temp Pulse Resp B/P B/P Pulse O2 O2 Flow FiO2 Mean Ox Delivery Rate 10/04 1131 97.8 86 20 178/72 96 Room Air 10/04 1057 78 18 159/68 99 Room Air 10/04 1052 78 18 159/68 10/04 1008 98.4 74 18 170/74 10/04 1008 98.4 74 18 170/74 10/04 0844 74 18 170/74 98 Room Air 10/04 0642 98.4 72 16 171/81 98 CPAP 10/04 0613 67 97 10/04 0307 67 96 10/04 0044 176/76 10/04 0027 75 99 10/03 2355 97.9 75 18 176/76 98 10/03 2256 97.7 74 14 186/80 96 Room Air 10/03 1642 97.8 74 18 160/70 99 10/03 1245 97.5 76 18 156/72 98 Room Air Room Air 10/03 1225 97 Room Air Room Air on exam; aox3, nad. cv; s1,s2, rrr resp; clear abd; soft, nt, bs+ ext; 2+ edema b/l Laboratory Tests 10/0438 2007 1211 Chemistry Sodium (137 - 145 mmol/L) 141 137 Potassium (3.5 - 5.1 mmol/L) 4.7 5.4 H Chloride (98 - 107 mmol/L) 108 H 100 Carbon Dioxide (22 - 30 mmol/L) 24 26 Anion Gap (5 - 16) 9 12 BUN (9 - 20 mg/dL) 42 H 50 H Creatinine (0.7 - 1.2 mg/dL) 1.8 H 2.1 H Estimated GFR (>60 ml/min) 40 L 33 L BUN/Creatinine Ratio (7 - 25 %) 23.3 23.8 Glucose (65 - 99 mg/dL) 532 *H Calcium (8.4 - 10.2 mg/dL) 9.3 Magnesium (1.6 - 2.3 mg/dL) 1.9 Total Bilirubin (0.2 - 1.3 mg/dL) 0.3 Direct Bilirubin (< 0.4 mg/dL) 0.2 AST (17 - 59 U/L) 51 ALT (21 - 72 U/L) 67 Alkaline Phosphatase (< 127 U/L) 217 H Troponin I (<0.11 ng/ml) 0.02 0.02 0.02 Vxo-S-Aqwnahatijv Pept (<125 pg/mL) 525 H Total Protein (6.3 - 8.2 g/dL) 7.2 Albumin (3.5 - 5.0 g/dL) 3.9 TSH (0.270 - 4.200 uIU/mL) 1.640 Free T4 (0.64 - 1.79 ng/dL) 1.35 Hematology CBC w Diff NO MAN DIFF REQ WBC (4.8 - 10.8 /CUMM) 7.4 RBC (4.70 - 6.10 /CUMM) 3.54 L Hgb (14.0 - 18.0 G/DL) 10.3 L Hct (42 - 52 %) 29.8 L MCV (80.0 - 94.0 FL) 84.4 MCH (27.0 - 31.0 PG) 29.1 MCHC (33.0 - 37.0 G/DL) 34.5 RDW (11.5 - 14.5 %) 14.5 Plt Count (130 - 400 /CUMM) 208 MPV (7.4 - 10.4 FL) 9.6 Gran % (42.2 - 75.2 %) 70.3 Lymphocytes % (20.5 - 51.1 %) 16.3 L Monocytes % (1.7 - 9.3 %) 8.3 Eosinophils % (0 - 5 %) 4.6 Basophils % (0.0 - 2.0 %) 0.5 Absolute Granulocytes (1.4 - 6.5 /CUMM) 5.2 Absolute Lymphocytes (1.2 - 3.4 /CUMM) 1.2 Absolute Monocytes (0.10 - 0.60 /CUMM) 0.6 Absolute Eosinophils (0.0 - 0.7 /CUMM) 0.3 Absolute Basophils (0.0 - 0.2 /CUMM) 0 A/P: 52-year-old male with past medical history significant for CAD, hypertension, hyperlipidemia, myocardial infarction, diabetes on insulin pump, chronic kidney disease stage III, admission to [facility] in June 2017 where he was found to have abnormal stress test and underwent cardiac catheterization with PCI, admitted to telemetry with the fluid overload, weight gain, hyperglycemia, acute on chronic kidney injury, episodes of intermittent chest pain. Troponins remained negative. Patient was started on Levemir per endocrinology. Official note to follow. Patient should be started on IV Lasix. Please monitor strict intake and output as well as daily weights. Cardiology evaluation pending. Monitor Cr. Please d/w cardiology if repeat echo needed. Continue other current meds. DVt px; hep sq.
--- NOTE | 2017-10-04 12:32 | Cons- Cardiology ---
General Information and HPI Consulting Request Date of Consult: 10/04/17 Requested By: Olimpia Ng MD Reason for Consult: Heart failure History of Present Illness: The patient is a 52-year-old male with history of diabetes mellitus, hypertension, coronary artery disease status post coronary stent in June 2017 who presented to the emergency department with 21 pound weight gain, shortness of breath, bilateral lower extremity edema, and abdominal distention 1 week. He was evaluated in the [facility] heart failure clinic where the weight gain was noted, and he was referred to the emergency department. He notes increased shortness of breath over the past 1 day which is exacerbated by ambulating. No chest pain. No palpitations. No nausea or vomiting. No diaphoresis. He is status post stent placement in the RCA in June 2017. Echocardiogram in May 2017 revealed LVEF 5055% with inferior hypokinesis Allergies/Medications Allergies: Uncoded Allergies: CAT SCAN DYE (UNKNOWN 10/03/17) Home Med List: Albuterol Sulfate (Proair Hfa) 90 MCG HFA.AER.AD 2 PUF INH Q4-6 PRN PRN wheezing Amlodipine Besylate (Norvasc) 10 MG TABLET 1 TAB PO DAILY BLOOD PRESSURE ( Reported) Aspirin (Ecotrin*) 81 MG TABLET.DR 1 TAB PO DAILY HEART/BLOOD (Reported) Carvedilol 12.5 MG TABLET 1 TAB PO BID HEART (Reported) Docusate Sodium (Colace) 100 MG CAPSULE 1 CAP PO BID CONSTIPATION (Reported) Dorzolamide HCl/Timolol Maleat (Dorzolamide-Timolol Eye Drops) 22.3 MG-6.8 MG/ML DROPS 1 DRP OD BID EYE (Reported) Doxazosin Mesylate 4 MG TABLET 1 TAB PO DAILY htn (Reported) Ezetimibe (Zetia) 10 MG TABLET 1 TAB PO DAILY high cholesterol (Reported) Fluticasone Propionate (Flovent Hfa) 110 MCG/ACTUATION AER.W.ADAP 2 PUF INH BID BREATHING PROBLEMS (Reported) Furosemide (Lasix) 40 MG TABLET 1 TAB PO DAILY WATER RETENTION (Reported) Losartan Potassium 100 MG TABLET 1 TAB PO DAILY HEART (Reported) Omeprazole 20 MG CAPSULE.DR 40 MG PO DAILY GI Oxycodone HCl/Acetaminophen (Percocet 5-325 MG Tablet) 5 MG-325 MG TABLET 1 TAB PO BID PRN PAIN (Reported) Pravastatin Sodium 10 MG TABLET 1 TAB PO DAILY CHOLESTEROL (Reported) Pregabalin (Lyrica) 100 MG CAPSULE 1 CAP PO TID PAIN (Reported) Sub-Q Insulin Device, 40 Unit (Vgo 40) 1 EACH EACH 40 UNITS SC DAILY DIABETES (Reported) Ticagrelor (Brilinta) 90 MG TABLET 1 TAB PO BID BLOOD THINNER (Reported) Current Medications: Current Medications Sig/Yoav Start time Last Medication Dose Route Stop Time Status Admin Acetaminophen 650 MG Q8P PRN 10/03 1900 AC PO Albuterol Sulfate 2 PUF Q4-6 PRN PRN 10/03 2345 AC INH Amlodipine Besylate 10 MG DAILY 10/04 0900 AC 10/04 PO 1008 Aspirin 0 .STK-MED ONE 10/04 0953 DC PO Aspirin Buffered 81 MG DAILY 10/04 0900 AC 10/04 PO 1008 Carvedilol 12.5 MG BID 10/03 2356 AC 10/04 PO 1008 Docusate Sodium 100 MG BID 10/03 2356 AC 10/04 PO 1008 Doxazosin Mesylate 1 MG DAILY 10/04 0900 AC 10/04 PO 1008 Ezetimibe 10 MG DAILY 10/04 0900 AC 10/04 PO 1008 Fluticasone 2 PUF BID 10/04 0900 AC 10/04 Propionate INH 1008 Furosemide 40 MG DAILY 10/04 1000 AC 10/04 IV 1032 Heparin Sodium 0 .STK-MED ONE 10/03 2251 DC (Porcine) .ROUTE Heparin Sodium 5,000 UNIT Q8 10/03 2200 AC 10/04 (Porcine) SC 1246 Insulin Aspart 0 TIDAC/HS 10/04 1200 AC 10/04 SC 1741 Insulin Aspart 0 TIDAC 10/04 0800 DC SC Insulin Detemir 10 UNITS BID 10/04 0900 AC 10/04 SC 1000 Losartan Potassium 100 MG DAILY 10/04 0902 AC 10/04 PO 1052 Omeprazole 0 .STK-MED ONE 10/04 0953 DC PO Omeprazole 40 MG DAILY 10/04 0900 AC 10/04 PO 1008 Oxycodone/ 0 .STK-MED ONE 10/04 0008 DC Acetaminophen PO Oxycodone/ 1 TAB BID PRN 10/03 2345 AC 10/04 Acetaminophen PO 0013 Pravastatin Sodium 10 MG DAILY 10/04 0900 AC 10/04 PO 1008 Pregabalin 100 MG .STK-MED ONE 10/04 1237 DC PO 10/04 1238 Pregabalin 0 .STK-MED ONE 10/04 0952 DC PO Pregabalin 0 .STK-MED ONE 10/04 0008 DC PO Pregabalin 100 MG TID 10/037 AC 10/04 PO 1246 Ticagrelor 0 .STK-MED ONE 10/04 0008 DC PO Ticagrelor 90 MG BID 10/03 2356 10/04 PO 1008 Review of Systems Review of Systems: No fever. No chills. No rash. No tremor. No melena. All other systems were reviewed, and were noted to be negative. Past History Travel History Traveled to [place] past 21 day No Medical History Blood Transfusion Hx: No Neurological: NONE EENT: GLAUCOMA RIGHT EYE Cardiovascular: CAD, hypertension, hyperlipidemia, myocardial infarction, PALPITATIONS Respiratory: SLEEP APNEA Gastrointestinal: NONE Hepatic: LAP JEWEL 12/25 Renal: nephrolithiasis, YSABEL AFTET IVP DYE Musculoskeletal: falls, FRACTURE (RIBS) R SHOULDER ROTATOR CUFF ? Psychiatric: NONE Endocrine: diabetes Blood Disorders: NONE Cancer(s): NONE CORRECTIONS COUNSELOR/Reproductive: NONE Surgical History Surgical History: cholecystectomy, Glaucoma repair in 07/25 Family History Relations & Conditions If Any: aunt Coronary artery disease uncle Coronary artery disease Relation not specified for: FH: diabetes mellitus FH: hypertension Psychosocial History Where Do You Live? Home Who Do You Live With? spouse Services at Home: None Primary Language: Urdu Smoking Status: Never Smoked ETOH Use: denies use Illicit Drug Use: denies illicit drug use Functional Ability ADLs Independent: dressing, eating, toileting, bathing. Ambulation: independent IADLs Independent: shopping, housework, finances, food prep, telephone, transportation , medication admin. Exam & Diagnostic Data Vital Signs and I&O Vital Signs Date Time Temp Pulse Resp B/P B/P Pulse O2 O2 Flow FiO2 Mean Ox Delivery Rate 10/04 1600 Room Air 10/04 1439 97.6 72 20 150/70 97 Room Air 10/04 1336 Room Air 10/04 1146 96 Room Air 10/04 1131 97.8 86 20 178/72 96 Room Air 10/04 1115 96 Room Air 10/04 1057 78 18 159/68 99 Room Air 10/04 1052 78 18 159/68 10/04 1008 98.4 74 18 170/74 10/04 1008 98.4 74 18 170/74 10/04 0844 74 18 170/74 98 Room Air 10/04 0642 98.4 72 16 171/81 98 CPAP 10/04 0613 67 97 10/04 0307 67 96 10/04 0044 176/76 10/04 0027 75 99 10/03 2355 97.9 75 18 176/76 98 10/03 2256 97.7 74 14 186/80 96 Room Air Intake & Output 10/04 1600 10/04 0800 10/04 0000 10/03 1600 10/03 0800 10/03 0000 Intake Total 300 1800 1000 Output Total 4050 900 1000 Balance -3750 900 0 Intake, IV 1800 1000 Intake, Oral 300 0 Output, Urine 4050 900 1000 Patient 231 lb 232 lb Weight Weight Bed scale Reported by Patient Measurement Method Physical Exam: Gen: The patient is in no acute distress HEENT: Normal nose, ears, and oropharynx. Pupils equal bilaterally. Conjunctiva normal. Neck: Supple with no JVD, no masses, and no thyromegaly Lungs: Bilateral rales with normal respiratory effort Heart: RRR, S1, S2, no murmurs. 2+ peripheral edema, 2+ pulses in the lower extremities bilaterally Abdomen: Soft, nontender, no masses. No hepatomegaly. No splenomegaly Extremities: No clubbing or cyanosis. Normal muscle strength in the upper and lower extremities Skin: Normal skin turgor with no skin ulcers or lesions noted. Neuro: Cranial nerves intact. Sensation intact Psych: Alert and oriented x 3 with appropriate affect Labs/Don Results: Laboratory Tests 10/04 1211 Chemistry Sodium (137 - 145 mmol/L) 141 137 Potassium (3.5 - 5.1 mmol/L) 4.7 5.4 H Chloride (98 - 107 mmol/L) 108 H 100 Carbon Dioxide (22 - 30 mmol/L) 24 26 Anion Gap (5 - 16) 9 12 BUN (9 - 20 mg/dL) 42 H 50 H Creatinine (0.7 - 1.2 mg/dL) 1.8 H 2.1 H Estimated GFR (>60 ml/min) 40 L 33 L BUN/Creatinine Ratio (7 - 25 %) 23.3 23.8 Glucose (65 - 99 mg/dL) 532 *H Calcium (8.4 - 10.2 mg/dL) 9.3 Magnesium (1.6 - 2.3 mg/dL) 1.9 Total Bilirubin (0.2 - 1.3 mg/dL) 0.3 Direct Bilirubin (< 0.4 mg/dL) 0.2 AST (17 - 59 U/L) 51 ALT (21 - 72 U/L) 67 Alkaline Phosphatase (< 127 U/L) 217 H Troponin I (<0.11 ng/ml) 0.02 0.02 0.02 [id number] Pept (<125 pg/mL) 525 H Total Protein (6.3 - 8.2 g/dL) 7.2 Albumin (3.5 - 5.0 g/dL) 3.9 TSH (0.270 - 4.200 uIU/mL) 1.640 Free T4 (0.64 - 1.79 ng/dL) 1.35 Hematology CBC w Diff NO MAN DIFF REQ WBC (4.8 - 10.8 /CUMM) 7.4 RBC (4.70 - 6.10 /CUMM) 3.54 L Hgb (14.0 - 18.0 G/DL) 10.3 L Hct (42 - 52 %) 29.8 L MCV (80.0 - 94.0 FL) 84.4 MCH (27.0 - 31.0 PG) 29.1 MCHC (33.0 - 37.0 G/DL) 34.5 RDW (11.5 - 14.5 %) 14.5 Plt Count (130 - 400 /CUMM) 208 MPV (7.4 - 10.4 FL) 9.6 Gran % (42.2 - 75.2 %) 70.3 Lymphocytes % (20.5 - 51.1 %) 16.3 L Monocytes % (1.7 - 9.3 %) 8.3 Eosinophils % (0 - 5 %) 4.6 Basophils % (0.0 - 2.0 %) 0.5 Absolute Granulocytes (1.4 - 6.5 /CUMM) 5.2 Absolute Lymphocytes (1.2 - 3.4 /CUMM) 1.2 Absolute Monocytes (0.10 - 0.60 /CUMM) 0.6 Absolute Eosinophils (0.0 - 0.7 /CUMM) 0.3 Absolute Basophils (0.0 - 0.2 /CUMM) 0 Diagnostic Data EKG Results EKG tracing is independently reviewed, and reveals normal sinus rhythm at 70 with possible anterior infarct age undetermined CXR Results Large body habitus. Lungs are slightly hypoexpanded and right diaphragm remains mildly elevated. The lungs are clear. No pulmonary edema, consolidation, pneumothorax or pleural effusion. The visualized bones are intact. Other Results CT scan of the abdomen and pelvis: 1. No acute intra-abdominal and/or intrapelvic pathology is present. 2. Surgically absent gallbladder and nondilated biliary tree. 3. Moderately distended urinary bladder, may represent physiologic changes. 4. Multiple shotty nonspecific bilateral groin, inguinal lymph nodes. 5. Extensive vasculopathy. 6. No CT evidence of ascites. Echocardiogram 06/05/17: 1. THis was a technically difficult examination. 2. Minimal aortic sclerosis is present. 3. The mitral valve is anatomically normal with minimal to mild mitral insufficiency. 4. THere is no pericardial fluid present. 5. The left ventricualr chamber size is normal with mild concentric hypertophy and focal mild hypokinesia of the inferior segments with an ejection fraction of 50-55%. 6. THe right heart structures were not optimally visualized. The RV systolic pressure could not be accurately assessed.. Assessment/Plan Assessment/Plan Assessment: 52-year-old male with history of CAD, status post recent RCA stent, hypertension , hyperlipidemia, diabetes mellitus, and chronic kidney disease presenting with weight gain, and shortness of breath. The findings are consistent with acute on chronic heart failure with preserved ejection fraction. He is also noted to have acute on chronic renal insufficiency. Recommendations: * Lasix 40 mg IV every 12 hours * Monitor input and output with daily weight * Continue aspirin and Brilinta * Continue other cardiac medication * Check basic metabolic profile normal * Would repeat echocardiogram Consult Acknowledgment - Thank you for your consult request.
[2017-10-04 14:39] VITALS: BP 150/70
--- NOTE | 2017-10-04 15:04 | Patient Discharge Instructions ---
Discharge Instructions General Discharge Information You were seen/treated for: Volume overload: Congestive heart failure versus chronic kidney disease Watch for these problems: If you have any of these, please visit your nearest emergency department: Chest pain, shortness of breath, worsening leg edema, worsening abdominal distention, fever, chills Special Instructions: -Please visit your primary care physician 1 week after discharge -Please visit your basting machine operator 1 week after discharge -Please visit your geodetic computator 1 week after discharge -Please note that your lasix dose has been increased from 40mg daily to 40mg BID Diet Recommended Diet: Diabetic, Heart Healthy Activity Activity Self Limited: Yes Acute Coronary Syndrome Inclusion Criteria At DC or during hospital stay patient has or had the following: ACS DIAGNOSIS No Discharge Core Measures Meds if any: Prescribed or Continued at Discharge Meds if any: NOT Prescribed or Continued at Discharge Congestive Heart Failure Inclusion Criteria At DC or during hospital stay patient has or had the following: CHF DIAGNOSIS No Discharge Core Measures Meds if any: Prescribed or Continued at Discharge Meds if any: NOT Prescribed or Continued at Discharge Cerebrovascular accident Inclusion Criteria At DC or during hospital stay patient has or had the following: CVA/TIA Diagnosis No Discharge Core Measures Meds if any: Prescribed or Continued at Discharge Meds if any: NOT Prescribed or Continued at Discharge Venous thromboembolism Inclusion Criteria VTE Diagnosis No VTE Type NONE VTE Confirmed by (Test) NONE Discharge Core Measures - Per Current guidelines, there needs to be overlap - treatment for the first 5 days of Warfarin therapy. - If discharged on Warfarin prior to 5 days of - overlap therapy, the patient will need to be - assessed for post discharge needs including - *Post discharge parental anticoagulation - *Warfarin and/or parental anticoagulation education - *Follow up date to check INR post discharge At least 5 days overlap therapy as Inpatient No Meds if any: Prescribed or Continued at Discharge Note: Overlap Therapy is Warfarin and Anticoagulant Meds if any: NOT Prescribed or Continued at Discharge
--- NOTE | 2017-10-04 15:41 | Cons- Endocrinology ---
General Information and HPI Consulting Request Date of Consult: 10/04/17 Requested By: medical team Reason for Consult: management of uncontrolled diabetes type 2. Source of Information: patient, old records Exam Limitations: no limitations History of Present Illness: 52-year-old male with a past medical history of diabetes mellitus type 2, chronic renal insufficiency on VGO-30, hypertension, coronary artery disease status post stent in June 2017, hyperlipidemia, myocardial infarction, who presented to the emergency department for evaluation of more than 20 pounds weight gain along with shortness of breath, bilateral lower extremity edema, abdominal distention for one week. At home, he was on VGO-30 with 6 units of Novolog before meals. In hospital, he was placed on Novolog coverage. His FSGs were 392, 268, 233 and 196. Allergies/Medications Allergies: Uncoded Allergies: CAT SCAN DYE (UNKNOWN 10/03/17) Home Med List: Albuterol Sulfate (Proair Hfa) 90 MCG HFA.AER.AD 2 PUF INH Q4-6 PRN PRN wheezing Amlodipine Besylate (Norvasc) 10 MG TABLET 1 TAB PO DAILY BLOOD PRESSURE ( Reported) Aspirin (Ecotrin*) 81 MG TABLET.DR 1 TAB PO DAILY HEART/BLOOD (Reported) Carvedilol 12.5 MG TABLET 1 TAB PO BID HEART (Reported) Docusate Sodium (Colace) 100 MG CAPSULE 1 CAP PO BID CONSTIPATION (Reported) Dorzolamide HCl/Timolol Maleat (Dorzolamide-Timolol Eye Drops) 22.3 MG-6.8 MG/ML DROPS 1 DRP OD BID EYE (Reported) Doxazosin Mesylate 4 MG TABLET 1 TAB PO DAILY htn (Reported) Ezetimibe (Zetia) 10 MG TABLET 1 TAB PO DAILY high cholesterol (Reported) Fluticasone Propionate (Flovent Hfa) 110 MCG/ACTUATION AER.W.ADAP 2 PUF INH BID BREATHING PROBLEMS (Reported) Furosemide (Lasix) 40 MG TABLET 1 TAB PO DAILY WATER RETENTION (Reported) Losartan Potassium 100 MG TABLET 1 TAB PO DAILY HEART (Reported) Omeprazole 20 MG CAPSULE.DR 40 MG PO DAILY GI Oxycodone HCl/Acetaminophen (Percocet 5-325 MG Tablet) 5 MG-325 MG TABLET 1 TAB PO BID PRN PAIN (Reported) Pravastatin Sodium 10 MG TABLET 1 TAB PO DAILY CHOLESTEROL (Reported) Pregabalin (Lyrica) 100 MG CAPSULE 1 CAP PO TID PAIN (Reported) Sub-Q Insulin Device, 40 Unit (Vgo 40) 1 EACH EACH 40 UNITS SC DAILY DIABETES (Reported) Ticagrelor (Brilinta) 90 MG TABLET 1 TAB PO BID BLOOD THINNER (Reported) Review of Systems Review of Systems Constitutional: Reports: see HPI. Cardiovascular: Reports: edema, orthopena, peripheral edema. Respiratory: Reports: short of breath. GI: Reports: bloating. Musculoskeletal: Reports: see HPI. Hematologic/Endocrine: Reports: see HPI. Past History Travel History Traveled to [place] past 21 day No Medical History Blood Transfusion Hx: No Neurological: NONE EENT: GLAUCOMA RIGHT EYE Cardiovascular: CAD, hypertension, hyperlipidemia, myocardial infarction, PALPITATIONS Respiratory: SLEEP APNEA Gastrointestinal: NONE Hepatic: LAP JEWEL 12/25 Renal: nephrolithiasis, YSABEL AFTET IVP DYE Musculoskeletal: falls, FRACTURE (RIBS) R SHOULDER ROTATOR CUFF ? Psychiatric: NONE Endocrine: diabetes Blood Disorders: NONE Cancer(s): NONE MULTICULTURAL SERVICES LIBRARIAN/Reproductive: NONE Surgical History Surgical History: cholecystectomy, Glaucoma repair in 07/25 Family History Relations & Conditions If Any: aunt Coronary artery disease uncle Coronary artery disease Relation not specified for: FH: diabetes mellitus FH: hypertension Psychosocial History Where Do You Live? Home Who Do You Live With? spouse Services at Home: None Primary Language: Cymraes Smoking Status: Never Smoked ETOH Use: denies use Illicit Drug Use: denies illicit drug use Functional Ability ADLs Independent: dressing, eating, toileting, bathing. Ambulation: independent IADLs Independent: shopping, housework, finances, food prep, telephone, transportation , medication admin. Exam & Diagnostic Data Last 24 Hrs of Vital Signs/I&O Vital Signs Date Time Temp Pulse Resp B/P B/P Pulse O2 O2 Flow FiO2 Mean Ox Delivery Rate 10/04 1439 97.6 72 20 150/70 97 Room Air 10/04 1336 Room Air 10/04 1146 96 Room Air 10/04 1131 97.8 86 20 178/72 96 Room Air 10/04 1115 96 Room Air 10/04 1057 78 18 159/68 99 Room Air 10/04 1052 78 18 159/68 10/04 1008 98.4 74 18 170/74 10/04 1008 98.4 74 18 170/74 10/04 0844 74 18 170/74 98 Room Air 10/04 0642 98.4 72 16 171/81 98 CPAP 10/04 0613 67 97 10/04 0307 67 96 10/04 0044 176/76 10/04 0027 75 99 10/03 2355 97.9 75 18 176/76 98 10/03 2256 97.7 74 14 186/80 96 Room Air 10/03 1642 97.8 74 18 160/70 99 Intake & Output 10/04 1600 10/04 0800 10/04 0000 Intake Total 300 1800 Output Total 4050 900 Balance -3750 900 Intake, IV 1800 Intake, Oral 300 0 Output, Urine 4050 900 Patient 231 lb Weight Weight Bed scale Measurement Method Physical Exam General Appearance: no apparent distress Neck: normal inspection Respiratory: decreased breath sounds Cardiovascular: regular rate/rhythm Gastrointestinal: distention Extremities: swelling Labs/Don Results: Laboratory Tests 10/04 Chemistry Sodium (137 - 145 mmol/L) 141 Potassium (3.5 - 5.1 mmol/L) 4.7 Chloride (98 - 107 mmol/L) 108 H Carbon Dioxide (22 - 30 mmol/L) 24 Anion Gap (5 - 16) 9 BUN (9 - 20 mg/dL) 42 H Creatinine (0.7 - 1.2 mg/dL) 1.8 H Estimated GFR (>60 ml/min) 40 L BUN/Creatinine Ratio (7 - 25 %) 23.3 Troponin I (<0.11 ng/ml) 0.02 0.02 TSH (0.270 - 4.200 uIU/mL) 1.640 Free T4 (0.64 - 1.79 ng/dL) 1.35 Assessment/Plan Assessment/Plan 52-year-old male with a past medical history of diabetes mellitus type 2, chronic renal insufficiency on VGO-30, hypertension, coronary artery disease status post stent in June 2017, hyperlipidemia, myocardial infarction, who was admitted for CHF exacerbation. DM management: 1. hold off on VGO as per the hospital policy; 2. start Levemir 10 units twice a day; 3. start Novolog coverage before meals and Novolog coverage at bedtime; detail see the inpatient DM orders; 4. monitor FSGs. will follow. Inpatient Diabetes Orders Before Each Meal: Bolus Insulin: Novolog < 80 mg/dl: no coverage 80-100 mg/dl: 3 units 101-120 mg/dl: 3 units 121-150 mg/dl: 3 units 151-200 mg/dl: 5 units 201-250 mg/dl: 7 units 251-300 mg/dl: 9 units 301-350 mg/dl: 11 units 351-400 mg/dl: 13 units > 400 mg/dl: 15 units Bedtime: Bolus Insulin: Novolog < 80 mg/dl: no coverage 80-100 mg/dl: no coverage 101-120 mg/dl: no coverage 121-150 mg/dl: no coverage 151-200 mg/dl: no coverage 201-250 mg/dl: no coverage 251-300 mg/dl: 2 units 301-350 mg/dl: 3 units 351-400 mg/dl: 4 units > 400 mg/dl: 5 units Consult Acknowledgment - Thank you for your consult request.
[2017-10-04 22:00] VITALS: BP 170/88
[2017-10-05 06:38] VITALS: BP 146/78
[2017-10-05 08:20] LABS: ABSOLUTE BASOPHIL COUNT 0 /CUMM (0.0-0.2); ABSOLUTE EOSINOPHIL COUNT 0.3 /CUMM (0.0-0.7); ABSOLUTE GRANULOCYTE CT 5.1 /CUMM (1.4-6.5); ABSOLUTE LYMPH COUNT 1.3 /CUMM (1.2-3.4); ABSOLUTE MONOCYTE COUNT 0.5 /CUMM (0.10-0.60); BASOPHIL % 0.5 % (0.0-2.0); EOSINOPHIL % 3.6 % (0-5); GRANULOCYTE % 71.2 % (42.2-75.2); HEMATOCRIT 29.5 % (42-52); MEAN CORPUSCULAR HGB 28.7 PG (27.0-31.0); MEAN CORPUSCULAR HGB CONC 33.8 G/DL (33.0-37.0); MEAN CORPUSCULAR VOLUME 84.8 FL (80.0-94.0); MEAN PLATELET VOLUME 10.3 FL (7.4-10.4); PLATELET COUNT 196 /CUMM (130-400); RBC DISTRIBUTION WIDTH 14.2 % (11.5-14.5); RED BLOOD CELL CT 3.48 /CUMM (4.70-6.10); WHITE BLOOD CELL COUNT 7.2 /CUMM (4.8-10.8)
--- NOTE | 2017-10-05 11:24 | PN- Housestaff ---
See Addendum Subjective Follow-up For: Volume overload (CHF vs. CKD) Subjective: Patient seen seated comfortably at the bedside. Is complaining of continued swelling in his bilateral lower extremities. Patient denies chest pain, shortness of breath, palpitations, or dizziness. He denies cough, abdominal pain, nausea, but does endorse bloating and very little stool passage. Patient also reported pain in joints of his hands, which primary doctor told him this could be due to the statins and to take them every other day rather than daily. Review of Systems Constitutional: Denies: chills, malaise, weakness. Cardiovascular: Denies: edema, palpitations, syncope. Respiratory: Denies: cough, short of breath, wheezing. Gastrointestinal: Reports: bloating. Denies: diarrhea, nausea, vomiting. Objective Last 24 Hrs of Vital Signs/I&O Vital Signs Date Time Temp Pulse Resp B/P B/P Pulse O2 O2 Flow FiO2 Mean Ox Delivery Rate 10/05 0927 72 146/78 10/05 0638 98.4 72 18 146/78 95 Room Air 10/05 0043 81 97 10/04 2341 80 160/76 10/04 2200 98.0 76 18 170/88 96 10/04 1600 Room Air 10/04 1439 97.6 72 20 150/70 97 Room Air 10/04 1336 Room Air 10/04 1146 96 Room Air 10/04 1131 97.8 86 20 178/72 96 Room Air Intake & Output 10/05 1600 10/05 0800 10/05 0000 Intake Total 220 350 Output Total 850 Balance 220 -500 Intake, Oral 220 350 Output, Urine 850 Patient 101.293 kg Weight Physical Exam General Appearance: Alert, Oriented X3, Cooperative, No Acute Distress HEENT: Atraumatic, PERRLA, EOMI, Mucous Membr. moist/pink Cardiovascular: Regular Rate, Normal S1, Normal S2, No Murmurs Lungs: Clear to Auscultation, Normal Air Movement Abdomen: Normal Bowel Sounds, Soft, No Tenderness Neurological: Normal Gait, Normal Speech, Strength at 5/5 X4 Ext Extremities: No Clubbing, No Cyanosis, Bilateral lower extremity edema Current Medications: Current Medications Sig/Yoav Start time Last Medication Dose Route Stop Time Status Admin Acetaminophen 650 MG Q8P PRN 10/03 1900 AC PO Albuterol Sulfate 2 PUF Q4-6 PRN PRN 10/03 2345 AC INH Amlodipine Besylate 10 MG DAILY 10/04 0900 AC 10/04 PO 1008 Aspirin Buffered 81 MG DAILY 10/04 0900 AC 10/04 PO 1008 Calcium Carbonate 500 MG DAILY 10/05 0900 AC 10/04 PO 2215 Calcium Carbonate 500 MG .STK-MED ONE 10/04 2211 DC PO 10/04 2212 Carvedilol 12.5 MG BID 10/03 2356 AC 10/04 PO 2341 Docusate Sodium 100 MG BID 10/03 2356 AC 10/04 PO 2215 Doxazosin Mesylate 1 MG DAILY 10/04 0900 AC 10/04 PO 1008 Ezetimibe 10 MG DAILY 10/04 0900 AC 10/04 PO 1008 Fluticasone 2 PUF BID 10/04 0900 AC 10/05 Propionate INH 0930 Furosemide 40 MG Q12 10/05 0900 AC 10/05 IV 0929 Furosemide 40 MG DAILY 10/04 1000 DC 10/04 IV 1032 Heparin Sodium 5,000 UNIT Q8 10/03 2200 AC 10/05 (Porcine) SC 0654 Insulin Aspart 0 TIDAC/HS 10/04 1200 AC 10/05 SC 0928 Insulin Detemir 10 UNITS BID 10/04 0900 AC 10/05 SC 0928 Losartan Potassium 100 MG DAILY 10/04 0902 AC 10/05 PO 0927 Omeprazole 40 MG DAILY AC 10/04 2200 AC 10/05 PO 0653 Omeprazole 40 MG DAILY 10/04 0900 AC 10/04 PO 1008 Oxycodone/ 1 TAB BID PRN 10/03 2345 AC 10/04 Acetaminophen PO 0013 Pravastatin Sodium 10 MG Q48 10/07 0900 AC PO Pravastatin Sodium 10 MG DAILY 10/04 0900 DC 10/05 PO 0929 Pregabalin 100 MG .STK-MED ONE 10/04 1237 DC PO 10/04 1238 Pregabalin 100 MG TID 10/03 2357 AC 10/05 PO 0928 Senna/Docusate Sodium 1 TAB BID PRN 10/05 1115 AC PO Senna/Docusate Sodium 1 TAB BID 10/05 1101 CAN PO Ticagrelor 90 MG BID 10/03 2357 AC 10/04 PO 2123 Last 24 Hrs of Lab/Don Results Last 24 Hrs of Labs/Mics: Laboratory Tests 10/05/17 0625: Anion Gap 11, Estimated GFR 40 L, BUN/Creatinine Ratio 21.7, CBC w Diff NO MAN DIFF REQ, RBC 3.48 L, MCV 84.8, MCH 28.7, MCHC 33.8, RDW 14.2, MPV 10.3, Gran % 71.2, Lymphocytes % 17.6 L, Monocytes % 7.1, Eosinophils % 3.6, Basophils % 0.5 , Absolute Granulocytes 5.1, Absolute Lymphocytes 1.3, Absolute Monocytes 0.5, Absolute Eosinophils 0.3, Absolute Basophils 0 Assessment/Plan Assessment: 52 yo M with PMH significant for CAD (abd stress test & cath with PCI in 06/26), HTN, HLD, DM on VGA, [place], CKD Stage III, admitted to telemetry with the fluid overload, weight gain, hyperglycemia, acute on chronic kidney injury, & intermittent chest pain (not on adm). Continue to monitor strict intake and output as well as daily weights. Kidney function stable currently, BUN and creatinine stable or dropping at 39 and 1.8 this morning respectively. Patient is -3080 charted fluid balance in the last 24 hours ending at noon today. Problems: 1. Vol overload- CHF vs CKD 2. IDDM-VGO pump at home 3. HTN PLAN: * Continue Lasix 40 mg IV every 12 hours * Continue aspirin and Brilinta * Monitor daily weights * Monitor Is & Os * F/u Echo * Continue Levemir 10 units twice a day; ISS AC and HS * Yefri. carvedilol 12.5mg, amlodipine 10 mg, doxazosin, losartan DVt px: hep sub-q Diabetic diet Full code CBC & BEP Problem List: 1. Hypertensive urgency 2. CKD (chronic kidney disease) 3. SOB (shortness of breath) 4. Lower extremity edema Pain Ratin Pain Location: Legs Pain Goal: Pain 4 or less Pain Plan: Per pathway Tomorrow's Labs & Rationales: CBC & BEP
--- NOTE | 2017-10-05 12:58 | PN- Cardiology ---
Subjective Subjective: Patient appears to be clinically improving but still has lower extremity edema. No chest pain or palpitations. Objective Vital Signs and I&Os Vital Signs Date Time Temp Pulse Resp B/P B/P Pulse O2 O2 Flow FiO2 Mean Ox Delivery Rate 10/05 0927 72 146/78 10/05 0638 98.4 72 18 146/78 95 Room Air 10/05 0043 81 97 10/04 2341 80 160/76 10/04 2200 98.0 76 18 170/88 96 10/04 1600 Room Air 10/04 1439 97.6 72 20 150/70 97 Room Air 10/04 1336 Room Air Intake & Output 10/05 1600 10/05 0800 10/05 0000 10/04 1600 10/04 0810/04 0000 Intake Total 220 373 700 2506 Output Total 850 4050 900 Balance 220 -500 -3750 900 Intake, IV 1800 Intake, Oral 220 350 300 0 Output, Urine 850 4050 900 Patient 223 lb 231 lb Weight Weight Bed scale Measurement Method Physical Exam: General: no apparent distress. Alert. Eyes: No obvious scleral icterus. HEENT: No jugular venous distention or abnormal jugular venous pulsations. Cardiovascular: Normal intensity S1/S2. PMI not grossly displaced. Respiratory: No rales or rhonchi Abdomen: Soft, nontender with no guarding or rebound tenderness. Musculoskeletal: No clubbing or cyanosis noted; 1+ lower extremity edema bilaterally Skin: warm Neurologic: No gross focal deficits noted. Current Medications: Current Medications Sig/Yoav Start time Last Medication Dose Route Stop Time Status Admin Acetaminophen 650 MG Q8P PRN 10/03 1900 AC PO Albuterol Sulfate 2 PUF Q4-6 PRN PRN 10/03 2345 AC INH Amlodipine Besylate 10 MG DAILY 10/04 09 AC 10/05 PO 1217 Aspirin Buffered 81 MG DAILY 10/04 09 AC 10/05 PO 1217 Calcium Carbonate 500 MG DAILY 10/05 09 AC 10/04 PO 2215 Calcium Carbonate 500 MG .STK-MED ONE 10/04 221 DC PO 10/04 221 Carvedilol 12.5 MG BID 10/036 AC 10/05 PO 1217 Docusate Sodium 100 MG BID 10/03 2356 AC 10/05 PO 1216 Doxazosin Mesylate 1 MG DAILY 10/04 09 AC 10/05 PO 1217 Ezetimibe 10 MG DAILY 10/04 0900 AC 10/05 PO 1217 Fluticasone 2 PUF BID 10/04 0900 AC 10/05 Propionate INH 0930 Furosemide 40 MG Q12 10/05 0900 AC 10/05 IV 0929 Furosemide 40 MG DAILY 10/04 1000 DC 10/04 IV 1032 Heparin Sodium 5,000 UNIT Q8 10/03 2200 AC 10/05 (Porcine) SC 0654 Insulin Aspart 0 TIDAC/HS 10/04 1200 AC 10/05 SC 1216 Insulin Detemir 10 UNITS BID 10/04 0900 AC 10/05 SC 0928 Losartan Potassium 100 MG DAILY 10/04 0902 AC 10/05 PO 0927 Omeprazole 40 MG DAILY AC 10/04 2200 AC 10/05 PO 0653 Omeprazole 40 MG DAILY 10/04 0900 AC 10/04 PO 1008 Oxycodone/ 1 TAB BID PRN 10/03 2345 AC 10/04 Acetaminophen PO 0013 Pravastatin Sodium 10 MG Q48 10/07 0900 AC PO Pravastatin Sodium 10 MG DAILY 10/04 0900 DC 10/05 PO 0929 Pregabalin 100 MG TID 10/03 2357 AC 10/05 PO 0928 Senna/Docusate Sodium 1 TAB BID PRN 10/05 1115 AC PO Senna/Docusate Sodium 1 TAB BID 10/05 1101 CAN PO Ticagrelor 90 MG BID 10/03 2357 AC 10/05 PO 1217 Results Last 48 Hrs of Labs/Mics: Laboratory Tests 10/05/17 0625: Anion Gap 11, Estimated GFR 40 L, BUN/Creatinine Ratio 21.7, CBC w Diff NO MAN DIFF REQ, RBC 3.48 L, MCV 84.8, MCH 28.7, MCHC 33.8, RDW 14.2, MPV 10.3, Gran % 71.2, Lymphocytes % 17.6 L, Monocytes % 7.1, Eosinophils % 3.6, Basophils % 0.5 , Absolute Granulocytes 5.1, Absolute Lymphocytes 1.3, Absolute Monocytes 0.5, Absolute Eosinophils 0.3, Absolute Basophils 0 10/04/17 0638: Anion Gap 9, Estimated GFR 40 L, BUN/Creatinine Ratio 23.3, Troponin I 0.02, TSH 1.640, Free T4 1.35 07/26/18 2008: Troponin I 0.02 Recent Imaging Studies: Telemetry tracings were personally reviewed and shows sinus rhythm Assessment/Plan Assessment/Plan 52-year-old male with history of CAD, status post recent RCA stent, hypertension , hyperlipidemia, diabetes mellitus, and chronic kidney disease presenting with weight gain, and shortness of breath. The findings are consistent with acute on chronic heart failure with preserved ejection fraction. He is also noted to have acute on chronic renal insufficiency. Continue with IV diuresis as creatinine has improved from presentation. Still has some evidence of volume overload on exam. Follow-up echocardiogram. Maintain antiplatelet therapy. Abel Patel MD [facility] Continue telemetry? Yes
[2017-10-05 15:28] VITALS: BP 144/84
--- NOTE | 2017-10-05 15:44 | PN- Endocrinology ---
Assessment/Plan Endoscopy Assessment: 52-year-old male with a past medical history of diabetes mellitus type 2, chronic renal insufficiency on VGO-30, hypertension, coronary artery disease status post stent in June 2017, hyperlipidemia, myocardial infarction, who was admitted for CHF exacerbation. His glucose level has been in the 200-300 range over the past 2 days, no hypoglycemia. Plan: DM management: 1. hold off on VGO as per the hospital policy; 2. Increase Levemir to 12 units twice a day; 3. increase Novolog coverage before meals and Novolog coverage at bedtime; detail see the inpatient DM orders; 4. change diet to carbohydrate level 1, so he receive less carb in diet. will follow. Inpatient Diabetes Orders Before Each Meal: Bolus Insulin: Novolog < 80 mg/dl: no coverage 80-150 mg/dl: 6 units 151-200 mg/dl: 8 units 201-250 mg/dl: 10 units 251-300 mg/dl: 12 units 301-350 mg/dl: 14 units 351-400 mg/dl: 16 units > 400 mg/dl: 18 units Bedtime: Bolus Insulin: Novolog < 150 mg/dl: no coverage 151-200 mg/dl: 2 units 201-250 mg/dl: 4 units 251-300 mg/dl: 6 units 301-350 mg/dl: 8 units 351-400 mg/dl: 10 units > 400 mg/dl: 12 units Subjective Subjective: His blood glucose has been elevated. Objective Last 24 Hrs of Vital Signs/I&O Vital Signs Date Time Temp Pulse Resp B/P B/P Pulse O2 O2 Flow FiO2 Mean Ox Delivery Rate 10/05 1528 97.4 78 18 144/84 96 10/05 0927 72 146/78 10/05 0638 98.4 72 18 146/78 95 Room Air 10/05 0043 81 97 10/04 2341 80 160/76 10/04 2200 98.0 76 18 170/88 96 10/04 1600 Room Air Intake & Output 10/05 1600 10/05 0800 10/05 0000 Intake Total 1600 220 350 Output Total 1350 850 Balance 250 220 -500 Intake, Oral 1600 220 350 Number 1 Bowel Movements Output, Urine 1350 850 Patient 223 lb Weight
[2017-10-05 22:19] VITALS: BP 160/68
[2017-10-06 07:08] VITALS: BP 128/70
[2017-10-06 08:44] LABS: ABSOLUTE BASOPHIL COUNT 0 /CUMM (0.0-0.2); ABSOLUTE EOSINOPHIL COUNT 0.3 /CUMM (0.0-0.7); ABSOLUTE GRANULOCYTE CT 4.5 /CUMM (1.4-6.5); ABSOLUTE LYMPH COUNT 1.2 /CUMM (1.2-3.4); ABSOLUTE MONOCYTE COUNT 0.5 /CUMM (0.10-0.60); BASOPHIL % 0.7 % (0.0-2.0); EOSINOPHIL % 3.9 % (0-5); GRANULOCYTE % 69.5 % (42.2-75.2); HEMATOCRIT 28.7 % (42-52); MEAN CORPUSCULAR HGB 29.2 PG (27.0-31.0); MEAN CORPUSCULAR HGB CONC 34.9 G/DL (33.0-37.0); MEAN CORPUSCULAR VOLUME 83.6 FL (80.0-94.0); MEAN PLATELET VOLUME 10.4 FL (7.4-10.4); PLATELET COUNT 190 /CUMM (130-400); RBC DISTRIBUTION WIDTH 14.3 % (11.5-14.5); RED BLOOD CELL CT 3.43 /CUMM (4.70-6.10); WHITE BLOOD CELL COUNT 6.5 /CUMM (4.8-10.8)
--- NOTE | 2017-10-06 09:01 | PN- Housestaff ---
Angeline Ferreira 10/06/17 0901: Subjective Follow-up For: Vol overload, CKD vs CKD Complaints: no complaints Tele-Events Since Last Visit: Stable. No events Subjective: No complaints, no acute events overnight Review of Systems Constitutional: Reports: see HPI. Objective Last 24 Hrs of Vital Signs/I&O Vital Signs Date Time Temp Pulse Resp B/P B/P Pulse O2 O2 Flow FiO2 Mean Ox Delivery Rate 10/07 0014 84 96 10/06 2227 98.4 73 20 156/52 96 10/06 2205 78 18 156/50 10/06 1437 98.2 73 20 122/74 97 Room Air 10/06 0916 73 128/70 10/06 0708 98.2 73 18 128/70 97 Intake & Output 10/07 0800 10/07 0000 10/06 1600 Intake Total 530 Output Total 1000 1500 Balance -1000 -970 Intake, IV 30 Intake, Oral 500 Number 1 Bowel Movements Output, Urine 1000 1500 Physical Exam General Appearance: Alert, Oriented X3, Cooperative, No Acute Distress Skin: No Rashes, No Breakdown, No Significant Lesion Sepsis Skin Exam (color): Normal for Ethnicity HEENT: Atraumatic, Mucous Membr. moist/pink Neck: Supple Cardiovascular: Regular Rate, Normal S1, Normal S2, No Murmurs Lungs: Clear to Auscultation, Normal Air Movement Abdomen: Normal Bowel Sounds, Soft, No Tenderness Neurological: Normal Gait, Normal Speech, Strength at 5/5 X4 Ext, Normal Tone, Sensation Intact Extremities: No Clubbing, No Cyanosis, b/l pitting edema Assessment/Plan Assessment: 52 yo M with PMH significant for CAD (abd stress test & cath with PCI in 06/26), HTN, HLD, DM on VGA, [place], CKD Stage III, admitted to telemetry with the fluid overload, weight gain, hyperglycemia, acute on chronic kidney injury, & intermittent chest pain (not on adm). Problems: 1. Vol overload- CHF vs CKD 2. IDDM-VGO pump at home-held 3. HTN PLAN: * Continue Lasix 40 mg IV every 12 hours * Continue aspirin and Brilinta * Monitor daily weights * Monitor Is & Os * F/u Echo * Continue Levemir 10 units twice a day; ISS AC and HS * Yefri. carvedilol 12.5mg, amlodipine 10 mg, doxazosin, losartan DVt px: hep sub-q Diabetic diet Full code CBC & BEP Problem List: 1. SOB (shortness of breath) 2. CKD (chronic kidney disease) 3. Hypertensive urgency 4. CHF (congestive heart failure) 5. Abdominal distension 6. Lower extremity edema Pain Ratin Pain Location: none Pain Goal: Remain pain free Pain Plan: n/a Tomorrow's Labs & Rationales: cbc, bep Herminia WILSON,Amir 10/06/17 1110: Attending MD Review Statement Attending Statement Attending MD Statement: examined this patient, discuss w/resident/PA/FITNESS AND WELLNESS INSTRUCTOR, agreed w/resident/PA/FITNESS AND WELLNESS INSTRUCTOR, reviewed EMR data (avail), discussed with nursing Attending Assessment/Plan: Pt was seen and evaluated. No overnight issues. Denies CP or SOB. --Appreciate cards input; cont diuretics, f/u ECHO --Renal consult for elevated Cr --cont eye gtt --rest of the plan as per resident's note
[2017-10-06] MEDS ORDERED: AZOPT10 ML OPH (09:23)
[2017-10-06] MEDS ORDERED: ILEVRO1.7 ML IO (09:25)
--- NOTE | 2017-10-06 11:42 | PN- Cardiology ---
Subjective Subjective: Patient continues to deny shortness of breath but still has lower extremity edema. Objective Vital Signs and I&Os Vital Signs Date Time Temp Pulse Resp B/P B/P Pulse O2 O2 Flow FiO2 Mean Ox Delivery Rate 10/06 0916 73 128/70 10/06 0708 98.2 73 18 128/70 97 10/06 0030 85 95 10/05 2219 97.9 75 18 160/68 97 10/05 2106 78 172/70 10/05 1600 Room Air 10/05 1528 97.4 78 18 144/84 96 Intake & Output 10/06 1600 10/06 0800 10/06 0000 10/05 1600 10/05 0800 10/05 0000 Intake Total 550 1600 220 350 Output Total 1700 1350 850 Balance -1150 250 220 -500 Intake, Oral 550 1600 220 350 Number 1 Bowel Movements Output, Urine 1700 1350 850 Patient 223 lb Weight Physical Exam: General: no apparent distress. Alert. Eyes: No obvious scleral icterus. HEENT: No jugular venous distention or abnormal jugular venous pulsations. Cardiovascular: Normal intensity S1/S2. PMI not grossly displaced. Respiratory: No rales or rhonchi Abdomen: Soft, nontender with no guarding or rebound tenderness. Musculoskeletal: No clubbing or cyanosis noted; 1+ lower extremity edema bilaterally Skin: warm Neurologic: No gross focal deficits noted. Current Medications: Current Medications Sig/Yoav Start time Last Medication Dose Route Stop Time Status Admin Acetaminophen 650 MG Q8P PRN 10/03 1900 AC PO Albuterol Sulfate 2 PUF Q4-6 PRN PRN 10/03 2345 AC INH Amlodipine Besylate 10 MG DAILY 10/04 899 AC 10/06 PO 0916 Aspirin Buffered 81 MG DAILY 10/04 899 AC 10/06 PO 0915 Brimonidine Tartrate 1 GTT TID 10/06 0930 AC OPH Calcium Carbonate 500 MG DAILY 10/05 899 AC 10/04 PO 2215 Carvedilol 12.5 MG BID 10/04 2355 AC 10/06 PO 33 Docusate Sodium 100 MG BID 10/03 235 AC 10/06 PO 0933 Doxazosin Mesylate 1 MG DAILY 10/04 899 AC 10/06 PO 0933 Ezetimibe 10 MG DAILY 10/04 899 AC 10/06 PO 0915 Fluticasone 2 PUF BID 10/04 0900 AC 10/06 Propionate INH 0934 Furosemide 40 MG Q12 10/05 0900 AC 10/06 IV 0916 Heparin Sodium 5,000 UNIT Q8 10/03 2200 AC 10/06 (Porcine) SC 0654 Insulin Aspart 0 TIDAC/HS 10/05 1630 AC 10/06 SC 0844 Insulin Aspart 0 TIDAC/HS 10/04 1200 DC 10/05 PA 1216 Insulin Detemir 12 UNITS BID 10/05 2100 AC 10/06 SC 0844 Insulin Detemir 10 UNITS BID 10/04 0900 DC 10/05 SC 0928 Losartan Potassium 100 MG DAILY 10/04 0902 AC 10/06 PO 0916 Omeprazole 40 MG DAILY AC 10/04 2200 AC 10/06 PO 0846 Omeprazole 40 MG DAILY 10/04 0900 AC 10/04 PO 1008 Oxycodone/ 1 TAB BID PRN 10/03 2345 AC 10/04 Acetaminophen PO 0013 Pravastatin Sodium 10 MG Q48 10/07 0900 AC PO Pregabalin 100 MG TID 10/03 2357 AC 10/06 PO 0916 Senna/Docusate Sodium 1 TAB BID PRN 10/05 1115 AC PO Ticagrelor 90 MG BID 10/03 2357 AC 10/06 PO 0916 Timolol Maleate 1 GTT BID 10/06 0929 AC OPH Results Last 48 Hrs of Labs/Mics: Laboratory Tests 10/06/17 0700: Anion Gap 12, Estimated GFR 38 L, BUN/Creatinine Ratio 20.5, CBC w Diff NO MAN DIFF REQ, RBC 3.43 L, MCV 83.6, MCH 29.2, MCHC 34.9, RDW 14.3, MPV 10.4, Gran % 69.5, Lymphocytes % 18.4 L, Monocytes % 7.5, Eosinophils % 3.9, Basophils % 0.7 , Absolute Granulocytes 4.5, Absolute Lymphocytes 1.2, Absolute Monocytes 0.5, Absolute Eosinophils 0.3, Absolute Basophils 0 10/05/17 0625: Anion Gap 11, Estimated GFR 40 L, BUN/Creatinine Ratio 21.7, CBC w Diff NO MAN DIFF REQ, RBC 3.48 L, MCV 84.8, MCH 28.7, MCHC 33.8, RDW 14.2, MPV 10.3, Gran % 71.2, Lymphocytes % 17.6 L, Monocytes % 7.1, Eosinophils % 3.6, Basophils % 0.5 , Absolute Granulocytes 5.1, Absolute Lymphocytes 1.3, Absolute Monocytes 0.5, Absolute Eosinophils 0.3, Absolute Basophils 0 Recent Imaging Studies: Telemetry tracings were personally reviewed and shows sinus rhythm Assessment/Plan Assessment/Plan 52-year-old male with history of CAD, status post recent RCA stent, hypertension , hyperlipidemia, diabetes mellitus, and chronic kidney disease presenting with weight gain, and shortness of breath. The findings are consistent with acute on chronic heart failure with preserved ejection fraction. He is also noted to have acute on chronic renal insufficiency. Would continue with IV diuresis while monitoring kidney function. Echocardiogram is pending. Abel Patel MD [facility] Continue telemetry? Yes
[2017-10-06 14:37] VITALS: BP 122/74
--- NOTE | 2017-10-06 14:47 | PN- Endocrinology ---
Assessment/Plan Endoscopy Assessment: 52-year-old male with a past medical history of diabetes mellitus type 2, chronic renal insufficiency on VGO-30, hypertension, coronary artery disease status post stent in June 2017, hyperlipidemia, myocardial infarction, who was admitted for CHF exacerbation. His glucose level has been in the 200-300 range over the past the past 24 hours despite increase in insulin dosage, no hypoglycemia. Plan: Plan: DM management: 1. hold off on VGO as per the hospital policy; 2. Increase Levemir to 15 units twice a day; 3. increase Novolog coverage before meals and Novolog coverage at bedtime; detail see the inpatient DM orders; 4. continue carbohydrate level 1, so he receive less carb in diet. will follow. Inpatient Diabetes Orders Before Each Meal: Bolus Insulin: Novolog < 80 mg/dl: no coverage 80-150 mg/dl: 10 units 151-200 mg/dl: 12 units 201-250 mg/dl: 14 units 251-300 mg/dl: 16 units 301-350 mg/dl: 18 units 351-400 mg/dl: 20 units > 400 mg/dl: 22 units Bedtime: Bolus Insulin: Novolog < 150 mg/dl: no coverage 151-200 mg/dl: 2 units 201-250 mg/dl: 4 units 251-300 mg/dl: 6 units 301-350 mg/dl: 8 units 351-400 mg/dl: 10 units > 400 mg/dl: 12 units Subjective Subjective: His glucose level has been in the 200-300 range over the past the past 24 hours despite increase in insulin dosage, no hypoglycemia Objective Last 24 Hrs of Vital Signs/I&O Vital Signs Date Time Temp Pulse Resp B/P B/P Pulse O2 O2 Flow FiO2 Mean Ox Delivery Rate 10/06 1437 98.2 73 20 122/74 97 Room Air 10/06 0916 73 128/70 10/06 0708 98.2 73 18 128/70 97 10/06 0030 85 95 10/05 2219 97.9 75 18 160/68 97 10/05 2106 78 172/70 10/05 1600 Room Air 10/05 1528 97.4 78 18 144/84 96 Intake & Output 10/06 1600 10/06 0800 10/06 0000 Intake Total 550 Output Total 1700 Balance -1150 Intake, Oral 550 Output, Urine 1700
[2017-10-06 22:27] VITALS: BP 156/52
[2017-10-07 06:44] VITALS: BP 138/62
--- NOTE | 2017-10-07 06:55 | PN- Housestaff ---
Angeline Ferreira 10/07/17 0655: Subjective Follow-up For: Vol overload-CKD vs CHF Complaints: pain scale (0-10) (dizziness) Tele-Events Since Last Visit: NSR. HR 60s Subjective: Pt seen and examined in bed in NAD. Complains of dizziness on rest and ambulation. It was mild & intermittent at homem has worsened. Review of Systems Constitutional: Reports: see HPI. Objective Last 24 Hrs of Vital Signs/I&O Vital Signs Date Time Temp Pulse Resp B/P B/P Pulse O2 O2 Flow FiO2 Mean Ox Delivery Rate 10/08 0100 74 95 10/08 0000 Room Air 10/07 2211 86 258/86 10/07 2211 98.6 73 16 158/86 95 10/07 1405 97.9 72 18 142/72 98 Room Air 10/07 0859 98.7 76 20 138/62 10/07 0859 98.7 76 20 138/62 10/07 0859 98.7 76 20 138/62 10/07 0644 98.7 76 20 138/62 98 CPAP Intake & Output 10/08 0800 10/08 0000 10/07 1600 Intake Total 240 820 Output Total 2450 850 Balance -0 -30 Intake, Oral 240 820 Number 0 Bowel Movements Output, Urine 2450 850 Patient 226 lb Weight Physical Exam General Appearance: Alert, Oriented X3, Cooperative, No Acute Distress Skin: No Rashes, Left big toe 1/1cm wound that regular senior it project manager wrapped. No acute changes Skin Temp/Moisture Exam: Cool/Dry Sepsis Skin Exam (color): Normal for Ethnicity HEENT: Atraumatic, Mucous Membr. moist/pink Neck: Supple Cardiovascular: Regular Rate, Normal S1, Normal S2, No Murmurs Lungs: Clear to Auscultation, Normal Air Movement Abdomen: Normal Bowel Sounds, Soft, No Tenderness Neurological: Normal Speech, Strength at 5/5 X4 Ext, Normal Tone Extremities: No Clubbing, No Cyanosis (pitting pedal edema ) Assessment/Plan Assessment: 52 yo M with PMH significant for CAD (abd stress test & cath with PCI in 06/26), HTN, HLD, DM on VGA, PA, CKD Stage III, admitted to telemetry with the fluid overload, weight gain, hyperglycemia, acute on chronic kidney injury, & intermittent chest pain (not on adm). Problems: 1. Vol overload- CHF vs CKD 2. IDDM 3. HTN A & P: PLAN: #Vol overload- CHF vs CKD: -Continue Lasix 40 g IV twice a day while the hospital and on discharge change to 40 mg by mouth twice a day -Start 1.5 L per day fluid restriction -Monitor daily weights, Is & Os -Echo pending #Dizziness: - Start antivert - Stop Lyrica(taking for diabetic neuropathy), as it might be the possible cause of dizziness. restart Gabapentin, preciously stopped due to causing fatigue. Rec pt to take it at night so as to prevent the fatigue - Head CT wo contrast today, to rule out posterior circul. disease: showed no acute intracranial pathology #IDDM: -VGO pump at home-held. Continue Levemir 10 units twice a day; ISS AC and HS #HTN: -Yefri. carvedilol 12.5mg, amlodipine 10 mg, doxazosin, losartan -Yefri aspirin & brilinta DVt px: hep sub-q Diabetic diet Full code Problem List: 1. CHF (congestive heart failure) 2. Hypertensive urgency 3. CKD (chronic kidney disease) 4. SOB (shortness of breath) 5. Abdominal distension 6. Lower extremity edema Pain Ratin Pain Location: none Pain Goal: Remain pain free Pain Plan: follow pain pathway Tomorrow's Labs & Rationales: cbc, bep Hesham WILSON,Keaton 10/07/17 1326: Attending Review Statement Attending Statement Attending MD Statement: examined this patient, discuss w/resident/PA/BANK TELLER, agreed w/resident/PA/BANK TELLER, reviewed EMR data (avail), discussed with nursing, discussed with case mgmt, amended to note Attending Assessment/Plan: Patient seen and examined. Complains of lightheadedness. Reports her symptoms have been chronic for the past few weeks. He initially attributed the dizziness to gabapentin which she was taken in the past. This was changed about 2 weeks ago to Lyrica. Symptoms have persisted since then. Denies any ringing sensation in the ears. Blood pressure has improved since admission. ARB therapy was initially on hold due to elevated creatinine levels. Peripheral edema is improving with diuresis and reports less shortness of breath. Blood glucose levels on the high side. He was noted to have a large box of chocolates at the bedside. On examination he has no nystagmus. Heart sounds are regular with no audible murmur. Lungs are clear bilaterally. He has 1+ pedal edema bilaterally. Problems: 1. Acute on chronic heart failure with preserved ejection fraction. 2. Hypertension 3. Insulin-dependent diabetes mellitus 4. Dizziness 5. Chronic kidney disease stage III Plan: -He is maintaining negative fluid balance. He has lost about 4 kg. Transition to oral Lasix. Increase dose to twice daily of 40 mg. -Blood pressure appears better controlled. Currently on Norvasc, Cardura, Coreg , losartan. Will continue to monitor blood pressure particularly with increased dose of his Lasix. -Case discussed with the nephrology service. The Lyrica may be contributing to sudden weight gain. Will discontinue and resume gabapentin. Admits to gabapentin at nighttime. -Reinforced need for dietary compliance. Insulin regimen is being increased by the endocrinology service. -Begin Antivert for his dizziness. Due to the chronic nature and his risk factors will obtain neuroimaging to rule out posterior circulation cerebrovascular disease. Obtain CT of the brain.
[2017-10-07 08:10] LABS: ABSOLUTE BASOPHIL COUNT 0 /CUMM (0.0-0.2); ABSOLUTE EOSINOPHIL COUNT 0.3 /CUMM (0.0-0.7); ABSOLUTE GRANULOCYTE CT 3.8 /CUMM (1.4-6.5); ABSOLUTE LYMPH COUNT 1.4 /CUMM (1.2-3.4); ABSOLUTE MONOCYTE COUNT 0.7 /CUMM (0.10-0.60); BASOPHIL % 0.5 % (0.0-2.0); EOSINOPHIL % 4.3 % (0-5); GRANULOCYTE % 61.7 % (42.2-75.2); HEMATOCRIT 30.3 % (42-52); MEAN CORPUSCULAR HGB 28.9 PG (27.0-31.0); MEAN CORPUSCULAR VOLUME 84.8 FL (80.0-94.0); MEAN PLATELET VOLUME 10.8 FL (7.4-10.4); PLATELET COUNT 186 /CUMM (130-400); RBC DISTRIBUTION WIDTH 14.8 % (11.5-14.5); RED BLOOD CELL CT 3.57 /CUMM (4.70-6.10); WHITE BLOOD CELL COUNT 6.1 /CUMM (4.8-10.8)
--- NOTE | 2017-10-07 09:35 | ECHOCARDIOGRAM REPORT ---
GIAN DEAL Age: 52 : 1965 Gender: M Exam Date: 10/05/2017 08:40 Exam Location: [address] [facility] Ht (in): 66 Wt (lb): 223 BSA: 2.21 BP: 146 / 78 Ordering Physician: Stephanie Montenegro MD Referring Physician: Stephanie Montenegro MD Technologist: Ibis Chacon [facility] Room Number: [id number] Indications: Rhythm: Sinus Technical Quality: Fair FINDINGS Left Ventricle Normal size left ventricle. Mild concentric left ventricular hypertrophy. Mild inferior hypokinesis. Left ventricular ejection fraction is estimated at 50-55%. Right Ventricle Normal right ventricular size and function. Right Atrium Normal right atrial size. Left Atrium Normal left atrial size. Mitral Valve Mild mitral annular calcification. Aortic Valve Aortic valve mildly thickened. No aortic stenosis. No aortic regurgitation. Tricuspid Valve Tricuspid valve not well visualized, grossly normal. Mild tricuspid regurgitation. No evidence of pulmonary hypertension. Pulmonic Valve Pulmonic valve not well visualized, grossly normal. Trace pulmonic regurgitation. Pericardium No pericardial effusion. Great Vessels Normal size aortic root. CONCLUSIONS Normal size left ventricle. Mild concentric left ventricular hypertrophy. Mild inferior hypokinesis. Left ventricular ejection fraction is estimated at 50-55%. Mild tricuspid regurgitation. Trace pulmonic regurgitation. Mild tricuspid regurgitation. Asa Juarez M.D. (Electronically Signed) Final Date: 07 October 2017 09:30 MEASUREMENTS (Male / Female) Normal Values 2D ECHO LV Diastolic Diameter PLAX 4.8 cm 4.2 - 5.9 / 3.9 - 5.3 cm LV Systolic Diameter PLAX 3.2 cm 2.1 - 4.0 cm LV Fractional Shortening PLAX 33.3 % 25 - 46 % LV Ejection Fraction 2D Teich 61.9 % IVS Diastolic Thickness 1.3 cm LVPW Diastolic Thickness 1.2 cm LV Relative Wall Thickness 0.5 LVOT Diameter 2.0 cm Aortic Root Diameter 2.4 cm LA Systolic Diameter LX 3.8 cm 3.0 - 4.0 / 2.7 - 3.8 cm LA Volume 75.0 cm 18 - 58 / 22 - 52 cm DOPPLER AV Peak Velocity 173.0 cm/s AV Peak Gradient 12.0 mmHg LVOT Peak Velocity 89.3 cm/s LVOT Peak Gradient 3.2 mmHg AV Area Cont Eq pk 1.6 cm Mitral E Point Velocity 70.6 cm/s Mitral A Point Velocity 78.5 cm/s Mitral E to A Ratio 0.9 MV Deceleration Time 261.0 ms TR Peak Velocity 311.0 cm/s TR Peak Gradient 38.7 mmHg PV Peak Velocity 119.0 cm/s PV Peak Gradient 5.7 mmHg LV E' Lateral Velocity 11.8 cm/s Mitral E to LV E' Lateral Ratio 6.0 LV E' Septal Velocity 6.5 cm/s Mitral E to LV E' Septal Ratio 10.8
--- NOTE | 2017-10-07 10:33 | PN- Diabetes ---
Assessment/Plan Diabetes Assessment: 52-year-old male with a past medical history of diabetes mellitus type 2, chronic renal insufficiency on VGO-30, hypertension, coronary artery disease status post stent in June 2017, hyperlipidemia, myocardial infarction, who was admitted for CHF exacerbation. He was on Levemir 15 units twice a day, Novolog coverage before meals ( FSGs 80- 150, 6 units; etc) and Novolog coverage at bedtime. His FSGs were 265, 270, 305, 191, 378 and 329. Plan: 1. diet control; 2. increase Levemir to 15 units twice a day; 3. adjust Novolog coverage before meals and Novolog coverage at bedtime-- detail see the inpatient DM orders; 4. monitor FSGs. will follow. Inpatient Diabetes Orders Before Each Meal: Bolus Insulin: Novolog < 80 mg/dl: no coverage 80-100 mg/dl: 8 units 101-120 mg/dl: 8 units 121-150 mg/dl: 8 units 151-200 mg/dl: 10 units 201-250 mg/dl: 12 units 251-300 mg/dl: 14 units 301-350 mg/dl: 16 units 351-400 mg/dl: 18 units > 400 mg/dl: 20 units Bedtime: Bolus Insulin: Novolog < 80 mg/dl: no coverage 80-100 mg/dl: no coverage 101-120 mg/dl: no coverage 121-150 mg/dl: no coverage 151-200 mg/dl: no coverage 201-250 mg/dl: 2 units 251-300 mg/dl: 3 units 301-350 mg/dl: 5 uits 351-400 mg/dl: 7 units > 400 mg/dl: 8 units Subjective Subjective: He feels better this morning. But his glucose levels haven't been controlled. Objective Last 24 Hrs of Vital Signs/I&O Vital Signs Date Time Temp Pulse Resp B/P B/P Pulse O2 O2 Flow FiO2 Mean Ox Delivery Rate 10/07 0859 98.7 76 20 138/62 10/07 0859 98.7 76 20 138/62 10/07 0859 98.7 76 20 138/62 10/07 0644 98.7 76 20 138/62 98 CPAP 10/07 0014 84 96 10/07 0000 CPAP 10/06 2226 98.4 73 20 156/52 96 10/06 2205 78 18 156/50 10/06 1437 98.2 73 20 122/74 97 Room Air Intake & Output 10/07 1600 10/07 0800 10/07 0000 Intake Total 120 120 Output Total 1001 1850 Balance -881 -1730 Intake, Oral 120 120 Number 1 Bowel Movements Output, Stool 1 Output, Urine 1000 1850 Patient 224 lb Weight Weight Bed scale Measurement Method Findings Pertinent Lab/Don Results: Laboratory Tests 10/07 0615 Chemistry Sodium (137 - 145 mmol/L) 135 L Potassium (3.5 - 5.1 mmol/L) 4.1 Chloride (98 - 107 mmol/L) 98 Carbon Dioxide (22 - 30 mmol/L) 28 Anion Gap (5 - 16) 10 BUN (9 - 20 mg/dL) 39 H Creatinine (0.7 - 1.2 mg/dL) 2.0 H Estimated GFR (>60 ml/min) 35 L BUN/Creatinine Ratio (7 - 25 %) 19.5 Hematology CBC w Diff NO MAN DIFF REQ WBC (4.8 - 10.8 /CUMM) 6.1 RBC (4.70 - 6.10 /CUMM) 3.57 L Hgb (14.0 - 18.0 G/DL) 10.3 L Hct (42 - 52 %) 30.3 L MCV (80.0 - 94.0 FL) 84.8 MCH (27.0 - 31.0 PG) 28.9 MCHC (33.0 - 37.0 G/DL) 34.0 RDW (11.5 - 14.5 %) 14.8 H Plt Count (130 - 400 /CUMM) 186 MPV (7.4 - 10.4 FL) 10.8 H Gran % (42.2 - 75.2 %) 61.7 Lymphocytes % (20.5 - 51.1 %) 22.8 Monocytes % (1.7 - 9.3 %) 10.7 H Eosinophils % (0 - 5 %) 4.3 Basophils % (0.0 - 2.0 %) 0.5 Absolute Granulocytes (1.4 - 6.5 /CUMM) 3.8 Absolute Lymphocytes (1.2 - 3.4 /CUMM) 1.4 Absolute Monocytes (0.10 - 0.60 /CUMM) 0.7 H Absolute Eosinophils (0.0 - 0.7 /CUMM) 0.3 Absolute Basophils (0.0 - 0.2 /CUMM) 0
--- NOTE | 2017-10-07 12:09 | Cons- Nephrology ---
General Information and HPI Consulting Request Date of Consult: 10/07/17 Requested By: Hesham WILSON,Keaton Reason for Consult: CKD, volume overload Source of Information: patient, old records Exam Limitations: no limitations History of Present Illness: The patient is a 52-year-old male with a long-standing history of hypertension associated with nephropathy, retinopathy and neuropathy, coronary artery disease with recent stenting in June 2017. Prior to the recent cardiac catheterization his baseline creatinine was 1.4-1.6 since a cardiac cath a creatinine running from 1.8-2.1 mg/dL. He was admitted on Saturday with a 20 pound weight gain in one to 2 weeks, dyspnea on exertion as well as worsening edema. Chest a did not reveal overt congestive heart failure. He's been diuresed with IV Lasix over the weekend with partial improvement in his weight, improvement in the dyspnea, with ongoing edema which is partially improved . He has CHF with preserved ejection fraction, and has been prone to volume overload for which she takes Lasix 40 mg by mouth daily. He claims he limits the salt in his diet but also he does push the fluid intake. Only medication recently was the gabapentin was changed to Lyrica couple weeks ago. He reports compliance with his Lasix and losartan. For his chronic kidney disease is followed up at our office by Dr Valadez, and ANAIS Chacon, and is also been seen by Joao Henriquez MD one year [facility] in the past. He did have an episode of acute kidney injury and in December 2016 in the setting of cholecystitis when he was taking NSAIDs and also received IV contrast with a CT scan. More recently he denies taking any NSAIDs. Allergies/Medications Allergies: Uncoded Allergies: CAT SCAN DYE (UNKNOWN 10/03/17) Home Med List: Albuterol Sulfate (Proair Hfa) 90 MCG HFA.AER.AD 2 PUF INH Q4-6 PRN PRN wheezing Amlodipine Besylate (Norvasc) 10 MG TABLET 1 TAB PO DAILY BLOOD PRESSURE ( Reported) Aspirin (Ecotrin*) 81 MG TABLET.DR 1 TAB PO DAILY HEART/BLOOD (Reported) Brinzolamide (Azopt) 1 % DROPS.SUSP 1 GTT OPH BID glaucoma (Reported) Carvedilol 12.5 MG TABLET 1 TAB PO BID HEART (Reported) Docusate Sodium (Colace) 100 MG CAPSULE 1 CAP PO BID CONSTIPATION (Reported) Doxazosin Mesylate 4 MG TABLET 1 TAB PO DAILY htn (Reported) Ezetimibe (Zetia) 10 MG TABLET 1 TAB PO DAILY high cholesterol (Reported) Fluticasone Propionate (Flovent Hfa) 110 MCG/ACTUATION AER.W.ADAP 2 PUF INH BID BREATHING PROBLEMS (Reported) Furosemide (Lasix) 40 MG TABLET 1 TAB PO DAILY WATER RETENTION (Reported) Losartan Potassium 100 MG TABLET 1 TAB PO DAILY HEART (Reported) Nepafenac (Ilevro) 0.3 % DROPS.SUSP 1 GTT IO DAILY glaucoma (Reported) Omeprazole 20 MG CAPSULE.DR 40 MG PO DAILY GI Oxycodone HCl/Acetaminophen (Percocet 5-325 MG Tablet) 5 MG-325 MG TABLET 1 TAB PO BID PRN PAIN (Reported) Pravastatin Sodium 10 MG TABLET 1 TAB PO DAILY CHOLESTEROL (Reported) Pregabalin (Lyrica) 100 MG CAPSULE 1 CAP PO TID PAIN (Reported) Sub-Q Insulin Device, 40 Unit (Vgo 40) 1 EACH EACH 40 UNITS SC DAILY DIABETES (Reported) Ticagrelor (Brilinta) 90 MG TABLET 1 TAB PO BID BLOOD THINNER (Reported) Timolol (Betimol) 0.5 % DROPS 1 GTT OPH BID glaucoma (Reported) Current Medications: Current Medications Sig/Yoav Start time Last Medication Dose Route Stop Time Status Admin Acetaminophen 650 MG Q8P PRN 10/03 1900 AC PO Albuterol Sulfate 2 PUF Q4-6 PRN PRN 10/03 2345 AC INH Amlodipine Besylate 10 MG DAILY 10/04 09 AC 10/07 PO 0859 Aspirin Buffered 81 MG DAILY 10/04 09 AC 10/07 PO 0859 Brimonidine Tartrate 1 GTT TID 10/06 09 AC 10/07 OPH 0902 Calcium Carbonate 500 MG DAILY 10/05 09 AC 10/07 PO 0859 Carvedilol 12.5 MG BID 10/036 AC 10/07 PO 0859 Docusate Sodium 100 MG BID 10/036 AC 10/07 PO 0859 Doxazosin Mesylate 1 MG DAILY 10/04 09 AC 10/07 PO 0859 Ezetimibe 10 MG DAILY 10/04 09 AC 10/07 PO 0858 Fluticasone 2 PUF BID 10/04 09 AC 10/07 Propionate INH 0903 Furosemide 40 MG DAILY 10/08 0900 AC PO Furosemide 40 MG 0800,1700 10/06 1700 DC 10/07 IV 0901 Furosemide 40 MG Q12 10/05 0900 DC 10/06 IV 0916 Heparin Sodium 5,000 UNIT Q8 10/03 2200 AC 10/07 (Porcine) SC 0551 Insulin Aspart 0 TIDAC/HS 10/05 1630 AC 10/07 SC 0858 Insulin Detemir 18 UNITS BID 10/07 2100 AC SC Insulin Detemir 15 UNITS BID 10/06 2100 DC 10/07 SC 0858 Insulin Detemir 12 UNITS BID 10/05 2100 DC 10/06 SC 0844 Losartan Potassium 100 MG DAILY 10/04 0902 AC 10/07 PO 0859 Meclizine HCl 12.5 MG TID PRN 10/07 1045 AC PO Omeprazole 40 MG DAILY AC 10/04 2200 AC 10/07 PO 0549 Omeprazole 40 MG DAILY 10/04 0900 AC 10/04 PO 1008 Oxycodone/ 1 TAB BID PRN 10/03 2345 AC 10/04 Acetaminophen PO 0013 Pravastatin Sodium 10 MG Q48 10/07 0900 AC 10/07 PO 0859 Pregabalin 100 MG TID 10/03 2357 AC 10/07 PO 0900 Senna/Docusate Sodium 1 TAB BID PRN 10/05 1115 AC PO Ticagrelor 90 MG BID 10/03 2357 AC 10/07 PO 0859 Timolol Maleate 1 GTT BID 10/06 0929 AC 10/07 OPH 0902 Review of Systems Review of Systems: Gen: neg fever, chills, nightsweats, wt loss +wt gaihn Skin: neg rash, pruritus Eye: neg visual changes, diplopia ENT: neg hearing changes, rhinitus CV: neg CP, SOB, PND, orthopnea +EDEMA. ASCENCIO is better. Pulm: neg cough, sputum, hemoptysis GI: neg nausea, vomiting, diarrhea, abdominal pain, hematemesis, BRBPR : neg dysuria, frequency, urgency, hematuria, foamy urine, nocturia Musculoskeletal: neg myalgias, arthralgias Neuro: neg weakness, numbness Psych: neg depression, mental status changes Heme: neg bruising, easy bleeding, clots Past History Travel History Traveled to [place] past 21 day No Medical History Blood Transfusion Hx: No Neurological: NONE EENT: GLAUCOMA RIGHT EYE Cardiovascular: CAD, hypertension, hyperlipidemia, myocardial infarction, PALPITATIONS Respiratory: SLEEP APNEA Gastrointestinal: NONE Hepatic: LAP JEWEL 12/25 Renal: nephrolithiasis, YSABEL AFTET IVP DYE Musculoskeletal: falls, FRACTURE (RIBS) R SHOULDER ROTATOR CUFF ? Psychiatric: NONE Endocrine: diabetes Blood Disorders: NONE Cancer(s): NONE FAMILY LAW SPECIALIST/Reproductive: NONE Surgical History Surgical History: cholecystectomy, Glaucoma repair in 07/25 Family History Relations & Conditions If Any: aunt Coronary artery disease uncle Coronary artery disease Relation not specified for: FH: diabetes mellitus FH: hypertension Psychosocial History Where Do You Live? Home Who Do You Live With? spouse Services at Home: None Primary Language: Hebrew Smoking Status: Never Smoked ETOH Use: denies use Illicit Drug Use: denies illicit drug use Functional Ability ADLs Independent: dressing, eating, toileting, bathing. Ambulation: independent IADLs Independent: shopping, housework, finances, food prep, telephone, transportation , medication admin. Exam & Diagnostic Data Vital Signs and I&O Vital Signs Date Time Temp Pulse Resp B/P B/P Pulse O2 O2 Flow FiO2 Mean Ox Delivery Rate 10/07 0859 98.7 76 20 138/62 10/07 0859 98.7 76 20 138/62 10/07 0859 98.7 76 20 138/62 10/07 0644 98.7 76 20 138/62 98 CPAP 10/07 0014 84 96 10/07 0000 CPAP 10/06 2227 98.4 73 20 156/52 96 10/06 2205 78 18 156/50 10/06 1437 98.2 73 20 122/74 97 Room Air Intake & Output 10/07 1600 10/07 0400 10/06 1600 10/06 0400 10/05 1600 10/05 0400 Intake Total 120 120 533 969 1798 350 Output Total 1851 1850 1500 1700 1350 850 Balance -1731 -1730 -970 -1150 470 -500 Intake, IV 30 Intake, Oral 120 120 440 732 4084 350 Number 1 1 Bowel Movements Output, Stool 1 Output, Urine 1850 1850 1500 1700 1350 850 Patient 224 lb 223 lb Weight Weight Bed scale Measurement Method Physical Exam: General: NAD, A+O x3. HEENT: NC/AT. No icterus. Moist mucosa Neck: negative for YVES, JVD CV: RRR, no m/r/g Pulm: CTAB, no rales Abd: soft, NT/ND, negative renal bruits. obese Lower Ext:2+ pitting edema Upper Ext: no AVFs or AVGs Back: negative for CVA tenderness Neuro: neg tremor, asterixis Skin: no rash, jaundice : no oliveira catheter Results Pertinent Lab Results: Laboratory Tests 10/07 10/06 0615 0700 Chemistry Sodium (137 - 145 mmol/L) 135 L 137 Potassium (3.5 - 5.1 mmol/L) 4.1 4.6 Chloride (98 - 107 mmol/L) 98 100 Carbon Dioxide (22 - 30 mmol/L) 28 25 Anion Gap (5 - 16) 10 12 BUN (9 - 20 mg/dL) 39 H 39 H Creatinine (0.7 - 1.2 mg/dL) 2.0 H 1.9 H Estimated GFR (>60 ml/min) 35 L 38 L BUN/Creatinine Ratio (7 - 25 %) 19.5 20.5 Hematology CBC w Diff NO MAN DIFF REQ NO MAN DIFF REQ WBC (4.8 - 10.8 /CUMM) 6.1 6.5 RBC (4.70 - 6.10 /CUMM) 3.57 L 3.43 L Hgb (14.0 - 18.0 G/DL) 10.3 L 10.0 L Hct (42 - 52 %) 30.3 L 28.7 L MCV (80.0 - 94.0 FL) 84.8 83.6 MCH (27.0 - 31.0 PG) 28.9 29.2 MCHC (33.0 - 37.0 G/DL) 34.0 34.9 RDW (11.5 - 14.5 %) 14.8 H 14.3 Plt Count (130 - 400 /CUMM) 186 190 MPV (7.4 - 10.4 FL) 10.8 H 10.4 Gran % (42.2 - 75.2 %) 61.7 69.5 Lymphocytes % (20.5 - 51.1 %) 22.8 18.4 L Monocytes % (1.7 - 9.3 %) 10.7 H 7.5 Eosinophils % (0 - 5 %) 4.3 3.9 Basophils % (0.0 - 2.0 %) 0.5 0.7 Absolute Granulocytes (1.4 - 6.5 /CUMM) 3.8 4.5 Absolute Lymphocytes (1.2 - 3.4 /CUMM) 1.4 1.2 Absolute Monocytes (0.10 - 0.60 /CUMM) 0.7 H 0.5 Absolute Eosinophils (0.0 - 0.7 /CUMM) 0.3 0.3 Absolute Basophils (0.0 - 0.2 /CUMM) 0 0 07/28 0625 Chemistry Sodium (137 - 145 mmol/L) 139 Potassium (3.5 - 5.1 mmol/L) 4.6 Chloride (98 - 107 mmol/L) 103 Carbon Dioxide (22 - 30 mmol/L) 25 Anion Gap (5 - 16) 11 BUN (9 - 20 mg/dL) 39 H Creatinine (0.7 - 1.2 mg/dL) 1.8 H Estimated GFR (>60 ml/min) 40 L BUN/Creatinine Ratio (7 - 25 %) 21.7 Hematology CBC w Diff NO MAN DIFF REQ WBC (4.8 - 10.8 /CUMM) 7.2 RBC (4.70 - 6.10 /CUMM) 3.48 L Hgb (14.0 - 18.0 G/DL) 10.0 L Hct (42 - 52 %) 29.5 L MCV (80.0 - 94.0 FL) 84.8 MCH (27.0 - 31.0 PG) 28.7 MCHC (33.0 - 37.0 G/DL) 33.8 RDW (11.5 - 14.5 %) 14.2 Plt Count (130 - 400 /CUMM) 196 MPV (7.4 - 10.4 FL) 10.3 Gran % (42.2 - 75.2 %) 71.2 Lymphocytes % (20.5 - 51.1 %) 17.6 L Monocytes % (1.7 - 9.3 %) 7.1 Eosinophils % (0 - 5 %) 3.6 Basophils % (0.0 - 2.0 %) 0.5 Absolute Granulocytes (1.4 - 6.5 /CUMM) 5.1 Absolute Lymphocytes (1.2 - 3.4 /CUMM) 1.3 Absolute Monocytes (0.10 - 0.60 /CUMM) 0.5 Absolute Eosinophils (0.0 - 0.7 /CUMM) 0.3 Absolute Basophils (0.0 - 0.2 /CUMM) 0 Assessment/Plan Assessment/Recommendations Assessment: Chronic kidney disease stage IIIB: Clinically due to diabetic nephropathy given a long-standing history of diabetes coupled with proteinuric chronic kidney disease, neuropathy and diabetic retinopathy. Additionally he has had a negative serological workup for glomerular disease with a negative SPEP, NIXON and ANCA. He's had macroalbuminuria without nephrotic syndrome. In May his baseline EGFR was in the 50s however since a cardiac catheterization assessment GFR is been running in the high 30s to 40s, corresponding with a creatinine level to have been in the 1.4-1.6 range but more recently been in the 1.8-2.1 range which is suspect is due to progression of chronic kidney disease secondary to diabetic nephropathy as well as exacerbated by the IV contrast exposure in June. I would check a spot urine protein creatinine ratio to evaluate for worsening proteinuria; last years urine protein creatinine ratio was 1.8g. He is apparently on an ARB to help minimize proteinuria and delay CKD progression. Edema: It is impressive that he gained 20 pounds 1-2 weeks and this corresponded with the recent change from Neurontin to Lyrica. Lyrica is known to increase the risk of fluid retention. Additionally he has underlying other risk factors for fluid retention including proteinuric CKG as well as CHF with preserved ejection fraction. He reports compliance with a low salt diet, NSAID avoidance, taking his ARB intake and his Lasix. One lifestyle measures that may help is to follow fluid restriction and I advised him to limit his fluid intake to 1.5 L per day maximum but to try to strive to try to target 1 L per day of fluid intake. I do suspect he'll need a higher dose of Lasix on discharge such as 40 mg twice a day and senna once a day. I would also recommend discontinuing the Lyrica as this may contribute to his sudden recent development of edema and consider changing back to gabapentin. Recommendations: Favor DC of Lyrica and consider changing back to gabapentin; consider dosing the gabapentin only at night as he does have some fatigue from the gabapentin when he took the daytime Start 1.5 L per day fluid restriction Continue Lasix 40 g IV twice a day while the hospital and on discharge change to 40 monos by mouth twice a day Continue the ARB Importance of diabetic control with optimization of his hemoglobin A1c emphasized Thank you for the consultation. The patient was advised to follow-up with our office [facility] ANAIS Figueredo and Dr. Rory Cespedes discussed with the internal medicine team taking care of him
--- NOTE | 2017-10-07 12:42 | PN- Cardiology ---
Subjective Subjective: Shortness of breath improving. No chest pain. Lower extremity edema is somewhat better. No palpitations. He complains of recent lightheadedness. Objective Vital Signs and I&Os Vital Signs Date Time Temp Pulse Resp B/P B/P Pulse O2 O2 Flow FiO2 Mean Ox Delivery Rate 10/07 0859 98.7 76 20 138/62 10/07 0859 98.7 76 20 138/62 10/07 0859 98.7 76 20 138/62 10/07 0644 98.7 76 20 138/62 98 CPAP 10/07 0014 84 96 10/07 0000 CPAP 10/06 2227 98.4 73 20 156/52 96 10/06 2205 78 18 156/50 10/06 1437 98.2 73 20 122/74 97 Room Air Intake & Output 10/07 0810/07 0000 10/06 1600 10/06 0810/06 0000 Intake Total 120 120 530 550 Output Total 850 1001 1850 1500 1700 Balance -850 -881 -1730 -970 -1150 Intake, IV 30 Intake, Oral 120 120 500 550 Number 1 Bowel Movements Output, Stool 1 Output, Urine 850 1000 1850 1500 1700 Patient 224 lb Weight Weight Bed scale Measurement Method Physical Exam: Gen: The patient is in no acute distress HEENT: Normal nose, ears, and oropharynx. Pupils equal bilaterally. Conjunctiva normal. Neck: Supple with no JVD, no masses, and no thyromegaly Lungs: Bilateral rales with normal respiratory effort Heart: RRR, S1, S2, no murmurs. 2+ peripheral edema, 2+ pulses in the lower extremities bilaterally Abdomen: Soft, nontender, no masses. No hepatomegaly. No splenomegaly Extremities: No clubbing or cyanosis. Normal muscle strength in the upper and lower extremities Skin: Normal skin turgor with no skin ulcers or lesions noted. Neuro: Cranial nerves intact. Sensation intact Current Medications: Current Medications Sig/Yoav Start time Last Medication Dose Route Stop Time Status Admin Acetaminophen 650 MG Q8P PRN 10/03 1900 AC PO Albuterol Sulfate 2 PUF Q4-6 PRN PRN 10/03 2345 AC INH Amlodipine Besylate 10 MG DAILY 10/04 899 AC 10/07 PO 0859 Aspirin Buffered 81 MG DAILY 10/04 899 AC 10/07 PO 0859 Brimonidine Tartrate 1 GTT TID 10/06 929 AC 10/07 OPH 0902 Calcium Carbonate 500 MG DAILY 10/05 09 AC 10/07 PO 0859 Carvedilol 12.5 MG BID 10/03 2356 AC 10/07 PO 0859 Docusate Sodium 100 MG BID 10/03 2356 AC 10/07 PO 0859 Doxazosin Mesylate 1 MG DAILY 10/04 09 AC 10/07 PO 0859 Ezetimibe 10 MG DAILY 10/04 09 AC 10/07 PO 0858 Fluticasone 2 PUF BID 10/04 09 AC 10/07 Propionate INH 0903 Furosemide 40 MG DAILY 10/08 09 AC PO Furosemide 40 MG 0800,1700 10/06 1700 DC 10/07 IV 0901 Heparin Sodium 5,000 UNIT Q8 10/03 2200 AC 10/07 (Porcine) SC 0551 Insulin Aspart 0 TIDAC/HS 10/05 1630 AC 10/07 SC 0858 Insulin Detemir 18 UNITS BID 10/07 2100 AC SC Insulin Detemir 15 UNITS BID 10/06 2100 DC 10/07 SC 0858 Insulin Detemir 12 UNITS BID 10/05 2100 DC 10/06 SC 0844 Losartan Potassium 100 MG DAILY 10/04 09 AC 10/07 PO 0859 Meclizine HCl 12.5 MG TID PRN 10/07 1045 AC PO Omeprazole 40 MG DAILY AC 10/04 2199 AC 10/07 PO 0549 Omeprazole 40 MG DAILY 10/04 09 AC 10/04 PO 1008 Oxycodone/ 1 TAB BID PRN 10/03 2345 AC 10/04 Acetaminophen PO 0013 Pravastatin Sodium 10 MG Q48 10/07 09 AC 10/07 PO 0859 Pregabalin 100 MG TID 10/03 2357 AC 10/07 PO 0900 Senna/Docusate Sodium 1 TAB BID PRN 10/05 1115 AC PO Ticagrelor 90 MG BID 10/03 2356 AC 10/07 PO 0859 Timolol Maleate 1 GTT BID 10/06 09 AC 10/07 OPH 0902 Results Last 48 Hrs of Labs/Mics: Laboratory Tests 10/07/17 0615: Anion Gap 10, Estimated GFR 35 L, BUN/Creatinine Ratio 19.5, CBC w Diff NO MAN DIFF REQ, RBC 3.57 L, MCV 84.8, MCH 28.9, MCHC 34.0, RDW 14.8 H, MPV 10.8 H, Gran % 61.7, Lymphocytes % 22.8, Monocytes % 10.7 H, Eosinophils % 4.3, Basophils % 0.5, Absolute Granulocytes 3.8, Absolute Lymphocytes 1.4, Absolute Monocytes 0.7 H, Absolute Eosinophils 0.3, Absolute Basophils 0 10/06/17 0700: Anion Gap 12, Estimated GFR 38 L, BUN/Creatinine Ratio 20.5, CBC w Diff NO MAN DIFF REQ, RBC 3.43 L, MCV 83.6, MCH 29.2, MCHC 34.9, RDW 14.3, MPV 10.4, Gran % 69.5, Lymphocytes % 18.4 L, Monocytes % 7.5, Eosinophils % 3.9, Basophils % 0.7 , Absolute Granulocytes 4.5, Absolute Lymphocytes 1.2, Absolute Monocytes 0.5, Absolute Eosinophils 0.3, Absolute Basophils 0 Assessment/Plan Assessment/Plan Assessment: 1. CAD, status post recent stent 2. Hypertension 3. Chronic kidney disease 4. Diabetes mellitus Plan: * Continue Lasix 40 mg IV every 12 hours while in the hospital, and change to 40 mg p.o. twice a day on discharge * Continue other cardiac medications * Check basic metabolic profile daily while in the hospital Continue telemetry? Yes
--- NOTE | 2017-10-07 12:45 | CT SCAN REPORT ---
EXAMINATION: CT HEAD WITHOUT CONTRAST CLINICAL INFORMATION: Dizziness. COMPARISON: 01/23/2017 TECHNIQUE: Contiguous axial imaging was performed from the skull base to vertex without intravenous administration of contrast. DLP: 616 mGy-cm FINDINGS: There is no evidence of acute intracranial hemorrhage or territorial infarction. No abnormal mass effect or midline shift is seen. Prakash to white matter differentiation is well preserved. No extra-axial fluid collections are identified. The ventricles are normal in size. There is no abnormal attenuation within the brain parenchyma. The osseous structures and soft tissues are normal. The mastoid air cells, middle ear cavities, and visualized portions of the paranasal sinuses are well aerated. There are stable changes after a right ocular lens extraction with a glaucoma drainage device seen in the superolateral right orbit, unchanged. IMPRESSION: No acute intracranial pathology.
[2017-10-07 14:05] VITALS: BP 142/72
[2017-10-07 22:11] VITALS: BP 158/86
[2017-10-08 06:39] VITALS: BP 140/52
--- NOTE | 2017-10-08 07:32 | PN- Housestaff ---
AntoniosaschaMateo 10/08/17 0731: Subjective Follow-up For: Volume overload CKD vs CHF Tele-Events Since Last Visit: NSR Subjective: Patient seen and examined. Patient endorses occasional dizziness. Otherwise patient has no complaints. No events overnight per tele monitor and per nursing. Review of Systems Constitutional: Reports: see HPI. Objective Last 24 Hrs of Vital Signs/I&O Vital Signs Date Time Temp Pulse Resp B/P B/P Pulse O2 O2 Flow FiO2 Mean Ox Delivery Rate 10/08 830 97.8 67 18 140/52 10/08 0831 97.8 67 18 140/52 10/08 0830 97.8 67 18 140/52 10/08 0639 97.8 67 18 140/52 96 10/08 0100 74 95 10/08 0000 Room Air Intake & Output 10/08 1600 10/08 0800 10/08 0000 Intake Total 0 240 Output Total 0 2450 Balance 0 -2210 Intake, Oral 0 240 Number 0 Bowel Movements Output, Urine 0 2450 Patient 226 lb Weight Physical Exam General Appearance: Alert, Oriented X3, Cooperative, No Acute Distress Skin Temp/Moisture Exam: Warm/Dry Sepsis Skin Exam (color): Normal for Ethnicity, Cyanotic HEENT: Atraumatic Neck: Supple Cardiovascular: Normal S1, Normal S2 Lungs: Clear to Auscultation Abdomen: Soft, No Tenderness Neurological: Normal Speech Extremities: No Clubbing, No Cyanosis Last 24 Hrs of Lab/Don Results Last 24 Hrs of Labs/Mics: Laboratory Tests 10/08/17 0620: Anion Gap 11, Estimated GFR 32 L, BUN/Creatinine Ratio 18.2 Assessment/Plan Assessment: 52 yo M with PMH significant for CAD, HTN, HLD, DM on VGA, ND, CKD Stage III, admitted to telemetry with the fluid overload, weight gain, hyperglycemia, acute on chronic kidney injury, & intermittent chest pain. Problem List: 1. CHF Exacerbation 2. Volume Overload 3. EVAN on CKD 4. New onset dizziness 5. Chronic Conditions (HTN, HLD, DM with peripheral neuropathy, Hyperglycemia) Plan: - Consider changing Lasix to 40 mg BID PO as per nephro and cardio - DC Lyrica, Start Gabapentin - Meclazine prn - Fluid Restriction (1.5 L per day) - Continue ARB as per nephro - Continue Levemir per endo - Continue home meds Problem List: 1. CHF (congestive heart failure) Pain Ratin Pain Location: None Pain Goal: Remain pain free Pain Plan: Pain Pathway Tomorrow's Labs & Rationales: RUTHIE, CHIP Dahl MD,Monchoastridmagno 10/08/17 1034: Attending MD Review Statement Attending Statement Attending MD Statement: examined this patient, discuss w/resident/PA/THIRD GRADE TEACHER, agreed w/resident/PA/THIRD GRADE TEACHER, reviewed EMR data (avail), discussed with nursing, discussed with case mgmt, amended to note Attending Assessment/Plan: Patient seen and examined. System comfortably eating breakfast. When questioned about dizziness denied any other point in time however stated that the dizziness usually occurs during the course of the day. He is afebrile. He is hemodynamically stable. Denies any shortness of breath at rest. Denies any chest pain.He is not requiring any oxygen supplementation. Recommendations: -Patient is medically stable to be discharged today. -Lasix dose has been increased to 40 mg twice daily. -His Lyrica which is presumed to be contributing to his fluid retention has been discontinued. Has been restarted on gabapentin. He reports that this usually makes him drowsy so the medication is being administered at nighttime only. -He has also been started on meclizine to use as needed for his dizziness. -Currently increased mildly from 2.0 yesterday 2.2. This was discussed with the nephrology service. Apparently as an outpatient his creatinine was 2.3 in the nephrology office. Recommendations are to continue his current regimen including his ARB therapy and follow-up with the nephrology service as an outpatient.
[2017-10-08 08:31] VITALS: BP 140/52
[2017-10-08] MEDS ORDERED: GABAPENTIN300 M2 PO ×4 (10:30→14:09)
[2017-10-08] MEDS ORDERED: MECLIZINE HCL12.5 M1 PO ×4 (10:30→14:09)
--- NOTE | 2017-10-08 11:14 | PN- Diabetes ---
Assessment/Plan Diabetes Assessment: 52-year-old male with a past medical history of diabetes mellitus type 2, chronic renal insufficiency on VGO-40, hypertension, coronary artery disease status post stent in June 2017, hyperlipidemia, myocardial infarction, who was admitted for CHF exacerbation. He was on Levemir 18 units twice a day, Novolog coverage before meals ( FSGs 80- 150, 8 units; etc) and Novolog coverage at bedtime. His FSGs were 329, 282, 241, 220 and 254. Plan: 1. diet control; 2. increase Levemir to 22 units twice a day; 3. continue Novolog coverage before meals and Novolog coverage at bedtime-- detail see the inpatient DM orders; 4. monitor FSGs. will follow. Inpatient Diabetes Orders Before Each Meal: Bolus Insulin: Novolog < 80 mg/dl: no coverage 80-100 mg/dl: 8 units 101-120 mg/dl: 8 units 121-150 mg/dl: 8 units 151-200 mg/dl: 10 units 201-250 mg/dl: 12 units 251-300 mg/dl: 14 units 301-350 mg/dl: 16 units 351-400 mg/dl: 18 units > 400 mg/dl: 20 units Bedtime: Bolus Insulin: Novolog < 80 mg/dl: no coverage 80-100 mg/dl: no coverage 101-120 mg/dl: no coverage 121-150 mg/dl: no coverage 151-200 mg/dl: no coverage 201-250 mg/dl: 2 units 251-300 mg/dl: 3 units 301-350 mg/dl: 5 uits 351-400 mg/dl: 7 units > 400 mg/dl: 8 units Plan: as above Subjective Subjective: he has no special complaints this morning. His glucose levels were not controlled yet. Objective Last 24 Hrs of Vital Signs/I&O Vital Signs Date Time Temp Pulse Resp B/P B/P Pulse O2 O2 Flow FiO2 Mean Ox Delivery Rate 10/08 830 97.8 67 18 140/52 10/09 0731 97.8 67 18 140/52 10/08 0830 97.8 67 18 140/52 10/08 0639 97.8 67 18 140/52 96 10/08 0100 74 95 10/08 0000 Room Air 10/07 2210 86 158/86 10/07 2210 98.6 73 16 158/86 95 10/07 1405 97.9 72 18 142/72 98 Room Air Intake & Output 10/08 1600 10/08 0800 10/08 0000 Intake Total 0 240 Output Total 0 2450 Balance 0 -2210 Intake, Oral 0 240 Number 0 Bowel Movements Output, Urine 0 2450 Patient 226 lb Weight Findings Pertinent Lab/Don Results: Laboratory Tests 10/08 0620 Chemistry Sodium (137 - 145 mmol/L) 138 Potassium (3.5 - 5.1 mmol/L) 4.2 Chloride (98 - 107 mmol/L) 100 Carbon Dioxide (22 - 30 mmol/L) 27 Anion Gap (5 - 16) 11 BUN (9 - 20 mg/dL) 40 H Creatinine (0.7 - 1.2 mg/dL) 2.2 H Estimated GFR (>60 ml/min) 32 L BUN/Creatinine Ratio (7 - 25 %) 18.2
--- NOTE | 2017-10-08 11:19 | PN- Nephrology ---
Assessment/Plan Nephrology Assessment: yessenia kidney disease stage IIIB: Clinically due to diabetic nephropathy given a long-standing history of diabetes coupled with proteinuric chronic kidney disease, neuropathy and diabetic retinopathy. In May his baseline EGFR was in the 50s however since a cardiac catheterization assessment GFR is been running in the high 30s to 40s, corresponding with a creatinine level to have been in the 1.4-1.6 range but more recently been in the 1.8-2.2 range which is suspect is due to progression of chronic kidney disease secondary to diabetic nephropathy as well as exacerbated by the IV contrast exposure in June. He is appropriately on an ARB to help minimize proteinuria and delay CKD progression. Edema: improving; change to po lasix 40 mg po bid. Keep off lyrica as detailed yesterday. advised low salt diet, limiting fluid intake Suggestion: keep off lyrica Start 1.5 L per day fluid restriction agree with change to lasix 40 mg po bid Continue the ARB advised to f/up with us at our office within 4 weeks; our office to contact him to schedule the appt. Subjective Subjective: there were no acute events overnight He denies shortness of breath Edema improving Creatinine 2.2 today He was changed to by mouth Lasix He put out 4.4 L of urine output Review of Systems: No chest pain or shortness of breath No difficulty urinating Objective Vital Signs and I&Os Vital Signs Date Time Temp Pulse Resp B/P B/P Pulse O2 O2 Flow FiO2 Mean Ox Delivery Rate 10/08 830 97.8 67 18 140/52 10/08 0831 97.8 67 18 140/52 10/08 0830 97.8 67 18 140/52 10/08 0639 97.8 67 18 140/52 96 10/08 0100 74 95 10/08 0000 Room Air 10/07 221 86 158/86 10/07 221 98.6 73 16 158/86 95 10/07 1405 97.9 72 18 142/72 98 Room Air Intake & Output 10/08 1600 10/08 0400 10/07 0400 10/06 0400 Intake Total 0 240 940 120 530 550 Output Total 0 2450 1851 1850 1500 1700 Balance 0 -2210 -911 -1730 -970 -1150 Intake, IV 30 Intake, Oral 0 240 940 120 500 550 Number 0 1 Bowel Movements Output, Stool 1 Output, Urine 0 2450 1850 1850 1500 1700 Patient 226 lb 224 lb Weight Weight Bed scale Measurement Method Physical Exam: General: NAD, A+O x3. HEENT: NC/AT. No icterus. Moist mucosa Neck: negative for YVES, JVD CV: RRR, no m/r/g Pulm: CTAB, no rales Abd: soft, NT Lower Ext: 1+ pitting edema Upper Ext: no AVFs or AVGs Skin: no rash, jaundice : no oliveira catheter Current Medications: Current Medications Sig/Yoav Start time Last Medication Dose Route Stop Time Status Admin Acetaminophen 650 MG Q8P PRN 10/03 1900 AC PO Albuterol Sulfate 2 PUF Q4-6 PRN PRN 10/03 2345 AC INH Amlodipine Besylate 10 MG DAILY 10/04 0900 AC 10/08 PO 0830 Aspirin Buffered 81 MG DAILY 10/04 09 AC 10/08 PO 0831 Brimonidine Tartrate 1 GTT TID 10/06 929 AC 10/08 OPH 0837 Calcium Carbonate 500 MG DAILY 10/05 0900 AC 10/08 PO 0831 Carvedilol 12.5 MG BID 10/03 2356 AC 10/08 PO 0831 Docusate Sodium 100 MG BID 10/03 2356 AC 10/08 PO 0831 Doxazosin Mesylate 1 MG DAILY 10/04 0900 AC 10/08 PO 0831 Ezetimibe 10 MG DAILY 10/04 0900 AC 10/08 PO 0830 Fluticasone 2 PUF BID 10/04 09 AC 10/08 Propionate INH 0838 Furosemide 40 MG DAILY 10/08 0900 DC PO Furosemide 40 MG 7:30 AM, & 4:30 PM 10/08 0730 AC 10/08 PO 0829 Gabapentin 300 MG QPM 10/07 2100 AC 10/07 PO 2212 Heparin Sodium 5,000 UNIT Q8 10/03 2200 AC 10/08 (Porcine) SC 0600 Insulin Aspart 0 TIDAC/HS 10/05 1630 AC 10/08 SC 0832 Insulin Detemir 22 UNITS BID 10/08 0900 AC 10/08 SC 0836 Insulin Detemir 18 UNITS BID 10/07 2100 DC 10/07 SC 2213 Losartan Potassium 100 MG DAILY 10/04 0902 AC 10/08 PO 0831 Meclizine HCl 12.5 MG TID PRN 10/07 1045 AC 10/08 PO 1111 Non-Formulary 1 UNIT DAILY 10/07 1529 UNVr 10/08 Medication ANY 0838 Omeprazole 40 MG DAILY AC 10/04 2200 DC 10/07 PO 0549 Omeprazole 40 MG DAILY 10/04 0900 AC 10/08 PO 0830 Oxycodone/ 1 TAB BID PRN 10/03 2345 AC 10/04 Acetaminophen PO 0013 Pravastatin Sodium 10 MG Q48 10/07 09 AC 10/07 PO 0859 Pregabalin 100 MG TID 10/03 2357 DC 10/07 PO 0900 Senna/Docusate Sodium 1 TAB BID PRN 10/05 1115 AC PO Ticagrelor 90 MG BID 10/03 2357 AC 10/08 PO 0833 Timolol Maleate 1 GTT BID 10/06 0929 AC 10/08 OPH 0837 Results Pertinent Lab Results: Laboratory Tests 10/08 10/07 0620 0615 Chemistry Sodium (137 - 145 mmol/L) 138 135 L Potassium (3.5 - 5.1 mmol/L) 4.2 4.1 Chloride (98 - 107 mmol/L) 100 98 Carbon Dioxide (22 - 30 mmol/L) 27 28 Anion Gap (5 - 16) 11 10 BUN (9 - 20 mg/dL) 40 H 39 H Creatinine (0.7 - 1.2 mg/dL) 2.2 H 2.0 H Estimated GFR (>60 ml/min) 32 L 35 L BUN/Creatinine Ratio (7 - 25 %) 18.2 19.5 Hematology CBC w Diff NO MAN DIFF REQ WBC (4.8 - 10.8 /CUMM) 6.1 RBC (4.70 - 6.10 /CUMM) 3.57 L Hgb (14.0 - 18.0 G/DL) 10.3 L Hct (42 - 52 %) 30.3 L MCV (80.0 - 94.0 FL) 84.8 MCH (27.0 - 31.0 PG) 28.9 MCHC (33.0 - 37.0 G/DL) 34.0 RDW (11.5 - 14.5 %) 14.8 H Plt Count (130 - 400 /CUMM) 186 MPV (7.4 - 10.4 FL) 10.8 H Gran % (42.2 - 75.2 %) 61.7 Lymphocytes % (20.5 - 51.1 %) 22.8 Monocytes % (1.7 - 9.3 %) 10.7 H Eosinophils % (0 - 5 %) 4.3 Basophils % (0.0 - 2.0 %) 0.5 Absolute Granulocytes (1.4 - 6.5 /CUMM) 3.8 Absolute Lymphocytes (1.2 - 3.4 /CUMM) 1.4 Absolute Monocytes (0.10 - 0.60 /CUMM) 0.7 H Absolute Eosinophils (0.0 - 0.7 /CUMM) 0.3 Absolute Basophils (0.0 - 0.2 /CUMM) 0 07/29 0700 Chemistry Sodium (137 - 145 mmol/L) 137 Potassium (3.5 - 5.1 mmol/L) 4.6 Chloride (98 - 107 mmol/L) 100 Carbon Dioxide (22 - 30 mmol/L) 25 Anion Gap (5 - 16) 12 BUN (9 - 20 mg/dL) 39 H Creatinine (0.7 - 1.2 mg/dL) 1.9 H Estimated GFR (>60 ml/min) 38 L BUN/Creatinine Ratio (7 - 25 %) 20.5 Hematology CBC w Diff NO MAN DIFF REQ WBC (4.8 - 10.8 /CUMM) 6.5 RBC (4.70 - 6.10 /CUMM) 3.43 L Hgb (14.0 - 18.0 G/DL) 10.0 L Hct (42 - 52 %) 28.7 L MCV (80.0 - 94.0 FL) 83.6 MCH (27.0 - 31.0 PG) 29.2 MCHC (33.0 - 37.0 G/DL) 34.9 RDW (11.5 - 14.5 %) 14.3 Plt Count (130 - 400 /CUMM) 190 MPV (7.4 - 10.4 FL) 10.4 Gran % (42.2 - 75.2 %) 69.5 Lymphocytes % (20.5 - 51.1 %) 18.4 L Monocytes % (1.7 - 9.3 %) 7.5 Eosinophils % (0 - 5 %) 3.9 Basophils % (0.0 - 2.0 %) 0.7 Absolute Granulocytes (1.4 - 6.5 /CUMM) 4.5 Absolute Lymphocytes (1.2 - 3.4 /CUMM) 1.2 Absolute Monocytes (0.10 - 0.60 /CUMM) 0.5 Absolute Eosinophils (0.0 - 0.7 /CUMM) 0.3 Absolute Basophils (0.0 - 0.2 /CUMM) 0
--- NOTE | 2017-10-08 11:44 | PN- Cardiology ---
Subjective Subjective: Feeling better. Shortness of breath is improving. Edema is improving. No palpitations. No chest pain. Objective Vital Signs and I&Os Vital Signs Date Time Temp Pulse Resp B/P B/P Pulse O2 O2 Flow FiO2 Mean Ox Delivery Rate 10/08 830 97.8 67 18 140/52 10/08 0831 97.8 67 18 140/52 10/08 0830 97.8 67 18 140/52 10/08 0639 97.8 67 18 140/52 96 10/08 0100 74 95 10/08 0000 Room Air 10/07 2211 86 158/86 10/07 2211 98.6 73 16 158/86 95 10/07 1405 97.9 72 18 142/72 98 Room Air Intake & Output 10/08 1600 10/08 0810/08 0000 10/07 1600 10/07 0810/07 0000 Intake Total 0 240 820 120 120 Output Total 0 2450 850 1001 1850 Balance 0 -2210 -30 -881 -1730 Intake, Oral 0 240 820 120 120 Number 0 1 Bowel Movements Output, Stool 1 Output, Urine 0 2450 850 1000 1850 Patient 226 lb 224 lb Weight Weight Bed scale Measurement Method Physical Exam: Gen: The patient is in no acute distress HEENT: Normal nose, ears, and oropharynx. Pupils equal bilaterally. Conjunctiva normal. Neck: Supple with no JVD, no masses, and no thyromegaly Lungs: Bilateral rales with normal respiratory effort Heart: RRR, S1, S2, no murmurs. 2+ peripheral edema, 2+ pulses in the lower extremities bilaterally Abdomen: Soft, nontender, no masses. No hepatomegaly. No splenomegaly Extremities: No clubbing or cyanosis. Normal muscle strength in the upper and lower extremities Skin: Normal skin turgor with no skin ulcers or lesions noted. Neuro: Cranial nerves intact. Sensation intact Current Medications: Current Medications Sig/Yoav Start time Last Medication Dose Route Stop Time Status Admin Acetaminophen 650 MG Q8P PRN 10/03 1900 AC PO Albuterol Sulfate 2 PUF Q4-6 PRN PRN 10/03 2345 AC INH Amlodipine Besylate 10 MG DAILY 10/04 09 AC 10/08 PO 0830 Aspirin Buffered 81 MG DAILY 10/04 09 AC 10/08 PO 0831 Brimonidine Tartrate 1 GTT TID 10/06 929 AC 10/08 OPH 0837 Calcium Carbonate 500 MG DAILY 10/05 0900 AC 10/08 PO 0831 Carvedilol 12.5 MG BID 10/03 2356 AC 10/08 PO 0831 Docusate Sodium 100 MG BID 10/03 2356 AC 10/08 PO 0831 Doxazosin Mesylate 1 MG DAILY 10/04 0900 AC 10/08 PO 0831 Ezetimibe 10 MG DAILY 10/04 09 AC 10/08 PO 0830 Fluticasone 2 PUF BID 10/04 0900 AC 10/08 Propionate INH 0838 Furosemide 40 MG DAILY 10/08 09 DC PO Furosemide 40 MG 7:30 AM, & 4:30 PM 10/08 07 AC 10/08 PO 0829 Gabapentin 300 MG QPM 10/07 2100 AC 10/07 PO 2212 Heparin Sodium 5,000 UNIT Q8 10/03 2200 AC 10/08 (Porcine) SC 0600 Insulin Aspart 0 TIDAC/HS 10/05 1630 AC 10/08 SC 1116 Insulin Detemir 22 UNITS BID 10/08 0900 AC 10/08 SC 0836 Insulin Detemir 18 UNITS BID 10/07 2100 DC 10/07 SC 2213 Losartan Potassium 100 MG DAILY 10/04 0902 AC 10/08 PO 0831 Meclizine HCl 12.5 MG TID PRN 10/07 1045 AC 10/08 PO 1111 Non-Formulary 1 UNIT DAILY 10/07 1529 UNVr 10/08 Medication ANY 0838 Omeprazole 40 MG DAILY AC 10/04 2200 DC 10/07 PO 0549 Omeprazole 40 MG DAILY 10/04 09 AC 10/08 PO 0830 Oxycodone/ 1 TAB BID PRN 10/03 2345 AC 10/04 Acetaminophen PO 0013 Pravastatin Sodium 10 MG Q48 10/07 09 AC 10/07 PO 0859 Pregabalin 100 MG TID 10/03 2357 DC 10/07 PO 0900 Senna/Docusate Sodium 1 TAB BID PRN 10/05 1115 AC PO Ticagrelor 90 MG BID 10/03 2357 AC 10/08 PO 0833 Timolol Maleate 1 GTT BID 10/06 0929 AC 10/08 OPH 0837 Results Last 48 Hrs of Labs/Mics: Laboratory Tests 10/08/17 0620: Anion Gap 11, Estimated GFR 32 L, BUN/Creatinine Ratio 18.2 10/07/17 0615: Anion Gap 10, Estimated GFR 35 L, BUN/Creatinine Ratio 19.5, CBC w Diff NO MAN DIFF REQ, RBC 3.57 L, MCV 84.8, MCH 28.9, MCHC 34.0, RDW 14.8 H, MPV 10.8 H, Gran % 61.7, Lymphocytes % 22.8, Monocytes % 10.7 H, Eosinophils % 4.3, Basophils % 0.5, Absolute Granulocytes 3.8, Absolute Lymphocytes 1.4, Absolute Monocytes 0.7 H, Absolute Eosinophils 0.3, Absolute Basophils 0 Assessment/Plan Assessment/Plan Assessment: 1. CAD, status post recent stent 2. Hypertension 3. Chronic kidney disease 4. Diabetes mellitus 5. Acute on chronic HFpEF, improved Plan: * I agree with change in Lasix dose to 40 mg p.o. twice daily * Okay for discharge from cardiac standpoint. * Follow-up with me in the office in 1 week. Continue telemetry? Yes
--- NOTE | 2017-10-08 16:19 | Discharge Summary ---
Hospital Course Allergies: Uncoded Allergies: CAT SCAN DYE (UNKNOWN 10/03/17) Discharge Instructions Medications at Discharge Discharge Medications: Stop taking the following medications: Pregabalin (Lyrica) 100 MG CAPSULE ORAL THREE TIMES DAILY Qty = 90 Continue taking these medications: Aspirin (Ecotrin*) 81 MG TABLET. 1 Tablet ORAL DAILY Comments: Last Taken: 10/08/17 Time: 08:30 AM Amlodipine Besylate (Norvasc) 10 MG TABLET 1 Tablet ORAL DAILY Comments: Last Taken: 10/08/17 Time: 08:30 AM Carvedilol (Carvedilol) 12.5 MG TABLET 1 Tablet ORAL TWICE DAILY Comments: Last Taken: 10/08/17 Time: 08:30 AM Losartan Potassium (Losartan Potassium) 100 MG TABLET 1 Tablet ORAL DAILY Qty = 90 Comments: Last Taken: 10/08/17 Time: 08:30 AM Timolol (Betimol) 0.5 % DROPS 1 Drop In the eye TWICE DAILY Comments: Last Taken: 10/08/17 Time: 08:30 AM Doxazosin Mesylate (Doxazosin Mesylate) 4 MG TABLET 1 Tablet ORAL DAILY Comments: Last Taken: 10/08/17 Time: 08:30 AM Furosemide (Lasix) 40 MG TABLET 1 Tablet ORAL TWICE DAILY Qty = 60 Comments: Last Taken: 10/08/17 Time: 08:30 AM Ezetimibe (Zetia) 10 MG TABLET 1 Tablet ORAL DAILY Qty = 30 Comments: Last Taken: 10/08/17 Time: 08:30 AM Albuterol Sulfate (Proair Hfa) 90 MCG HFA.AER.AD 2 Puff Inhale through mouth EVERY 4-6 HOURS NEEDED as needed for wheezing Qty = 1 Comments: NOT GIVEN IN HOSPITAL [facility] & FLOVENT GIVEN Omeprazole (Omeprazole) 20 MG CAPSULE. 40 Milligram ORAL DAILY Qty = 30 Comments: Last Taken: 10/08/17 Time: 08:30 AM Pravastatin Sodium (Pravastatin Sodium) 10 MG TABLET 1 Tablet ORAL DAILY Qty = 90 Comments: Last Taken: 10/07/17 Time: 08:59 AM Sub-Q Insulin Device, 40 Unit (Vgo 40) 1 EACH EACH 40 Units SC DAILY Fluticasone Propionate (Flovent Hfa) 110 MCG/ACTUATION AER.W.ADAP 2 Puff Inhale through mouth TWICE DAILY Comments: Last Taken: 10/08/17 Time: 08:30 AM Oxycodone HCl/Acetaminophen (Percocet 5-325 MG Tablet) 5 MG-325 MG TABLET 1 Tablet ORAL TWICE DAILY as needed for PAIN Comments: Last Taken: 10/04/17 Time: 00:13 AM Docusate Sodium (Colace) 100 MG CAPSULE 1 Capsule ORAL TWICE DAILY Comments: Last Taken: 10/08/17 Time: 08:30 AM Ticagrelor (Brilinta) 90 MG TABLET 1 Tablet ORAL TWICE DAILY Qty = 180 Comments: Last Taken: 10/08/17 Time: 08:30 AM Brinzolamide (Azopt) 1 % DROPS.SUSP 1 Drop In the eye TWICE DAILY Comments: Last Taken: 10/08/17 Time: 08:30 AM Nepafenac (Ilevro) 0.3 % DROPS.SUSP 1 Drop INTRAOCULR DAILY Comments: Last Taken: 10/08/17 Time: 08:30 AM Start taking the following new medications: Meclizine HCl (Meclizine HCl) 12.5 MG TABLET 12.5 Milligram ORAL THREE TIMES DAILY as needed for DIZZINESS Qty = 14 No Refills Instructions: ... Comments: Last Taken: 10/08/17 Time: 11:11 AM Gabapentin (Gabapentin) 300 MG CAPSULE 300 Milligram ORAL Every night Qty = 30 No Refills Instructions: ... Comments: Last Taken: 10/07/17 Time: 22:12 PM
== END 2017-10-08 14:00 | DRG 194 ==
LOC: ERH 10:09 → ERHI 16:40 → 1NO 16:40 → ENRESERV 10-04 09:44 → ENTRNSPT 10-04 10:59 → EDTRNSPTSTS 10-04 11:00 → EDTRNSPT 10-04 11:00 → 1NO 10-04 11:10 → CMPTRNSPT 10-04 11:23 → 1NO 10-07 07:26 → ENPENDDIS 10-08 10:36 → 1NO 10-08 14:00
PROVIDERS: Physician Assistant; Student in an Organized Health Care Education/Training Program
DX: I13.0 Hypertensive heart and chronic kidney disease with heart failure and stage 1 through stage 4 chronic kidney disease, or unspecified chronic kidney disease (principal); I50.33 Acute on chronic diastolic (congestive) heart failure; Z96.41 Presence of insulin pump (external) (internal); N17.9 Acute kidney failure, unspecified; I25.10 Atherosclerotic heart disease of native coronary artery without angina pectoris; E87.5 Hyperkalemia; E11.65 Type 2 diabetes mellitus with hyperglycemia; N18.3 Chronic kidney disease, stage 3 (moderate); G62.9 Polyneuropathy, unspecified; E11.21 Type 2 diabetes mellitus with diabetic nephropathy; E11.319 Type 2 diabetes mellitus with unspecified diabetic retinopathy without macular edema; R60.9 Edema, unspecified; T42.6X5A Adverse effect of other antiepileptic and sedative-hypnotic drugs, initial encounter; Z98.61 Coronary angioplasty status; I25.2 Old myocardial infarction; Z90.49 Acquired absence of other specified parts of digestive tract; Z79.82 Long term (current) use of aspirin; Z79.4 Long term (current) use of insulin; Z79.51 Long term (current) use of inhaled steroids; H40.9 Unspecified glaucoma; I16.0 Hypertensive urgency
CPT/HCPCS: 1NP; ERO; 36592; 71045; 74176; 82436; 93005; 93010; 93306; 96372; 99291; J1644; J1940; J3490